=== PATIENT | female | born 1965 | race African-American/Black ===

== ENCOUNTER → 2017-04-19 | Outpatient (CLI) | payer OTHER ==
--- NOTE | 2017-04-19 10:48 | KCIC ---
Examination: Ultrasound abdomen complete HISTORY: History of elevated liver function tests COMPARISON: None available FINDINGS: The visualized pancreas grossly appears unremarkable. The visualized aorta, IVC appear patent. There is increased echogenicity echogenicity identified in the liver likely hepatic steatosis. The liver measures 16.2 cm No evidence of gallstones identified. The gallbladder wall thickness measures 1.3 mm Right kidney measures 10.6x 4.1 x 5.6 cm Left kidney measures 11.2 x 4.0 x 5.4 cm The spleen measures 9.4 cm in length. IMPRESSION: 1. Increased echogenicity noted throughout the liver likely hepatic steatosis. Electronically signed by: Julio Moore MD (04/19/2017 10:44 AM)
== END | disposition home or self-care (01) ==
LOC: KCIC US 08:52
PROVIDERS: ATTEND Internal Medicine Gastroenterology
DX: R79.89 Other specified abnormal findings of blood chemistry (principal)
CPT/HCPCS: 76700

== ENCOUNTER 2019-03-23 17:53 | Inpatient (IN) | payer OTHER ==
[~2019-03-23] VITALS: Ht 142.2 cm; Wt 77.2 kg
[2019-03-23] MEDS ORDERED: POTA10TA12 PO (18:11)
[2019-03-23] MEDS ORDERED: LIRA0.6P2 SQ (18:11)
[2019-03-23] MEDS ORDERED: AMLO5TAB10 PO (18:11)
[2019-03-23] MEDS ORDERED: METF10007 PO (18:11)
[2019-03-23] MEDS ORDERED: IBUPROFEN 200 MG TABLET. PO ONE (18:30)
[2019-03-23] MEDS ORDERED: IV NORMAL SALINE 1000ML BAG 1,000 ML IV ONE ×2 (18:30→19:15)
[2019-03-23] MEDS ORDERED: IPRATRPIUM/ALBUTEROL 0.5/2.5MG 3 ML NEBU. NEB ONE (18:30)
[2019-03-23] MEDS ORDERED: DEXAMETHASONE SOD PHOS 4 MG/ML VIAL IV ONE (18:30)
[2019-03-23 18:34] LABS: BASO # 0.1 x10^3/uL (0.0-0.2); BASO % 1 % (0-3); EOS % 0 % (0-3); HEMATOCRIT 38.7 % (36.0-47.0); HEMOGLOBIN 12.9 g/dL (12.0-15.5); LYMPH # 2.5 x10^3/uL (1.0-4.8); LYMPH % 16 % (24-48); MEAN CORPUSCULAR HEMOGLOBIN 28 pg (25-35); MEAN CORPUSCULAR HGB CONC 33 g/dL (31-37); MEAN CORPUSCULAR VOLUME 84 fL (79-100); MONO # 1.5 x10^3/uL (0.0-1.1); MONO % 9 % (0-9); NEUT # 12.1 x10^3uL (1.8-7.7); NEUT % 75 % (31-73); PLATELET COUNT 325 x10^3/uL (140-400); RED CELL DISTRIBUTION WIDTH 14.3 % (11.5-14.5); WHITE BLOOD COUNT 16.2 x10^3/uL (4.0-11.0)
--- NOTE | 2019-03-23 18:36 | PHYS DOC ---
Past Medical History Past Medical History: Diabetes-Type II, Hypertension Past Surgical History: Other Additional Past Surgical Histo: BLE fracture repair Additional Information: Nonsmoker Alcohol Use: None Drug Use: None Adult General Chief Complaint Chief Complaint: SHORTNESS OF BREATH HPI HPI Patient is a 53 year old female who presents with 4 days of progressive shortn ess of breath and productive cough. 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 Within the past couple of days, she has began having a sever frontoparietal headache that is worsened by coughing. She has felt feverish with chills at night however the highest her temperature has been at home was 98.8 with an oral thermometer. She has aches in her upper extremities and posterior neck b/l. Lately she has also felt more dehydrated and experiences dizziness upon standing. Patient denies focal weakness, paresthesias, chest pain or palpitations at this time. Review of Systems Review of Systems Constitutional: Reports fever or chills [] Eyes: Denies change in visual acuity, redness, or eye pain [] HENT: Denies nasal congestion or sore throat [] Respiratory: Reports cough, dyspnea and shortness of breath. Denies hemoptysis [] Cardiovascular: Denies chest pain or palpitations [] GI: Denies abdominal pain, nausea, vomiting, or diarrhea [] : Denies dysuria or hematuria [] Musculoskeletal: Reports muscles aches in UE b/l and posterior neck [] Integument: Denies rash or skin lesions [] Neurologic: Reports headache. Denies focal weakness or sensory changes [] Complete review of systems found to be within normal limits, except as documented in this note. Current Medications Current Medications Current Medications Medications (Trade) Dose Ordered Sig/Kayleigh Start Time Stop Time Status Last Admin Dose Admin Acetaminophen (Tylenol) 650 mg PRN Q4HRS PRN 03/23/19 19:30 03/24/19 19:29 DC Albuterol Sulfate (Ventolin Neb Soln) 2.5 mg PRN Q4HRS PRN 03/23/19 19:30 Albuterol/ Ipratropium (Duoneb) 3 ml 1X ONCE 03/23/19 18:30 03/23/19 18:31 DC 03/23/19 19:22 3 ML Dexamethasone Sodium Phosphate (Decadron) 10 mg 1X ONCE 03/23/19 18:30 03/23/19 18:31 DC 03/23/19 18:51 10 MG Ibuprofen (Motrin) 600 mg 1X ONCE 03/23/19 18:30 03/23/19 18:31 DC 03/23/19 18:50 600 MG Insulin Human Regular (HumuLIN R VIAL) 12 unit 1X ONCE 03/23/19 19:00 03/23/19 19:01 DC 03/23/19 19:57 12 UNIT Levofloxacin/ Dextrose 150 ml @ 100 mls/hr 1X ONCE 03/23/19 19:15 03/23/19 20:44 DC 03/23/19 20:02 100 MLS/HR Ondansetron HCl (Zofran) 4 mg PRN Q8HRS PRN 03/23/19 19:30 03/24/19 19:29 DC Piperacillin Sod/ Tazobactam Sod 4.5 gm/Sodium Chloride 100 ml @ 200 mls/hr 1X ONCE 03/23/19 18:45 03/23/19 19:14 DC 03/23/19 18:50 200 MLS/HR Sodium Chloride 500 ml @ 500 mls/hr 1X ONCE 03/23/19 19:15 03/23/19 20:14 DC 03/23/19 21:01 500 MLS/HR Allergies Allergies Allergies Coded Allergies Type Severity Reaction Last Updated Verified lisinopril Allergy Severe angioedema 03/23/19 Yes oxycodone Allergy Intermediate itching 03/23/19 Yes Physical Exam Physical Exam Constitutional: Ill appearing female wrapped in multiple blankets but in no acute distress [] HENT: Normocephalic, atraumatic, oropharynx dry with tongue fissures. [] Eyes: EOMI, conjunctiva normal, no discharge. [] Neck: Normal range of motion, no tenderness, supple, no stridor. [] Cardiovascular:Heart rate regular rhythm, no murmur [] Lungs & Thorax: Focal left lower lobe crackles. Good air movement elsewhere. [] Abdomen: Soft and nontender[] Skin: Warm, dry, no erythema, no rash. [] Extremities: Radial pulses +1 b/l, no cyanosis or mottling.. [] Neurologic: Alert and oriented, normal motor function, normal sensory function, no focal deficits noted. [] Psychologic: Affect normal, judgement normal, mood normal. [] Current Patient Data Vital Signs Vital Signs Date Time Temp Pulse Resp B/P (MAP) Pulse Ox O2 Delivery O2 Flow Rate FiO2 03/23/19 19:49 110 124/73 (90) 95 Nasal Cannula 2.0 03/23/19 18:00 100.1 20 100.1 Lab Values Laboratory Tests Test 03/23/19 18:10 03/23/19 19:10 03/23/19 19:20 White Blood Count 16.2 x10^3/uL (4.0-11.0) H Red Blood Count 4.60 x10^6/uL (3.50-5.40) Hemoglobin 12.9 g/dL (12.0-15.5) Hematocrit 38.7 % (36.0-47.0) Mean Corpuscular Volume 84 fL (79-100) Mean Corpuscular Hemoglobin 28 pg (25-35) Mean Corpuscular Hemoglobin Concent 33 g/dL (31-37) Red Cell Distribution Width 14.3 % (11.5-14.5) Platelet Count 325 x10^3/uL (140-400) Neutrophils (%) (Auto) 75 % (31-73) H Lymphocytes (%) (Auto) 16 % (24-48) L Monocytes (%) (Auto) 9 % (0-9) Eosinophils (%) (Auto) 0 % (0-3) Basophils (%) (Auto) 1 % (0-3) Neutrophils # (Auto) 12.1 x10^3uL (1.8-7.7) H Lymphocytes # (Auto) 2.5 x10^3/uL (1.0-4.8) Monocytes # (Auto) 1.5 x10^3/uL (0.0-1.1) H Eosinophils # (Auto) 0.0 x10^3/uL (0.0-0.7) Basophils # (Auto) 0.1 x10^3/uL (0.0-0.2) Sodium Level 129 mmol/L (136-145) L Potassium Level 4.1 mmol/L (3.5-5.1) Chloride Level 87 mmol/L (98-107) L Carbon Dioxide Level 29 mmol/L (21-32) Anion Gap 13 (6-14) Blood Urea Nitrogen 13 mg/dL (7-20) Creatinine 1.1 mg/dL (0.6-1.0) H Estimated GFR (Cockcroft-Gault) 62.4 BUN/Creatinine Ratio 12 (6-20) Glucose Level 398 mg/dL (70-99) H Lactic Acid Level 2.1 mmol/L (0.4-2.0) H Calcium Level 9.1 mg/dL (8.5-10.1) Magnesium Level 2.3 mg/dL (1.8-2.4) Total Bilirubin 0.6 mg/dL (0.2-1.0) Aspartate Amino Transferase (AST) 28 U/L (15-37) Alanine Aminotransferase (ALT) 28 U/L (14-59) Alkaline Phosphatase 126 U/L (46-116) H Creatine Kinase 82 U/L (26-192) Creatine Kinase MB (Mass) < 0.5 ng/mL (0.0-3.6) Creatine Kinase MB Relative Index % (0-4) Troponin I Quantitative < 0.017 ng/mL (0.000-0.055) FK-Wcg-D-Type Natriuretic Peptide 14 pg/mL (0-124) Total Protein 8.6 g/dL (6.4-8.2) H Albumin 3.1 g/dL (3.4-5.0) L Albumin/Globulin Ratio 0.6 (1.0-1.7) L Urine Collection Type Unknown Urine Color Yellow Urine Clarity Cloudy Urine pH 6.0 Urine Specific [place] >=1.030 Urine Protein 100 mg/dL (NEG-TRACE) Urine Glucose (UA) >=1000 mg/dL (NEG) Urine Ketones (Stick) 15 mg/dL (NEG) Urine Blood Trace (NEG) Urine Nitrite Negative (NEG) Urine Bilirubin Small (NEG) Urine Urobilinogen Dipstick 1.0 mg/dL (0.2 mg/dL) Urine Leukocyte Esterase Negative (NEG) Urine RBC 1-2 /HPF (0-2) Urine WBC 20-40 /HPF (0-4) Urine Squamous Epithelial Cells Few /LPF Urine Bacteria 0 /HPF (0-FEW) Urine Yeast Present /HPF Influenza Type A Antigen Negative (NEGATIVE) Influenza Type B Antigen Negative (NEGATIVE) Laboratory Tests 03/23/19 18:10 Laboratory Tests 03/23/19 18:10 Microbiology 03/23/19 Blood Culture - Preliminary, Resulted NO GROWTH AFTER 1 DAY Microbiology 03/23/19 Blood Culture - Preliminary, Resulted NO GROWTH AFTER 1 DAY EKG EKG [] Radiology/Procedures Radiology/Procedures @1808: Sinus tachycardia with rate of 123. Normal axis. Non pathologic Q waves in II, III, and aVF. No ST segment elevation or depression.[] Course & Med Decision Making Course & Med Decision Making Pertinent Labs and Imaging studies reviewed. (See chart for details) Patient is a 53 year old female who presents with 4 days of progressive shortness of breath and productive cough. Patient qualifies for severe sepsis based on pulse 123, WBC 16.2, lactate of 2.1 and chest x-ray findings suggesting of lobar pneumonia. She was given 2.5 L fluid bolus and initiated on empiric antibiotic therapy with Zosyn, Levaquin, and vancomycin. Patient has remained no rmotensive during her time in the ED. Breathing treatment and analgesics were administered with interval improvement of respiratory effort and headache. Blood sugar on CMP was 398 thus patient was given 12 units regular insulin SQ. CK-MB, troponin and pro-BNP negative. Patient requiring admission for further evaluation and treatment. Discussed with Dr. García (hospitalist) who is in agreement with admission. Discussed findings and plan with patient and family, who acknowledge understanding and agreement. Dragon Disclaimer Dragon Disclaimer This electronic medical record was generated, in whole or in part, using a voice recognition dictation system. Departure Departure Impression: Primary Impression: Severe sepsis Additional Impressions: Lobar pneumonia Hyperglycemia Urinary tract infection Disposition: ADMITTED INPATIENT Admitting Physician: Jose Guadalupe García Condition: GUARDED Referrals: JUSTO RASMUSSEN APRN (PCP) Date and Time of Reassessment Date: March 23, 2019 Time: 19:20 Fluid Challenge Is the fluid challenge complet: No Blood Culture TIme: 18:16 Time Antibiotics Given: 18:45 Vital Signs Vital Signs: Vital Signs Date Time Temp Pulse Resp B/P (MAP) Pulse Ox O2 Delivery O2 Flow Rate FiO2 03/23/19 19:49 110 124/73 (90) 95 Nasal Cannula 2.0 03/23/19 18:00 100.1 20 100.1 Temperature Source: Oral Respirations Respiratory Effort: Shortness of breath Cardiovascular Pulse Rhythm: Regular Heart: Nml rate, reg. rhythm Lung Sounds Breath Sounds: Coarse, Crackles (LLL) Capillary Refil Capillary Refill: Rt Hand < 3 seconds Peripheral Pulse Pulse Location: Radial Pulse Strength: Normal (2+) Pulse Assessment Method: NIBP Integumentary Skin: Warm, Dry Skin Moisture: Dry Skin Turgor: Normal Skin Color: warm, dry Fingernail Color: WNL Critical Care Time Critical care time was 30 minutes which includes time at bedside, spent in di scussion of patient's care with specialists and/or family members, with interpretation of laboratory and/or radiological studies and is exclusive of procedures. Problem Qualifiers Additional Impressions: Urinary tract infection Urinary tract infection type: acute cystitis Hematuria presence: without hematuria Qualified Codes: N30.00 - Acute cystitis without hematuria DOUGLAS MATHIAS DO March 23, 2019 18:36
[2019-03-23] MEDS ORDERED: ACETAMINOPHEN 500 MG TABLET PO ONE (18:45)
[2019-03-23] MEDS ORDERED: PIPERACILLIN/TAZOBACTAM 4.5 GM in IV NORMAL SALINE 100ML 100 ML IV ONE (18:45)
[2019-03-23 18:48] LABS: CALCIUM 9.1 mg/dL (8.5-10.1); CREATININE 1.1 mg/dL (0.6-1.0); GFR 62.4; POTASSIUM 4.1 mmol/L (3.5-5.1)
[2019-03-23 18:52] LABS: ALBUMIN 3.1 g/dL (3.4-5.0); ALBUMIN/GLOBULIN RATIO 0.6 (1.0-1.7); MAGNESIUM 2.3 mg/dL (1.8-2.4); TOTAL BILIRUBIN 0.6 mg/dL (0.2-1.0); TOTAL PROTEIN 8.6 g/dL (6.4-8.2)
[2019-03-23 18:56] LABS: CREATINE KINASE 82 U/L (26-192)
[2019-03-23] MEDS ORDERED: INSULIN REGULAR 100 UNIT/ML 3ML VIAL. SQ ONE (19:00)
[2019-03-23] MEDS ORDERED: IV NORMAL SALINE 500ML BAG 500 ML IV ONE (19:15)
[2019-03-23] MEDS ORDERED: ONDANSETRON PF 4 MG/2 ML VIAL. IV PRN (19:30)
[2019-03-23] MEDS ORDERED: ALBUTEROL SULFATE 2.5 MG/3 ML NEBU. NEB PRN (19:30)
[2019-03-23] MEDS ORDERED: ACETAMINOPHEN 325 MG TABLET. PO PRN (19:30)
[2019-03-23 19:31] LABS: BILIRUBIN,URINE SMALL (NEG); CLARITY,URINE CLOUDY; COLOR,URINE YELLOW; NITRITE,URINE NEGATIVE (NEG); PROTEIN,URINE 100 mg/dL (NEG-TRACE)
[2019-03-23 19:45] LABS: BACTERIA,URINE 0 /HPF (0-FEW); SQUAMOUS EPITHELIAL CELL,UR FEW /LPF; WBC,URINE 20-40 /HPF (0-4); YEAST,URINE PRESENT /HPF
[2019-03-23 19:46] LABS: INFLUENZA A PATIENT NEGATIVE (NEGATIVE); INFLUENZA B PATIENT NEGATIVE (NEGATIVE)
--- NOTE | 2019-03-23 19:55 | HP ---
ADMIT DATE: 03/23/2019 CHIEF COMPLAINT: Shortness of breath, weakness and hyperglycemia. HISTORY OF PRESENT ILLNESS: The patient is a pleasant 53-year-old female who does have diabetes. She has had 4 days of progressive shortness of breath, feels like she is extremely weak. She has continuous shortness of breath and cough. She tried taking some [id number] meds but that did not seem to work. Describes her symptoms as agonizing, rated at 10/10. Imaging studies showing a left lower lobe pneumonia. I discussed the case with the ER physician. We are going to admit the patient and consult Pulmonary. She will be given IV antibiotics, breathing treatments and oxygen. PAST MEDICAL HISTORY: Diabetes, hypertension, bilateral lower extremity fractures. ALLERGIES: LISINOPRIL AND OXYCODONE. FAMILY HISTORY: Diabetes. SOCIAL HISTORY: She does not drink, smoke or take drugs. 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 MEDICATIONS: Reviewed, please refer to the MRAD. REVIEW OF SYSTEMS: GENERAL: No history of weight change, weakness or fevers. SKIN: No bruising, hair changes or rashes. EYES: No blurred, double or loss of vision. NOSE AND THROAT: No history of nosebleeds, hoarseness or sore throat. HEART: No history of palpitations, chest pain or shortness of breath on exertion. LUNGS: She complains of shortness of breath. GASTROINTESTINAL: Denies changes in appetite, nausea, vomiting, diarrhea or constipation. GENITOURINARY: No history of frequency, urgency, hesitancy or nocturia. NEUROLOGIC: Denies history of numbness, tingling, tremor or weakness. PSYCHIATRIC: No history of panic, anxiety or depression. ENDOCRINE: No history of heat or cold intolerance, polyuria or polydipsia. EXTREMITIES: Denies muscle weakness, joint pain, pain on walking or stiffness. PHYSICAL EXAMINATION: VITAL SIGNS: Temperature 100.1, pulse 123, respirations 18, blood pressure 142/90. GENERAL: She is alert, cooperative. Her daughter is present and seems to be a good support for her. HEART: Tachy, S1, S2. LUNGS: Coarse ABDOMEN: Soft. EXTREMITIES: Trace edema. SKIN: No rash. ENDOCRINE: No thyromegaly. LYMPHATICS: No cervical nodes. HEMATOPOIETIC: No bruises. PSYCHIATRIC: She is depressed. LABORATORY DATA: White count 16. Sodium is 129, glucose 398, alkaline phosphatase 126. Troponin is 0. Chest x-ray shows pneumonia. ASSESSMENT AND PLAN: Pneumonia, hyponatremia, hyperglycemia, lactic acidosis at 2.1 and leukocytosis. The patient has been admitted. We will start IV antibiotics, breathing treatments, oxygen. Consult Pulmonary. Consult Infectious Disease. Sliding scale insulin. Frequent labs. DVT prophylaxis. Full code. MIGDALIA NAVAS DO DR: JOSEPH/benson JOB#: [id number] / [id number]
--- NOTE | 2019-03-23 19:57 | RAD ---
CHEST PA LATERAL History: Cough and shortness of breath.. The heart size is not significantly enlarged. No evidence of pneumothorax. There is airspace infiltrate in the left lung base. There is milder opacity right lung base. Small right and possible left pleural effusion. Bones appear grossly intact. IMPRESSION: Lung base infiltrates, much greater on the left, suspect pneumonia. Probable small effusions. Electronically signed by: John Severino MD (03/23/2019 7:54 PM) [id number]
[2019-03-23] MEDS ORDERED: VANCOMYCIN 1.75 GM in IV NORMAL SALINE 500ML BAG 500 ML IV ONE (20:00)
[2019-03-23 22:13] VITALS: BP 115/82
[2019-03-23] MEDS ORDERED: DEXTROSE 50% 25 GM / 50ML DISP.SYRIN. IV PRN (23:00)
[2019-03-23] MEDS ORDERED: INSULIN LISPRO 300 UNITS/3 ML INSULN.PEN. SQ ONE (23:30)
[2019-03-24] MEDS ORDERED: INSULIN LISPRO 300 UNITS/3 ML INSULN.PEN. SQ ONE (02:00)
[2019-03-24 03:45] VITALS: BP 110/72
--- NOTE | 2019-03-24 06:26 | EKG ---
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
[2019-03-24 07:00] VITALS: BP 108/74
--- NOTE | 2019-03-24 07:11 | NUR ---
Spoke to pt's sister Susan last night, she reported concern regarding pt's being sleepy lately all the time for like 2-3 weeks prior to this admission.
--- NOTE | 2019-03-24 08:03 | NUR ---
unable to reviewed home meds, pt is frequently falling asleep during admission assesment.
[2019-03-24] MEDS: INSULIN LISPRO 300 UNITS/3 ML INSULN.PEN. SQ SCH ×3 (08:26→17:13)
[2019-03-24] MEDS ORDERED: PIP/TAZO PER PHARMACY MC PRN (09:15)
[2019-03-24] MEDS ORDERED: GLIM2TAB2 PO (10:55)
[2019-03-24] MEDS ORDERED: LOSA1TAB19 PO (10:55)
[2019-03-24] MEDS ORDERED: METF500T9 PO (10:55)
[2019-03-24 11:00] VITALS: BP 112/70
[2019-03-24] MEDS: PIPERACILLIN/TAZOBACTAM 3.375 GM in IV NORMAL SALINE 50ML 50 ML IV SCH ×2 (12:02→17:06)
--- NOTE | 2019-03-24 12:13 | PDOC ---
Infectious Disease Note Vital Sign Vital Signs Vital Signs Date Time Temp Pulse Resp B/P (MAP) Pulse Ox O2 Delivery O2 Flow Rate FiO2 03/24/19 11:00 98.0 75 18 112/70 (84) 98 Nasal Cannula 2.0 98.0 Labs Lab Laboratory Tests Test 03/23/19 18:10 03/23/19 19:10 03/23/19 19:20 03/23/19 21:11 White Blood Count 16.2 x10^3/uL (4.0-11.0) Red Blood Count 4.60 x10^6/uL (3.50-5.40) Hemoglobin 12.9 g/dL (12.0-15.5) Hematocrit 38.7 % (36.0-47.0) Mean Corpuscular Volume 84 fL (79-100) Mean Corpuscular Hemoglobin 28 pg (25-35) Mean Corpuscular Hemoglobin Concent 33 g/dL (31-37) Red Cell Distribution Width 14.3 % (11.5-14.5) Platelet Count 325 x10^3/uL (140-400) Neutrophils (%) (Auto) 75 % (31-73) Lymphocytes (%) (Auto) 16 % (24-48) Monocytes (%) (Auto) 9 % (0-9) Eosinophils (%) (Auto) 0 % (0-3) Basophils (%) (Auto) 1 % (0-3) Neutrophils # (Auto) 12.1 x10^3uL (1.8-7.7) Lymphocytes # (Auto) 2.5 x10^3/uL (1.0-4.8) Monocytes # (Auto) 1.5 x10^3/uL (0.0-1.1) Eosinophils # (Auto) 0.0 x10^3/uL (0.0-0.7) Basophils # (Auto) 0.1 x10^3/uL (0.0-0.2) Sodium Level 129 mmol/L (136-145) Potassium Level 4.1 mmol/L (3.5-5.1) Chloride Level 87 mmol/L (98-107) Carbon Dioxide Level 29 mmol/L (21-32) Anion Gap 13 (6-14) Blood Urea Nitrogen 13 mg/dL (7-20) Creatinine 1.1 mg/dL (0.6-1.0) Estimated GFR (Cockcroft-Gault) 62.4 BUN/Creatinine Ratio 12 (6-20) Glucose Level 398 mg/dL (70-99) Lactic Acid Level 2.1 mmol/L (0.4-2.0) Calcium Level 9.1 mg/dL (8.5-10.1) Magnesium Level 2.3 mg/dL (1.8-2.4) Total Bilirubin 0.6 mg/dL (0.2-1.0) Aspartate Amino Transf (AST/SGOT) 28 U/L (15-37) Alanine Aminotransferase (ALT/SGPT) 28 U/L (14-59) Alkaline Phosphatase 126 U/L (46-116) Creatine Kinase 82 U/L (26-192) Creatine Kinase MB (Mass) < 0.5 ng/mL (0.0-3.6) Creatine Kinase MB Relative Index % (0-4) Troponin I Quantitative < 0.017 ng/mL (0.000-0.055) MM-[id number]-[id number]-Type Natriuretic Peptide 14 pg/mL (0-124) Total Protein 8.6 g/dL (6.4-8.2) Albumin 3.1 g/dL (3.4-5.0) Albumin/Globulin Ratio 0.6 (1.0-1.7) Urine Collection Type Unknown Urine Color Yellow Urine Clarity Cloudy Urine pH 6.0 Urine Specific [place] >=1.030 Urine Protein 100 mg/dL (NEG-TRACE) Urine Glucose (UA) >=1000 mg/dL (NEG) Urine Ketones (Stick) 15 mg/dL (NEG) Urine Blood Trace (NEG) Urine Nitrite Negative (NEG) Urine Bilirubin Small (NEG) Urine Urobilinogen Dipstick 1.0 mg/dL (0.2 mg/dL) Urine Leukocyte Esterase Negative (NEG) Urine RBC 1-2 /HPF (0-2) Urine WBC 20-40 /HPF (0-4) Urine Squamous Epithelial Cells Few /LPF Urine Bacteria 0 /HPF (0-FEW) Urine Yeast Present /HPF Influenza Type A Antigen Negative (NEGATIVE) Influenza Type B Antigen Negative (NEGATIVE) Glucose (Fingerstick) 338 mg/dL (70-99) Test 03/23/19 22:10 03/23/19 22:20 5/12/19 23:51 03/23/19 23:52 Lactic Acid Level 1.0 mmol/L (0.4-2.0) Troponin I Quantitative < 0.017 ng/mL (0.000-0.055) Glucose (Fingerstick) 389 mg/dL (70-99) 496 mg/dL (70-99) 453 mg/dL (70-99) Test 03/24/19 01:09 03/24/19 02:15 03/24/19 03:20 03/24/19 07:07 Troponin I Quantitative < 0.017 ng/mL (0.000-0.055) Glucose (Fingerstick) 416 mg/dL (70-99) 401 mg/dL (70-99) 315 mg/dL (70-99) Test 03/24/19 11:59 Glucose (Fingerstick) 435 mg/dL (70-99) CXR Lung base infiltrates, much greater on the left, suspect pneumonia. Probable small effusions. 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 The chart was reviewed. The case was discussed. Agree with the plan of care. MARGI SHERMAN APRN March 24, 2019 12:13 HAFSA PAREKH MD March 24, 2019 15:14
[2019-03-24] MEDS ORDERED: INSULIN GLARGINE 300 UNITS/3 ML INSULN.PEN. SQ SCH (12:30)
[2019-03-24] MEDS ORDERED: DEXTROSE 50% 25 GM / 50ML DISP.SYRIN. IV PRN (12:30)
--- NOTE | 2019-03-24 12:33 | PDOC ---
PROGRESS NOTES Chief Complaint Chief Complaint sepsis Pneumonia, hyponatremia, hyperglycemia, DM2 very poor control acute hypoxia, History of Present Illness History of Present Illness wean 02 as able vitals bettter very broad abx stared, may be able to taper, PULM to follow add a load of insulin, blood sugars very high Vitals Vitals Vital Signs Date Time Temp Pulse Resp B/P (MAP) Pulse Ox O2 Delivery O2 Flow Rate FiO2 03/24/19 11:00 98.0 75 18 112/70 (84) 98 Nasal Cannula 2.0 98.0 Physical Exam General: Alert, Oriented X3, Cooperative, mild distress Heart: Regular rate, Normal S2 Lungs: Wheezing, Other (good effort, then spastic coughing and dyspnea) Abdomen: Normal bowel sounds, No tenderness Extremities: No clubbing, No cyanosis, No edema, Normal pulses Skin: No rashes, No breakdown Labs LABS Laboratory Tests Test 03/23/19 18:10 03/23/19 19:10 03/23/19 19:20 03/23/19 21:11 White Blood Count 16.2 x10^3/uL (4.0-11.0) Red Blood Count 4.60 x10^6/uL (3.50-5.40) Hemoglobin 12.9 g/dL (12.0-15.5) Hematocrit 38.7 % (36.0-47.0) Mean Corpuscular Volume 84 fL (79-100) Mean Corpuscular Hemoglobin 28 pg (25-35) Mean Corpuscular Hemoglobin Concent 33 g/dL (31-37) Red Cell Distribution Width 14.3 % (11.5-14.5) Platelet Count 325 x10^3/uL (140-400) Neutrophils (%) (Auto) 75 % (31-73) Lymphocytes (%) (Auto) 16 % (24-48) Monocytes (%) (Auto) 9 % (0-9) Eosinophils (%) (Auto) 0 % (0-3) Basophils (%) (Auto) 1 % (0-3) Neutrophils # (Auto) 12.1 x10^3uL (1.8-7.7) Lymphocytes # (Auto) 2.5 x10^3/uL (1.0-4.8) Monocytes # (Auto) 1.5 x10^3/uL (0.0-1.1) Eosinophils # (Auto) 0.0 x10^3/uL (0.0-0.7) Basophils # (Auto) 0.1 x10^3/uL (0.0-0.2) Sodium Level 129 mmol/L (136-145) Potassium Level 4.1 mmol/L (3.5-5.1) Chloride Level 87 mmol/L (98-107) Carbon Dioxide Level 29 mmol/L (21-32) Anion Gap 13 (6-14) Blood Urea Nitrogen 13 mg/dL (7-20) Creatinine 1.1 mg/dL (0.6-1.0) Estimated GFR (Cockcroft-Gault) 62.4 BUN/Creatinine Ratio 12 (6-20) Glucose Level 398 mg/dL (70-99) Lactic Acid Level 2.1 mmol/L (0.4-2.0) Calcium Level 9.1 mg/dL (8.5-10.1) Magnesium Level 2.3 mg/dL (1.8-2.4) Total Bilirubin 0.6 mg/dL (0.2-1.0) Aspartate Amino Transf (AST/SGOT) 28 U/L (15-37) Alanine Aminotransferase (ALT/SGPT) 28 U/L (14-59) Alkaline Phosphatase 126 U/L (46-116) Creatine Kinase 82 U/L (26-192) Creatine Kinase MB (Mass) < 0.5 ng/mL (0.0-3.6) Creatine Kinase MB Relative Index % (0-4) Troponin I Quantitative < 0.017 ng/mL (0.000-0.055) DX-Jcn-B-Type Natriuretic Peptide 14 pg/mL (0-124) Total Protein 8.6 g/dL (6.4-8.2) Albumin 3.1 g/dL (3.4-5.0) Albumin/Globulin Ratio 0.6 (1.0-1.7) Urine Collection Type Unknown Urine Color Yellow Urine Clarity Cloudy Urine pH 6.0 Urine Specific [place] >=1.030 Urine Protein 100 mg/dL (NEG-TRACE) Urine Glucose (UA) >=1000 mg/dL (NEG) Urine Ketones (Stick) 15 mg/dL (NEG) Urine Blood Trace (NEG) Urine Nitrite Negative (NEG) Urine Bilirubin Small (NEG) Urine Urobilinogen Dipstick 1.0 mg/dL (0.2 mg/dL) Urine Leukocyte Esterase Negative (NEG) Urine RBC 1-2 /HPF (0-2) Urine WBC 20-40 /HPF (0-4) Urine Squamous Epithelial Cells Few /LPF Urine Bacteria 0 /HPF (0-FEW) Urine Yeast Present /HPF Influenza Type A Antigen Negative (NEGATIVE) Influenza Type B Antigen Negative (NEGATIVE) Glucose (Fingerstick) 338 mg/dL (70-99) Test 03/23/19 22:10 03/23/19 22:20 03/23/19 23:51 03/23/19 23:52 Lactic Acid Level 1.0 mmol/L (0.4-2.0) Troponin I Quantitative < 0.017 ng/mL (0.000-0.055) Glucose (Fingerstick) 389 mg/dL (70-99) 496 mg/dL (70-99) 453 mg/dL (70-99) Test 03/24/19 01:09 03/24/19 02:15 03/24/19 03:20 03/24/19 07:07 Troponin I Quantitative < 0.017 ng/mL (0.000-0.055) Glucose (Fingerstick) 416 mg/dL (70-99) 401 mg/dL (70-99) 315 mg/dL (70-99) Test 03/24/19 11:59 Glucose (Fingerstick) 435 mg/dL (70-99) Review of Systems Review of Systems weakness ,myalgia, cough, dyspnea Assessment and Plan Assessmemt and Plan Problems Medical Problems: (1) Cough Status: Acute (2) Hyperglycemia Status: Acute (3) Lobar pneumonia Status: Acute (4) Severe sepsis Status: Acute (5) Shortness of breath Status: Acute Comment Review of Relevant I have reviewed the following items tete (where applicable) has been applied. Labs Laboratory Tests Test 03/23/19 18:10 03/23/19 19:10 03/23/19 19:20 03/23/19 21:11 White Blood Count 16.2 x10^3/uL (4.0-11.0) Red Blood Count 4.60 x10^6/uL (3.50-5.40) Hemoglobin 12.9 g/dL (12.0-15.5) Hematocrit 38.7 % (36.0-47.0) Mean Corpuscular Volume 84 fL (79-100) Mean Corpuscular Hemoglobin 28 pg (25-35) Mean Corpuscular Hemoglobin Concent 33 g/dL (31-37) Red Cell Distribution Width 14.3 % (11.5-14.5) Platelet Count 325 x10^3/uL (140-400) Neutrophils (%) (Auto) 75 % (31-73) Lymphocytes (%) (Auto) 16 % (24-48) Monocytes (%) (Auto) 9 % (0-9) Eosinophils (%) (Auto) 0 % (0-3) Basophils (%) (Auto) 1 % (0-3) Neutrophils # (Auto) 12.1 x10^3uL (1.8-7.7) Lymphocytes # (Auto) 2.5 x10^3/uL (1.0-4.8) Monocytes # (Auto) 1.5 x10^3/uL (0.0-1.1) Eosinophils # (Auto) 0.0 x10^3/uL (0.0-0.7) Basophils # (Auto) 0.1 x10^3/uL (0.0-0.2) Sodium Level 129 mmol/L (136-145) Potassium Level 4.1 mmol/L (3.5-5.1) Chloride Level 87 mmol/L (98-107) Carbon Dioxide Level 29 mmol/L (21-32) Anion Gap 13 (6-14) Blood Urea Nitrogen 13 mg/dL (7-20) Creatinine 1.1 mg/dL (0.6-1.0) Estimated GFR (Cockcroft-Gault) 62.4 BUN/Creatinine Ratio 12 (6-20) Glucose Level 398 mg/dL (70-99) Lactic Acid Level 2.1 mmol/L (0.4-2.0) Calcium Level 9.1 mg/dL (8.5-10.1) Magnesium Level 2.3 mg/dL (1.8-2.4) Total Bilirubin 0.6 mg/dL (0.2-1.0) Aspartate Amino Transf (AST/SGOT) 28 U/L (15-37) Alanine Aminotransferase (ALT/SGPT) 28 U/L (14-59) Alkaline Phosphatase 126 U/L (46-116) Creatine Kinase 82 U/L (26-192) Creatine Kinase MB (Mass) < 0.5 ng/mL (0.0-3.6) Creatine Kinase MB Relative Index % (0-4) Troponin I Quantitative < 0.017 ng/mL (0.000-0.055) KB-Hpu-Q-Type Natriuretic Peptide 14 pg/mL (0-124) Total Protein 8.6 g/dL (6.4-8.2) Albumin 3.1 g/dL (3.4-5.0) Albumin/Globulin Ratio 0.6 (1.0-1.7) Urine Collection Type Unknown Urine Color Yellow Urine Clarity Cloudy Urine pH 6.0 Urine Specific [place] >=1.030 Urine Protein 100 mg/dL (NEG-TRACE) Urine Glucose (UA) >=1000 mg/dL (NEG) Urine Ketones (Stick) 15 mg/dL (NEG) Urine Blood Trace (NEG) Urine Nitrite Negative (NEG) Urine Bilirubin Small (NEG) Urine Urobilinogen Dipstick 1.0 mg/dL (0.2 mg/dL) Urine Leukocyte Esterase Negative (NEG) Urine RBC 1-2 /HPF (0-2) Urine WBC 20-40 /HPF (0-4) Urine Squamous Epithelial Cells Few /LPF Urine Bacteria 0 /HPF (0-FEW) Urine Yeast Present /HPF Influenza Type A Antigen Negative (NEGATIVE) Influenza Type B Antigen Negative (NEGATIVE) Glucose (Fingerstick) 338 mg/dL (70-99) Test 03/23/19 22:10 03/23/19 22:20 03/23/19 23:51 03/23/19 23:52 Lactic Acid Level 1.0 mmol/L (0.4-2.0) Troponin I Quantitative < 0.017 ng/mL (0.000-0.055) Glucose (Fingerstick) 389 mg/dL (70-99) 496 mg/dL (70-99) 453 mg/dL (70-99) Test 03/24/19 01:09 03/24/19 02:15 03/24/19 03:20 03/24/19 07:07 Troponin I Quantitative < 0.017 ng/mL (0.000-0.055) Glucose (Fingerstick) 416 mg/dL (70-99) 401 mg/dL (70-99) 315 mg/dL (70-99) Test 03/24/19 11:59 Glucose (Fingerstick) 435 mg/dL (70-99) Laboratory Tests Test 03/23/19 18:10 03/23/19 19:10 03/23/19 19:20 03/23/19 21:11 White Blood Count 16.2 x10^3/uL (4.0-11.0) Red Blood Count 4.60 x10^6/uL (3.50-5.40) Hemoglobin 12.9 g/dL (12.0-15.5) Hematocrit 38.7 % (36.0-47.0) Mean Corpuscular Volume 84 fL (79-100) Mean Corpuscular Hemoglobin 28 pg (25-35) Mean Corpuscular Hemoglobin Concent 33 g/dL (31-37) Red Cell Distribution Width 14.3 % (11.5-14.5) Platelet Count 325 x10^3/uL (140-400) Neutrophils (%) (Auto) 75 % (31-73) Lymphocytes (%) (Auto) 16 % (24-48) Monocytes (%) (Auto) 9 % (0-9) Eosinophils (%) (Auto) 0 % (0-3) Basophils (%) (Auto) 1 % (0-3) Neutrophils # (Auto) 12.1 x10^3uL (1.8-7.7) Lymphocytes # (Auto) 2.5 x10^3/uL (1.0-4.8) Monocytes # (Auto) 1.5 x10^3/uL (0.0-1.1) Eosinophils # (Auto) 0.0 x10^3/uL (0.0-0.7) Basophils # (Auto) 0.1 x10^3/uL (0.0-0.2) Sodium Level 129 mmol/L (136-145) Potassium Level 4.1 mmol/L (3.5-5.1) Chloride Level 87 mmol/L (98-107) Carbon Dioxide Level 29 mmol/L (21-32) Anion Gap 13 (6-14) Blood Urea Nitrogen 13 mg/dL (7-20) Creatinine 1.1 mg/dL (0.6-1.0) Estimated GFR (Cockcroft-Gault) 62.4 BUN/Creatinine Ratio 12 (6-20) Glucose Level 398 mg/dL (70-99) Lactic Acid Level 2.1 mmol/L (0.4-2.0) Calcium Level 9.1 mg/dL (8.5-10.1) Magnesium Level 2.3 mg/dL (1.8-2.4) Total Bilirubin 0.6 mg/dL (0.2-1.0) Aspartate Amino Transf (AST/SGOT) 28 U/L (15-37) Alanine Aminotransferase (ALT/SGPT) 28 U/L (14-59) Alkaline Phosphatase 126 U/L (46-116) Creatine Kinase 82 U/L (26-192) Creatine Kinase MB (Mass) < 0.5 ng/mL (0.0-3.6) Creatine Kinase MB Relative Index % (0-4) Troponin I Quantitative < 0.017 ng/mL (0.000-0.055) VT-Bro-C-Type Natriuretic Peptide 14 pg/mL (0-124) Total Protein 8.6 g/dL (6.4-8.2) Albumin 3.1 g/dL (3.4-5.0) Albumin/Globulin Ratio 0.6 (1.0-1.7) Urine Collection Type Unknown Urine Color Yellow Urine Clarity Cloudy Urine pH 6.0 Urine Specific [place] >=1.030 Urine Protein 100 mg/dL (NEG-TRACE) Urine Glucose (UA) >=1000 mg/dL (NEG) Urine Ketones (Stick) 15 mg/dL (NEG) Urine Blood Trace (NEG) Urine Nitrite Negative (NEG) Urine Bilirubin Small (NEG) Urine Urobilinogen Dipstick 1.0 mg/dL (0.2 mg/dL) Urine Leukocyte Esterase Negative (NEG) Urine RBC 1-2 /HPF (0-2) Urine WBC 20-40 /HPF (0-4) Urine Squamous Epithelial Cells Few /LPF Urine Bacteria 0 /HPF (0-FEW) Urine Yeast Present /HPF Influenza Type A Antigen Negative (NEGATIVE) Influenza Type B Antigen Negative (NEGATIVE) Glucose (Fingerstick) 338 mg/dL (70-99) Test 03/23/19 22:10 03/23/19 22:20 03/23/19 23:51 03/23/19 23:52 Lactic Acid Level 1.0 mmol/L (0.4-2.0) Troponin I Quantitative < 0.017 ng/mL (0.000-0.055) Glucose (Fingerstick) 389 mg/dL (70-99) 496 mg/dL (70-99) 453 mg/dL (70-99) Test 03/24/19 01:09 03/24/19 02:15 03/24/19 03:20 03/24/19 07:07 Troponin I Quantitative < 0.017 ng/mL (0.000-0.055) Glucose (Fingerstick) 416 mg/dL (70-99) 401 mg/dL (70-99) 315 mg/dL (70-99) Test 03/24/19 11:59 Glucose (Fingerstick) 435 mg/dL (70-99) Medications Current Medications Albuterol/ Ipratropium (Duoneb) 3 ml 1X ONCE NEB Last administered on 03/23/19 19:22; Start 03/23/19 at 18:30; Stop 03/23/19 at 18:31; Status DC Sodium Chloride 1,000 ml @ 1,000 mls/hr 1X ONCE IV Last administered on 03/23/19 18:51; Start 03/23/19 at 18:30; Stop 03/23/19 at 19:29; Status DC Dexamethasone Sodium Phosphate (Decadron) 10 mg 1X ONCE IV Last administered on 03/23/19 18:51; Start 03/23/19 at 18:30; Stop 03/23/19 at 18:31; Status DC Ibuprofen (Motrin) 600 mg 1X ONCE PO Last administered on 03/23/19 18:50; Start 03/23/19 at 18:30; Stop 03/23/19 at 18:31; Status DC Piperacillin Sod/ Tazobactam Sod 4.5 gm/Sodium Chloride 100 ml @ 200 mls/hr 1X ONCE IV Last administered on 03/23/19 18:50; Start 03/23/19 at 18:45; Stop 03/23/19 at 19:14; Status DC Acetaminophen (Tylenol) 500 mg 1X ONCE PO Last administered on 03/23/19at 18:51; Start 03/23/19 at 18:45; Stop 03/23/19 at 18:46; Status DC Insulin Human Regular (HumuLIN R VIAL) 12 unit 1X ONCE SQ Last administered on 03/23/19at 19:57; Start 03/23/19 at 19:00; Stop 03/23/19 at 19:01; Status DC Levofloxacin/ Dextrose 150 ml @ 100 mls/hr 1X ONCE IV Last administered on 03/23/19at 20:02; Start 03/23/19 at 19:15; Stop 03/23/19 at 20:44; Status DC Vancomycin HCl 1.75 gm/Sodium Chloride 500 ml @ 250 mls/hr 1X ONCE IV Last administered on 03/23/19at 19:59; Start 03/23/19 at 20:00; Stop 03/23/19 at 21:59; Status DC Sodium Chloride 1,000 ml @ 1,000 mls/hr 1X ONCE IV Last administered on 03/23/19at 19:56; Start 03/23/19 at 19:15; Stop 03/23/19 at 20:14; Status DC Sodium Chloride 500 ml @ 500 mls/hr 1X ONCE IV Last administered on 03/23/19at 21:01; Start 03/23/19 at 19:15; Stop 03/23/19 at 20:14; Status DC Ondansetron HCl (Zofran) 4 mg PRN Q8HRS PRN IV NAUSEA/VOMITING; Start 03/23/19 at 19:30; Stop 03/24/19 at 19:29 Acetaminophen (Tylenol) 650 mg PRN Q4HRS PRN PO FEVER; Start 03/23/19 at 19:30; Stop 03/24/19 at 19:29 Albuterol Sulfate (Ventolin Neb Soln) 2.5 mg PRN Q4HRS PRN NEB SHORTNESS OF BREATH; Start 03/23/19 at 19:30 Insulin Human Lispro (HumaLOG) 15 units 1X ONCE SQ Last administered on 03/23/19at 23:05; Start 03/23/19 at 23:30; Stop 03/23/19 at 23:31; Status DC Insulin Human Lispro (HumaLOG) 0-7 UNITS TIDWMEALS SQ Last administered on 03/24/19at 12:11; Start 03/24/19 at 08:00 Dextrose (Dextrose 50%-Water Syringe) 12.5 gm PRN Q15MIN PRN IV SEE COMMENTS; Start 03/23/19 at 23:00 Insulin Human Lispro (HumaLOG) 25 units 1X ONCE SQ Last administered on 03/24/19at 01:50; Start 03/24/19 at 02:00; Stop 03/24/19 at 02:01; Status DC Piperacillin Sod/ Tazobactam Sod (Zosyn Per Pharmacy) 1 each PRN DAILY PRN MC SEE COMMENTS; Start 03/24/19 at 09:15 Albuterol/ Ipratropium (Duoneb) 3 ml RTQID NEB ; Start 03/24/19 at 12:00 Piperacillin Sod/ Tazobactam Sod 3.375 gm/Sodium Chloride 50 ml @ 100 mls/hr Q6HRS IV Last administered on 03/24/19at 12:02; Start 03/24/19 at 10:00 Amlodipine Besylate (Norvasc) 5 mg DAILY PO ; Start 03/25/19 at 09:00; Status UNV Glimepiride (Amaryl) 2 mg DAILY PO ; Start 03/25/19 at 09:00; Status UNV Non-Formulary Medication (Liraglutide (Victoza 3-Talat)) 1.2 mg DAILY SQ ; Start 03/25/19 at 09:00; Status UNV Non-Formulary Medication (Losartan/ Hydrochlorothiazide (Losartan-Hctz 50-12.5 Mg Tab)) 1 tab DAILY PO ; Start 03/25/19 at 09:00; Status UNV Non-Formulary Medication (Metformin Hcl (Metformin Hcl Er)) 500 mg BIDWMEALS PO ; Start 03/24/19 at 17:00; Status UNV Insulin Glargine (Lantus) 25 units DAILY SQ ; Start 03/24/19 at 12:30; Status UNV Active Scripts Active Reported Losartan-Hctz 50-12.5 Mg Tab (Losartan/Hydrochlorothiazide) 1 Each Tablet 1 Tab PO DAILY Glimepiride 2 Mg Tablet 1 Tab PO DAILY Metformin Hcl Er (Metformin Hcl) 500 Mg Tab.er.24h 500 Mg PO BIDWMEALS Amlodipine Besylate 5 Mg Tablet 10 PO DAILY Victoza 3-Talat (Liraglutide) 0.6 Mg/0.1 Ml Pen.injctr 1.2 Mg SQ DAILY Vitals/I & O Vital Sign - Last 24 Hours 03/23/19 03/23/19 03/23/19 03/23/19 18:00 19:24 19:49 20:16 Temp 100.1 100.1 Pulse 123 110 100 Resp 20 25 B/P (MAP) 131/72 (91) 124/73 (90) 98/55 (69) Pulse Ox 93 88 95 96 O2 Delivery Room Air Room Air Nasal Cannula Nasal Cannula O2 Flow Rate 2.0 2.0 03/23/19 03/23/19 03/23/19 03/23/19 20:46 21:16 22:00 22:13 Temp 98.2 98.2 Pulse 96 92 89 Resp 26 25 20 B/P (MAP) 103/62 (76) 110/67 (81) 115/82 (93) Pulse Ox 95 97 91 O2 Delivery Nasal Cannula Nasal Cannula Nasal Cannula Nasal Cannula O2 Flow Rate 2.0 2.0 2.0 2.0 03/24/19 03/24/19 03/24/19 03/24/19 03:45 07:00 08:00 11:00 Temp 98.0 98.2 98.0 98.0 98.2 98.0 Pulse 76 73 75 Resp 18 18 18 B/P (MAP) 110/72 (85) 108/74 (85) 112/70 (84) Pulse Ox 90 97 98 O2 Delivery Nasal Cannula Nasal Cannula Nasal Cannula Nasal Cannula O2 Flow Rate 2.0 2.0 2.0 2.0 Intake and Output 03/23/19 03/23/19 03/24/19 14:59 22:59 06:59 Intake Total 2100 ml 250 ml Balance 2100 ml 250 ml FREDY DAVID MD March 24, 2019 12:33
[2019-03-24] MEDS: IPRATRPIUM/ALBUTEROL 0.5/2.5MG 3 ML NEBU. NEB SCH ×3 (12:46→19:26)
[2019-03-24] MEDS ORDERED: guaiFENesin/CODEINE 100mg/10mg 5 ML LIQUID PO PRN (13:00)
[2019-03-24 13:06] LABS: MYCOPLASMA PATIENT NEGATIVE (NEGATIVE)
[2019-03-24] MEDS: metFORMIN XR 500 MG TAB.ER.24H PO SCH ×2 (13:06→17:05)
[2019-03-24] MEDS: amLODIPine BESYLATE 5 MG TABLET PO SCH (13:07)
[2019-03-24] MEDS: LOSARTAN POTASSIUM 50 MG TABLET. PO SCH (13:07)
[2019-03-24] MEDS: hydroCHLOROthiazide 12.5 MG CAPSULE PO SCH (13:09)
[2019-03-24 14:43] VITALS: BP 124/79
--- NOTE | 2019-03-24 15:22 | NUR ---
SW following pt for anticipated dc needs. Chart reviewed. Pt lives at home with family. ID following Pt and No dc recommendation/SW needs noted at this time. Will continue to evaluate needs.
[2019-03-24] MEDS ORDERED: INSULIN LISPRO 300 UNITS/3 ML INSULN.PEN. SQ SCH (17:00)
[2019-03-24] MEDS ORDERED: SERT100T PO (17:16)
[2019-03-24] MEDS ORDERED: POTA10TA12 PO (17:16)
--- NOTE | 2019-03-24 17:24 | PDOC ---
PULMONARY PROGRESS NOTES Vitals Vital Signs Date Time Temp Pulse Resp B/P (MAP) Pulse Ox O2 Delivery O2 Flow Rate FiO2 03/24/19 15:56 98 Room Air 03/24/19 14:43 98.0 75 18 124/79 (94) 2.0 98.0 Lungs: Wheezing, Other (good effort, then spastic coughing and dyspnea) Labs Laboratory Tests Test 03/23/19 18:10 03/23/19 19:10 03/23/19 19:20 03/23/19 21:11 White Blood Count 16.2 x10^3/uL (4.0-11.0) Red Blood Count 4.60 x10^6/uL (3.50-5.40) Hemoglobin 12.9 g/dL (12.0-15.5) Hematocrit 38.7 % (36.0-47.0) Mean Corpuscular Volume 84 fL (79-100) Mean Corpuscular Hemoglobin 28 pg (25-35) Mean Corpuscular Hemoglobin Concent 33 g/dL (31-37) Red Cell Distribution Width 14.3 % (11.5-14.5) Platelet Count 325 x10^3/uL (140-400) Neutrophils (%) (Auto) 75 % (31-73) Lymphocytes (%) (Auto) 16 % (24-48) Monocytes (%) (Auto) 9 % (0-9) Eosinophils (%) (Auto) 0 % (0-3) Basophils (%) (Auto) 1 % (0-3) Neutrophils # (Auto) 12.1 x10^3uL (1.8-7.7) Lymphocytes # (Auto) 2.5 x10^3/uL (1.0-4.8) Monocytes # (Auto) 1.5 x10^3/uL (0.0-1.1) Eosinophils # (Auto) 0.0 x10^3/uL (0.0-0.7) Basophils # (Auto) 0.1 x10^3/uL (0.0-0.2) Sodium Level 129 mmol/L (136-145) Potassium Level 4.1 mmol/L (3.5-5.1) Chloride Level 87 mmol/L (98-107) Carbon Dioxide Level 29 mmol/L (21-32) Anion Gap 13 (6-14) Blood Urea Nitrogen 13 mg/dL (7-20) Creatinine 1.1 mg/dL (0.6-1.0) Estimated GFR (Cockcroft-Gault) 62.4 BUN/Creatinine Ratio 12 (6-20) Glucose Level 398 mg/dL (70-99) Lactic Acid Level 2.1 mmol/L (0.4-2.0) Calcium Level 9.1 mg/dL (8.5-10.1) Magnesium Level 2.3 mg/dL (1.8-2.4) Total Bilirubin 0.6 mg/dL (0.2-1.0) Aspartate Amino Transf (AST/SGOT) 28 U/L (15-37) Alanine Aminotransferase (ALT/SGPT) 28 U/L (14-59) Alkaline Phosphatase 126 U/L (46-116) Creatine Kinase 82 U/L (26-192) Creatine Kinase MB (Mass) < 0.5 ng/mL (0.0-3.6) Creatine Kinase MB Relative Index % (0-4) Troponin I Quantitative < 0.017 ng/mL (0.000-0.055) DK-Ypo-H-Type Natriuretic Peptide 14 pg/mL (0-124) Total Protein 8.6 g/dL (6.4-8.2) Albumin 3.1 g/dL (3.4-5.0) Albumin/Globulin Ratio 0.6 (1.0-1.7) Urine Collection Type Unknown Urine Color Yellow Urine Clarity Cloudy Urine pH 6.0 Urine Specific [place] >=1.030 Urine Protein 100 mg/dL (NEG-TRACE) Urine Glucose (UA) >=1000 mg/dL (NEG) Urine Ketones (Stick) 15 mg/dL (NEG) Urine Blood Trace (NEG) Urine Nitrite Negative (NEG) Urine Bilirubin Small (NEG) Urine Urobilinogen Dipstick 1.0 mg/dL (0.2 mg/dL) Urine Leukocyte Esterase Negative (NEG) Urine RBC 1-2 /HPF (0-2) Urine WBC 20-40 /HPF (0-4) Urine Squamous Epithelial Cells Few /LPF Urine Bacteria 0 /HPF (0-FEW) Urine Yeast Present /HPF Influenza Type A Antigen Negative (NEGATIVE) Influenza Type B Antigen Negative (NEGATIVE) Glucose (Fingerstick) 338 mg/dL (70-99) Test 03/23/19 22:10 5/12/19 22:20 03/23/19 23:51 03/23/19 23:52 Lactic Acid Level 1.0 mmol/L (0.4-2.0) Troponin I Quantitative < 0.017 ng/mL (0.000-0.055) Glucose (Fingerstick) 389 mg/dL (70-99) 496 mg/dL (70-99) 453 mg/dL (70-99) Test 03/24/19 01:09 03/24/19 02:15 03/24/19 03:20 03/24/19 07:07 Troponin I Quantitative < 0.017 ng/mL (0.000-0.055) Mycoplasma Serology (LAB) Negative (NEGATIVE) Glucose (Fingerstick) 416 mg/dL (70-99) 401 mg/dL (70-99) 315 mg/dL (70-99) Test 03/24/19 11:59 03/24/19 16:28 Glucose (Fingerstick) 435 mg/dL (70-99) 448 mg/dL (70-99) Laboratory Tests Test 03/23/19 18:10 03/23/19 19:10 03/23/19 19:20 03/23/19 21:11 White Blood Count 16.2 x10^3/uL (4.0-11.0) Red Blood Count 4.60 x10^6/uL (3.50-5.40) Hemoglobin 12.9 g/dL (12.0-15.5) Hematocrit 38.7 % (36.0-47.0) Mean Corpuscular Volume 84 fL (79-100) Mean Corpuscular Hemoglobin 28 pg (25-35) Mean Corpuscular Hemoglobin Concent 33 g/dL (31-37) Red Cell Distribution Width 14.3 % (11.5-14.5) Platelet Count 325 x10^3/uL (140-400) Neutrophils (%) (Auto) 75 % (31-73) Lymphocytes (%) (Auto) 16 % (24-48) Monocytes (%) (Auto) 9 % (0-9) Eosinophils (%) (Auto) 0 % (0-3) Basophils (%) (Auto) 1 % (0-3) Neutrophils # (Auto) 12.1 x10^3uL (1.8-7.7) Lymphocytes # (Auto) 2.5 x10^3/uL (1.0-4.8) Monocytes # (Auto) 1.5 x10^3/uL (0.0-1.1) Eosinophils # (Auto) 0.0 x10^3/uL (0.0-0.7) Basophils # (Auto) 0.1 x10^3/uL (0.0-0.2) Sodium Level 129 mmol/L (136-145) Potassium Level 4.1 mmol/L (3.5-5.1) Chloride Level 87 mmol/L (98-107) Carbon Dioxide Level 29 mmol/L (21-32) Anion Gap 13 (6-14) Blood Urea Nitrogen 13 mg/dL (7-20) Creatinine 1.1 mg/dL (0.6-1.0) Estimated GFR (Cockcroft-Gault) 62.4 BUN/Creatinine Ratio 12 (6-20) Glucose Level 398 mg/dL (70-99) Lactic Acid Level 2.1 mmol/L (0.4-2.0) Calcium Level 9.1 mg/dL (8.5-10.1) Magnesium Level 2.3 mg/dL (1.8-2.4) Total Bilirubin 0.6 mg/dL (0.2-1.0) Aspartate Amino Transf (AST/SGOT) 28 U/L (15-37) Alanine Aminotransferase (ALT/SGPT) 28 U/L (14-59) Alkaline Phosphatase 126 U/L (46-116) Creatine Kinase 82 U/L (26-192) Creatine Kinase MB (Mass) < 0.5 ng/mL (0.0-3.6) Creatine Kinase MB Relative Index % (0-4) Troponin I Quantitative < 0.017 ng/mL (0.000-0.055) RS-[id number]-A-Type Natriuretic Peptide 14 pg/mL (0-124) Total Protein 8.6 g/dL (6.4-8.2) Albumin 3.1 g/dL (3.4-5.0) Albumin/Globulin Ratio 0.6 (1.0-1.7) Urine Collection Type Unknown Urine Color Yellow Urine Clarity Cloudy Urine pH 6.0 Urine Specific Register >=1.030 Urine Protein 100 mg/dL (NEG-TRACE) Urine Glucose (UA) >=1000 mg/dL (NEG) Urine Ketones (Stick) 15 mg/dL (NEG) Urine Blood Trace (NEG) Urine Nitrite Negative (NEG) Urine Bilirubin Small (NEG) Urine Urobilinogen Dipstick 1.0 mg/dL (0.2 mg/dL) Urine Leukocyte Esterase Negative (NEG) Urine RBC 1-2 /HPF (0-2) Urine WBC 20-40 /HPF (0-4) Urine Squamous Epithelial Cells Few /LPF Urine Bacteria 0 /HPF (0-FEW) Urine Yeast Present /HPF Influenza Type A Antigen Negative (NEGATIVE) Influenza Type B Antigen Negative (NEGATIVE) Glucose (Fingerstick) 338 mg/dL (70-99) Test 03/23/19 22:10 03/23/19 22:20 03/23/19 23:51 03/23/19 23:52 Lactic Acid Level 1.0 mmol/L (0.4-2.0) Troponin I Quantitative < 0.017 ng/mL (0.000-0.055) Glucose (Fingerstick) 389 mg/dL (70-99) 496 mg/dL (70-99) 453 mg/dL (70-99) Test 03/24/19 01:09 03/24/19 02:15 03/24/19 03:20 03/24/19 07:07 Troponin I Quantitative < 0.017 ng/mL (0.000-0.055) Mycoplasma Serology (LAB) Negative (NEGATIVE) Glucose (Fingerstick) 416 mg/dL (70-99) 401 mg/dL (70-99) 315 mg/dL (70-99) Test 03/24/19 11:59 03/24/19 16:28 Glucose (Fingerstick) 435 mg/dL (70-99) 448 mg/dL (70-99) Medications Active Scripts Medications Dose Route/Sig Max Daily Dose Days Date Category Potassium Chloride 10 Meq Tab.sr.24h 10 Meq PO BID 03/24/19 Reported Zoloft (Sertraline Hcl) 100 Mg Tablet 1 Tab PO BID 03/24/19 Reported Losartan-Hctz 50-12.5 Mg Tab (Losartan/Hydrochlorothiazide) 1 Each Tablet 1 Tab PO DAILY 03/24/19 Reported Glimepiride 2 Mg Tablet 1 Tab PO DAILY 03/24/19 Reported Metformin Hcl Er (Metformin Hcl) 500 Mg Tab.er.24h 500 Mg PO BIDWMEALS 03/24/19 Reported Amlodipine Besylate 5 Mg Tablet 10 PO DAILY 03/23/19 Reported Victoza 3-Talat (Liraglutide) 0.6 Mg/0.1 Ml Pen.injctr 1.2 Mg SQ DAILY 03/23/19 Reported Impression . FULL CONSULT DICTATED PNEUMONIA AGREE WITH RX WILMA HEARN MD March 24, 2019 17:24
[2019-03-24] MEDS: POTASSIUM CHLORIDE 10 MEQ TABLET.ER. PO SCH (18:11)
--- NOTE | 2019-03-24 18:40 | NUR ---
Patient transferred to room 534. Report given to Ladonna RUCKER. Answered all questions from patient and family regarding transfer. Patient transferred via wheelchair, made comfortable in room.
[2019-03-24 19:00] VITALS: BP 103/63
[2019-03-24] MEDS: BUDESONIDE 0.5 MG/2 ML NEBU. NEB SCH (19:26)
[2019-03-24] MEDS: SERTRALINE 50 MG TABLET. PO SCH (21:20)
[2019-03-24] MEDS: DOXYCYCLINE HYCLATE 100 MG TABLET PO SCH (21:20)
[2019-03-24] MEDS: IBUPROFEN 200 MG TABLET. PO PRN (21:22)
[2019-03-24 23:00] VITALS: BP 99/68
[2019-03-25] MEDS: PIPERACILLIN/TAZOBACTAM 3.375 GM in IV NORMAL SALINE 50ML 50 ML IV SCH ×5 (00:16→23:37)
--- NOTE | 2019-03-25 02:31 | CONS ---
DATE OF CONSULTATION: 03/24/2019 REFERRING PHYSICIAN: Dr. García. REASON FOR CONSULTATION: Sepsis. HISTORY OF PRESENT ILLNESS: The patient is a 53-year-old -[place] female who has not been feeling very well for the past 5-6 months or so. She has had a cough on and off, tired more than usual and has been having some joint pains. Over the last week, her symptoms have worsened. She complained of some sinus pressure with headache with cough, subjective fevers and chills, confusion and fatigue. On arrival to the ER, she had elevated white blood cell count of 16,200 with a lactic acid of 2.1. Chest x-ray showed a lung base infiltrates greater on the left and probable small effusions. She was given a dose of vancomycin and levofloxacin in the ER and is currently on Zosyn. 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 She is constantly exposed to sick children. Denies recent traveling or pets. She is a nonsmoker. She was seen in the urgent care center 4-5 days ago for left hip pain for which she had a steroid injection with minimal relief. She denies antibiotic use in the last several weeks. She developed a rash that since resolved. She also complains of some hemorrhoids. She was seen by biology adjunct instructor not too long ago and was prescribed some prednisolone drops. She has noticed increased urination. Denies dysuria. Denies nausea, vomiting or diarrhea. PAST MEDICAL HISTORY: Hypertension, sleep apnea, diabetes. PAST SURGICAL HISTORY: No significant past surgical history. FAMILY HISTORY: Positive for type 1 diabetes, pancreatic cancer, cardiovascular disease, hypertension, sarcoidosis. SOCIAL HISTORY: The patient is single with 2 children. 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 Nonsmoker. ALLERGIES: LISINOPRIL, OXYCODONE. MEDICATIONS: Zosyn. One-time dose of vancomycin, 03/23/2019. One-time dose of Levaquin 03/23/2019. Other medications are available and have been reviewed on the [facility]. REVIEW OF SYSTEMS: Per HPI, otherwise all other review of systems are negative. PHYSICAL EXAMINATION: VITAL SIGNS: Temperature 98.0, T-max 100.1, blood pressure 112/70, heart rate 75, respiratory rate 18, pulse oximetry is 98% on 2 liters oxygen. BMI 38. GENERAL: The patient is propped up in bed, alert, on her laptop. HEENT: Pupils equally round, normal conjunctivae. Oral cavity, pharynx pink and moist. NECK: Supple. LUNGS: Diminished aeration in the bases. HEART: S1, S2. ABDOMEN: Obese, soft, nontender with bowel sounds present. EXTREMITIES: No gross edema or cyanosis. Left hip is without redness or induration and has good range of motion. SKIN: Warm without generalized rash. NEUROLOGIC: Alert and oriented x 3. LABORATORY DATA: From 03/23/2019, WBC 16.2, hemoglobin 12.9, platelets 325,000. Sodium 129, potassium 4.1, creatinine 1.1, BUN 13, glucose 398. Lactic acid 1.0 from 2.1, total bilirubin 0.6, AST 28, ALT 28. Creatinine kinase 82. Troponin less than 0.017, albumin 3.1. Urinalysis showed wbc's 20-40, few squamous epithelial cells and yeast present. Influenza screen negative. Chest x-ray per HPI. Urine and blood cultures pending. IMPRESSION: 1. Pneumonia. 2. Fever. 3. Leukocytosis. 4. Joint pains. 5. Yeast in urine. 6. Hyponatremia. 7. Diabetes. 8. Hypertension. 9. Sleep apnea. PLAN: Continue the Zosyn and add doxycycline for atypical coverage. We will follow up on culture results. Add streptococcus pneumoniae and mycoplasma serologies. Repeat labs in the morning. We will continue to follow along. Discussed with family. Thank you, Dr. García for asking me to participate in this patient's care. Should you have further questions or concerns, please call. The patient seen and examined and plan of care implemented by Dr. Devonte Parekh. DEVONTE PAREKH MD DR: MINDY/benson JOB#: [id number] / [id number]
[2019-03-25 02:54] VITALS: BP 103/70
[2019-03-25 04:41] LABS: BASO % 0 % (0-3); EOS % 0 % (0-3); HEMATOCRIT 34.2 % (36.0-47.0); LYMPH # 1.7 x10^3/uL (1.0-4.8); LYMPH % 12 % (24-48); MEAN CORPUSCULAR HEMOGLOBIN 28 pg (25-35); MEAN CORPUSCULAR HGB CONC 32 g/dL (31-37); MEAN CORPUSCULAR VOLUME 86 fL (79-100); MONO % 7 % (0-9); NEUT # 10.9 x10^3uL (1.8-7.7); NEUT % 80 % (31-73); PLATELET COUNT 304 x10^3/uL (140-400); RED BLOOD COUNT 3.99 x10^6/uL (3.50-5.40); RED CELL DISTRIBUTION WIDTH 14.4 % (11.5-14.5); WHITE BLOOD COUNT 13.6 x10^3/uL (4.0-11.0)
[2019-03-25] MEDS: IBUPROFEN 200 MG TABLET. PO PRN ×3 (04:50→20:43)
--- NOTE | 2019-03-25 04:53 | CONS ---
DATE OF CONSULTATION: REQUESTING PHYSICIAN: Dr. Felipe for rehab evaluation about her left hip area pain. 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 The patient with known diabetes mellitus. She admits pain in her left hip area going on for about 3-4 weeks without any specific injury. She apparently had some problem since the fall in 2013. The patient was admitted through the Emergency Room on 03/23/2019 with shortness of breath, weakness and hyperglycemia. The patient was noted with white cell count of 16.2, blood sugar of 416. PHYSICAL EXAMINATION: GENERAL: Today, revealed a middle-aged female. NEUROLOGIC: She is alert, oriented to time, place, person and circumstance and follows commands appropriately, moves all 4 extremities voluntarily where she had 4+/5 grade muscle strength and deep tendon reflexes are 1 to 2+ and symmetrical and she had equal perception of touch and pinprick sensation bilaterally. She had painful range of motion on both hip joints. She had tenderness to palpation over sacroiliac joint area bilaterally and also over left hip adductor tendon attachment to pubic tubercle area. The patient is independent with bed mobility and I have not tested her transfers or ambulation skills at this time. ASSESSMENT: A middle-aged female with chronic lower back pain, most probably from degenerative disk disease of lumbar vertebrae with tendinitis left hip. No clinical evidence of ongoing lumbar radiculopathy. The patient with known diabetes mellitus, not under good control. She is also known ALLERGIC to LISINOPRIL and OXYCODONE. RECOMMENDATIONS: To consider injecting painful left sacroiliac joint area. If the pain persists to consider MRI scan on outpatient basis to confirm her degenerative disk disease. Dr. Felipe, I appreciate asking me to participate in the care of this interesting patient. I will be glad to follow her with you as needed for her rehabilitation. FAIZA LUCERO MD DR: KAYLEN/benson JOB#: [id number] / [id number]
--- NOTE | 2019-03-25 05:03 | CONS ---
DATE OF CONSULTATION: 03/24/2019 ATTENDING PHYSICIAN: Dr. Jose Guadalupe García. REASON FOR CONSULTATION: The patient seen in pulmonary consultation at the request of Dr. García for abnormal x-ray. HISTORY OF PRESENT ILLNESS: The patient is a 53-year-old that has not been feeling well for several days. She actually went to an urgent care center, was complaining mainly of left hip pain. She had a steroid injection. She came in because she is to continue not to feel well, specifically left hip. She was slightly more short of breath. She was having some frontal headaches. Temperature at home was 98.8. She was also having pain all over. She was admitted. Part of her workup included chest x-ray. The x-ray revealed left lower lobe infiltrate. I was asked to see her in consultation. The patient has been seen by the Infectious Disease service. She is currently on Zosyn and Levaquin. She denies smoking, has never had pneumonia. PAST MEDICAL HISTORY: Type 2 diabetes, hypertension. PAST SURGICAL HISTORY: No recent surgeries. REVIEW OF SYSTEMS: CONSTITUTIONAL: Subjective fever. EYES: No change in visual acuity. HEENT: No nasal congestion or sore throat. RESPIRATORY: As indicated above. CARDIOVASCULAR: No chest pain. No pressure. GASTROINTESTINAL: No nausea, vomiting, diarrhea. GENITOURINARY: No dysuria or frequency. MUSCULOSKELETAL: As indicated above. SKIN: No new skin rashes. NEUROLOGIC: No headaches, diplopia or blurred vision. FAMILY HISTORY: Remarkable for sarcoid. ALLERGIES: LISINOPRIL AND OXYCODONE. SOCIAL HISTORY: She has never smoked. No excessive alcohol intake. PHYSICAL EXAMINATION: VITAL SIGNS: Stable. O2 saturation currently on 2 liters was greater than 92%. HEENT: Eyes, the sclerae were nonicteric. NECK: Jugular venous distention was not elevated. No lymphadenopathy. CHEST: Full expansion. LUNGS: Rales in the left base, otherwise no wheezes. CARDIOVASCULAR: Regular rate and rhythm with S1, S2, no S3. ABDOMEN: Soft, nontender, nondistended. EXTREMITIES: No clubbing, cyanosis or edema. NEUROLOGIC: The patient was awake, alert, following commands. A detailed neuro exam was not performed. LABORATORY DATA: Reviewed. Influenza screen was negative. Mycoplasma screen was negative. White count was 16,000. Electrolytes were noted. BUN and creatinine were noted. Blood sugar is elevated. Sodium was low. Albumin was slightly low. Chest x-ray as indicated above. IMPRESSION: 1. Abnormal x-ray compatible with pneumonia. Suspect gram-negative, possibly gram-positive. 2. Hypoxemia. 3. Leukocytosis. 4. Hyponatremia. 5. Mild protein malnutrition, present upon admission. PLAN: 1. We will continue current antibiotics. 2. Repeat chest x-ray in 8 weeks. 3. Follow up input from Infectious Disease service. I do appreciate the privilege in sharing in patient care. WILMA HEARN MD DR: JOCELYNN/benson JOB#: [id number] / [id number]
[2019-03-25 05:06] LABS: ALBUMIN 2.3 g/dL (3.4-5.0); ALBUMIN/GLOBULIN RATIO 0.4 (1.0-1.7); CREATININE 1.2 mg/dL (0.6-1.0); GFR 56.4; POTASSIUM 4.1 mmol/L (3.5-5.1); TOTAL BILIRUBIN 0.4 mg/dL (0.2-1.0); TOTAL PROTEIN 7.5 g/dL (6.4-8.2)
[2019-03-25] MEDS ORDERED: INSULIN LISPRO 300 UNITS/3 ML INSULN.PEN. SQ ONE (05:30)
[2019-03-25 07:00] VITALS: BP 99/68
[2019-03-25] MEDS: IPRATRPIUM/ALBUTEROL 0.5/2.5MG 3 ML NEBU. NEB SCH ×5 (08:00→20:50)
[2019-03-25] MEDS: INSULIN LISPRO 300 UNITS/3 ML INSULN.PEN. SQ SCH ×5 (08:00→17:35)
[2019-03-25] MEDS: BUDESONIDE 0.5 MG/2 ML NEBU. NEB SCH ×2 (08:00→20:50)
--- NOTE | 2019-03-25 08:08 | RAD ---
HIP LEFT 2 VIEW History: Hip pain Comparison: None. Findings: 3 views of the left hip are submitted. No acute fracture or dislocation is identified. There is moderate osteoarthritic change of the left hip. Left femoral head morphology is preserved. There are some calcific opacities of the visualized left pelvis otherwise difficult to characterize. Impression: 1. There is moderate osteoarthritic change of the left hip. Electronically signed by: Cliff Erazo MD (03/25/2019 8:05 AM) [id number]
--- NOTE | 2019-03-25 08:22 | PDOC ---
Infectious Disease Note Subjective Subjective C/o HONEYCUTT that started yesterday evening. Also light bothers her eyes. HONEYCUTT at top but also around her head H/o dental infections in December - no dental pain now but has some congestion Cough is better. F/c/s better + BM. No rash/dysuria Hip is some better ROS ROS o/w neg Vital Sign Vital Signs Vital Signs Date Time Temp Pulse Resp B/P (MAP) Pulse Ox O2 Delivery O2 Flow Rate FiO2 03/25/19 07:00 97.5 90 18 99/68 (78) 92 Room Air 97.5 03/25/19 02:54 2.0 Physical Exam PHYSICAL EXAM GENERAL: The patient is sitting on side of bed, alert, eating HEENT: Has some discomfort opening her eyes. Oral cavity, pharynx pink no thrush or swellings and moist. NECK: Supple with appropriate extension LUNGS: CTA HEART: S1, S2. ABDOMEN: Obese, soft, nontender with bowel sounds present. EXTREMITIES: No gross edema or cyanosis.. SKIN: Warm without generalized rash. NEUROLOGIC: Alert and oriented x 3. Answers questions appropriately Labs Lab Laboratory Tests Test 03/24/19 11:59 03/24/19 16:28 03/24/19 20:26 03/25/19 04:30 Glucose (Fingerstick) 435 mg/dL (70-99) 448 mg/dL (70-99) 396 mg/dL (70-99) White Blood Count 13.6 x10^3/uL (4.0-11.0) Red Blood Count 3.99 x10^6/uL (3.50-5.40) Hemoglobin 11.0 g/dL (12.0-15.5) Hematocrit 34.2 % (36.0-47.0) Mean Corpuscular Volume 86 fL (79-100) Mean Corpuscular Hemoglobin 28 pg (25-35) Mean Corpuscular Hemoglobin Concent 32 g/dL (31-37) Red Cell Distribution Width 14.4 % (11.5-14.5) Platelet Count 304 x10^3/uL (140-400) Neutrophils (%) (Auto) 80 % (31-73) Lymphocytes (%) (Auto) 12 % (24-48) Monocytes (%) (Auto) 7 % (0-9) Eosinophils (%) (Auto) 0 % (0-3) Basophils (%) (Auto) 0 % (0-3) Neutrophils # (Auto) 10.9 x10^3uL (1.8-7.7) Lymphocytes # (Auto) 1.7 x10^3/uL (1.0-4.8) Monocytes # (Auto) 1.0 x10^3/uL (0.0-1.1) Eosinophils # (Auto) 0.0 x10^3/uL (0.0-0.7) Basophils # (Auto) 0.0 x10^3/uL (0.0-0.2) Sodium Level 133 mmol/L (136-145) Potassium Level 4.1 mmol/L (3.5-5.1) Chloride Level 96 mmol/L (98-107) Carbon Dioxide Level 27 mmol/L (21-32) Anion Gap 10 (6-14) Blood Urea Nitrogen 22 mg/dL (7-20) Creatinine 1.2 mg/dL (0.6-1.0) Estimated GFR (Cockcroft-Gault) 56.4 BUN/Creatinine Ratio 18 (6-20) Glucose Level 501 mg/dL (70-99) Calcium Level 9.0 mg/dL (8.5-10.1) Total Bilirubin 0.4 mg/dL (0.2-1.0) Aspartate Amino Transf (AST/SGOT) 156 U/L (15-37) Alanine Aminotransferase (ALT/SGPT) 79 U/L (14-59) Alkaline Phosphatase 140 U/L (46-116) Total Protein 7.5 g/dL (6.4-8.2) Albumin 2.3 g/dL (3.4-5.0) Albumin/Globulin Ratio 0.4 (1.0-1.7) Test 03/25/19 07:55 Glucose (Fingerstick) 304 mg/dL (70-99) Micro Microbiology 03/23/19 Blood Culture - Preliminary, Resulted NO GROWTH AFTER 1 DAY Objective Assessment Pneumonia - better Fever - better HONEYCUTT - ? migraine/sinus Leukocytosis - better- Dexamethasone times one at admit - evening 5 Joint pains -s/p steroid injection, left hip urgent care center about 5 days ago - benign exam on PROM and palpation. XRAY - arthritis Yeast in urine, UC pending Hyponatremia Diabetes elevated FSBS - steroid - not controlled Hypertension Sleep apnea, CPAP Plan Plan of Care Sed rate this am CT head and maxillofacial Cont Zosyn/doxy Repeat labs in am F/u Strep pneumo and mycoplasma serologies/cults May need Neurology consult D/w nursing HAFSA PAREKH MD March 25, 2019 08:22
--- NOTE | 2019-03-25 08:48 | PDOC ---
PROGRESS NOTES Subjective Subjective She c/o headache. Objective Objective Vital Signs Date Time Temp Pulse Resp B/P (MAP) Pulse Ox O2 Delivery O2 Flow Rate FiO2 03/25/19 07:00 97.5 90 18 99/68 (78) 92 Room Air 97.5 03/25/19 02:54 2.0 Intake and Output 03/25/19 06:59 Intake Total 1900 ml Balance 1900 ml Intake Oral 1900 ml # Voids 6 # Bowel Movements 2 Physical Exam Physical Exam She is sitting at edge of bed and no change noted with her neurological examination. X-ray left hip showed some degeneration of hip joint but she had pain free ROM of her hip joints on examination. Diabetes is not under control. Assessment Assessment Problems Medical Problems: (1) Cough Status: Acute (2) Hyperglycemia Status: Acute (3) Lobar pneumonia Status: Acute (4) Severe sepsis Status: Acute (5) Shortness of breath Status: Acute (6) Urinary tract infection Status: Acute Plan Plan of Care To consider injecting her left sacroiliac joint and left hip joint under flouroscopy if her left hip pain persists,when her medical condition is stable. Comment Review of Relevant I have reviewed the following items tete (where applicable) has been applied. Labs Laboratory Tests Test 03/23/19 18:10 03/23/19 19:10 03/23/19 19:20 03/23/19 21:11 White Blood Count 16.2 x10^3/uL (4.0-11.0) Red Blood Count 4.60 x10^6/uL (3.50-5.40) Hemoglobin 12.9 g/dL (12.0-15.5) Hematocrit 38.7 % (36.0-47.0) Mean Corpuscular Volume 84 fL (79-100) Mean Corpuscular Hemoglobin 28 pg (25-35) Mean Corpuscular Hemoglobin Concent 33 g/dL (31-37) Red Cell Distribution Width 14.3 % (11.5-14.5) Platelet Count 325 x10^3/uL (140-400) Neutrophils (%) (Auto) 75 % (31-73) Lymphocytes (%) (Auto) 16 % (24-48) Monocytes (%) (Auto) 9 % (0-9) Eosinophils (%) (Auto) 0 % (0-3) Basophils (%) (Auto) 1 % (0-3) Neutrophils # (Auto) 12.1 x10^3uL (1.8-7.7) Lymphocytes # (Auto) 2.5 x10^3/uL (1.0-4.8) Monocytes # (Auto) 1.5 x10^3/uL (0.0-1.1) Eosinophils # (Auto) 0.0 x10^3/uL (0.0-0.7) Basophils # (Auto) 0.1 x10^3/uL (0.0-0.2) Sodium Level 129 mmol/L (136-145) Potassium Level 4.1 mmol/L (3.5-5.1) Chloride Level 87 mmol/L (98-107) Carbon Dioxide Level 29 mmol/L (21-32) Anion Gap 13 (6-14) Blood Urea Nitrogen 13 mg/dL (7-20) Creatinine 1.1 mg/dL (0.6-1.0) Estimated GFR (Cockcroft-Gault) 62.4 BUN/Creatinine Ratio 12 (6-20) Glucose Level 398 mg/dL (70-99) Lactic Acid Level 2.1 mmol/L (0.4-2.0) Calcium Level 9.1 mg/dL (8.5-10.1) Magnesium Level 2.3 mg/dL (1.8-2.4) Total Bilirubin 0.6 mg/dL (0.2-1.0) Aspartate Amino Transf (AST/SGOT) 28 U/L (15-37) Alanine Aminotransferase (ALT/SGPT) 28 U/L (14-59) Alkaline Phosphatase 126 U/L (46-116) Creatine Kinase 82 U/L (26-192) Creatine Kinase MB (Mass) < 0.5 ng/mL (0.0-3.6) Creatine Kinase MB Relative Index % (0-4) Troponin I Quantitative < 0.017 ng/mL (0.000-0.055) OX-Eqp-N-Type Natriuretic Peptide 14 pg/mL (0-124) Total Protein 8.6 g/dL (6.4-8.2) Albumin 3.1 g/dL (3.4-5.0) Albumin/Globulin Ratio 0.6 (1.0-1.7) Urine Collection Type Unknown Urine Color Yellow Urine Clarity Cloudy Urine pH 6.0 Urine Specific [place] >=1.030 Urine Protein 100 mg/dL (NEG-TRACE) Urine Glucose (UA) >=1000 mg/dL (NEG) Urine Ketones (Stick) 15 mg/dL (NEG) Urine Blood Trace (NEG) Urine Nitrite Negative (NEG) Urine Bilirubin Small (NEG) Urine Urobilinogen Dipstick 1.0 mg/dL (0.2 mg/dL) Urine Leukocyte Esterase Negative (NEG) Urine RBC 1-2 /HPF (0-2) Urine WBC 20-40 /HPF (0-4) Urine Squamous Epithelial Cells Few /LPF Urine Bacteria 0 /HPF (0-FEW) Urine Yeast Present /HPF Influenza Type A Antigen Negative (NEGATIVE) Influenza Type B Antigen Negative (NEGATIVE) Glucose (Fingerstick) 338 mg/dL (70-99) Test 03/23/19 22:10 03/23/19 22:20 03/23/19 23:51 03/23/19 23:52 Lactic Acid Level 1.0 mmol/L (0.4-2.0) Troponin I Quantitative < 0.017 ng/mL (0.000-0.055) Glucose (Fingerstick) 389 mg/dL (70-99) 496 mg/dL (70-99) 453 mg/dL (70-99) Test 03/24/19 01:09 03/24/19 02:15 03/24/19 03:20 03/24/19 07:07 Troponin I Quantitative < 0.017 ng/mL (0.000-0.055) Mycoplasma Serology (LAB) Negative (NEGATIVE) Glucose (Fingerstick) 416 mg/dL (70-99) 401 mg/dL (70-99) 315 mg/dL (70-99) Test 03/24/19 11:59 03/24/19 16:28 03/24/19 20:26 03/25/19 04:30 Glucose (Fingerstick) 435 mg/dL (70-99) 448 mg/dL (70-99) 396 mg/dL (70-99) White Blood Count 13.6 x10^3/uL (4.0-11.0) Red Blood Count 3.99 x10^6/uL (3.50-5.40) Hemoglobin 11.0 g/dL (12.0-15.5) Hematocrit 34.2 % (36.0-47.0) Mean Corpuscular Volume 86 fL (79-100) Mean Corpuscular Hemoglobin 28 pg (25-35) Mean Corpuscular Hemoglobin Concent 32 g/dL (31-37) Red Cell Distribution Width 14.4 % (11.5-14.5) Platelet Count 304 x10^3/uL (140-400) Neutrophils (%) (Auto) 80 % (31-73) Lymphocytes (%) (Auto) 12 % (24-48) Monocytes (%) (Auto) 7 % (0-9) Eosinophils (%) (Auto) 0 % (0-3) Basophils (%) (Auto) 0 % (0-3) Neutrophils # (Auto) 10.9 x10^3uL (1.8-7.7) Lymphocytes # (Auto) 1.7 x10^3/uL (1.0-4.8) Monocytes # (Auto) 1.0 x10^3/uL (0.0-1.1) Eosinophils # (Auto) 0.0 x10^3/uL (0.0-0.7) Basophils # (Auto) 0.0 x10^3/uL (0.0-0.2) Sodium Level 133 mmol/L (136-145) Potassium Level 4.1 mmol/L (3.5-5.1) Chloride Level 96 mmol/L (98-107) Carbon Dioxide Level 27 mmol/L (21-32) Anion Gap 10 (6-14) Blood Urea Nitrogen 22 mg/dL (7-20) Creatinine 1.2 mg/dL (0.6-1.0) Estimated GFR (Cockcroft-Gault) 56.4 BUN/Creatinine Ratio 18 (6-20) Glucose Level 501 mg/dL (70-99) Calcium Level 9.0 mg/dL (8.5-10.1) Total Bilirubin 0.4 mg/dL (0.2-1.0) Aspartate Amino Transf (AST/SGOT) 156 U/L (15-37) Alanine Aminotransferase (ALT/SGPT) 79 U/L (14-59) Alkaline Phosphatase 140 U/L (46-116) Total Protein 7.5 g/dL (6.4-8.2) Albumin 2.3 g/dL (3.4-5.0) Albumin/Globulin Ratio 0.4 (1.0-1.7) Test 03/25/19 07:55 Glucose (Fingerstick) 304 mg/dL (70-99) Laboratory Tests Test 03/24/19 11:59 03/24/19 16:28 03/24/19 20:26 03/25/19 04:30 Glucose (Fingerstick) 435 mg/dL (70-99) 448 mg/dL (70-99) 396 mg/dL (70-99) White Blood Count 13.6 x10^3/uL (4.0-11.0) Red Blood Count 3.99 x10^6/uL (3.50-5.40) Hemoglobin 11.0 g/dL (12.0-15.5) Hematocrit 34.2 % (36.0-47.0) Mean Corpuscular Volume 86 fL (79-100) Mean Corpuscular Hemoglobin 28 pg (25-35) Mean Corpuscular Hemoglobin Concent 32 g/dL (31-37) Red Cell Distribution Width 14.4 % (11.5-14.5) Platelet Count 304 x10^3/uL (140-400) Neutrophils (%) (Auto) 80 % (31-73) Lymphocytes (%) (Auto) 12 % (24-48) Monocytes (%) (Auto) 7 % (0-9) Eosinophils (%) (Auto) 0 % (0-3) Basophils (%) (Auto) 0 % (0-3) Neutrophils # (Auto) 10.9 x10^3uL (1.8-7.7) Lymphocytes # (Auto) 1.7 x10^3/uL (1.0-4.8) Monocytes # (Auto) 1.0 x10^3/uL (0.0-1.1) Eosinophils # (Auto) 0.0 x10^3/uL (0.0-0.7) Basophils # (Auto) 0.0 x10^3/uL (0.0-0.2) Sodium Level 133 mmol/L (136-145) Potassium Level 4.1 mmol/L (3.5-5.1) Chloride Level 96 mmol/L (98-107) Carbon Dioxide Level 27 mmol/L (21-32) Anion Gap 10 (6-14) Blood Urea Nitrogen 22 mg/dL (7-20) Creatinine 1.2 mg/dL (0.6-1.0) Estimated GFR (Cockcroft-Gault) 56.4 BUN/Creatinine Ratio 18 (6-20) Glucose Level 501 mg/dL (70-99) Calcium Level 9.0 mg/dL (8.5-10.1) Total Bilirubin 0.4 mg/dL (0.2-1.0) Aspartate Amino Transf (AST/SGOT) 156 U/L (15-37) Alanine Aminotransferase (ALT/SGPT) 79 U/L (14-59) Alkaline Phosphatase 140 U/L (46-116) Total Protein 7.5 g/dL (6.4-8.2) Albumin 2.3 g/dL (3.4-5.0) Albumin/Globulin Ratio 0.4 (1.0-1.7) Test 03/25/19 07:55 Glucose (Fingerstick) 304 mg/dL (70-99) Microbiology 03/23/19 Blood Culture - Preliminary, Resulted NO GROWTH AFTER 1 DAY Medications Current Medications Albuterol/ Ipratropium (Duoneb) 3 ml 1X ONCE NEB Last administered on 03/23/19at 19:22; Start 03/23/19 at 18:30; Stop 03/23/19 at 18:31; Status DC Sodium Chloride 1,000 ml @ 1,000 mls/hr 1X ONCE IV Last administered on 03/23/19at 18:51; Start 03/23/19 at 18:30; Stop 03/23/19 at 19:29; Status DC Dexamethasone Sodium Phosphate (Decadron) 10 mg 1X ONCE IV Last administered on 03/23/19at 18:51; Start 03/23/19 at 18:30; Stop 03/23/19 at 18:31; Status DC Ibuprofen (Motrin) 600 mg 1X ONCE PO Last administered on 03/23/19at 18:50; Start 03/23/19 at 18:30; Stop 03/23/19 at 18:31; Status DC Piperacillin Sod/ Tazobactam Sod 4.5 gm/Sodium Chloride 100 ml @ 200 mls/hr 1X ONCE IV Last administered on 03/23/19at 18:50; Start 03/23/19 at 18:45; Stop 03/23/19 at 19:14; Status DC Acetaminophen (Tylenol) 500 mg 1X ONCE PO Last administered on 03/23/19at 18:51; Start 03/23/19 at 18:45; Stop 03/23/19 at 18:46; Status DC Insulin Human Regular (HumuLIN R VIAL) 12 unit 1X ONCE SQ Last administered on 03/23/19at 19:57; Start 03/23/19 at 19:00; Stop 03/23/19 at 19:01; Status DC Levofloxacin/ Dextrose 150 ml @ 100 mls/hr 1X ONCE IV Last administered on 03/23/19at 20:02; Start 03/23/19 at 19:15; Stop 03/23/19 at 20:44; Status DC Vancomycin HCl 1.75 gm/Sodium Chloride 500 ml @ 250 mls/hr 1X ONCE IV Last administered on 03/23/19at 19:59; Start 03/23/19 at 20:00; Stop 03/23/19 at 21:59; Status DC Sodium Chloride 1,000 ml @ 1,000 mls/hr 1X ONCE IV Last administered on 03/23/19at 19:56; Start 03/23/19 at 19:15; Stop 03/23/19 at 20:14; Status DC Sodium Chloride 500 ml @ 500 mls/hr 1X ONCE IV Last administered on 03/23/19at 21:01; Start 03/23/19 at 19:15; Stop 03/23/19 at 20:14; Status DC Ondansetron HCl (Zofran) 4 mg PRN Q8HRS PRN IV NAUSEA/VOMITING; Start 03/23/19 at 19:30; Stop 03/24/19 at 19:29; Status DC Acetaminophen (Tylenol) 650 mg PRN Q4HRS PRN PO FEVER; Start 03/23/19 at 19:30; Stop 03/24/19 at 19:29; Status DC Albuterol Sulfate (Ventolin Neb Soln) 2.5 mg PRN Q4HRS PRN NEB SHORTNESS OF BREATH; Start 03/23/19 at 19:30 Insulin Human Lispro (HumaLOG) 15 units 1X ONCE SQ Last administered on 03/12 12/31at 23:05; Start 03/23/19 at 23:30; Stop 03/23/19 at 23:31; Status DC Insulin Human Lispro (HumaLOG) 0-7 UNITS TIDWMEALS SQ Last administered on 03/24/19at 12:11; Start 03/24/19 at 08:00; Stop 03/24/19 at 12:34; Status DC Dextrose (Dextrose 50%-Water Syringe) 12.5 gm PRN Q15MIN PRN IV SEE COMMENTS; Start 03/23/19 at 23:00; Stop 03/24/19 at 12:34; Status DC Insulin Human Lispro (HumaLOG) 25 units 1X ONCE SQ Last administered on 03/24/19at 01:50; Start 03/24/19 at 02:00; Stop 03/24/19 at 02:01; Status DC Piperacillin Sod/ Tazobactam Sod (Zosyn Per Pharmacy) 1 each PRN DAILY PRN MC SEE COMMENTS; Start 03/24/19 at 09:15 Albuterol/ Ipratropium (Duoneb) 3 ml RTQID NEB Last administered on 03/24/19at 19:26; Start 03/24/19 at 12:00 Piperacillin Sod/ Tazobactam Sod 3.375 gm/Sodium Chloride 50 ml @ 100 mls/hr Q6HRS IV Last administered on 03/25/19at 05:32; Start 03/24/19 at 10:00 Amlodipine Besylate (Norvasc) 5 mg DAILY PO Last administered on 03/24/19at 13:07; Start 03/24/19 at 13:00 Glimepiride (Amaryl) 2 mg DAILY PO ; Start 03/25/19 at 09:00 Non-Formulary Medication (Liraglutide (Victoza 3-Talat)) 1.2 mg DAILY SQ ; Start 03/25/19 at 09:00; Status UNV Losartan Potassium (Cozaar) 50 mg DAILY PO Last administered on 03/24/19at 13:07; Start 03/24/19 at 13:00 Metformin HCl (Glucophage Xr) 500 mg BIDWMEALS PO Last administered on 03/24/19at 17:05; Start 03/24/19 at 12:45 Insulin Glargine (Lantus) 25 units DAILY SQ Last administered on 03/24/19at 13:19; Start 03/24/19 at 12:30 Insulin Human Lispro (HumaLOG) 20 units TIDWMEALS SQ Last administered on 03/24/19 17:15; Start 03/24/19 at 17:00 Insulin Human Lispro (HumaLOG) 0-9 UNITS TIDWMEALS SQ Last administered on 03/24/19at 17:13; Start 03/24/19 at 17:00 Dextrose (Dextrose 50%-Water Syringe) 12.5 gm PRN Q15MIN PRN IV SEE COMMENTS; Start 03/24/19 at 12:30 Hydrochlorothiazide (Microzide) 12.5 mg DAILY PO Last administered on 03/24/19 13:09; Start 03/24/19 at 13:00 Budesonide (Pulmicort) 0.5 mg RTBID NEB Last administered on 03/24/19 19:26; Start 03/24/19 at 20:00 Guaifenesin/ Codeine Phosphate (Robitussin Ac) 15 ml PRN Q6HRS PRN PO COUGH; Start 03/24/19 at 13:00 Doxycycline Hyclate (Vibra-Tab) 100 mg BID PO Last administered on 03/24/19 21:20; Start 03/24/19 at 21:00 Potassium Chloride (Klor-Con) 10 meq BIDWMEALS PO Last administered on 03/24/19 18:11; Start 03/24/19 at 18:00 Sertraline HCl (Zoloft) 100 mg BID PO Last administered on 03/24/19 21:20; Start 03/24/19 at 21:00 Ibuprofen (Motrin) 600 mg PRN Q6HRS PRN PO INFLAMMATION Last administered on 03/25/19at 04:50; Start 03/24/19 at 18:45 Insulin Human Lispro (HumaLOG) 15 units 1X ONCE SQ Last administered on 03/25/19 05:36; Start 03/25/19 at 05:30; Stop 03/25/19 at 05:31; Status DC Active Scripts Active Reported Potassium Chloride 10 Meq Tab.sr.24h 10 Meq PO BID Zoloft (Sertraline Hcl) 100 Mg Tablet 1 Tab PO BID Losartan-Hctz 50-12.5 Mg Tab (Losartan/Hydrochlorothiazide) 1 Each Tablet 1 Tab PO DAILY Glimepiride 2 Mg Tablet 1 Tab PO DAILY Metformin Hcl Er (Metformin Hcl) 500 Mg Tab.er.24h 500 Mg PO BIDWMEALS Amlodipine Besylate 5 Mg Tablet 10 PO DAILY Victoza 3-Talat (Liraglutide) 0.6 Mg/0.1 Ml Pen.injctr 1.2 Mg SQ DAILY Vitals/I & O Vital Sign - Last 24 Hours 03/24/19 03/24/19 03/24/19 03/24/19 11:00 12:38 13:07 13:07 Temp 98.0 98.0 Pulse 75 75 75 Resp 18 B/P (MAP) 112/70 (84) 112/70 112/70 Pulse Ox 98 98 O2 Delivery Nasal Cannula Room Air O2 Flow Rate 2.0 03/24/19 03/24/19 03/24/19 03/24/19 14:43 15:56 19:00 19:27 Temp 98.0 98.1 98.0 98.1 Pulse 75 94 Resp 18 16 B/P (MAP) 124/79 (94) 103/63 (76) Pulse Ox 98 98 93 90 O2 Delivery Nasal Cannula Room Air Nasal Cannula Room Air O2 Flow Rate 2.0 2.0 03/24/19 03/24/19 03/25/19 03/25/19 20:00 23:00 02:54 07:00 Temp 97.5 98.7 97.5 97.5 98.7 97.5 Pulse 90 86 90 Resp 18 16 18 B/P (MAP) 99/68 (78) 103/70 (81) 99/68 (78) Pulse Ox 92 90 92 O2 Delivery Nasal Cannula Nasal Cannula Nasal Cannula Room Air O2 Flow Rate 2.0 2.0 Intake and Output 03/24/19 03/24/19 03/25/19 14:59 22:59 06:59 Intake Total 600 ml 500 ml 800 ml Balance 600 ml 500 ml 800 ml FAIZA LUCERO MD March 25, 2019 08:48
[2019-03-25] MEDS ORDERED: NON FORMULARY ITEM (Liraglutide (Victoza 3-Pak) 1.2 MG) SQ SCH (09:00)
[2019-03-25] MEDS: metFORMIN XR 500 MG TAB.ER.24H PO SCH ×2 (09:46→17:21)
[2019-03-25] MEDS: DOXYCYCLINE HYCLATE 100 MG TABLET PO SCH ×2 (09:46→20:42)
[2019-03-25] MEDS: SERTRALINE 50 MG TABLET. PO SCH ×2 (09:46→20:42)
--- NOTE | 2019-03-25 09:46 | PDOC ---
PROGRESS NOTES Chief Complaint Chief Complaint acute new headache sepsis Pneumonia, hyponatremia, hyperglycemia, DM2 very poor control acute hypoxia, hip pain, OA History of Present Illness History of Present Illness sudden new headache this AM, Dr. Ramirez started w/u, CT head, will consult neuro, may need LP, nausea, new, IV zofran more ill today on broad abx s will increase the insulin doses, , blood sugars very high, very resistant, Vitals Vitals Vital Signs Date Time Temp Pulse Resp B/P (MAP) Pulse Ox O2 Delivery O2 Flow Rate FiO2 03/25/19 07:00 97.5 90 18 99/68 (78) 92 Room Air 97.5 03/25/19 02:54 2.0 Physical Exam Physical Exam GENERAL: The patient is sitting on side of bed, alert, eating HEENT: Has some discomfort opening her eyes. Oral cavity, pharynx pink no thrush or swellings and moist. NECK: Supple with appropriate extension LUNGS: CTA HEART: S1, S2. ABDOMEN: Obese, soft, nontender with bowel sounds present. EXTREMITIES: No gross edema or cyanosis.. SKIN: Warm without generalized rash. NEUROLOGIC: Alert and oriented x 3. Answers questions appropriately General: Alert, Oriented X3, Cooperative, mild distress Heart: Regular rate, Normal S2 Lungs: Wheezing, Other (good effort, then spastic coughing and dyspnea) Abdomen: Normal bowel sounds, No tenderness Extremities: No clubbing, No cyanosis, No edema, Normal pulses Skin: No rashes, No breakdown Labs LABS Laboratory Tests Test 03/24/19 11:59 03/24/19 16:28 03/24/19 20:26 03/25/19 04:30 Glucose (Fingerstick) 435 mg/dL (70-99) 448 mg/dL (70-99) 396 mg/dL (70-99) White Blood Count 13.6 x10^3/uL (4.0-11.0) Red Blood Count 3.99 x10^6/uL (3.50-5.40) Hemoglobin 11.0 g/dL (12.0-15.5) Hematocrit 34.2 % (36.0-47.0) Mean Corpuscular Volume 86 fL (79-100) Mean Corpuscular Hemoglobin 28 pg (25-35) Mean Corpuscular Hemoglobin Concent 32 g/dL (31-37) Red Cell Distribution Width 14.4 % (11.5-14.5) Platelet Count 304 x10^3/uL (140-400) Neutrophils (%) (Auto) 80 % (31-73) Lymphocytes (%) (Auto) 12 % (24-48) Monocytes (%) (Auto) 7 % (0-9) Eosinophils (%) (Auto) 0 % (0-3) Basophils (%) (Auto) 0 % (0-3) Neutrophils # (Auto) 10.9 x10^3uL (1.8-7.7) Lymphocytes # (Auto) 1.7 x10^3/uL (1.0-4.8) Monocytes # (Auto) 1.0 x10^3/uL (0.0-1.1) Eosinophils # (Auto) 0.0 x10^3/uL (0.0-0.7) Basophils # (Auto) 0.0 x10^3/uL (0.0-0.2) Sodium Level 133 mmol/L (136-145) Potassium Level 4.1 mmol/L (3.5-5.1) Chloride Level 96 mmol/L (98-107) Carbon Dioxide Level 27 mmol/L (21-32) Anion Gap 10 (6-14) Blood Urea Nitrogen 22 mg/dL (7-20) Creatinine 1.2 mg/dL (0.6-1.0) Estimated GFR (Cockcroft-Gault) 56.4 BUN/Creatinine Ratio 18 (6-20) Glucose Level 501 mg/dL (70-99) Calcium Level 9.0 mg/dL (8.5-10.1) Total Bilirubin 0.4 mg/dL (0.2-1.0) Aspartate Amino Transf (AST/SGOT) 156 U/L (15-37) Alanine Aminotransferase (ALT/SGPT) 79 U/L (14-59) Alkaline Phosphatase 140 U/L (46-116) Total Protein 7.5 g/dL (6.4-8.2) Albumin 2.3 g/dL (3.4-5.0) Albumin/Globulin Ratio 0.4 (1.0-1.7) Test 03/25/19 07:55 Glucose (Fingerstick) 304 mg/dL (70-99) Assessment and Plan Assessmemt and Plan Problems Medical Problems: (1) Cough Status: Acute (2) Hyperglycemia Status: Acute (3) Lobar pneumonia Status: Acute (4) Severe sepsis Status: Acute (5) Shortness of breath Status: Acute (6) Urinary tract infection Status: Acute Comment Review of Relevant I have reviewed the following items tete (where applicable) has been applied. Labs Laboratory Tests Test 03/23/19 18:10 03/23/19 19:10 03/23/19 19:20 03/23/19 21:11 White Blood Count 16.2 x10^3/uL (4.0-11.0) Red Blood Count 4.60 x10^6/uL (3.50-5.40) Hemoglobin 12.9 g/dL (12.0-15.5) Hematocrit 38.7 % (36.0-47.0) Mean Corpuscular Volume 84 fL (79-100) Mean Corpuscular Hemoglobin 28 pg (25-35) Mean Corpuscular Hemoglobin Concent 33 g/dL (31-37) Red Cell Distribution Width 14.3 % (11.5-14.5) Platelet Count 325 x10^3/uL (140-400) Neutrophils (%) (Auto) 75 % (31-73) Lymphocytes (%) (Auto) 16 % (24-48) Monocytes (%) (Auto) 9 % (0-9) Eosinophils (%) (Auto) 0 % (0-3) Basophils (%) (Auto) 1 % (0-3) Neutrophils # (Auto) 12.1 x10^3uL (1.8-7.7) Lymphocytes # (Auto) 2.5 x10^3/uL (1.0-4.8) Monocytes # (Auto) 1.5 x10^3/uL (0.0-1.1) Eosinophils # (Auto) 0.0 x10^3/uL (0.0-0.7) Basophils # (Auto) 0.1 x10^3/uL (0.0-0.2) Sodium Level 129 mmol/L (136-145) Potassium Level 4.1 mmol/L (3.5-5.1) Chloride Level 87 mmol/L (98-107) Carbon Dioxide Level 29 mmol/L (21-32) Anion Gap 13 (6-14) Blood Urea Nitrogen 13 mg/dL (7-20) Creatinine 1.1 mg/dL (0.6-1.0) Estimated GFR (Cockcroft-Gault) 62.4 BUN/Creatinine Ratio 12 (6-20) Glucose Level 398 mg/dL (70-99) Lactic Acid Level 2.1 mmol/L (0.4-2.0) Calcium Level 9.1 mg/dL (8.5-10.1) Magnesium Level 2.3 mg/dL (1.8-2.4) Total Bilirubin 0.6 mg/dL (0.2-1.0) Aspartate Amino Transf (AST/SGOT) 28 U/L (15-37) Alanine Aminotransferase (ALT/SGPT) 28 U/L (14-59) Alkaline Phosphatase 126 U/L (46-116) Creatine Kinase 82 U/L (26-192) Creatine Kinase MB (Mass) < 0.5 ng/mL (0.0-3.6) Creatine Kinase MB Relative Index % (0-4) Troponin I Quantitative < 0.017 ng/mL (0.000-0.055) NS-Ttw-S-Type Natriuretic Peptide 14 pg/mL (0-124) Total Protein 8.6 g/dL (6.4-8.2) Albumin 3.1 g/dL (3.4-5.0) Albumin/Globulin Ratio 0.6 (1.0-1.7) Urine Collection Type Unknown Urine Color Yellow Urine Clarity Cloudy Urine pH 6.0 Urine Specific [place] >=1.030 Urine Protein 100 mg/dL (NEG-TRACE) Urine Glucose (UA) >=1000 mg/dL (NEG) Urine Ketones (Stick) 15 mg/dL (NEG) Urine Blood Trace (NEG) Urine Nitrite Negative (NEG) Urine Bilirubin Small (NEG) Urine Urobilinogen Dipstick 1.0 mg/dL (0.2 mg/dL) Urine Leukocyte Esterase Negative (NEG) Urine RBC 1-2 /HPF (0-2) Urine WBC 20-40 /HPF (0-4) Urine Squamous Epithelial Cells Few /LPF Urine Bacteria 0 /HPF (0-FEW) Urine Yeast Present /HPF Influenza Type A Antigen Negative (NEGATIVE) Influenza Type B Antigen Negative (NEGATIVE) Glucose (Fingerstick) 338 mg/dL (70-99) Test 03/23/19 22:10 5/12/19 22:20 03/23/19 23:51 03/23/19 23:52 Lactic Acid Level 1.0 mmol/L (0.4-2.0) Troponin I Quantitative < 0.017 ng/mL (0.000-0.055) Glucose (Fingerstick) 389 mg/dL (70-99) 496 mg/dL (70-99) 453 mg/dL (70-99) Test 03/24/19 01:09 03/24/19 02:15 03/24/19 03:20 03/24/19 07:07 Troponin I Quantitative < 0.017 ng/mL (0.000-0.055) Mycoplasma Serology (LAB) Negative (NEGATIVE) Glucose (Fingerstick) 416 mg/dL (70-99) 401 mg/dL (70-99) 315 mg/dL (70-99) Test 03/24/19 11:59 03/24/19 16:28 03/24/19 20:26 03/25/19 04:30 Glucose (Fingerstick) 435 mg/dL (70-99) 448 mg/dL (70-99) 396 mg/dL (70-99) White Blood Count 13.6 x10^3/uL (4.0-11.0) Red Blood Count 3.99 x10^6/uL (3.50-5.40) Hemoglobin 11.0 g/dL (12.0-15.5) Hematocrit 34.2 % (36.0-47.0) Mean Corpuscular Volume 86 fL (79-100) Mean Corpuscular Hemoglobin 28 pg (25-35) Mean Corpuscular Hemoglobin Concent 32 g/dL (31-37) Red Cell Distribution Width 14.4 % (11.5-14.5) Platelet Count 304 x10^3/uL (140-400) Neutrophils (%) (Auto) 80 % (31-73) Lymphocytes (%) (Auto) 12 % (24-48) Monocytes (%) (Auto) 7 % (0-9) Eosinophils (%) (Auto) 0 % (0-3) Basophils (%) (Auto) 0 % (0-3) Neutrophils # (Auto) 10.9 x10^3uL (1.8-7.7) Lymphocytes # (Auto) 1.7 x10^3/uL (1.0-4.8) Monocytes # (Auto) 1.0 x10^3/uL (0.0-1.1) Eosinophils # (Auto) 0.0 x10^3/uL (0.0-0.7) Basophils # (Auto) 0.0 x10^3/uL (0.0-0.2) Sodium Level 133 mmol/L (136-145) Potassium Level 4.1 mmol/L (3.5-5.1) Chloride Level 96 mmol/L (98-107) Carbon Dioxide Level 27 mmol/L (21-32) Anion Gap 10 (6-14) Blood Urea Nitrogen 22 mg/dL (7-20) Creatinine 1.2 mg/dL (0.6-1.0) Estimated GFR (Cockcroft-Gault) 56.4 BUN/Creatinine Ratio 18 (6-20) Glucose Level 501 mg/dL (70-99) Calcium Level 9.0 mg/dL (8.5-10.1) Total Bilirubin 0.4 mg/dL (0.2-1.0) Aspartate Amino Transf (AST/SGOT) 156 U/L (15-37) Alanine Aminotransferase (ALT/SGPT) 79 U/L (14-59) Alkaline Phosphatase 140 U/L (46-116) Total Protein 7.5 g/dL (6.4-8.2) Albumin 2.3 g/dL (3.4-5.0) Albumin/Globulin Ratio 0.4 (1.0-1.7) Test 03/25/19 07:55 Glucose (Fingerstick) 304 mg/dL (70-99) Laboratory Tests Test 03/24/19 11:59 03/24/19 16:28 03/24/19 20:26 03/25/19 04:30 Glucose (Fingerstick) 435 mg/dL (70-99) 448 mg/dL (70-99) 396 mg/dL (70-99) White Blood Count 13.6 x10^3/uL (4.0-11.0) Red Blood Count 3.99 x10^6/uL (3.50-5.40) Hemoglobin 11.0 g/dL (12.0-15.5) Hematocrit 34.2 % (36.0-47.0) Mean Corpuscular Volume 86 fL (79-100) Mean Corpuscular Hemoglobin 28 pg (25-35) Mean Corpuscular Hemoglobin Concent 32 g/dL (31-37) Red Cell Distribution Width 14.4 % (11.5-14.5) Platelet Count 304 x10^3/uL (140-400) Neutrophils (%) (Auto) 80 % (31-73) Lymphocytes (%) (Auto) 12 % (24-48) Monocytes (%) (Auto) 7 % (0-9) Eosinophils (%) (Auto) 0 % (0-3) Basophils (%) (Auto) 0 % (0-3) Neutrophils # (Auto) 10.9 x10^3uL (1.8-7.7) Lymphocytes # (Auto) 1.7 x10^3/uL (1.0-4.8) Monocytes # (Auto) 1.0 x10^3/uL (0.0-1.1) Eosinophils # (Auto) 0.0 x10^3/uL (0.0-0.7) Basophils # (Auto) 0.0 x10^3/uL (0.0-0.2) Sodium Level 133 mmol/L (136-145) Potassium Level 4.1 mmol/L (3.5-5.1) Chloride Level 96 mmol/L (98-107) Carbon Dioxide Level 27 mmol/L (21-32) Anion Gap 10 (6-14) Blood Urea Nitrogen 22 mg/dL (7-20) Creatinine 1.2 mg/dL (0.6-1.0) Estimated GFR (Cockcroft-Gault) 56.4 BUN/Creatinine Ratio 18 (6-20) Glucose Level 501 mg/dL (70-99) Calcium Level 9.0 mg/dL (8.5-10.1) Total Bilirubin 0.4 mg/dL (0.2-1.0) Aspartate Amino Transf (AST/SGOT) 156 U/L (15-37) Alanine Aminotransferase (ALT/SGPT) 79 U/L (14-59) Alkaline Phosphatase 140 U/L (46-116) Total Protein 7.5 g/dL (6.4-8.2) Albumin 2.3 g/dL (3.4-5.0) Albumin/Globulin Ratio 0.4 (1.0-1.7) Test 03/25/19 07:55 Glucose (Fingerstick) 304 mg/dL (70-99) Microbiology 03/23/19 Blood Culture - Preliminary, Resulted NO GROWTH AFTER 1 DAY Medications Current Medications Albuterol/ Ipratropium (Duoneb) 3 ml 1X ONCE NEB Last administered on 03/23/19 19:22; Start 03/23/19 at 18:30; Stop 03/23/19 at 18:31; Status DC Sodium Chloride 1,000 ml @ 1,000 mls/hr 1X ONCE IV Last administered on 03/23/19 18:51; Start 03/23/19 at 18:30; Stop 03/23/19 at 19:29; Status DC Dexamethasone Sodium Phosphate (Decadron) 10 mg 1X ONCE IV Last administered on 03/23/19 18:51; Start 03/23/19 at 18:30; Stop 03/23/19 at 18:31; Status DC Ibuprofen (Motrin) 600 mg 1X ONCE PO Last administered on 03/23/19 18:50; Start 03/23/19 at 18:30; Stop 03/23/19 at 18:31; Status DC Piperacillin Sod/ Tazobactam Sod 4.5 gm/Sodium Chloride 100 ml @ 200 mls/hr 1X ONCE IV Last administered on 03/23/19 18:50; Start 03/23/19 at 18:45; Stop 03/23/19 at 19:14; Status DC Acetaminophen (Tylenol) 500 mg 1X ONCE PO Last administered on 03/23/19 18:51; Start 03/23/19 at 18:45; Stop 03/23/19 at 18:46; Status DC Insulin Human Regular (HumuLIN R VIAL) 12 unit 1X ONCE SQ Last administered on 03/23/19 19:57; Start 03/23/19 at 19:00; Stop 03/23/19 at 19:01; Status DC Levofloxacin/ Dextrose 150 ml @ 100 mls/hr 1X ONCE IV Last administered on 03/23/19 20:02; Start 03/23/19 at 19:15; Stop 03/23/19 at 20:44; Status DC Vancomycin HCl 1.75 gm/Sodium Chloride 500 ml @ 250 mls/hr 1X ONCE IV Last administered on 03/23/19at 19:59; Start 03/23/19 at 20:00; Stop 03/23/19 at 21:59; Status DC Sodium Chloride 1,000 ml @ 1,000 mls/hr 1X ONCE IV Last administered on 03/12 12/31at 19:56; Start 03/23/19 at 19:15; Stop 03/23/19 at 20:14; Status DC Sodium Chloride 500 ml @ 500 mls/hr 1X ONCE IV Last administered on 03/23/19at 21:01; Start 03/23/19 at 19:15; Stop 03/23/19 at 20:14; Status DC Ondansetron HCl (Zofran) 4 mg PRN Q8HRS PRN IV NAUSEA/VOMITING; Start 03/23/19 at 19:30; Stop 03/24/19 at 19:29; Status DC Acetaminophen (Tylenol) 650 mg PRN Q4HRS PRN PO FEVER; Start 03/23/19 at 19:30; Stop 03/24/19 at 19:29; Status DC Albuterol Sulfate (Ventolin Neb Soln) 2.5 mg PRN Q4HRS PRN NEB SHORTNESS OF BREATH; Start 03/23/19 at 19:30 Insulin Human Lispro (HumaLOG) 15 units 1X ONCE SQ Last administered on 03/23/19at 23:05; Start 03/23/19 at 23:30; Stop 03/23/19 at 23:31; Status DC Insulin Human Lispro (HumaLOG) 0-7 UNITS TIDWMEALS SQ Last administered on 03/24/19at 12:11; Start 03/24/19 at 08:00; Stop 03/24/19 at 12:34; Status DC Dextrose (Dextrose 50%-Water Syringe) 12.5 gm PRN Q15MIN PRN IV SEE COMMENTS; Start 03/23/19 at 23:00; Stop 03/24/19 at 12:34; Status DC Insulin Human Lispro (HumaLOG) 25 units 1X ONCE SQ Last administered on 03/24/19at 01:50; Start 03/24/19 at 02:00; Stop 03/24/19 at 02:01; Status DC Piperacillin Sod/ Tazobactam Sod (Zosyn Per Pharmacy) 1 each PRN DAILY PRN MC SEE COMMENTS; Start 03/24/19 at 09:15 Albuterol/ Ipratropium (Duoneb) 3 ml RTQID NEB Last administered on 03/24/19at 19:26; Start 03/24/19 at 12:00 Piperacillin Sod/ Tazobactam Sod 3.375 gm/Sodium Chloride 50 ml @ 100 mls/hr Q6HRS IV Last administered on 03/25/19at 05:32; Start 03/24/19 at 10:00 Amlodipine Besylate (Norvasc) 5 mg DAILY PO Last administered on 03/24/19at 13:07; Start 03/24/19 at 13:00 Glimepiride (Amaryl) 2 mg DAILY PO ; Start 03/25/19 at 09:00 Non-Formulary Medication (Liraglutide (Victoza 3-Talat)) 1.2 mg DAILY SQ ; Start 03/25/19 at 09:00; Status UNV Losartan Potassium (Cozaar) 50 mg DAILY PO Last administered on 03/24/19at 13:07; Start 03/24/19 at 13:00 Metformin HCl (Glucophage Xr) 500 mg BIDWMEALS PO Last administered on 03/24/19at 17:05; Start 03/24/19 at 12:45 Insulin Glargine (Lantus) 25 units DAILY SQ Last administered on 03/24/19 13:19; Start 03/24/19 at 12:30 Insulin Human Lispro (HumaLOG) 20 units TIDWMEALS SQ Last administered on 03/24/19at 17:15; Start 03/24/19 at 17:00 Insulin Human Lispro (HumaLOG) 0-9 UNITS TIDWMEALS SQ Last administered on 03/24/19at 17:13; Start 03/24/19 at 17:00 Dextrose (Dextrose 50%-Water Syringe) 12.5 gm PRN Q15MIN PRN IV SEE COMMENTS; Start 03/24/19 at 12:30 Hydrochlorothiazide (Microzide) 12.5 mg DAILY PO Last administered on 03/24/19at 13:09; Start 03/24/19 at 13:00 Budesonide (Pulmicort) 0.5 mg RTBID NEB Last administered on 03/24/19at 19:26; Start 03/24/19 at 20:00 Guaifenesin/ Codeine Phosphate (Robitussin Ac) 15 ml PRN Q6HRS PRN PO COUGH; Start 03/24/19 at 13:00 Doxycycline Hyclate (Vibra-Tab) 100 mg BID PO Last administered on 03/24/19at 21:20; Start 03/24/19 at 21:00 Potassium Chloride (Klor-Con) 10 meq BIDWMEALS PO Last administered on 03/24/19at 18:11; Start 03/24/19 at 18:00 Sertraline HCl (Zoloft) 100 mg BID PO Last administered on 03/24/19at 21:20; Start 03/24/19 at 21:00 Ibuprofen (Motrin) 600 mg PRN Q6HRS PRN PO INFLAMMATION Last administered on 03/25/19at 04:50; Start 03/24/19 at 18:45 Insulin Human Lispro (HumaLOG) 15 units 1X ONCE SQ Last administered on 03/25/19at 05:36; Start 03/25/19 at 05:30; Stop 03/25/19 at 05:31; Status DC Ondansetron HCl (Zofran) 4 mg PRN Q6HRS PRN IV NAUSEA/VOMITING; Start 03/25/19 at 09:30 Active Scripts Active Reported Potassium Chloride 10 Meq Tab.sr.24h 10 Meq PO BID Zoloft (Sertraline Hcl) 100 Mg Tablet 1 Tab PO BID Losartan-Hctz 50-12.5 Mg Tab (Losartan/Hydrochlorothiazide) 1 Each Tablet 1 Tab PO DAILY Glimepiride 2 Mg Tablet 1 Tab PO DAILY Metformin Hcl Er (Metformin Hcl) 500 Mg Tab.er.24h 500 Mg PO BIDWMEALS Amlodipine Besylate 5 Mg Tablet 10 PO DAILY Victoza 3-Talat (Liraglutide) 0.6 Mg/0.1 Ml Pen.injctr 1.2 Mg SQ DAILY Vitals/I & O Vital Sign - Last 24 Hours 03/24/19 03/24/19 03/24/19 03/24/19 11:00 12:38 13:07 13:07 Temp 98.0 98.0 Pulse 75 75 75 Resp 18 B/P (MAP) 112/70 (84) 112/70 112/70 Pulse Ox 98 98 O2 Delivery Nasal Cannula Room Air O2 Flow Rate 2.0 03/24/19 03/24/19 03/24/19 03/24/19 14:43 15:56 19:00 19:27 Temp 98.0 98.1 98.0 98.1 Pulse 75 94 Resp 18 16 B/P (MAP) 124/79 (94) 103/63 (76) Pulse Ox 98 98 93 90 O2 Delivery Nasal Cannula Room Air Nasal Cannula Room Air O2 Flow Rate 2.0 2.0 03/24/19 03/24/19 03/25/19 03/25/19 20:00 23:00 02:54 07:00 Temp 97.5 98.7 97.5 97.5 98.7 97.5 Pulse 90 86 90 Resp 18 16 18 B/P (MAP) 99/68 (78) 103/70 (81) 99/68 (78) Pulse Ox 92 90 92 O2 Delivery Nasal Cannula Nasal Cannula Nasal Cannula Room Air O2 Flow Rate 2.0 2.0 Intake and Output 03/24/19 03/24/19 03/25/19 15:00 23:00 07:00 Intake Total 600 ml 500 ml 800 ml Balance 600 ml 500 ml 800 ml FREDY DAVID MD March 25, 2019 09:46
[2019-03-25] MEDS: amLODIPine BESYLATE 5 MG TABLET PO SCH (09:47)
[2019-03-25] MEDS: hydroCHLOROthiazide 12.5 MG CAPSULE PO SCH (09:47)
[2019-03-25] MEDS: POTASSIUM CHLORIDE 10 MEQ TABLET.ER. PO SCH ×2 (09:47→17:35)
[2019-03-25] MEDS: GLIMEPIRIDE 2 MG TABLET. PO SCH (09:48)
[2019-03-25] MEDS: LOSARTAN POTASSIUM 50 MG TABLET. PO SCH (09:48)
[2019-03-25] MEDS: ONDANSETRON PF 4 MG/2 ML VIAL. IV PRN (09:52)
[2019-03-25] MEDS ORDERED: SUMAtriptan SUCC 6 MG/0.5 ML VIAL. SQ ONE (10:00)
[2019-03-25 10:48] VITALS: BP 115/75
[2019-03-25] MEDS: INSULIN GLARGINE 300 UNITS/3 ML INSULN.PEN. SQ SCH (12:11)
--- NOTE | 2019-03-25 12:49 | RAD ---
CT HEAD AND MAXILLOFACIAL WO Indication: Headache, sinus pressure Technique: Noncontrast CT imaging was performed of the head and maxillofacial region, multiplanar reconstruction images submitted. One or more of the following individualized dose reduction techniques were utilized for this examination: 1. Automated exposure control 2. Adjustment of the mA and/or kV according to patient size 3. Use of iterative reconstruction technique. Comparison: None Head: Findings: There is no intra-axial mass effect, midline shift, extra-axial fluid collection. Ventricles, sulci, cisterns are within normal limits in size and configuration. Mastoid air cells are aerated. No acute calvarial abnormality is identified. IMPRESSION: 1. No acute intracranial abnormality is identified. Maxillofacial CT: FINDINGS: There are no air-fluid levels of the paranasal sinuses. Paranasal sinuses are overall aerated other than mild left sphenoid sinus mucosal thickening greatest dimension anteriorly about 0.4 cm. Ostiomeatal units are patent bilaterally. IMPRESSION: 1. There is mild left sphenoid sinus mucosal thickening. Electronically signed by: Cliff Erazo MD (03/25/2019 12:47 PM) [id number]
[2019-03-25] MEDS ORDERED: ACETAMINOPHEN 325 MG TABLET. PO PRN (13:00)
--- NOTE | 2019-03-25 14:03 | PDOC ---
PULMONARY PROGRESS NOTES Subjective NO SOA C/O [place] Vitals Vital Signs Date Time Temp Pulse Resp B/P (MAP) Pulse Ox O2 Delivery O2 Flow Rate FiO2 03/25/19 10:48 98.0 74 20 115/75 (88) 92 Room Air 98.0 03/25/19 02:54 2.0 General: Alert, No acute distress Lungs: Clear Cardiovascular: S1 Abdomen: Soft Neuro Exam: Alert Extremities: No Edema Skin: Warm, Dry Labs Laboratory Tests Test 03/23/19 18:10 03/23/19 19:10 03/23/19 19:20 03/23/19 21:11 White Blood Count 16.2 x10^3/uL (4.0-11.0) Red Blood Count 4.60 x10^6/uL (3.50-5.40) Hemoglobin 12.9 g/dL (12.0-15.5) Hematocrit 38.7 % (36.0-47.0) Mean Corpuscular Volume 84 fL (79-100) Mean Corpuscular Hemoglobin 28 pg (25-35) Mean Corpuscular Hemoglobin Concent 33 g/dL (31-37) Red Cell Distribution Width 14.3 % (11.5-14.5) Platelet Count 325 x10^3/uL (140-400) Neutrophils (%) (Auto) 75 % (31-73) Lymphocytes (%) (Auto) 16 % (24-48) Monocytes (%) (Auto) 9 % (0-9) Eosinophils (%) (Auto) 0 % (0-3) Basophils (%) (Auto) 1 % (0-3) Neutrophils # (Auto) 12.1 x10^3uL (1.8-7.7) Lymphocytes # (Auto) 2.5 x10^3/uL (1.0-4.8) Monocytes # (Auto) 1.5 x10^3/uL (0.0-1.1) Eosinophils # (Auto) 0.0 x10^3/uL (0.0-0.7) Basophils # (Auto) 0.1 x10^3/uL (0.0-0.2) Sodium Level 129 mmol/L (136-145) Potassium Level 4.1 mmol/L (3.5-5.1) Chloride Level 87 mmol/L (98-107) Carbon Dioxide Level 29 mmol/L (21-32) Anion Gap 13 (6-14) Blood Urea Nitrogen 13 mg/dL (7-20) Creatinine 1.1 mg/dL (0.6-1.0) Estimated GFR (Cockcroft-Gault) 62.4 BUN/Creatinine Ratio 12 (6-20) Glucose Level 398 mg/dL (70-99) Lactic Acid Level 2.1 mmol/L (0.4-2.0) Calcium Level 9.1 mg/dL (8.5-10.1) Magnesium Level 2.3 mg/dL (1.8-2.4) Total Bilirubin 0.6 mg/dL (0.2-1.0) Aspartate Amino Transf (AST/SGOT) 28 U/L (15-37) Alanine Aminotransferase (ALT/SGPT) 28 U/L (14-59) Alkaline Phosphatase 126 U/L (46-116) Creatine Kinase 82 U/L (26-192) Creatine Kinase MB (Mass) < 0.5 ng/mL (0.0-3.6) Creatine Kinase MB Relative Index % (0-4) Troponin I Quantitative < 0.017 ng/mL (0.000-0.055) QZ-Hiw-N-Type Natriuretic Peptide 14 pg/mL (0-124) Total Protein 8.6 g/dL (6.4-8.2) Albumin 3.1 g/dL (3.4-5.0) Albumin/Globulin Ratio 0.6 (1.0-1.7) Urine Collection Type Unknown Urine Color Yellow Urine Clarity Cloudy Urine pH 6.0 Urine Specific [place] >=1.030 Urine Protein 100 mg/dL (NEG-TRACE) Urine Glucose (UA) >=1000 mg/dL (NEG) Urine Ketones (Stick) 15 mg/dL (NEG) Urine Blood Trace (NEG) Urine Nitrite Negative (NEG) Urine Bilirubin Small (NEG) Urine Urobilinogen Dipstick 1.0 mg/dL (0.2 mg/dL) Urine Leukocyte Esterase Negative (NEG) Urine RBC 1-2 /HPF (0-2) Urine WBC 20-40 /HPF (0-4) Urine Squamous Epithelial Cells Few /LPF Urine Bacteria 0 /HPF (0-FEW) Urine Yeast Present /HPF Influenza Type A Antigen Negative (NEGATIVE) Influenza Type B Antigen Negative (NEGATIVE) Glucose (Fingerstick) 338 mg/dL (70-99) Test 03/23/19 22:10 03/23/19 22:20 03/23/19 23:51 03/23/19 23:52 Lactic Acid Level 1.0 mmol/L (0.4-2.0) Troponin I Quantitative < 0.017 ng/mL (0.000-0.055) Glucose (Fingerstick) 389 mg/dL (70-99) 496 mg/dL (70-99) 453 mg/dL (70-99) Test 03/24/19 01:09 03/24/19 02:15 03/24/19 03:20 03/24/19 07:07 Troponin I Quantitative < 0.017 ng/mL (0.000-0.055) Mycoplasma Serology (LAB) Negative (NEGATIVE) Glucose (Fingerstick) 416 mg/dL (70-99) 401 mg/dL (70-99) 315 mg/dL (70-99) Test 03/24/19 11:59 03/24/19 16:28 03/24/19 20:26 03/25/19 04:30 Glucose (Fingerstick) 435 mg/dL (70-99) 448 mg/dL (70-99) 396 mg/dL (70-99) White Blood Count 13.6 x10^3/uL (4.0-11.0) Red Blood Count 3.99 x10^6/uL (3.50-5.40) Hemoglobin 11.0 g/dL (12.0-15.5) Hematocrit 34.2 % (36.0-47.0) Mean Corpuscular Volume 86 fL (79-100) Mean Corpuscular Hemoglobin 28 pg (25-35) Mean Corpuscular Hemoglobin Concent 32 g/dL (31-37) Red Cell Distribution Width 14.4 % (11.5-14.5) Platelet Count 304 x10^3/uL (140-400) Neutrophils (%) (Auto) 80 % (31-73) Lymphocytes (%) (Auto) 12 % (24-48) Monocytes (%) (Auto) 7 % (0-9) Eosinophils (%) (Auto) 0 % (0-3) Basophils (%) (Auto) 0 % (0-3) Neutrophils # (Auto) 10.9 x10^3uL (1.8-7.7) Lymphocytes # (Auto) 1.7 x10^3/uL (1.0-4.8) Monocytes # (Auto) 1.0 x10^3/uL (0.0-1.1) Eosinophils # (Auto) 0.0 x10^3/uL (0.0-0.7) Basophils # (Auto) 0.0 x10^3/uL (0.0-0.2) Sodium Level 133 mmol/L (136-145) Potassium Level 4.1 mmol/L (3.5-5.1) Chloride Level 96 mmol/L (98-107) Carbon Dioxide Level 27 mmol/L (21-32) Anion Gap 10 (6-14) Blood Urea Nitrogen 22 mg/dL (7-20) Creatinine 1.2 mg/dL (0.6-1.0) Estimated GFR (Cockcroft-Gault) 56.4 BUN/Creatinine Ratio 18 (6-20) Glucose Level 501 mg/dL (70-99) Calcium Level 9.0 mg/dL (8.5-10.1) Total Bilirubin 0.4 mg/dL (0.2-1.0) Aspartate Amino Transf (AST/SGOT) 156 U/L (15-37) Alanine Aminotransferase (ALT/SGPT) 79 U/L (14-59) Alkaline Phosphatase 140 U/L (46-116) Total Protein 7.5 g/dL (6.4-8.2) Albumin 2.3 g/dL (3.4-5.0) Albumin/Globulin Ratio 0.4 (1.0-1.7) Test 03/25/19 07:55 03/25/19 09:40 03/25/19 10:54 Glucose (Fingerstick) 304 mg/dL (70-99) 291 mg/dL (70-99) Erythrocyte Sedimentation Rate 121 (0-25) Laboratory Tests Test 03/24/19 16:28 03/24/19 20:26 03/25/19 04:30 03/25/19 07:55 Glucose (Fingerstick) 448 mg/dL (70-99) 396 mg/dL (70-99) 304 mg/dL (70-99) White Blood Count 13.6 x10^3/uL (4.0-11.0) Red Blood Count 3.99 x10^6/uL (3.50-5.40) Hemoglobin 11.0 g/dL (12.0-15.5) Hematocrit 34.2 % (36.0-47.0) Mean Corpuscular Volume 86 fL (79-100) Mean Corpuscular Hemoglobin 28 pg (25-35) Mean Corpuscular Hemoglobin Concent 32 g/dL (31-37) Red Cell Distribution Width 14.4 % (11.5-14.5) Platelet Count 304 x10^3/uL (140-400) Neutrophils (%) (Auto) 80 % (31-73) Lymphocytes (%) (Auto) 12 % (24-48) Monocytes (%) (Auto) 7 % (0-9) Eosinophils (%) (Auto) 0 % (0-3) Basophils (%) (Auto) 0 % (0-3) Neutrophils # (Auto) 10.9 x10^3uL (1.8-7.7) Lymphocytes # (Auto) 1.7 x10^3/uL (1.0-4.8) Monocytes # (Auto) 1.0 x10^3/uL (0.0-1.1) Eosinophils # (Auto) 0.0 x10^3/uL (0.0-0.7) Basophils # (Auto) 0.0 x10^3/uL (0.0-0.2) Sodium Level 133 mmol/L (136-145) Potassium Level 4.1 mmol/L (3.5-5.1) Chloride Level 96 mmol/L (98-107) Carbon Dioxide Level 27 mmol/L (21-32) Anion Gap 10 (6-14) Blood Urea Nitrogen 22 mg/dL (7-20) Creatinine 1.2 mg/dL (0.6-1.0) Estimated GFR (Cockcroft-Gault) 56.4 BUN/Creatinine Ratio 18 (6-20) Glucose Level 501 mg/dL (70-99) Calcium Level 9.0 mg/dL (8.5-10.1) Total Bilirubin 0.4 mg/dL (0.2-1.0) Aspartate Amino Transf (AST/SGOT) 156 U/L (15-37) Alanine Aminotransferase (ALT/SGPT) 79 U/L (14-59) Alkaline Phosphatase 140 U/L (46-116) Total Protein 7.5 g/dL (6.4-8.2) Albumin 2.3 g/dL (3.4-5.0) Albumin/Globulin Ratio 0.4 (1.0-1.7) Test 03/25/19 09:40 03/25/19 10:54 Erythrocyte Sedimentation Rate 121 (0-25) Glucose (Fingerstick) 291 mg/dL (70-99) Medications Active Scripts Medications Dose Route/Sig Max Daily Dose Days Date Category Potassium Chloride 10 Meq Tab.sr.24h 10 Meq PO BID 03/24/19 Reported Zoloft (Sertraline Hcl) 100 Mg Tablet 1 Tab PO BID 03/24/19 Reported Losartan-Hctz 50-12.5 Mg Tab (Losartan/Hydrochlorothiazide) 1 Each Tablet 1 Tab PO DAILY 03/24/19 Reported Glimepiride 2 Mg Tablet 1 Tab PO DAILY 03/24/19 Reported Metformin Hcl Er (Metformin Hcl) 500 Mg Tab.er.24h 500 Mg PO BIDWMEALS 03/24/19 Reported Amlodipine Besylate 5 Mg Tablet 10 PO DAILY 03/23/19 Reported Victoza 3-Talat (Liraglutide) 0.6 Mg/0.1 Ml Pen.injctr 1.2 Mg SQ DAILY 03/23/19 Reported Impression . 1. Abnormal x-ray compatible with pneumonia. Suspect gram-negative, possibly gram-positive. 2. Hypoxemia. 3. Leukocytosis. 4. Hyponatremia. 5. Mild protein malnutrition, present upon admission. Plan . 1. We will continue current antibiotics. 2. Repeat chest x-ray in AM 3. Follow up input from Infectious Disease service. I do appreciate the privilege in sharing in patient LEOBARDO HILL MD March 25, 2019 14:03
[2019-03-25 14:49] VITALS: BP 146/84
--- NOTE | 2019-03-25 16:52 | PDOC2 ---
NEUROLOGY CONSULT Date of Admission Date of Admission DATE: 03/25/19 TIME: 16:41 Reason for Consult Reason for Consult: IMPRESSION: Headache. Fever. Neck pain. Leukocytosis. Pneumonia. UTI. Hyperglycemia, glucose 501. DM. HTN. Obesity. Hx of migraine headache. RECOMMENDATIONS/PLAN: HCT performed and no evidence of SAH. Symptomatic treatment. Control hyperglycemia. Lab: see orders. Consulted ID. HISTORY OF THE PRESENT ILLNESS: This is a 53-year-old AA female with history of diabetes. She has had 4 days of progressive shortness of breath feeling extremely weak. She has continuous shortness of breath and cough. She tried some [id number] meds but that did not seem to work. Describes her symptoms as agonizing, rated at 10/10. Imaging studies showing a left lower lobe pneumonia. She complained headaches on 03/25/19 stating she had headaches in the past several times a month but not as severe as this time. No symptoms of projectile vomiting, diplopia, ataxia, focalized numbness or weakness. PAST MEDICAL HISTORY: Diabetes, hypertension, bilateral lower extremity fractures. PAST SURGERY HISTORY: No major surgery recently. ALLERGIES: LISINOPRIL AND OXYCODONE. FAMILY HISTORY: Diabetes. SOCIAL HISTORY: She does not drink, smoke or take drugs. 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 MEDICATIONS: Refer to [facility] REVIEW OF SYSTEMS: Constitutional: Obese. Head: No traumatic brain or head injury. Skin: No edema, or rash. Ear: No infection. Eyes: No vision loss or color blindness. Nose: No bleeding or purulent discharges. Hearing: No hearing decrease. Neck: No injury. Breast: No history of cancer, masses,or discharges. Cardiac: HTN. Pulmonary: No COPD. GI: No GI ulcer, GI bleeding. Urinary/genital: UTI. Endocrinologic: Diabetes Mellitus, obesity. Skeletomuscular: No muscular atrophy. Neurological: see HP. Psychiatric: Denies drug use/abuse. Otherwise, not -kuwui review of systems. PHYSICAL EXAMINATION: General appearance is in subacute distress. HEENT: Normocephalic and nontraumatic. Eyes, nose, ears, and throat are unremarkable. Neck is supple. No lymphadenopathy. No bruits are heard over the carotid artery. No crepitus. Cardiovascular: S1, S2, regular rate and rhythm. Pulmonary: decreased to auscultation bilaterally. Abdomen: Bowel sounds are positive. Abdomen is soft, nontender, and nondistended. Extremities: No rash, lesions, or edema. No restriction of range of motion NEUROLOGICAL EXAMINATION: Alert Oriented to time, place and person. PERRL. EOMI. CN: no focal findings. Muscle tone: within normal. Muscle strength: 5 DTR: 2 Plantar reflex: Flexor response bilaterally Gait: not examined in bed. Sensory exam: no abnormal findings. No cerebellar signs elicited. F-T-N test accurate. Current Medications Current Medications Current Medications Albuterol/ Ipratropium (Duoneb) 3 ml 1X ONCE NEB Last administered on 03/23/19 19:22; Start 03/23/19 at 18:30; Stop 03/23/19 at 18:31; Status DC Sodium Chloride 1,000 ml @ 1,000 mls/hr 1X ONCE IV Last administered on 03/23/19 18:51; Start 03/23/19 at 18:30; Stop 03/23/19 at 19:29; Status DC Dexamethasone Sodium Phosphate (Decadron) 10 mg 1X ONCE IV Last administered on 03/23/19 18:51; Start 03/23/19 at 18:30; Stop 03/23/19 at 18:31; Status DC Ibuprofen (Motrin) 600 mg 1X ONCE PO Last administered on 03/23/19 18:50; Start 03/23/19 at 18:30; Stop 03/23/19 at 18:31; Status DC Piperacillin Sod/ Tazobactam Sod 4.5 gm/Sodium Chloride 100 ml @ 200 mls/hr 1X ONCE IV Last administered on 03/23/19 18:50; Start 03/23/19 at 18:45; Stop 03/23/19 at 19:14; Status DC Acetaminophen (Tylenol) 500 mg 1X ONCE PO Last administered on 03/23/19 18:51; Start 03/23/19 at 18:45; Stop 03/23/19 at 18:46; Status DC Insulin Human Regular (HumuLIN R VIAL) 12 unit 1X ONCE SQ Last administered on 03/23/19 19:57; Start 03/23/19 at 19:00; Stop 03/23/19 at 19:01; Status DC Levofloxacin/ Dextrose 150 ml @ 100 mls/hr 1X ONCE IV Last administered on 5/12/19at 20:02; Start 03/23/19 at 19:15; Stop 03/23/19 at 20:44; Status DC Vancomycin HCl 1.75 gm/Sodium Chloride 500 ml @ 250 mls/hr 1X ONCE IV Last administered on 03/23/19at 19:59; Start 03/23/19 at 20:00; Stop 03/23/19 at 21:59; Status DC Sodium Chloride 1,000 ml @ 1,000 mls/hr 1X ONCE IV Last administered on 03/23/19at 19:56; Start 03/23/19 at 19:15; Stop 03/23/19 at 20:14; Status DC Sodium Chloride 500 ml @ 500 mls/hr 1X ONCE IV Last administered on 03/23/19at 21:01; Start 03/23/19 at 19:15; Stop 03/23/19 at 20:14; Status DC Ondansetron HCl (Zofran) 4 mg PRN Q8HRS PRN IV NAUSEA/VOMITING; Start 03/23/19 at 19:30; Stop 03/24/19 at 19:29; Status DC Acetaminophen (Tylenol) 650 mg PRN Q4HRS PRN PO FEVER; Start 03/23/19 at 19:30; Stop 03/24/19 at 19:29; Status DC Albuterol Sulfate (Ventolin Neb Soln) 2.5 mg PRN Q4HRS PRN NEB SHORTNESS OF BREATH Last administered on 03/25/19at 13:13; Start 03/23/19 at 19:30 Insulin Human Lispro (HumaLOG) 15 units 1X ONCE SQ Last administered on 9at 23:05; Start 03/23/19 at 23:30; Stop 03/23/19 at 23:31; Status DC Insulin Human Lispro (HumaLOG) 0-7 UNITS TIDWMEALS SQ Last administered on 03/24/19at 12:11; Start 03/24/19 at 08:00; Stop 03/24/19 at 12:34; Status DC Dextrose (Dextrose 50%-Water Syringe) 12.5 gm PRN Q15MIN PRN IV SEE COMMENTS; Start 03/23/19 at 23:00; Stop 03/24/19 at 12:34; Status DC Insulin Human Lispro (HumaLOG) 25 units 1X ONCE SQ Last administered on 03/24/19 01:50; Start 03/24/19 at 02:00; Stop 03/24/19 at 02:01; Status DC Piperacillin Sod/ Tazobactam Sod (Zosyn Per Pharmacy) 1 each PRN DAILY PRN MC SEE COMMENTS; Start 03/24/19 at 09:15 Albuterol/ Ipratropium (Duoneb) 3 ml RTQID NEB Last administered on 03/24/19at 19:26; Start 03/24/19 at 12:00 Piperacillin Sod/ Tazobactam Sod 3.375 gm/Sodium Chloride 50 ml @ 100 mls/hr Q6HRS IV Last administered on 03/25/19 05:32; Start 03/24/19 at 10:00 Amlodipine Besylate (Norvasc) 5 mg DAILY PO Last administered on 03/25/19 09:47; Start 03/24/19 at 13:00 Glimepiride (Amaryl) 2 mg DAILY PO Last administered on 03/25/19 09:48; Start 03/25/19 at 09:00 Non-Formulary Medication (Liraglutide (Victoza 3-Talat)) 1.2 mg DAILY SQ ; Start 03/25/19 at 09:00; Status UNV Losartan Potassium (Cozaar) 50 mg DAILY PO Last administered on 03/25/19 09:48; Start 03/24/19 at 13:00 Metformin HCl (Glucophage Xr) 500 mg BIDWMEALS PO Last administered on 03/25/19 09:46; Start 03/24/19 at 12:45 Insulin Glargine (Lantus) 25 units DAILY SQ Last administered on 03/24/19 13:19; Start 03/24/19 at 12:30; Stop 03/25/19 at 09:40; Status DC Insulin Human Lispro (HumaLOG) 20 units TIDWMEALS SQ Last administered on 03/24/19 17:15; Start 03/24/19 at 17:00; Stop 03/25/19 at 09:40; Status DC Insulin Human Lispro (HumaLOG) 0-9 UNITS TIDWMEALS SQ Last administered on 03/24/19 17:13; Start 03/24/19 at 17:00 Dextrose (Dextrose 50%-Water Syringe) 12.5 gm PRN Q15MIN PRN IV SEE COMMENTS; Start 03/24/19 at 12:30 Hydrochlorothiazide (Microzide) 12.5 mg DAILY PO Last administered on 03/25/19 09:47; Start 03/24/19 at 13:00 Budesonide (Pulmicort) 0.5 mg RTBID NEB Last administered on 03/24/19 19:26; Start 03/24/19 at 20:00 Guaifenesin/ Codeine Phosphate (Robitussin Ac) 15 ml PRN Q6HRS PRN PO COUGH; Start 03/24/19 at 13:00 Doxycycline Hyclate (Vibra-Tab) 100 mg BID PO Last administered on 03/25/19 09:46; Start 03/24/19 at 21:00 Potassium Chloride (Klor-Con) 10 meq BIDWMEALS PO Last administered on 03/25/19 09:47; Start 03/24/19 at 18:00 Sertraline HCl (Zoloft) 100 mg BID PO Last administered on 03/25/19 09:46; Start 03/24/19 at 21:00 Ibuprofen (Motrin) 600 mg PRN Q6HRS PRN PO INFLAMMATION Last administered on 03/25/19 12:50; Start 03/24/19 at 18:45 Insulin Human Lispro (HumaLOG) 15 units 1X ONCE SQ Last administered on 03/25/19 05:36; Start 03/25/19 at 05:30; Stop 03/25/19 at 05:31; Status DC Ondansetron HCl (Zofran) 4 mg PRN Q6HRS PRN IV NAUSEA/VOMITING Last administered on 03/25/19 09:52; Start 03/25/19 at 09:30 Insulin Glargine (Lantus) 50 units DAILY SQ Last administered on 03/25/19 12:11; Start 03/25/19 at 10:00 Insulin Human Lispro (HumaLOG) 30 units TIDWMEALS SQ ; Start 03/25/19 at 12:00 Sumatriptan Succinate (Imitrex) 6 mg 1X ONCE SQ Last administered on 03/25/19 11:42; Start 03/25/19 at 10:00; Stop 03/25/19 at 10:01; Status DC Acetaminophen (Tylenol) 650 mg PRN Q4HRS PRN PO Headache Last administered on 03/25/19at 15:01; Start 03/25/19 at 13:00 Lactobacillus Rhamnosus (Culturelle) 1 cap BID PO ; Start 03/25/19 at 21:00 Non-Formulary Medication (Liraglutide (Victoza 3-Talat)) 1.2 mg DAILY SQ ; Start 03/25/19 at 16:30 Sumatriptan Succinate (Imitrex) 6 mg PRN DAILY PRN SQ headache; Start 03/25/19 at 16:15 Active Scripts Active Reported Potassium Chloride 10 Meq Tab.sr.24h 10 Meq PO BID Zoloft (Sertraline Hcl) 100 Mg Tablet 1 Tab PO BID Losartan-Hctz 50-12.5 Mg Tab (Losartan/Hydrochlorothiazide) 1 Each Tablet 1 Tab PO DAILY Glimepiride 2 Mg Tablet 1 Tab PO DAILY Metformin Hcl Er (Metformin Hcl) 500 Mg Tab.er.24h 500 Mg PO BIDWMEALS Amlodipine Besylate 5 Mg Tablet 10 PO DAILY Victoza 3-Talat (Liraglutide) 0.6 Mg/0.1 Ml Pen.injctr 1.2 Mg SQ DAILY Allergies Allergies: Allergies Coded Allergies Type Severity Reaction Last Updated Verified lisinopril Allergy Severe angioedema 03/23/19 Yes oxycodone Allergy Intermediate itching 03/23/19 Yes ROS Review of System The patient denies any associated fevers, chills, headache, ear pain, rhinorrhea, sore throat, stiff neck, productive cough, chest pain, shortness of breath, back or flank pain, abdominal pain, nausea, vomiting, diarrhea, constipation, dysuria, rash, numbness, weakness, tingling, incontinence, difficulty ambulating, or diaphoresis. Physical Exam Physical Exam General: Well developed, well nourished, no acute distress, well appearing HEENT: Pupils equally round and reactive to light, EOMI, no discharge, normal conjunctiva Neck: Supple, no nuchal rigidity, no JVD, trachea midline, no tenderness Cardiac: RRR, no murmurs, no gallops, no rubs Chest/Lungs: CTAB, no wheeze, no rhonchi, no crackles Abdomen: soft, non-distended, no guarding, no peritoneal signs, non-tender Back: No tenderness Extremities: no edema, pulses intact, non-tender,capillary refill <3 sec bilateral upper and lower extremities, Neuro: Alert and oriented x 4, no focal deficits, normal speech Vitals Vitals: Vital Signs Date Time Temp Pulse Resp B/P (MAP) Pulse Ox O2 Delivery O2 Flow Rate FiO2 03/25/19 14:49 98.1 76 18 146/84 (104) 95 Room Air 98.1 03/25/19 02:54 2.0 Labs Labs Laboratory Tests Test 03/23/19 18:10 03/23/19 19:10 03/23/19 19:20 03/23/19 21:11 White Blood Count 16.2 x10^3/uL (4.0-11.0) Red Blood Count 4.60 x10^6/uL (3.50-5.40) Hemoglobin 12.9 g/dL (12.0-15.5) Hematocrit 38.7 % (36.0-47.0) Mean Corpuscular Volume 84 fL (79-100) Mean Corpuscular Hemoglobin 28 pg (25-35) Mean Corpuscular Hemoglobin Concent 33 g/dL (31-37) Red Cell Distribution Width 14.3 % (11.5-14.5) Platelet Count 325 x10^3/uL (140-400) Neutrophils (%) (Auto) 75 % (31-73) Lymphocytes (%) (Auto) 16 % (24-48) Monocytes (%) (Auto) 9 % (0-9) Eosinophils (%) (Auto) 0 % (0-3) Basophils (%) (Auto) 1 % (0-3) Neutrophils # (Auto) 12.1 x10^3uL (1.8-7.7) Lymphocytes # (Auto) 2.5 x10^3/uL (1.0-4.8) Monocytes # (Auto) 1.5 x10^3/uL (0.0-1.1) Eosinophils # (Auto) 0.0 x10^3/uL (0.0-0.7) Basophils # (Auto) 0.1 x10^3/uL (0.0-0.2) Sodium Level 129 mmol/L (136-145) Potassium Level 4.1 mmol/L (3.5-5.1) Chloride Level 87 mmol/L (98-107) Carbon Dioxide Level 29 mmol/L (21-32) Anion Gap 13 (6-14) Blood Urea Nitrogen 13 mg/dL (7-20) Creatinine 1.1 mg/dL (0.6-1.0) Estimated GFR (Cockcroft-Gault) 62.4 BUN/Creatinine Ratio 12 (6-20) Glucose Level 398 mg/dL (70-99) Lactic Acid Level 2.1 mmol/L (0.4-2.0) Calcium Level 9.1 mg/dL (8.5-10.1) Magnesium Level 2.3 mg/dL (1.8-2.4) Total Bilirubin 0.6 mg/dL (0.2-1.0) Aspartate Amino Transf (AST/SGOT) 28 U/L (15-37) Alanine Aminotransferase (ALT/SGPT) 28 U/L (14-59) Alkaline Phosphatase 126 U/L (46-116) Creatine Kinase 82 U/L (26-192) Creatine Kinase MB (Mass) < 0.5 ng/mL (0.0-3.6) Creatine Kinase MB Relative Index % (0-4) Troponin I Quantitative < 0.017 ng/mL (0.000-0.055) [id number]-[id number]-Type Natriuretic Peptide 14 pg/mL (0-124) Total Protein 8.6 g/dL (6.4-8.2) Albumin 3.1 g/dL (3.4-5.0) Albumin/Globulin Ratio 0.6 (1.0-1.7) Urine Collection Type Unknown Urine Color Yellow Urine Clarity Cloudy Urine pH 6.0 Urine Specific [place] >=1.030 Urine Protein 100 mg/dL (NEG-TRACE) Urine Glucose (UA) >=1000 mg/dL (NEG) Urine Ketones (Stick) 15 mg/dL (NEG) Urine Blood Trace (NEG) Urine Nitrite Negative (NEG) Urine Bilirubin Small (NEG) Urine Urobilinogen Dipstick 1.0 mg/dL (0.2 mg/dL) Urine Leukocyte Esterase Negative (NEG) Urine RBC 1-2 /HPF (0-2) Urine WBC 20-40 /HPF (0-4) Urine Squamous Epithelial Cells Few /LPF Urine Bacteria 0 /HPF (0-FEW) Urine Yeast Present /HPF Influenza Type A Antigen Negative (NEGATIVE) Influenza Type B Antigen Negative (NEGATIVE) Glucose (Fingerstick) 338 mg/dL (70-99) Test 03/23/19 22:10 03/23/19 22:20 03/23/19 23:51 03/23/19 23:52 Lactic Acid Level 1.0 mmol/L (0.4-2.0) Troponin I Quantitative < 0.017 ng/mL (0.000-0.055) Glucose (Fingerstick) 389 mg/dL (70-99) 496 mg/dL (70-99) 453 mg/dL (70-99) Test 03/24/19 01:09 03/24/19 02:15 03/24/19 03:20 03/24/19 07:07 Troponin I Quantitative < 0.017 ng/mL (0.000-0.055) Mycoplasma Serology (LAB) Negative (NEGATIVE) Glucose (Fingerstick) 416 mg/dL (70-99) 401 mg/dL (70-99) 315 mg/dL (70-99) Test 03/24/19 11:59 03/24/19 16:28 03/24/19 20:26 03/25/19 04:30 Glucose (Fingerstick) 435 mg/dL (70-99) 448 mg/dL (70-99) 396 mg/dL (70-99) White Blood Count 13.6 x10^3/uL (4.0-11.0) Red Blood Count 3.99 x10^6/uL (3.50-5.40) Hemoglobin 11.0 g/dL (12.0-15.5) Hematocrit 34.2 % (36.0-47.0) Mean Corpuscular Volume 86 fL (79-100) Mean Corpuscular Hemoglobin 28 pg (25-35) Mean Corpuscular Hemoglobin Concent 32 g/dL (31-37) Red Cell Distribution Width 14.4 % (11.5-14.5) Platelet Count 304 x10^3/uL (140-400) Neutrophils (%) (Auto) 80 % (31-73) Lymphocytes (%) (Auto) 12 % (24-48) Monocytes (%) (Auto) 7 % (0-9) Eosinophils (%) (Auto) 0 % (0-3) Basophils (%) (Auto) 0 % (0-3) Neutrophils # (Auto) 10.9 x10^3uL (1.8-7.7) Lymphocytes # (Auto) 1.7 x10^3/uL (1.0-4.8) Monocytes # (Auto) 1.0 x10^3/uL (0.0-1.1) Eosinophils # (Auto) 0.0 x10^3/uL (0.0-0.7) Basophils # (Auto) 0.0 x10^3/uL (0.0-0.2) Sodium Level 133 mmol/L (136-145) Potassium Level 4.1 mmol/L (3.5-5.1) Chloride Level 96 mmol/L (98-107) Carbon Dioxide Level 27 mmol/L (21-32) Anion Gap 10 (6-14) Blood Urea Nitrogen 22 mg/dL (7-20) Creatinine 1.2 mg/dL (0.6-1.0) Estimated GFR (Cockcroft-Gault) 56.4 BUN/Creatinine Ratio 18 (6-20) Glucose Level 501 mg/dL (70-99) Calcium Level 9.0 mg/dL (8.5-10.1) Total Bilirubin 0.4 mg/dL (0.2-1.0) Aspartate Amino Transf (AST/SGOT) 156 U/L (15-37) Alanine Aminotransferase (ALT/SGPT) 79 U/L (14-59) Alkaline Phosphatase 140 U/L (46-116) Total Protein 7.5 g/dL (6.4-8.2) Albumin 2.3 g/dL (3.4-5.0) Albumin/Globulin Ratio 0.4 (1.0-1.7) Test 03/25/19 07:55 03/25/19 09:40 03/25/19 10:54 Glucose (Fingerstick) 304 mg/dL (70-99) 291 mg/dL (70-99) Erythrocyte Sedimentation Rate 121 (0-25) Laboratory Tests Test 03/24/19 20:26 03/25/19 04:30 03/25/19 07:55 03/25/19 09:40 Glucose (Fingerstick) 396 mg/dL (70-99) 304 mg/dL (70-99) White Blood Count 13.6 x10^3/uL (4.0-11.0) Red Blood Count 3.99 x10^6/uL (3.50-5.40) Hemoglobin 11.0 g/dL (12.0-15.5) Hematocrit 34.2 % (36.0-47.0) Mean Corpuscular Volume 86 fL (79-100) Mean Corpuscular Hemoglobin 28 pg (25-35) Mean Corpuscular Hemoglobin Concent 32 g/dL (31-37) Red Cell Distribution Width 14.4 % (11.5-14.5) Platelet Count 304 x10^3/uL (140-400) Neutrophils (%) (Auto) 80 % (31-73) Lymphocytes (%) (Auto) 12 % (24-48) Monocytes (%) (Auto) 7 % (0-9) Eosinophils (%) (Auto) 0 % (0-3) Basophils (%) (Auto) 0 % (0-3) Neutrophils # (Auto) 10.9 x10^3uL (1.8-7.7) Lymphocytes # (Auto) 1.7 x10^3/uL (1.0-4.8) Monocytes # (Auto) 1.0 x10^3/uL (0.0-1.1) Eosinophils # (Auto) 0.0 x10^3/uL (0.0-0.7) Basophils # (Auto) 0.0 x10^3/uL (0.0-0.2) Sodium Level 133 mmol/L (136-145) Potassium Level 4.1 mmol/L (3.5-5.1) Chloride Level 96 mmol/L (98-107) Carbon Dioxide Level 27 mmol/L (21-32) Anion Gap 10 (6-14) Blood Urea Nitrogen 22 mg/dL (7-20) Creatinine 1.2 mg/dL (0.6-1.0) Estimated GFR (Cockcroft-Gault) 56.4 BUN/Creatinine Ratio 18 (6-20) Glucose Level 501 mg/dL (70-99) Calcium Level 9.0 mg/dL (8.5-10.1) Total Bilirubin 0.4 mg/dL (0.2-1.0) Aspartate Amino Transf (AST/SGOT) 156 U/L (15-37) Alanine Aminotransferase (ALT/SGPT) 79 U/L (14-59) Alkaline Phosphatase 140 U/L (46-116) Total Protein 7.5 g/dL (6.4-8.2) Albumin 2.3 g/dL (3.4-5.0) Albumin/Globulin Ratio 0.4 (1.0-1.7) Erythrocyte Sedimentation Rate 121 (0-25) Test 03/25/19 10:54 Glucose (Fingerstick) 291 mg/dL (70-99) HARMAN CONNER MD March 25, 2019 16:52
[2019-03-25] MEDS: Liraglutide (Victoza 3-Pak) 1.2 MG SQ SCH (17:22)
[2019-03-25 19:00] VITALS: BP 144/88
[2019-03-25] MEDS: LACTOBACILLUS RHAMNOSUS GG 1 CAPSULE. PO SCH (20:42)
[2019-03-25] MEDS: SUMAtriptan SUCC 6 MG/0.5 ML VIAL. SQ PRN (20:42)
[2019-03-25 23:00] VITALS: BP 113/74
[2019-03-26 02:46] VITALS: BP 120/82
[2019-03-26 04:23] LABS: BASO # 0.1 x10^3/uL (0.0-0.2); BASO % 1 % (0-3); EOS % 0 % (0-3); HEMATOCRIT 35.8 % (36.0-47.0); HEMOGLOBIN 11.4 g/dL (12.0-15.5); LYMPH % 22 % (24-48); MEAN CORPUSCULAR HEMOGLOBIN 27 pg (25-35); MEAN CORPUSCULAR HGB CONC 32 g/dL (31-37); MEAN CORPUSCULAR VOLUME 85 fL (79-100); MONO # 1.2 x10^3/uL (0.0-1.1); MONO % 9 % (0-9); NEUT # 9.6 x10^3uL (1.8-7.7); NEUT % 69 % (31-73); PLATELET COUNT 377 x10^3/uL (140-400); RED BLOOD COUNT 4.19 x10^6/uL (3.50-5.40); RED CELL DISTRIBUTION WIDTH 14.4 % (11.5-14.5)
[2019-03-26 04:35] LABS: CALCIUM 9.2 mg/dL (8.5-10.1); CREATININE 1.1 mg/dL (0.6-1.0); GFR 62.4; POTASSIUM 3.8 mmol/L (3.5-5.1)
[2019-03-26] MEDS: PIPERACILLIN/TAZOBACTAM 3.375 GM in IV NORMAL SALINE 50ML 50 ML IV SCH (05:39)
[2019-03-26 05:52] LABS: % BANDS 7 % (0-9); % LYMPHS 25 % (24-48); % MONOS 5 % (0-10); % SEGS 63 % (35-66)
[2019-03-26 05:53] LABS: PLT ESTIMATE ADEQUATE (ADEQUATE)
[2019-03-26 07:00] VITALS: BP 133/72
[2019-03-26] MEDS: BUDESONIDE 0.5 MG/2 ML NEBU. NEB SCH ×2 (07:18→20:05)
[2019-03-26] MEDS: IPRATRPIUM/ALBUTEROL 0.5/2.5MG 3 ML NEBU. NEB SCH ×4 (07:18→20:05)
[2019-03-26] MEDS: metFORMIN XR 500 MG TAB.ER.24H PO SCH ×2 (08:00→17:00)
[2019-03-26] MEDS: INSULIN LISPRO 300 UNITS/3 ML INSULN.PEN. SQ SCH ×6 (08:00→17:00)
[2019-03-26] MEDS: LACTOBACILLUS RHAMNOSUS GG 1 CAPSULE. PO SCH ×2 (08:19→20:50)
--- NOTE | 2019-03-26 08:19 | RAD ---
Portable chest, 03/26/2019: HISTORY: Pneumonia Comparison is made to a study from 03/23/2019. The heart size and pulmonary vascularity are within normal limits. Left basilar infiltrate has partially cleared. Right basilar discoid atelectasis has resolved. No new pulmonary abnormality is seen. There is no evidence of pleural fluid. IMPRESSION: Partial interval clearing of the left basilar infiltrate compatible with resolving pneumonia. Electronically signed by: Mehul Kennedy MD (03/26/2019 8:17 AM) [facility]
[2019-03-26] MEDS: SERTRALINE 50 MG TABLET. PO SCH ×2 (08:20→20:51)
[2019-03-26] MEDS: POTASSIUM CHLORIDE 10 MEQ TABLET.ER. PO SCH ×2 (08:20→17:00)
[2019-03-26] MEDS: amLODIPine BESYLATE 5 MG TABLET PO SCH (08:20)
[2019-03-26] MEDS: LOSARTAN POTASSIUM 50 MG TABLET. PO SCH (08:21)
[2019-03-26] MEDS: hydroCHLOROthiazide 12.5 MG CAPSULE PO SCH (08:21)
[2019-03-26] MEDS: DOXYCYCLINE HYCLATE 100 MG TABLET PO SCH (08:21)
[2019-03-26] MEDS: Liraglutide (Victoza 3-Pak) 1.2 MG SQ SCH (08:24)
[2019-03-26] MEDS: GLIMEPIRIDE 2 MG TABLET. PO SCH (08:33)
[2019-03-26] MEDS: INSULIN GLARGINE 300 UNITS/3 ML INSULN.PEN. SQ SCH (09:00)
--- NOTE | 2019-03-26 10:19 | PDOC ---
PULMONARY PROGRESS NOTES Subjective NO SOA Vitals Vital Signs Date Time Temp Pulse Resp B/P (MAP) Pulse Ox O2 Delivery O2 Flow Rate FiO2 03/26/19 08:21 60 133/72 03/26/19 08:00 Room Air 03/26/19 07:19 92 03/26/19 07:00 98.2 16 98.2 General: Alert, No acute distress Lungs: Clear Cardiovascular: S1 Abdomen: Soft Neuro Exam: Alert Extremities: No Edema Skin: Warm, Dry Labs Laboratory Tests Test 03/24/19 11:59 03/24/19 16:28 03/24/19 20:26 03/25/19 04:30 Glucose (Fingerstick) 435 mg/dL (70-99) 448 mg/dL (70-99) 396 mg/dL (70-99) White Blood Count 13.6 x10^3/uL (4.0-11.0) Red Blood Count 3.99 x10^6/uL (3.50-5.40) Hemoglobin 11.0 g/dL (12.0-15.5) Hematocrit 34.2 % (36.0-47.0) Mean Corpuscular Volume 86 fL (79-100) Mean Corpuscular Hemoglobin 28 pg (25-35) Mean Corpuscular Hemoglobin Concent 32 g/dL (31-37) Red Cell Distribution Width 14.4 % (11.5-14.5) Platelet Count 304 x10^3/uL (140-400) Neutrophils (%) (Auto) 80 % (31-73) Lymphocytes (%) (Auto) 12 % (24-48) Monocytes (%) (Auto) 7 % (0-9) Eosinophils (%) (Auto) 0 % (0-3) Basophils (%) (Auto) 0 % (0-3) Neutrophils # (Auto) 10.9 x10^3uL (1.8-7.7) Lymphocytes # (Auto) 1.7 x10^3/uL (1.0-4.8) Monocytes # (Auto) 1.0 x10^3/uL (0.0-1.1) Eosinophils # (Auto) 0.0 x10^3/uL (0.0-0.7) Basophils # (Auto) 0.0 x10^3/uL (0.0-0.2) Sodium Level 133 mmol/L (136-145) Potassium Level 4.1 mmol/L (3.5-5.1) Chloride Level 96 mmol/L (98-107) Carbon Dioxide Level 27 mmol/L (21-32) Anion Gap 10 (6-14) Blood Urea Nitrogen 22 mg/dL (7-20) Creatinine 1.2 mg/dL (0.6-1.0) Estimated GFR (Cockcroft-Gault) 56.4 BUN/Creatinine Ratio 18 (6-20) Glucose Level 501 mg/dL (70-99) Calcium Level 9.0 mg/dL (8.5-10.1) Total Bilirubin 0.4 mg/dL (0.2-1.0) Aspartate Amino Transf (AST/SGOT) 156 U/L (15-37) Alanine Aminotransferase (ALT/SGPT) 79 U/L (14-59) Alkaline Phosphatase 140 U/L (46-116) Total Protein 7.5 g/dL (6.4-8.2) Albumin 2.3 g/dL (3.4-5.0) Albumin/Globulin Ratio 0.4 (1.0-1.7) Test 03/25/19 07:55 03/25/19 09:40 03/25/19 10:54 03/25/19 17:18 Glucose (Fingerstick) 304 mg/dL (70-99) 291 mg/dL (70-99) 304 mg/dL (70-99) Erythrocyte Sedimentation Rate 121 (0-25) Test 03/25/19 20:36 03/26/19 03:50 03/26/19 07:43 Glucose (Fingerstick) 287 mg/dL (70-99) 264 mg/dL (70-99) White Blood Count 14.0 x10^3/uL (4.0-11.0) Red Blood Count 4.19 x10^6/uL (3.50-5.40) Hemoglobin 11.4 g/dL (12.0-15.5) Hematocrit 35.8 % (36.0-47.0) Mean Corpuscular Volume 85 fL (79-100) Mean Corpuscular Hemoglobin 27 pg (25-35) Mean Corpuscular Hemoglobin Concent 32 g/dL (31-37) Red Cell Distribution Width 14.4 % (11.5-14.5) Platelet Count 377 x10^3/uL (140-400) Neutrophils (%) (Auto) 69 % (31-73) Lymphocytes (%) (Auto) 22 % (24-48) Monocytes (%) (Auto) 9 % (0-9) Eosinophils (%) (Auto) 0 % (0-3) Basophils (%) (Auto) 1 % (0-3) Neutrophils # (Auto) 9.6 x10^3uL (1.8-7.7) Lymphocytes # (Auto) 3.0 x10^3/uL (1.0-4.8) Monocytes # (Auto) 1.2 x10^3/uL (0.0-1.1) Eosinophils # (Auto) 0.0 x10^3/uL (0.0-0.7) Basophils # (Auto) 0.1 x10^3/uL (0.0-0.2) Segmented Neutrophils % 63 % (35-66) Band Neutrophils % 7 % (0-9) Lymphocytes % 25 % (24-48) Monocytes % 5 % (0-10) Platelet Estimate Adequate (ADEQUATE) Sodium Level 138 mmol/L (136-145) Potassium Level 3.8 mmol/L (3.5-5.1) Chloride Level 99 mmol/L (98-107) Carbon Dioxide Level 29 mmol/L (21-32) Anion Gap 10 (6-14) Blood Urea Nitrogen 21 mg/dL (7-20) Creatinine 1.1 mg/dL (0.6-1.0) Estimated GFR (Cockcroft-Gault) 62.4 Glucose Level 267 mg/dL (70-99) Calcium Level 9.2 mg/dL (8.5-10.1) Laboratory Tests Test 03/25/19 10:54 03/25/19 17:18 03/25/19 20:36 03/26/19 03:50 Glucose (Fingerstick) 291 mg/dL (70-99) 304 mg/dL (70-99) 287 mg/dL (70-99) White Blood Count 14.0 x10^3/uL (4.0-11.0) Red Blood Count 4.19 x10^6/uL (3.50-5.40) Hemoglobin 11.4 g/dL (12.0-15.5) Hematocrit 35.8 % (36.0-47.0) Mean Corpuscular Volume 85 fL (79-100) Mean Corpuscular Hemoglobin 27 pg (25-35) Mean Corpuscular Hemoglobin Concent 32 g/dL (31-37) Red Cell Distribution Width 14.4 % (11.5-14.5) Platelet Count 377 x10^3/uL (140-400) Neutrophils (%) (Auto) 69 % (31-73) Lymphocytes (%) (Auto) 22 % (24-48) Monocytes (%) (Auto) 9 % (0-9) Eosinophils (%) (Auto) 0 % (0-3) Basophils (%) (Auto) 1 % (0-3) Neutrophils # (Auto) 9.6 x10^3uL (1.8-7.7) Lymphocytes # (Auto) 3.0 x10^3/uL (1.0-4.8) Monocytes # (Auto) 1.2 x10^3/uL (0.0-1.1) Eosinophils # (Auto) 0.0 x10^3/uL (0.0-0.7) Basophils # (Auto) 0.1 x10^3/uL (0.0-0.2) Segmented Neutrophils % 63 % (35-66) Band Neutrophils % 7 % (0-9) Lymphocytes % 25 % (24-48) Monocytes % 5 % (0-10) Platelet Estimate Adequate (ADEQUATE) Sodium Level 138 mmol/L (136-145) Potassium Level 3.8 mmol/L (3.5-5.1) Chloride Level 99 mmol/L (98-107) Carbon Dioxide Level 29 mmol/L (21-32) Anion Gap 10 (6-14) Blood Urea Nitrogen 21 mg/dL (7-20) Creatinine 1.1 mg/dL (0.6-1.0) Estimated GFR (Cockcroft-Gault) 62.4 Glucose Level 267 mg/dL (70-99) Calcium Level 9.2 mg/dL (8.5-10.1) Test 03/26/19 07:43 Glucose (Fingerstick) 264 mg/dL (70-99) Medications Active Scripts Medications Dose Route/Sig Max Daily Dose Days Date Category Potassium Chloride 10 Meq Tab.sr.24h 10 Meq PO BID 03/24/19 Reported Zoloft (Sertraline Hcl) 100 Mg Tablet 1 Tab PO BID 03/24/19 Reported Losartan-Hctz 50-12.5 Mg Tab (Losartan/Hydrochlorothiazide) 1 Each Tablet 1 Tab PO DAILY 03/24/19 Reported Glimepiride 2 Mg Tablet 1 Tab PO DAILY 03/24/19 Reported Metformin Hcl Er (Metformin Hcl) 500 Mg Tab.er.24h 500 Mg PO BIDWMEALS 03/24/19 Reported Amlodipine Besylate 5 Mg Tablet 10 PO DAILY 03/23/19 Reported Victoza 3-Talat (Liraglutide) 0.6 Mg/0.1 Ml Pen.injctr 1.2 Mg SQ DAILY 03/23/19 Reported Impression . 1. Abnormal x-ray compatible with LLL pneumonia. Suspect gram-negative, possibly gram-positive. 2. Hypoxemia. 3. Leukocytosis. 4. Hyponatremia. 5. Mild protein malnutrition, present upon admission. Plan . 1. CAN DC ZOSYN AND CHANGE TO PO AUGMENTIN / On PO doxy 2. Repeat chest x-ray today with resolving LLL pneumonia 3. possible dc in 24 hrs I do appreciate the privilege in sharing in patient LEOBARDO HILL MD March 26, 2019 10:19
[2019-03-26 11:00] VITALS: BP 127/72
--- NOTE | 2019-03-26 12:06 | PDOC ---
Infectious Disease Note Subjective Subjective [place] still but some better Eating ok H/o dental infections in December - no dental pain now but has some congestion Cough is better. F/c/s better + BM. No rash/dysuria Hip is some better ROS ROS o/w neg Vital Sign Vital Signs Vital Signs Date Time Temp Pulse Resp B/P (MAP) Pulse Ox O2 Delivery O2 Flow Rate FiO2 03/26/19 11:24 Room Air 03/26/19 11:00 98.2 67 16 127/72 (90) 98 98.2 Physical Exam PHYSICAL EXAM GENERAL: The patient is sitting in bed, alert. Looks better HEENT: PERRL, EOMI but some discomfort Oral cavity, pharynx pink no thrush or swellings and moist. NECK: Supple with FROM LUNGS: CTA HEART: S1, S2. ABDOMEN: Obese, soft, nontender with bowel sounds present. EXTREMITIES: No gross edema or cyanosis.. SKIN: Warm without generalized rash. NEUROLOGIC: Alert and oriented x 3. Answers questions appropriately Labs Lab Laboratory Tests Test 03/25/19 17:18 03/25/19 20:36 03/26/19 03:50 03/26/19 07:43 Glucose (Fingerstick) 304 mg/dL (70-99) 287 mg/dL (70-99) 264 mg/dL (70-99) White Blood Count 14.0 x10^3/uL (4.0-11.0) Red Blood Count 4.19 x10^6/uL (3.50-5.40) Hemoglobin 11.4 g/dL (12.0-15.5) Hematocrit 35.8 % (36.0-47.0) Mean Corpuscular Volume 85 fL (79-100) Mean Corpuscular Hemoglobin 27 pg (25-35) Mean Corpuscular Hemoglobin Concent 32 g/dL (31-37) Red Cell Distribution Width 14.4 % (11.5-14.5) Platelet Count 377 x10^3/uL (140-400) Neutrophils (%) (Auto) 69 % (31-73) Lymphocytes (%) (Auto) 22 % (24-48) Monocytes (%) (Auto) 9 % (0-9) Eosinophils (%) (Auto) 0 % (0-3) Basophils (%) (Auto) 1 % (0-3) Neutrophils # (Auto) 9.6 x10^3uL (1.8-7.7) Lymphocytes # (Auto) 3.0 x10^3/uL (1.0-4.8) Monocytes # (Auto) 1.2 x10^3/uL (0.0-1.1) Eosinophils # (Auto) 0.0 x10^3/uL (0.0-0.7) Basophils # (Auto) 0.1 x10^3/uL (0.0-0.2) Segmented Neutrophils % 63 % (35-66) Band Neutrophils % 7 % (0-9) Lymphocytes % 25 % (24-48) Monocytes % 5 % (0-10) Platelet Estimate Adequate (ADEQUATE) Sodium Level 138 mmol/L (136-145) Potassium Level 3.8 mmol/L (3.5-5.1) Chloride Level 99 mmol/L (98-107) Carbon Dioxide Level 29 mmol/L (21-32) Anion Gap 10 (6-14) Blood Urea Nitrogen 21 mg/dL (7-20) Creatinine 1.1 mg/dL (0.6-1.0) Estimated GFR (Cockcroft-Gault) 62.4 Glucose Level 267 mg/dL (70-99) Calcium Level 9.2 mg/dL (8.5-10.1) Micro CXR IMPRESSION: Partial interval clearing of the left basilar infiltrate compatible with resolving pneumonia. CT Head: Findings: There is no intra-axial mass effect, midline shift, extra-axial fluid collection. Ventricles, sulci, cisterns are within normal limits in size and configuration. Mastoid air cells are aerated. No acute calvarial abnormality is identified. IMPRESSION: 1. No acute intracranial abnormality is identified. Maxillofacial CT: FINDINGS: There are no air-fluid levels of the paranasal sinuses. Paranasal sinuses are overall aerated other than mild left sphenoid sinus mucosal thickening greatest dimension anteriorly about 0.4 cm. Ostiomeatal units are patent bilaterally. IMPRESSION: 1. There is mild left sphenoid sinus mucosal thickening. Microbiology 03/23/19 Blood Culture - Preliminary, Resulted NO GROWTH AFTER 1 DAY Objective Assessment Pneumonia - better Fever - better [place] - ? 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 Doxy possible viral Joint pains -s/p steroid injection, left hip urgent care center about 5 days ago - benign exam on PROM and palpation. XRAY - arthritis Yeast in urine, UC pending Hyponatremia Diabetes elevated FSBS - steroid - not controlled Hypertension Sleep apnea, CPAP Plan Plan of Care Discont Zosyn/doxy Augmentin/Azitho times one Repeat labs in am F/u Strep pneumo and mycoplasma serologies/cults D/w Dr. Sherwood D/w nursing AHFSA PAREKH MD March 26, 2019 12:06
[2019-03-26] MEDS ORDERED: AZITHROMYCIN 250 MG TABLET. PO ONE (12:15)
[2019-03-26 13:14] LABS: HEMOGLOBIN A1C 15.1 % (4.8-5.6)
[2019-03-26] MEDS ORDERED: GADOTERATE 7.5 MMOL/15ML VIAL. IVP ONE (14:30)
--- NOTE | 2019-03-26 14:30 | PDOC ---
PROGRESS NOTES Chief Complaint Chief Complaint acute new headache Elevated ESR concerns for temporal arteritis, discussed with neurology executive talent acquisition consultant, patient has not consented to surgical consult for possible biopsy. Will follow with patient if by tomorros she has not made a decision she may need to be started empirically on steroids. Holding off at the time in order to minimize the risk for false negative results from biopsy Pneumonia, hyponatremia, hyperglycemia, DM2 very poor control acute hypoxia resolved hip pain, OA History of Present Illness History of Present Illness still having headche but seems to be more controlled today. no new symptoms reported. Vitals Vitals Vital Signs Date Time Temp Pulse Resp B/P (MAP) Pulse Ox O2 Delivery O2 Flow Rate FiO2 03/26/19 11:24 Room Air 03/26/19 11:00 98.2 67 16 127/72 (90) 98 98.2 Physical Exam Physical Exam GENERAL: The patient is sitting in bed, alert. Looks better HEENT: PERRL, EOMI but some discomfort Oral cavity, pharynx pink no thrush or swellings and moist. NECK: Supple with FROM LUNGS: CTA HEART: S1, S2. ABDOMEN: Obese, soft, nontender with bowel sounds present. EXTREMITIES: No gross edema or cyanosis.. SKIN: Warm without generalized rash. NEUROLOGIC: Alert and oriented x 3. Answers questions appropriately General: Alert, Oriented X3, Cooperative, mild distress Heart: Regular rate, Normal S2 Lungs: Clear Abdomen: Normal bowel sounds, No tenderness Extremities: No clubbing, No cyanosis, No edema, Normal pulses Skin: No rashes, No breakdown Labs LABS Laboratory Tests Test 03/25/19 17:18 03/25/19 20:36 03/26/19 03:50 03/26/19 07:43 Glucose (Fingerstick) 304 mg/dL (70-99) 287 mg/dL (70-99) 264 mg/dL (70-99) White Blood Count 14.0 x10^3/uL (4.0-11.0) Red Blood Count 4.19 x10^6/uL (3.50-5.40) Hemoglobin 11.4 g/dL (12.0-15.5) Hematocrit 35.8 % (36.0-47.0) Mean Corpuscular Volume 85 fL (79-100) Mean Corpuscular Hemoglobin 27 pg (25-35) Mean Corpuscular Hemoglobin Concent 32 g/dL (31-37) Red Cell Distribution Width 14.4 % (11.5-14.5) Platelet Count 377 x10^3/uL (140-400) Neutrophils (%) (Auto) 69 % (31-73) Lymphocytes (%) (Auto) 22 % (24-48) Monocytes (%) (Auto) 9 % (0-9) Eosinophils (%) (Auto) 0 % (0-3) Basophils (%) (Auto) 1 % (0-3) Neutrophils # (Auto) 9.6 x10^3uL (1.8-7.7) Lymphocytes # (Auto) 3.0 x10^3/uL (1.0-4.8) Monocytes # (Auto) 1.2 x10^3/uL (0.0-1.1) Eosinophils # (Auto) 0.0 x10^3/uL (0.0-0.7) Basophils # (Auto) 0.1 x10^3/uL (0.0-0.2) Segmented Neutrophils % 63 % (35-66) Band Neutrophils % 7 % (0-9) Lymphocytes % 25 % (24-48) Monocytes % 5 % (0-10) Platelet Estimate Adequate (ADEQUATE) Sodium Level 138 mmol/L (136-145) Potassium Level 3.8 mmol/L (3.5-5.1) Chloride Level 99 mmol/L (98-107) Carbon Dioxide Level 29 mmol/L (21-32) Anion Gap 10 (6-14) Blood Urea Nitrogen 21 mg/dL (7-20) Creatinine 1.1 mg/dL (0.6-1.0) Estimated GFR (Cockcroft-Gault) 62.4 Glucose Level 267 mg/dL (70-99) Calcium Level 9.2 mg/dL (8.5-10.1) Test 03/26/19 12:05 Glucose (Fingerstick) 254 mg/dL (70-99) Review of Systems Review of Systems 14 point review of system is pertinent as per history of present illness otherwise negative Assessment and Plan Assessmemt and Plan Problems Medical Problems: (1) Cough Status: Acute (2) Hyperglycemia Status: Acute (3) Lobar pneumonia Status: Acute (4) Severe sepsis Status: Acute (5) Shortness of breath Status: Acute (6) Urinary tract infection Status: Acute Comment Review of Relevant I have reviewed the following items tete (where applicable) has been applied. Labs Laboratory Tests Test 03/24/19 16:28 03/24/19 20:26 03/25/19 04:30 03/25/19 07:55 Glucose (Fingerstick) 448 mg/dL (70-99) 396 mg/dL (70-99) 304 mg/dL (70-99) White Blood Count 13.6 x10^3/uL (4.0-11.0) Red Blood Count 3.99 x10^6/uL (3.50-5.40) Hemoglobin 11.0 g/dL (12.0-15.5) Hematocrit 34.2 % (36.0-47.0) Mean Corpuscular Volume 86 fL (79-100) Mean Corpuscular Hemoglobin 28 pg (25-35) Mean Corpuscular Hemoglobin Concent 32 g/dL (31-37) Red Cell Distribution Width 14.4 % (11.5-14.5) Platelet Count 304 x10^3/uL (140-400) Neutrophils (%) (Auto) 80 % (31-73) Lymphocytes (%) (Auto) 12 % (24-48) Monocytes (%) (Auto) 7 % (0-9) Eosinophils (%) (Auto) 0 % (0-3) Basophils (%) (Auto) 0 % (0-3) Neutrophils # (Auto) 10.9 x10^3uL (1.8-7.7) Lymphocytes # (Auto) 1.7 x10^3/uL (1.0-4.8) Monocytes # (Auto) 1.0 x10^3/uL (0.0-1.1) Eosinophils # (Auto) 0.0 x10^3/uL (0.0-0.7) Basophils # (Auto) 0.0 x10^3/uL (0.0-0.2) Sodium Level 133 mmol/L (136-145) Potassium Level 4.1 mmol/L (3.5-5.1) Chloride Level 96 mmol/L (98-107) Carbon Dioxide Level 27 mmol/L (21-32) Anion Gap 10 (6-14) Blood Urea Nitrogen 22 mg/dL (7-20) Creatinine 1.2 mg/dL (0.6-1.0) Estimated GFR (Cockcroft-Gault) 56.4 BUN/Creatinine Ratio 18 (6-20) Glucose Level 501 mg/dL (70-99) Hemoglobin A1c 15.1 % (4.8-5.6) Calcium Level 9.0 mg/dL (8.5-10.1) Total Bilirubin 0.4 mg/dL (0.2-1.0) Aspartate Amino Transf (AST/SGOT) 156 U/L (15-37) Alanine Aminotransferase (ALT/SGPT) 79 U/L (14-59) Alkaline Phosphatase 140 U/L (46-116) Total Protein 7.5 g/dL (6.4-8.2) Albumin 2.3 g/dL (3.4-5.0) Albumin/Globulin Ratio 0.4 (1.0-1.7) Test 03/25/19 09:40 03/25/19 10:54 03/25/19 17:18 03/25/19 20:36 Erythrocyte Sedimentation Rate 121 (0-25) Glucose (Fingerstick) 291 mg/dL (70-99) 304 mg/dL (70-99) 287 mg/dL (70-99) Test 03/26/19 03:50 03/26/19 07:43 03/26/19 12:05 White Blood Count 14.0 x10^3/uL (4.0-11.0) Red Blood Count 4.19 x10^6/uL (3.50-5.40) Hemoglobin 11.4 g/dL (12.0-15.5) Hematocrit 35.8 % (36.0-47.0) Mean Corpuscular Volume 85 fL (79-100) Mean Corpuscular Hemoglobin 27 pg (25-35) Mean Corpuscular Hemoglobin Concent 32 g/dL (31-37) Red Cell Distribution Width 14.4 % (11.5-14.5) Platelet Count 377 x10^3/uL (140-400) Neutrophils (%) (Auto) 69 % (31-73) Lymphocytes (%) (Auto) 22 % (24-48) Monocytes (%) (Auto) 9 % (0-9) Eosinophils (%) (Auto) 0 % (0-3) Basophils (%) (Auto) 1 % (0-3) Neutrophils # (Auto) 9.6 x10^3uL (1.8-7.7) Lymphocytes # (Auto) 3.0 x10^3/uL (1.0-4.8) Monocytes # (Auto) 1.2 x10^3/uL (0.0-1.1) Eosinophils # (Auto) 0.0 x10^3/uL (0.0-0.7) Basophils # (Auto) 0.1 x10^3/uL (0.0-0.2) Segmented Neutrophils % 63 % (35-66) Band Neutrophils % 7 % (0-9) Lymphocytes % 25 % (24-48) Monocytes % 5 % (0-10) Platelet Estimate Adequate (ADEQUATE) Sodium Level 138 mmol/L (136-145) Potassium Level 3.8 mmol/L (3.5-5.1) Chloride Level 99 mmol/L (98-107) Carbon Dioxide Level 29 mmol/L (21-32) Anion Gap 10 (6-14) Blood Urea Nitrogen 21 mg/dL (7-20) Creatinine 1.1 mg/dL (0.6-1.0) Estimated GFR (Cockcroft-Gault) 62.4 Glucose Level 267 mg/dL (70-99) Calcium Level 9.2 mg/dL (8.5-10.1) Glucose (Fingerstick) 264 mg/dL (70-99) 254 mg/dL (70-99) Laboratory Tests Test 03/25/19 17:18 03/25/19 20:36 03/26/19 03:50 03/26/19 07:43 Glucose (Fingerstick) 304 mg/dL (70-99) 287 mg/dL (70-99) 264 mg/dL (70-99) White Blood Count 14.0 x10^3/uL (4.0-11.0) Red Blood Count 4.19 x10^6/uL (3.50-5.40) Hemoglobin 11.4 g/dL (12.0-15.5) Hematocrit 35.8 % (36.0-47.0) Mean Corpuscular Volume 85 fL (79-100) Mean Corpuscular Hemoglobin 27 pg (25-35) Mean Corpuscular Hemoglobin Concent 32 g/dL (31-37) Red Cell Distribution Width 14.4 % (11.5-14.5) Platelet Count 377 x10^3/uL (140-400) Neutrophils (%) (Auto) 69 % (31-73) Lymphocytes (%) (Auto) 22 % (24-48) Monocytes (%) (Auto) 9 % (0-9) Eosinophils (%) (Auto) 0 % (0-3) Basophils (%) (Auto) 1 % (0-3) Neutrophils # (Auto) 9.6 x10^3uL (1.8-7.7) Lymphocytes # (Auto) 3.0 x10^3/uL (1.0-4.8) Monocytes # (Auto) 1.2 x10^3/uL (0.0-1.1) Eosinophils # (Auto) 0.0 x10^3/uL (0.0-0.7) Basophils # (Auto) 0.1 x10^3/uL (0.0-0.2) Segmented Neutrophils % 63 % (35-66) Band Neutrophils % 7 % (0-9) Lymphocytes % 25 % (24-48) Monocytes % 5 % (0-10) Platelet Estimate Adequate (ADEQUATE) Sodium Level 138 mmol/L (136-145) Potassium Level 3.8 mmol/L (3.5-5.1) Chloride Level 99 mmol/L (98-107) Carbon Dioxide Level 29 mmol/L (21-32) Anion Gap 10 (6-14) Blood Urea Nitrogen 21 mg/dL (7-20) Creatinine 1.1 mg/dL (0.6-1.0) Estimated GFR (Cockcroft-Gault) 62.4 Glucose Level 267 mg/dL (70-99) Calcium Level 9.2 mg/dL (8.5-10.1) Test 03/26/19 12:05 Glucose (Fingerstick) 254 mg/dL (70-99) Microbiology 03/23/19 Blood Culture - Preliminary, Resulted NO GROWTH AFTER 2 DAYS 03/23/19 Urine Culture - Final, Complete 03/23/19 Urine Culture Result 1 (RITU) - Final, Complete Medications Current Medications Albuterol/ Ipratropium (Duoneb) 3 ml 1X ONCE NEB Last administered on 03/23/19at 19:22; Start 03/23/19 at 18:30; Stop 03/23/19 at 18:31; Status DC Sodium Chloride 1,000 ml @ 1,000 mls/hr 1X ONCE IV Last administered on 03/23/19 18:51; Start 03/23/19 at 18:30; Stop 03/23/19 at 19:29; Status DC Dexamethasone Sodium Phosphate (Decadron) 10 mg 1X ONCE IV Last administered on 03/23/19 18:51; Start 03/23/19 at 18:30; Stop 03/23/19 at 18:31; Status DC Ibuprofen (Motrin) 600 mg 1X ONCE PO Last administered on 03/23/19 18:50; Start 03/23/19 at 18:30; Stop 03/23/19 at 18:31; Status DC Piperacillin Sod/ Tazobactam Sod 4.5 gm/Sodium Chloride 100 ml @ 200 mls/hr 1X ONCE IV Last administered on 03/23/19 18:50; Start 03/23/19 at 18:45; Stop 03/23/19 at 19:14; Status DC Acetaminophen (Tylenol) 500 mg 1X ONCE PO Last administered on 03/23/19 18:51; Start 03/23/19 at 18:45; Stop 03/23/19 at 18:46; Status DC Insulin Human Regular (HumuLIN R VIAL) 12 unit 1X ONCE SQ Last administered on 03/23/19 19:57; Start 03/23/19 at 19:00; Stop 03/23/19 at 19:01; Status DC Levofloxacin/ Dextrose 150 ml @ 100 mls/hr 1X ONCE IV Last administered on 03/23/19at 20:02; Start 03/23/19 at 19:15; Stop 03/23/19 at 20:44; Status DC Vancomycin HCl 1.75 gm/Sodium Chloride 500 ml @ 250 mls/hr 1X ONCE IV Last administered on 03/23/19 19:59; Start 03/23/19 at 20:00; Stop 03/23/19 at 21:59; Status DC Sodium Chloride 1,000 ml @ 1,000 mls/hr 1X ONCE IV Last administered on 03/23/19 19:56; Start 03/23/19 at 19:15; Stop 03/23/19 at 20:14; Status DC Sodium Chloride 500 ml @ 500 mls/hr 1X ONCE IV Last administered on 03/23/19at 21:01; Start 03/23/19 at 19:15; Stop 03/23/19 at 20:14; Status DC Ondansetron HCl (Zofran) 4 mg PRN Q8HRS PRN IV NAUSEA/VOMITING; Start 03/23/19 at 19:30; Stop 03/24/19 at 19:29; Status DC Acetaminophen (Tylenol) 650 mg PRN Q4HRS PRN PO FEVER; Start 03/23/19 at 19:30; Stop 03/24/19 at 19:29; Status DC Albuterol Sulfate (Ventolin Neb Soln) 2.5 mg PRN Q4HRS PRN NEB SHORTNESS OF BREATH Last administered on 03/25/19at 13:13; Start 03/23/19 at 19:30 Insulin Human Lispro (HumaLOG) 15 units 1X ONCE SQ Last administered on 03/23/19at 23:05; Start 03/23/19 at 23:30; Stop 03/23/19 at 23:31; Status DC Insulin Human Lispro (HumaLOG) 0-7 UNITS TIDWMEALS SQ Last administered on 03/24/19at 12:11; Start 03/24/19 at 08:00; Stop 03/24/19 at 12:34; Status DC Dextrose (Dextrose 50%-Water Syringe) 12.5 gm PRN Q15MIN PRN IV SEE COMMENTS; Start 03/23/19 at 23:00; Stop 03/24/19 at 12:34; Status DC Insulin Human Lispro (HumaLOG) 25 units 1X ONCE SQ Last administered on 03/24/19at 01:50; Start 03/24/19 at 02:00; Stop 03/24/19 at 02:01; Status DC Piperacillin Sod/ Tazobactam Sod (Zosyn Per Pharmacy) 1 each PRN DAILY PRN MC SEE COMMENTS; Start 03/24/19 at 09:15; Stop 03/26/19 at 12:07; Status DC Albuterol/ Ipratropium (Duoneb) 3 ml RTQID NEB Last administered on 03/26/19at 11:24; Start 03/24/19 at 12:00 Piperacillin Sod/ Tazobactam Sod 3.375 gm/Sodium Chloride 50 ml @ 100 mls/hr Q6HRS IV Last administered on 03/26/19 05:39; Start 03/24/19 at 10:00; Stop 03/26/19 at 12:05; Status DC Amlodipine Besylate (Norvasc) 5 mg DAILY PO Last administered on 03/26/19 08:20; Start 03/24/19 at 13:00 Glimepiride (Amaryl) 2 mg DAILY PO Last administered on 03/26/19at 08:33; Start 03/25/19 at 09:00 Non-Formulary Medication (Liraglutide (Victoza 3-Talat)) 1.2 mg DAILY SQ ; Start 03/25/19 at 09:00; Status UNV Losartan Potassium (Cozaar) 50 mg DAILY PO Last administered on 03/26/19 08:21; Start 03/24/19 at 13:00 Metformin HCl (Glucophage Xr) 500 mg BIDWMEALS PO Last administered on 03/25/19 17:21; Start 03/24/19 at 12:45 Insulin Glargine (Lantus) 25 units DAILY SQ Last administered on 03/24/19 13:19; Start 03/24/19 at 12:30; Stop 03/25/19 at 09:40; Status DC Insulin Human Lispro (HumaLOG) 20 units TIDWMEALS SQ Last administered on 03/24/19 17:15; Start 03/24/19 at 17:00; Stop 03/25/19 at 09:40; Status DC Insulin Human Lispro (HumaLOG) 0-9 UNITS TIDWMEALS SQ Last administered on 03/24/19at 17:13; Start 03/24/19 at 17:00 Dextrose (Dextrose 50%-Water Syringe) 12.5 gm PRN Q15MIN PRN IV SEE COMMENTS; Start 03/24/19 at 12:30 Hydrochlorothiazide (Microzide) 12.5 mg DAILY PO Last administered on 03/26/19 08:21; Start 03/24/19 at 13:00 Budesonide (Pulmicort) 0.5 mg RTBID NEB Last administered on 03/26/19 07:18; Start 03/24/19 at 20:00 Guaifenesin/ Codeine Phosphate (Robitussin Ac) 15 ml PRN Q6HRS PRN PO COUGH Last administered on 03/25/19 17:42; Start 03/24/19 at 13:00 Doxycycline Hyclate (Vibra-Tab) 100 mg BID PO Last administered on 03/26/19 08:21; Start 03/24/19 at 21:00; Stop 03/26/19 at 12:05; Status DC Potassium Chloride (Klor-Con) 10 meq BIDWMEALS PO Last administered on 03/26/19 08:20; Start 03/24/19 at 18:00 Sertraline HCl (Zoloft) 100 mg BID PO Last administered on 03/26/19 08:20; Start 03/24/19 at 21:00 Ibuprofen (Motrin) 600 mg PRN Q6HRS PRN PO INFLAMMATION Last administered on 03/25/19 20:43; Start 03/24/19 at 18:45 Insulin Human Lispro (HumaLOG) 15 units 1X ONCE SQ Last administered on 03/25/19 05:36; Start 03/25/19 at 05:30; Stop 03/25/19 at 05:31; Status DC Ondansetron HCl (Zofran) 4 mg PRN Q6HRS PRN IV NAUSEA/VOMITING Last administered on 03/25/19 09:52; Start 03/25/19 at 09:30 Insulin Glargine (Lantus) 50 units DAILY SQ Last administered on 03/25/19 12:11; Start 03/25/19 at 10:00 Insulin Human Lispro (HumaLOG) 30 units TIDWMEALS SQ ; Start 03/25/19 at 12:00 Sumatriptan Succinate (Imitrex) 6 mg 1X ONCE SQ Last administered on 03/25/19 11:42; Start 03/25/19 at 10:00; Stop 03/25/19 at 10:01; Status DC Acetaminophen (Tylenol) 650 mg PRN Q4HRS PRN PO Headache Last administered on 03/25/19 15:01; Start 03/25/19 at 13:00 Lactobacillus Rhamnosus (Culturelle) 1 cap BID PO Last administered on 03/26/19 08:19; Start 03/25/19 at 21:00 Non-Formulary Medication (Liraglutide (Victoza 3-Talat)) 1.2 mg DAILY SQ Last administered on 03/26/19at 08:24; Start 03/25/19 at 16:30 Sumatriptan Succinate (Imitrex) 6 mg PRN DAILY PRN SQ headache Last administere d on 03/25/19at 20:42; Start 03/25/19 at 16:15 Amoxicillin/ Clavulanate Potassium (Augmentin 875/ 125mg) 1 tab BID PO ; Start 03/26/19 at 21:00 Azithromycin (Zithromax) 500 mg 1X ONCE PO ; Start 03/26/19 at 12:15; Stop 03/26/19 at 12:16; Status DC Gadoterate Meglumine (Dotarem) 14 ml 1X ONCE IVP ; Start 03/26/19 at 14:30; Stop 03/26/19 at 14:31 Active Scripts Active Reported Potassium Chloride 10 Meq Tab.sr.24h 10 Meq PO BID Zoloft (Sertraline Hcl) 100 Mg Tablet 1 Tab PO BID Losartan-Hctz 50-12.5 Mg Tab (Losartan/Hydrochlorothiazide) 1 Each Tablet 1 Tab PO DAILY Glimepiride 2 Mg Tablet 1 Tab PO DAILY Metformin Hcl Er (Metformin Hcl) 500 Mg Tab.er.24h 500 Mg PO BIDWMEALS Amlodipine Besylate 5 Mg Tablet 10 PO DAILY Victoza 3-Talat (Liraglutide) 0.6 Mg/0.1 Ml Pen.injctr 1.2 Mg SQ DAILY Vitals/I & O Vital Sign - Last 24 Hours 03/25/19 03/25/19 03/25/19 03/25/19 14:49 19:00 20:00 23:00 Temp 98.1 98.4 97.9 98.1 98.4 97.9 Pulse 76 60 76 Resp 18 16 18 B/P (MAP) 146/84 (104) 144/88 (106) 113/74 (87) Pulse Ox 95 93 92 O2 Delivery Room Air Room Air Room Air Room Air 03/26/19 03/26/19 03/26/19 03/26/19 02:46 07:00 07:19 08:00 Temp 98.2 98.2 98.2 98.2 Pulse 71 60 Resp 16 16 B/P (MAP) 120/82 (95) 133/72 (92) Pulse Ox 92 91 92 O2 Delivery Room Air Room Air Room Air Room Air 03/26/19 03/26/19 03/26/19 03/26/19 08:20 08:21 11:00 11:24 Temp 98.2 98.2 Pulse 60 60 67 Resp 16 B/P (MAP) 133/72 133/72 127/72 (90) Pulse Ox 98 O2 Delivery Room Air Room Air Intake and Output 03/25/19 03/25/19 03/26/19 15:00 23:00 07:00 Intake Total 200 ml 450 ml 30 ml Balance 200 ml 450 ml 30 ml DARRIAN LEES MD March 26, 2019 14:30
--- NOTE | 2019-03-26 14:37 | PDOC ---
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 She admits less pain in her hip area. Objective Objective Vital Signs Date Time Temp Pulse Resp B/P (MAP) Pulse Ox O2 Delivery O2 Flow Rate FiO2 03/26/19 11:24 Room Air 03/26/19 11:00 98.2 67 16 127/72 (90) 98 98.2 03/25/19 02:54 2.0 Intake and Output 03/26/19 07:00 Intake Total 680 ml Balance 680 ml Intake Oral 680 ml # Voids 4 Physical Exam Physical Exam She is awake,supine in bed and does not seem to be in any distress. Assessment Assessment Problems Medical Problems: (1) Cough Status: Acute (2) Hyperglycemia Status: Acute (3) Lobar pneumonia Status: Acute (4) Severe sepsis Status: Acute (5) Shortness of breath Status: Acute (6) Urinary tract infection Status: Acute Plan Plan of Care Agree with plans for evaluation of temporal arteritis. Comment Review of Relevant I have reviewed the following items tete (where applicable) has been applied. Labs Laboratory Tests Test 03/24/19 16:28 03/24/19 20:26 03/25/19 04:30 03/25/19 07:55 Glucose (Fingerstick) 448 mg/dL (70-99) 396 mg/dL (70-99) 304 mg/dL (70-99) White Blood Count 13.6 x10^3/uL (4.0-11.0) Red Blood Count 3.99 x10^6/uL (3.50-5.40) Hemoglobin 11.0 g/dL (12.0-15.5) Hematocrit 34.2 % (36.0-47.0) Mean Corpuscular Volume 86 fL (79-100) Mean Corpuscular Hemoglobin 28 pg (25-35) Mean Corpuscular Hemoglobin Concent 32 g/dL (31-37) Red Cell Distribution Width 14.4 % (11.5-14.5) Platelet Count 304 x10^3/uL (140-400) Neutrophils (%) (Auto) 80 % (31-73) Lymphocytes (%) (Auto) 12 % (24-48) Monocytes (%) (Auto) 7 % (0-9) Eosinophils (%) (Auto) 0 % (0-3) Basophils (%) (Auto) 0 % (0-3) Neutrophils # (Auto) 10.9 x10^3uL (1.8-7.7) Lymphocytes # (Auto) 1.7 x10^3/uL (1.0-4.8) Monocytes # (Auto) 1.0 x10^3/uL (0.0-1.1) Eosinophils # (Auto) 0.0 x10^3/uL (0.0-0.7) Basophils # (Auto) 0.0 x10^3/uL (0.0-0.2) Sodium Level 133 mmol/L (136-145) Potassium Level 4.1 mmol/L (3.5-5.1) Chloride Level 96 mmol/L (98-107) Carbon Dioxide Level 27 mmol/L (21-32) Anion Gap 10 (6-14) Blood Urea Nitrogen 22 mg/dL (7-20) Creatinine 1.2 mg/dL (0.6-1.0) Estimated GFR (Cockcroft-Gault) 56.4 BUN/Creatinine Ratio 18 (6-20) Glucose Level 501 mg/dL (70-99) Hemoglobin A1c 15.1 % (4.8-5.6) Calcium Level 9.0 mg/dL (8.5-10.1) Total Bilirubin 0.4 mg/dL (0.2-1.0) Aspartate Amino Transf (AST/SGOT) 156 U/L (15-37) Alanine Aminotransferase (ALT/SGPT) 79 U/L (14-59) Alkaline Phosphatase 140 U/L (46-116) Total Protein 7.5 g/dL (6.4-8.2) Albumin 2.3 g/dL (3.4-5.0) Albumin/Globulin Ratio 0.4 (1.0-1.7) Test 03/25/19 09:40 03/25/19 10:54 03/25/19 17:18 03/25/19 20:36 Erythrocyte Sedimentation Rate 121 (0-25) Glucose (Fingerstick) 291 mg/dL (70-99) 304 mg/dL (70-99) 287 mg/dL (70-99) Test 03/26/19 03:50 03/26/19 07:43 03/26/19 12:05 White Blood Count 14.0 x10^3/uL (4.0-11.0) Red Blood Count 4.19 x10^6/uL (3.50-5.40) Hemoglobin 11.4 g/dL (12.0-15.5) Hematocrit 35.8 % (36.0-47.0) Mean Corpuscular Volume 85 fL (79-100) Mean Corpuscular Hemoglobin 27 pg (25-35) Mean Corpuscular Hemoglobin Concent 32 g/dL (31-37) Red Cell Distribution Width 14.4 % (11.5-14.5) Platelet Count 377 x10^3/uL (140-400) Neutrophils (%) (Auto) 69 % (31-73) Lymphocytes (%) (Auto) 22 % (24-48) Monocytes (%) (Auto) 9 % (0-9) Eosinophils (%) (Auto) 0 % (0-3) Basophils (%) (Auto) 1 % (0-3) Neutrophils # (Auto) 9.6 x10^3uL (1.8-7.7) Lymphocytes # (Auto) 3.0 x10^3/uL (1.0-4.8) Monocytes # (Auto) 1.2 x10^3/uL (0.0-1.1) Eosinophils # (Auto) 0.0 x10^3/uL (0.0-0.7) Basophils # (Auto) 0.1 x10^3/uL (0.0-0.2) Segmented Neutrophils % 63 % (35-66) Band Neutrophils % 7 % (0-9) Lymphocytes % 25 % (24-48) Monocytes % 5 % (0-10) Platelet Estimate Adequate (ADEQUATE) Sodium Level 138 mmol/L (136-145) Potassium Level 3.8 mmol/L (3.5-5.1) Chloride Level 99 mmol/L (98-107) Carbon Dioxide Level 29 mmol/L (21-32) Anion Gap 10 (6-14) Blood Urea Nitrogen 21 mg/dL (7-20) Creatinine 1.1 mg/dL (0.6-1.0) Estimated GFR (Cockcroft-Gault) 62.4 Glucose Level 267 mg/dL (70-99) Calcium Level 9.2 mg/dL (8.5-10.1) Glucose (Fingerstick) 264 mg/dL (70-99) 254 mg/dL (70-99) Laboratory Tests Test 03/25/19 17:18 03/25/19 20:36 03/26/19 03:50 03/26/19 07:43 Glucose (Fingerstick) 304 mg/dL (70-99) 287 mg/dL (70-99) 264 mg/dL (70-99) White Blood Count 14.0 x10^3/uL (4.0-11.0) Red Blood Count 4.19 x10^6/uL (3.50-5.40) Hemoglobin 11.4 g/dL (12.0-15.5) Hematocrit 35.8 % (36.0-47.0) Mean Corpuscular Volume 85 fL (79-100) Mean Corpuscular Hemoglobin 27 pg (25-35) Mean Corpuscular Hemoglobin Concent 32 g/dL (31-37) Red Cell Distribution Width 14.4 % (11.5-14.5) Platelet Count 377 x10^3/uL (140-400) Neutrophils (%) (Auto) 69 % (31-73) Lymphocytes (%) (Auto) 22 % (24-48) Monocytes (%) (Auto) 9 % (0-9) Eosinophils (%) (Auto) 0 % (0-3) Basophils (%) (Auto) 1 % (0-3) Neutrophils # (Auto) 9.6 x10^3uL (1.8-7.7) Lymphocytes # (Auto) 3.0 x10^3/uL (1.0-4.8) Monocytes # (Auto) 1.2 x10^3/uL (0.0-1.1) Eosinophils # (Auto) 0.0 x10^3/uL (0.0-0.7) Basophils # (Auto) 0.1 x10^3/uL (0.0-0.2) Segmented Neutrophils % 63 % (35-66) Band Neutrophils % 7 % (0-9) Lymphocytes % 25 % (24-48) Monocytes % 5 % (0-10) Platelet Estimate Adequate (ADEQUATE) Sodium Level 138 mmol/L (136-145) Potassium Level 3.8 mmol/L (3.5-5.1) Chloride Level 99 mmol/L (98-107) Carbon Dioxide Level 29 mmol/L (21-32) Anion Gap 10 (6-14) Blood Urea Nitrogen 21 mg/dL (7-20) Creatinine 1.1 mg/dL (0.6-1.0) Estimated GFR (Cockcroft-Gault) 62.4 Glucose Level 267 mg/dL (70-99) Calcium Level 9.2 mg/dL (8.5-10.1) Test 03/26/19 12:05 Glucose (Fingerstick) 254 mg/dL (70-99) Microbiology 03/23/19 Blood Culture - Preliminary, Resulted NO GROWTH AFTER 2 DAYS 03/23/19 Urine Culture - Final, Complete 03/23/19 Urine Culture Result 1 (RITU) - Final, Complete Medications Current Medications Albuterol/ Ipratropium (Duoneb) 3 ml 1X ONCE NEB Last administered on 03/23/19 19:22; Start 03/23/19 at 18:30; Stop 03/23/19 at 18:31; Status DC Sodium Chloride 1,000 ml @ 1,000 mls/hr 1X ONCE IV Last administered on 03/23/19 18:51; Start 03/23/19 at 18:30; Stop 03/23/19 at 19:29; Status DC Dexamethasone Sodium Phosphate (Decadron) 10 mg 1X ONCE IV Last administered on 03/23/19 18:51; Start 03/23/19 at 18:30; Stop 03/23/19 at 18:31; Status DC Ibuprofen (Motrin) 600 mg 1X ONCE PO Last administered on 03/23/19 18:50; Start 03/23/19 at 18:30; Stop 03/23/19 at 18:31; Status DC Piperacillin Sod/ Tazobactam Sod 4.5 gm/Sodium Chloride 100 ml @ 200 mls/hr 1X ONCE IV Last administered on 03/23/19 18:50; Start 03/23/19 at 18:45; Stop 03/23/19 at 19:14; Status DC Acetaminophen (Tylenol) 500 mg 1X ONCE PO Last administered on 03/23/19 18:51; Start 03/23/19 at 18:45; Stop 03/23/19 at 18:46; Status DC Insulin Human Regular (HumuLIN R VIAL) 12 unit 1X ONCE SQ Last administered on 5/12/19at 19:57; Start 03/23/19 at 19:00; Stop 03/23/19 at 19:01; Status DC Levofloxacin/ Dextrose 150 ml @ 100 mls/hr 1X ONCE IV Last administered on 03/23/19at 20:02; Start 03/23/19 at 19:15; Stop 03/23/19 at 20:44; Status DC Vancomycin HCl 1.75 gm/Sodium Chloride 500 ml @ 250 mls/hr 1X ONCE IV Last administered on 03/23/19at 19:59; Start 03/23/19 at 20:00; Stop 03/23/19 at 21:59; Status DC Sodium Chloride 1,000 ml @ 1,000 mls/hr 1X ONCE IV Last administered on 03/23/19at 19:56; Start 03/23/19 at 19:15; Stop 03/23/19 at 20:14; Status DC Sodium Chloride 500 ml @ 500 mls/hr 1X ONCE IV Last administered on 03/23/19at 21:01; Start 03/23/19 at 19:15; Stop 03/23/19 at 20:14; Status DC Ondansetron HCl (Zofran) 4 mg PRN Q8HRS PRN IV NAUSEA/VOMITING; Start 03/23/19 at 19:30; Stop 03/24/19 at 19:29; Status DC Acetaminophen (Tylenol) 650 mg PRN Q4HRS PRN PO FEVER; Start 03/23/19 at 19:30; Stop 03/24/19 at 19:29; Status DC Albuterol Sulfate (Ventolin Neb Soln) 2.5 mg PRN Q4HRS PRN NEB SHORTNESS OF BREATH Last administered on 03/25/19at 13:13; Start 03/23/19 at 19:30 Insulin Human Lispro (HumaLOG) 15 units 1X ONCE SQ Last administered on 03/23/19at 23:05; Start 03/23/19 at 23:30; Stop 03/23/19 at 23:31; Status DC Insulin Human Lispro (HumaLOG) 0-7 UNITS TIDWMEALS SQ Last administered on 03/24/19at 12:11; Start 03/24/19 at 08:00; Stop 03/24/19 at 12:34; Status DC Dextrose (Dextrose 50%-Water Syringe) 12.5 gm PRN Q15MIN PRN IV SEE COMMENTS; Start 03/23/19 at 23:00; Stop 03/24/19 at 12:34; Status DC Insulin Human Lispro (HumaLOG) 25 units 1X ONCE SQ Last administered on 03/24/19at 01:50; Start 03/24/19 at 02:00; Stop 03/24/19 at 02:01; Status DC Piperacillin Sod/ Tazobactam Sod (Zosyn Per Pharmacy) 1 each PRN DAILY PRN MC SEE COMMENTS; Start 03/24/19 at 09:15; Stop 03/26/19 at 12:07; Status DC Albuterol/ Ipratropium (Duoneb) 3 ml RTQID NEB Last administered on 03/26/19at 11:24; Start 03/24/19 at 12:00 Piperacillin Sod/ Tazobactam Sod 3.375 gm/Sodium Chloride 50 ml @ 100 mls/hr Q6HRS IV Last administered on 03/26/19at 05:39; Start 03/24/19 at 10:00; Stop 03/26/19 at 12:05; Status DC Amlodipine Besylate (Norvasc) 5 mg DAILY PO Last administered on 03/26/19at 08:20; Start 03/24/19 at 13:00 Glimepiride (Amaryl) 2 mg DAILY PO Last administered on 03/26/19at 08:33; Start 03/25/19 at 09:00 Non-Formulary Medication (Liraglutide (Victoza 3-Talat)) 1.2 mg DAILY SQ ; Start 03/25/19 at 09:00; Status UNV Losartan Potassium (Cozaar) 50 mg DAILY PO Last administered on 03/26/19at 08:21; Start 03/24/19 at 13:00 Metformin HCl (Glucophage Xr) 500 mg BIDWMEALS PO Last administered on 03/25/19at 17:21; Start 03/24/19 at 12:45 Insulin Glargine (Lantus) 25 units DAILY SQ Last administered on 03/24/19at 13:19; Start 03/24/19 at 12:30; Stop 03/25/19 at 09:40; Status DC Insulin Human Lispro (HumaLOG) 20 units TIDWMEALS SQ Last administered on 5/13/19at 17:15; Start 03/24/19 at 17:00; Stop 03/25/19 at 09:40; Status DC Insulin Human Lispro (HumaLOG) 0-9 UNITS TIDWMEALS SQ Last administered on 03/24/19 17:13; Start 03/24/19 at 17:00 Dextrose (Dextrose 50%-Water Syringe) 12.5 gm PRN Q15MIN PRN IV SEE COMMENTS; Start 03/24/19 at 12:30 Hydrochlorothiazide (Microzide) 12.5 mg DAILY PO Last administered on 03/26/19 08:21; Start 03/24/19 at 13:00 Budesonide (Pulmicort) 0.5 mg RTBID NEB Last administered on 03/26/19 07:18; Start 03/24/19 at 20:00 Guaifenesin/ Codeine Phosphate (Robitussin Ac) 15 ml PRN Q6HRS PRN PO COUGH Last administered on 03/25/19 17:42; Start 03/24/19 at 13:00 Doxycycline Hyclate (Vibra-Tab) 100 mg BID PO Last administered on 03/26/19 08:21; Start 03/24/19 at 21:00; Stop 03/26/19 at 12:05; Status DC Potassium Chloride (Klor-Con) 10 meq BIDWMEALS PO Last administered on 03/26/19 08:20; Start 03/24/19 at 18:00 Sertraline HCl (Zoloft) 100 mg BID PO Last administered on 03/26/19 08:20; Start 03/24/19 at 21:00 Ibuprofen (Motrin) 600 mg PRN Q6HRS PRN PO INFLAMMATION Last administered on 03/25/19 20:43; Start 03/24/19 at 18:45 Insulin Human Lispro (HumaLOG) 15 units 1X ONCE SQ Last administered on 03/25/19 05:36; Start 03/25/19 at 05:30; Stop 03/25/19 at 05:31; Status DC Ondansetron HCl (Zofran) 4 mg PRN Q6HRS PRN IV NAUSEA/VOMITING Last administered on 03/25/19 09:52; Start 03/25/19 at 09:30 Insulin Glargine (Lantus) 50 units DAILY SQ Last administered on 03/25/19at 12:11; Start 03/25/19 at 10:00 Insulin Human Lispro (HumaLOG) 30 units TIDWMEALS SQ ; Start 03/25/19 at 12:00 Sumatriptan Succinate (Imitrex) 6 mg 1X ONCE SQ Last administered on 03/25/19at 11:42; Start 03/25/19 at 10:00; Stop 03/25/19 at 10:01; Status DC Acetaminophen (Tylenol) 650 mg PRN Q4HRS PRN PO Headache Last administered on 03/25/19at 15:01; Start 03/25/19 at 13:00 Lactobacillus Rhamnosus (Culturelle) 1 cap BID PO Last administered on 03/26/19at 08:19; Start 03/25/19 at 21:00 Non-Formulary Medication (Liraglutide (Victoza 3-Talat)) 1.2 mg DAILY SQ Last administered on 03/26/19at 08:24; Start 03/25/19 at 16:30 Sumatriptan Succinate (Imitrex) 6 mg PRN DAILY PRN SQ headache Last administered on 03/25/19at 20:42; Start 03/25/19 at 16:15 Amoxicillin/ Clavulanate Potassium (Augmentin 875/ 125mg) 1 tab BID PO ; Start 03/26/19 at 21:00 Azithromycin (Zithromax) 500 mg 1X ONCE PO ; Start 03/26/19 at 12:15; Stop 03/26/19 at 12:16; Status DC Gadoterate Meglumine (Dotarem) 14 ml 1X ONCE IVP ; Start 03/26/19 at 14:30; Stop 03/26/19 at 14:31; Status DC Active Scripts Active Reported Potassium Chloride 10 Meq Tab.sr.24h 10 Meq PO BID Zoloft (Sertraline Hcl) 100 Mg Tablet 1 Tab PO BID Losartan-Hctz 50-12.5 Mg Tab (Losartan/Hydrochlorothiazide) 1 Each Tablet 1 Tab PO DAILY Glimepiride 2 Mg Tablet 1 Tab PO DAILY Metformin Hcl Er (Metformin Hcl) 500 Mg Tab.er.24h 500 Mg PO BIDWMEALS Amlodipine Besylate 5 Mg Tablet 10 PO DAILY Victoza 3-Talat (Liraglutide) 0.6 Mg/0.1 Ml Pen.injctr 1.2 Mg SQ DAILY Vitals/I & O Vital Sign - Last 24 Hours 03/25/19 03/25/19 03/25/19 03/25/19 14:49 19:00 20:00 23:00 Temp 98.1 98.4 97.9 98.1 98.4 97.9 Pulse 76 60 76 Resp 18 16 18 B/P (MAP) 146/84 (104) 144/88 (106) 113/74 (87) Pulse Ox 95 93 92 O2 Delivery Room Air Room Air Room Air Room Air 03/26/19 03/26/19 03/26/19 03/26/19 02:46 07:00 07:19 08:00 Temp 98.2 98.2 98.2 98.2 Pulse 71 60 Resp 16 16 B/P (MAP) 120/82 (95) 133/72 (92) Pulse Ox 92 91 92 O2 Delivery Room Air Room Air Room Air Room Air 03/26/19 03/26/19 03/26/19 03/26/19 08:20 08:21 11:00 11:24 Temp 98.2 98.2 Pulse 60 60 67 Resp 16 B/P (MAP) 133/72 133/72 127/72 (90) Pulse Ox 98 O2 Delivery Room Air Room Air Intake and Output 03/25/19 03/25/19 03/26/19 15:00 23:00 07:00 Intake Total 200 ml 450 ml 30 ml Balance 200 ml 450 ml 30 ml FAIZA LUCERO MD March 26, 2019 14:37
[2019-03-26 15:00] VITALS: BP 153/89
--- NOTE | 2019-03-26 15:12 | PDOC ---
PROGRESS NOTES Assessment Assessment Headache. IIP? Temporal A arteritis? Elevated ESR, 121. Fever. Neck pain. Leukocytosis. Pneumonia. UTI. Hyperglycemia, glucose 501. DM. HTN. Obesity. Hx of migraine headache. RECOMMENDATIONS/PLAN: Brain MRI w/wo contrast to help evaluation IIP. Control hyperglycemia. Temporal A biopsy discussed with patient, but she needed to discuss with her family before making decision. Continue ID treatment. Treat medical diseases. HISTORY OF THE PRESENT ILLNESS: This is a 53-year-old AA female with history of diabetes. She has had 4 days of progressive shortness of breath feeling extremely weak. She has continuous shortness of breath and cough. She tried some [id number] meds but that did not seem to work. Describes her symptoms as agonizing, rated at 10/10. Imaging studies showing a left lower lobe pneumonia. She complained headaches on 03/25/19 stating she had headaches in the past several times a month but not as severe as this time. No symptoms of projectile vomiting, diplopia, ataxia, focalized numbness or weakness. She stated her headaches were not improved on 03/26/19. PAST MEDICAL HISTORY: Diabetes, hypertension, bilateral lower extremity fractures. PAST SURGERY HISTORY: No major surgery recently. ALLERGIES: LISINOPRIL AND OXYCODONE. FAMILY HISTORY: Diabetes. SOCIAL HISTORY: She does not drink, smoke or take drugs. 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 MEDICATIONS: Refer to [facility] REVIEW OF SYSTEMS: Constitutional: Obese. Head: No traumatic brain or head injury. Skin: No edema, or rash. Ear: No infection. Eyes: No vision loss or color blindness. Nose: No bleeding or purulent discharges. Hearing: No hearing decrease. Neck: No injury. Breast: No history of cancer, masses,or discharges. Cardiac: HTN. Pulmonary: No COPD. GI: No GI ulcer, GI bleeding. Urinary/genital: UTI. Endocrinologic: Diabetes Mellitus, obesity. Skeletomuscular: No muscular atrophy. Neurological: see HP. Psychiatric: Denies drug use/abuse. Otherwise, not [id number] review of systems. PHYSICAL EXAMINATION: General appearance is in subacute distress. HEENT: Normocephalic and nontraumatic. Eyes, nose, ears, and throat are unremarkable. Neck is supple. No lymphadenopathy. No bruits are heard over the carotid artery. No crepitus. Cardiovascular: S1, S2, regular rate and rhythm. Pulmonary: decreased to auscultation bilaterally. Abdomen: Bowel sounds are positive. Abdomen is soft, nontender, and nondistended. Extremities: No rash, lesions, or edema. No restriction of range of motion NEUROLOGICAL EXAMINATION: Alert Oriented to time, place and person. PERRL. EOMI. CN: no focal findings. Muscle tone: within normal. Muscle strength: 5 DTR: 2 Plantar reflex: Flexor response bilaterally Gait: not examined in bed. Sensory exam: no abnormal findings. No cerebellar signs elicited. F-T-N test accurate. Objective Objective Vital Signs Date Time Temp Pulse Resp B/P (MAP) Pulse Ox O2 Delivery O2 Flow Rate FiO2 03/26/19 11:24 Room Air 03/26/19 11:00 98.2 67 16 127/72 (90) 98 98.2 Intake and Output 03/26/19 07:00 Intake Total 680 ml Balance 680 ml Intake Oral 680 ml # Voids 4 Vitals Signs Vitals VS - Last 72 Hours, by Label Date Time Temp Pulse Resp B/P (MAP) Pulse Ox O2 Delivery O2 Flow Rate FiO2 03/26/19 11:24 Room Air 03/26/19 11:00 98.2 67 16 127/72 (90) 98 Room Air 98.2 03/26/19 08:21 60 133/72 03/26/19 08:20 60 133/72 03/26/19 08:00 Room Air 03/26/19 07:19 92 Room Air 03/26/19 07:00 98.2 60 16 133/72 (92) 91 Room Air 98.2 03/26/19 02:46 98.2 71 16 120/82 (95) 92 Room Air 98.2 03/25/19 23:00 97.9 76 18 113/74 (87) 92 Room Air 97.9 03/25/19 20:00 Room Air 03/25/19 19:00 98.4 60 16 144/88 (106) 93 Room Air 98.4 03/25/19 14:49 98.1 76 18 146/84 (104) 95 Room Air 98.1 03/25/19 10:48 98.0 74 20 115/75 (88) 92 Room Air 98.0 03/25/19 09:48 74 115/75 03/25/19 09:47 74 115/75 03/25/19 08:00 Nasal Cannula 03/25/19 07:00 97.5 90 18 99/68 (78) 92 Room Air 97.5 Laboratory Laboratory Laboratory Tests Test 03/25/19 17:18 03/25/19 20:36 03/26/19 03:50 03/26/19 07:43 Glucose (Fingerstick) 304 mg/dL (70-99) 287 mg/dL (70-99) 264 mg/dL (70-99) White Blood Count 14.0 x10^3/uL (4.0-11.0) Red Blood Count 4.19 x10^6/uL (3.50-5.40) Hemoglobin 11.4 g/dL (12.0-15.5) Hematocrit 35.8 % (36.0-47.0) Mean Corpuscular Volume 85 fL (79-100) Mean Corpuscular Hemoglobin 27 pg (25-35) Mean Corpuscular Hemoglobin Concent 32 g/dL (31-37) Red Cell Distribution Width 14.4 % (11.5-14.5) Platelet Count 377 x10^3/uL (140-400) Neutrophils (%) (Auto) 69 % (31-73) Lymphocytes (%) (Auto) 22 % (24-48) Monocytes (%) (Auto) 9 % (0-9) Eosinophils (%) (Auto) 0 % (0-3) Basophils (%) (Auto) 1 % (0-3) Neutrophils # (Auto) 9.6 x10^3uL (1.8-7.7) Lymphocytes # (Auto) 3.0 x10^3/uL (1.0-4.8) Monocytes # (Auto) 1.2 x10^3/uL (0.0-1.1) Eosinophils # (Auto) 0.0 x10^3/uL (0.0-0.7) Basophils # (Auto) 0.1 x10^3/uL (0.0-0.2) Segmented Neutrophils % 63 % (35-66) Band Neutrophils % 7 % (0-9) Lymphocytes % 25 % (24-48) Monocytes % 5 % (0-10) Platelet Estimate Adequate (ADEQUATE) Sodium Level 138 mmol/L (136-145) Potassium Level 3.8 mmol/L (3.5-5.1) Chloride Level 99 mmol/L (98-107) Carbon Dioxide Level 29 mmol/L (21-32) Anion Gap 10 (6-14) Blood Urea Nitrogen 21 mg/dL (7-20) Creatinine 1.1 mg/dL (0.6-1.0) Estimated GFR (Cockcroft-Gault) 62.4 Glucose Level 267 mg/dL (70-99) Calcium Level 9.2 mg/dL (8.5-10.1) Test 03/26/19 12:05 Glucose (Fingerstick) 254 mg/dL (70-99) Microbiology 03/23/19 Blood Culture - Preliminary, Resulted NO GROWTH AFTER 2 DAYS 03/23/19 Urine Culture - Final, Complete 03/23/19 Urine Culture Result 1 (RITU) - Final, Complete Medication Medications Current Medications Amoxicillin/ Clavulanate Potassium (Augmentin 875/ 125mg) 1 tab BID PO ; Start 03/26/19 at 21:00 Azithromycin (Zithromax) 500 mg 1X ONCE PO ; Start 03/26/19 at 12:15; Stop 03/26/19 at 12:16; Status DC Gadoterate Meglumine (Dotarem) 14 ml 1X ONCE IVP Last administered on 03/26/19at 14:41; Start 03/26/19 at 14:30; Stop 03/26/19 at 14:31; Status DC Lactobacillus Rhamnosus (Culturelle) 1 cap BID PO Last administered on 03/26/19at 08:19; Start 03/25/19 at 21:00 Non-Formulary Medication (Liraglutide (Victoza 3-Talat)) 1.2 mg DAILY SQ Last administered on 03/26/19at 08:24; Start 03/25/19 at 16:30 Sumatriptan Succinate (Imitrex) 6 mg PRN DAILY PRN SQ headache Last administered on 03/25/19at 20:42; Start 03/25/19 at 16:15 Comment Review of Relevant I have reviewed the following items tete (where applicable) has been applied. HARMAN CONNER MD March 26, 2019 15:12
--- NOTE | 2019-03-26 15:36 | RAD ---
MRI Brain with and without contrast History: Headache Technique: Multiplanar, multi sequential pre and postcontrast MR imaging was performed of the brain. Comparison: None other than CT head exam 03/25/2019 Findings: There is some motion degradation. There is no evidence of recent infarct or cytotoxic edema. The ventricles, sulci, and cisterns are within normal limits in size and configuration. There is no significant midline shift, intraaxial mass effect, or focal abnormal extra-axial fluid collection. There are multiple (overall mild) tiny scattered foci of nonenhancing T2 and FLAIR hyperintense signal of the supratentorial white matter bilaterally primarily in the deep white matter most numerous of parietal lobes. There is no nodular parenchymal or leptomeningeal enhancement. There is preservation of the major intracranial flow-voids at the skull base. The cerebellar tonsils are normal in location. There is no significant abnormality of the pineal gland or pituitary gland. There is patchy minimal ethmoid air cell and mild left sphenoid sinus mucosal thickening. 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 The mastoid air cells are aerated. There is preserved marrow signal of the clivus. Impression: 1. There is no evidence of recent infarct or abnormal enhancement. There are multiple tiny scattered foci of T2 and FLAIR hyperintense signal of the supratentorial parenchyma bilaterally. White matter changes can be seen in patients with migraine headaches if corresponding history. Pattern is not particularly suggestive of an inflammatory demyelinating disease. Sequela of chronic microvascular ischemic disease would be a consideration especially if risk factors such as hypertension or diabetes. 2. 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 Electronically signed by: Cliff Erazo MD (03/26/2019 3:33 PM) [id number]
[2019-03-26 19:00] VITALS: BP 144/79
[2019-03-26] MEDS: IBUPROFEN 200 MG TABLET. PO PRN (19:45)
[2019-03-26] MEDS: AMOXICILLIN/K CLAV 875/125MG TABLET. PO SCH (20:50)
[2019-03-26] MEDS: SUMAtriptan SUCC 6 MG/0.5 ML VIAL. SQ PRN (20:50)
[2019-03-26 21:10] LABS: PROTHROMBIN TIME PATIENT 13.8 SEC (11.7-14.0)
[2019-03-26 23:00] VITALS: BP 144/76
--- NOTE | 2019-03-27 00:26 | NUR ---
Around 2300sh, this RN called back to Carmelina Barrera (the pt's cousin) per request. Passcode was correct. The cousin was concerned that Dr Quiroz didnt come back after seeing the pt tonite. The Dr was paged overhead when he was with the patient and apparently family still have questions. Ms Barrera asked if Dr Quiroz made some notes. I asked her after seeing the pt tonight?" She didnt verify but kept on asking questions. She was informed that the doctor didnt make any notes after seeing her tonight but she was informed the gist of Dr Sherwood's note regarding the biopsy which was discussed with the pt but pt wants family to talk about it first. Ms Barrera kept telling this RN to talk to her like shes in 2nd grade. So this RN informed her what shes been informed earlier but she claimed that this RN wasn't answering her questions. She was becoming irate and it seemed there's no point trying to explain to her or answer her questions because she's not getting the answers she wanted. She was informed that Dr Quiroz was paged overhead and informed him that family have questions but he's in a middle to seeing patients etc. (Caryl, the family in the room was informed about this earlier). She told this RN that she's inadequate and the staff here and that she wanted the pt be transferred to another hospital. She was offered that she can talk to our supervisor rod placing and ALKA Murillo, the unit's discharge planner talked to Ms. Barrera. ALKA Pace supervisor rod placing was notified of the situation. Ms Barrera was given the number to get hold of the supervisor rod placing.
[2019-03-27 03:00] VITALS: BP 146/88
[2019-03-27] MEDS: IBUPROFEN 200 MG TABLET. PO PRN ×3 (04:37→22:53)
[2019-03-27 07:00] VITALS: BP 159/87
[2019-03-27] MEDS: IPRATRPIUM/ALBUTEROL 0.5/2.5MG 3 ML NEBU. NEB SCH ×4 (07:41→19:48)
[2019-03-27] MEDS: BUDESONIDE 0.5 MG/2 ML NEBU. NEB SCH ×2 (07:41→19:48)
[2019-03-27] MEDS: metFORMIN XR 500 MG TAB.ER.24H PO SCH ×2 (08:00→17:20)
[2019-03-27] MEDS: INSULIN LISPRO 300 UNITS/3 ML INSULN.PEN. SQ SCH ×6 (08:00→17:25)
[2019-03-27] MEDS: amLODIPine BESYLATE 5 MG TABLET PO SCH (08:31)
[2019-03-27] MEDS: POTASSIUM CHLORIDE 10 MEQ TABLET.ER. PO SCH ×2 (08:31→17:20)
[2019-03-27] MEDS: AMOXICILLIN/K CLAV 875/125MG TABLET. PO SCH (08:32)
[2019-03-27] MEDS: hydroCHLOROthiazide 12.5 MG CAPSULE PO SCH (08:32)
[2019-03-27] MEDS: LOSARTAN POTASSIUM 50 MG TABLET. PO SCH (08:32)
[2019-03-27] MEDS: SERTRALINE 50 MG TABLET. PO SCH ×2 (08:32→20:43)
[2019-03-27] MEDS: LACTOBACILLUS RHAMNOSUS GG 1 CAPSULE. PO SCH ×2 (08:33→20:42)
[2019-03-27] MEDS: GLIMEPIRIDE 2 MG TABLET. PO SCH (08:33)
[2019-03-27] MEDS: ONDANSETRON PF 4 MG/2 ML VIAL. IV PRN (08:36)
[2019-03-27] MEDS: Liraglutide (Victoza 3-Pak) 1.2 MG SQ SCH (09:15)
[2019-03-27] MEDS: INSULIN GLARGINE 300 UNITS/3 ML INSULN.PEN. SQ SCH (09:18)
--- NOTE | 2019-03-27 10:06 | PDOC2 ---
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 She has had complaints of headaches for 2 weeks, reports vision changes. Past Medical History Cardiovascular: HTN Endocrine: Diabetes Past Surgical History Past Surgical History: No pertinent history Family History Family History: Diabetes, Hypertension Social History No ALCOHOL: none Drugs: None Lives: Alone Current Problem List Problem List Problems Medical Problems: (1) Cough Status: Acute (2) Hyperglycemia Status: Acute (3) Lobar pneumonia Status: Acute (4) Severe sepsis Status: Acute (5) Shortness of breath Status: Acute (6) Urinary tract infection Status: Acute Current Medications Current Medications Current Medications Albuterol/ Ipratropium (Duoneb) 3 ml 1X ONCE NEB Last administered on 03/23/19at 19:22; Start 03/23/19 at 18:30; Stop 03/23/19 at 18:31; Status DC Sodium Chloride 1,000 ml @ 1,000 mls/hr 1X ONCE IV Last administered on 10/30at 18:51; Start 03/23/19 at 18:30; Stop 03/23/19 at 19:29; Status DC Dexamethasone Sodium Phosphate (Decadron) 10 mg 1X ONCE IV Last administered on 03/23/19at 18:51; Start 03/23/19 at 18:30; Stop 03/23/19 at 18:31; Status DC Ibuprofen (Motrin) 600 mg 1X ONCE PO Last administered on 03/23/19at 18:50; Start 03/23/19 at 18:30; Stop 03/23/19 at 18:31; Status DC Piperacillin Sod/ Tazobactam Sod 4.5 gm/Sodium Chloride 100 ml @ 200 mls/hr 1X ONCE IV Last administered on 03/23/19at 18:50; Start 03/23/19 at 18:45; Stop 03/23/19 at 19:14; Status DC Acetaminophen (Tylenol) 500 mg 1X ONCE PO Last administered on 03/23/19at 18:51; Start 03/23/19 at 18:45; Stop 03/23/19 at 18:46; Status DC Insulin Human Regular (HumuLIN R VIAL) 12 unit 1X ONCE SQ Last administered on 03/23/19at 19:57; Start 03/23/19 at 19:00; Stop 03/23/19 at 19:01; Status DC Levofloxacin/ Dextrose 150 ml @ 100 mls/hr 1X ONCE IV Last administered on 03/23/19at 20:02; Start 03/23/19 at 19:15; Stop 03/23/19 at 20:44; Status DC Vancomycin HCl 1.75 gm/Sodium Chloride 500 ml @ 250 mls/hr 1X ONCE IV Last administered on 03/23/19at 19:59; Start 03/23/19 at 20:00; Stop 03/23/19 at 21:59; Status DC Sodium Chloride 1,000 ml @ 1,000 mls/hr 1X ONCE IV Last administered on 03/23/19at 19:56; Start 03/23/19 at 19:15; Stop 03/23/19 at 20:14; Status DC Sodium Chloride 500 ml @ 500 mls/hr 1X ONCE IV Last administered on 03/23/19at 21:01; Start 03/23/19 at 19:15; Stop 03/23/19 at 20:14; Status DC Ondansetron HCl (Zofran) 4 mg PRN Q8HRS PRN IV NAUSEA/VOMITING; Start 03/23/19 at 19:30; Stop 03/24/19 at 19:29; Status DC Acetaminophen (Tylenol) 650 mg PRN Q4HRS PRN PO FEVER; Start 03/23/19 at 19:30; Stop 03/24/19 at 19:29; Status DC Albuterol Sulfate (Ventolin Neb Soln) 2.5 mg PRN Q4HRS PRN NEB SHORTNESS OF BREATH Last administered on 03/25/19 13:13; Start 03/23/19 at 19:30 Insulin Human Lispro (HumaLOG) 15 units 1X ONCE SQ Last administered on 03/23/19at 23:05; Start 03/23/19 at 23:30; Stop 03/23/19 at 23:31; Status DC Insulin Human Lispro (HumaLOG) 0-7 UNITS TIDWMEALS SQ Last administered on 03/24/19at 12:11; Start 03/24/19 at 08:00; Stop 03/24/19 at 12:34; Status DC Dextrose (Dextrose 50%-Water Syringe) 12.5 gm PRN Q15MIN PRN IV SEE COMMENTS; Start 03/23/19 at 23:00; Stop 03/24/19 at 12:34; Status DC Insulin Human Lispro (HumaLOG) 25 units 1X ONCE SQ Last administered on 03/24/19at 01:50; Start 03/24/19 at 02:00; Stop 03/24/19 at 02:01; Status DC Piperacillin Sod/ Tazobactam Sod (Zosyn Per Pharmacy) 1 each PRN DAILY PRN MC SEE COMMENTS; Start 03/24/19 at 09:15; Stop 03/26/19 at 12:07; Status DC Albuterol/ Ipratropium (Duoneb) 3 ml RTQID NEB Last administered on 03/27/19at 07:41; Start 03/24/19 at 12:00 Piperacillin Sod/ Tazobactam Sod 3.375 gm/Sodium Chloride 50 ml @ 100 mls/hr Q6HRS IV Last administered on 03/26/19at 05:39; Start 03/24/19 at 10:00; Stop 03/26/19 at 12:05; Status DC Amlodipine Besylate (Norvasc) 5 mg DAILY PO Last administered on 03/27/19at 08:31; Start 03/24/19 at 13:00 Glimepiride (Amaryl) 2 mg DAILY PO Last administered on 03/27/19at 08:33; Start 03/25/19 at 09:00 Non-Formulary Medication (Liraglutide (Victoza 3-Talat)) 1.2 mg DAILY SQ ; Start 03/25/19 at 09:00; Status UNV Losartan Potassium (Cozaar) 50 mg DAILY PO Last administered on 03/27/19at 08:32; Start 03/24/19 at 13:00 Metformin HCl (Glucophage Xr) 500 mg BIDWMEALS PO Last administered on 03/25/19at 17:21; Start 03/24/19 at 12:45 Insulin Glargine (Lantus) 25 units DAILY SQ Last administered on 03/24/19at 13:19; Start 03/24/19 at 12:30; Stop 03/25/19 at 09:40; Status DC Insulin Human Lispro (HumaLOG) 20 units TIDWMEALS SQ Last administered on 03/24/19 17:15; Start 03/24/19 at 17:00; Stop 03/25/19 at 09:40; Status DC Insulin Human Lispro (HumaLOG) 0-9 UNITS TIDWMEALS SQ Last administered on 03/24/19at 17:13; Start 03/24/19 at 17:00 Dextrose (Dextrose 50%-Water Syringe) 12.5 gm PRN Q15MIN PRN IV SEE COMMENTS; Start 03/24/19 at 12:30 Hydrochlorothiazide (Microzide) 12.5 mg DAILY PO Last administered on 03/27/19 08:32; Start 03/24/19 at 13:00 Budesonide (Pulmicort) 0.5 mg RTBID NEB Last administered on 03/27/19 07:41; Start 03/24/19 at 20:00 Guaifenesin/ Codeine Phosphate (Robitussin Ac) 15 ml PRN Q6HRS PRN PO COUGH Last administered on 03/25/19 17:42; Start 03/24/19 at 13:00 Doxycycline Hyclate (Vibra-Tab) 100 mg BID PO Last administered on 03/26/19 08:21; Start 03/24/19 at 21:00; Stop 03/26/19 at 12:05; Status DC Potassium Chloride (Klor-Con) 10 meq BIDWMEALS PO Last administered on 03/27/19 08:31; Start 03/24/19 at 18:00 Sertraline HCl (Zoloft) 100 mg BID PO Last administered on 03/27/19 08:32; Start 03/24/19 at 21:00 Ibuprofen (Motrin) 600 mg PRN Q6HRS PRN PO INFLAMMATION Last administered on 03/27/19 08:35; Start 03/24/19 at 18:45 Insulin Human Lispro (HumaLOG) 15 units 1X ONCE SQ Last administered on 03/25/19 05:36; Start 03/25/19 at 05:30; Stop 03/25/19 at 05:31; Status DC Ondansetron HCl (Zofran) 4 mg PRN Q6HRS PRN IV NAUSEA/VOMITING Last administered on 03/27/19 08:36; Start 03/25/19 at 09:30 Insulin Glargine (Lantus) 50 units DAILY SQ Last administered on 03/27/19 09:18; Start 03/25/19 at 10:00 Insulin Human Lispro (HumaLOG) 30 units TIDWMEALS SQ ; Start 03/25/19 at 12:00 Sumatriptan Succinate (Imitrex) 6 mg 1X ONCE SQ Last administered on 03/25/19 11:42; Start 03/25/19 at 10:00; Stop 03/25/19 at 10:01; Status DC Acetaminophen (Tylenol) 650 mg PRN Q4HRS PRN PO Headache Last administered on 03/25/19 15:01; Start 03/25/19 at 13:00 Lactobacillus Rhamnosus (Culturelle) 1 cap BID PO Last administered on 03/27/19 08:33; Start 03/25/19 at 21:00 Non-Formulary Medication (Liraglutide (Victoza 3-Talat)) 1.2 mg DAILY SQ Last administered on 03/27/19 09:15; Start 03/25/19 at 16:30 Sumatriptan Succinate (Imitrex) 6 mg PRN DAILY PRN SQ headache Last administered on 03/26/19at 20:50; Start 03/25/19 at 16:15 Amoxicillin/ Clavulanate Potassium (Augmentin 875/ 125mg) 1 tab BID PO Last administered on 03/27/19 08:32; Start 03/26/19 at 21:00 Azithromycin (Zithromax) 500 mg 1X ONCE PO ; Start 03/26/19 at 12:15; Stop 03/26/19 at 12:16; Status DC Gadoterate Meglumine (Dotarem) 14 ml 1X ONCE IVP Last administered on 03/26/19 14:41; Start 03/26/19 at 14:30; Stop 03/26/19 at 14:31; Status DC Active Scripts Active Reported Potassium Chloride 10 Meq Tab.sr.24h 10 Meq PO BID Zoloft (Sertraline Hcl) 100 Mg Tablet 1 Tab PO BID Losartan-Hctz 50-12.5 Mg Tab (Losartan/Hydrochlorothiazide) 1 Each Tablet 1 Tab PO DAILY Glimepiride 2 Mg Tablet 1 Tab PO DAILY Metformin Hcl Er (Metformin Hcl) 500 Mg Tab.er.24h 500 Mg PO BIDWMEALS Amlodipine Besylate 5 Mg Tablet 10 PO DAILY Victoza 3-Talat (Liraglutide) 0.6 Mg/0.1 Ml Pen.injctr 1.2 Mg SQ DAILY Allergies Allergies: Coded Allergies: lisinopril (Verified Allergy, Severe, angioedema, 03/23/19) oxycodone (Verified Allergy, Intermediate, itching, 03/23/19) ROS General: No: Chills, Other (fevers) PSYCHOLOGICAL ROS: No: Anxiety, Depression Eyes: Yes Blurry vision, Yes Double vision HEENT: YES: Heacaches; No: Sore Throat Hematological and Lymphatic: No: Bleeding Problems, Blood Clots Respiratory: YES: Cough, Shortness of breath Cardiovascular: No Chest Pain, No Palpitations Gastrointestinal: No Nausea, No Abdominal Pain Genitourinary: No Dysuria, No Hematuria Musculoskeletal: No Joint Pain, No Muscle Pain Physical Exam General: Alert, Cooperative, No acute distress HEENT: Atraumatic, PERRLA Lungs: Clear to auscultation, Normal air movement Heart: Regular rate, Normal S1, Normal S2, No murmurs Abdomen: Soft, No tenderness Extremities: No clubbing, No cyanosis Skin: No rashes, No breakdown Neuro: Normal gait, Normal speech Psych/Mental Status: Mental status NL, Mood NL MUSCULOSKELETAL: No deformity, No swelling Vitals VITALS Vital Signs Date Time Temp Pulse Resp B/P (MAP) Pulse Ox O2 Delivery O2 Flow Rate FiO2 03/27/19 08:32 78 146/88 03/27/19 07:41 94 Room Air 03/27/19 07:00 98.2 17 98.2 Labs Labs Laboratory Tests Test 03/25/19 10:54 03/25/19 17:18 03/25/19 20:36 03/26/19 03:50 Glucose (Fingerstick) 291 mg/dL (70-99) 304 mg/dL (70-99) 287 mg/dL (70-99) White Blood Count 14.0 x10^3/uL (4.0-11.0) Red Blood Count 4.19 x10^6/uL (3.50-5.40) Hemoglobin 11.4 g/dL (12.0-15.5) Hematocrit 35.8 % (36.0-47.0) Mean Corpuscular Volume 85 fL (79-100) Mean Corpuscular Hemoglobin 27 pg (25-35) Mean Corpuscular Hemoglobin Concent 32 g/dL (31-37) Red Cell Distribution Width 14.4 % (11.5-14.5) Platelet Count 377 x10^3/uL (140-400) Neutrophils (%) (Auto) 69 % (31-73) Lymphocytes (%) (Auto) 22 % (24-48) Monocytes (%) (Auto) 9 % (0-9) Eosinophils (%) (Auto) 0 % (0-3) Basophils (%) (Auto) 1 % (0-3) Neutrophils # (Auto) 9.6 x10^3uL (1.8-7.7) Lymphocytes # (Auto) 3.0 x10^3/uL (1.0-4.8) Monocytes # (Auto) 1.2 x10^3/uL (0.0-1.1) Eosinophils # (Auto) 0.0 x10^3/uL (0.0-0.7) Basophils # (Auto) 0.1 x10^3/uL (0.0-0.2) Segmented Neutrophils % 63 % (35-66) Band Neutrophils % 7 % (0-9) Lymphocytes % 25 % (24-48) Monocytes % 5 % (0-10) Platelet Estimate Adequate (ADEQUATE) Sodium Level 138 mmol/L (136-145) Potassium Level 3.8 mmol/L (3.5-5.1) Chloride Level 99 mmol/L (98-107) Carbon Dioxide Level 29 mmol/L (21-32) Anion Gap 10 (6-14) Blood Urea Nitrogen 21 mg/dL (7-20) Creatinine 1.1 mg/dL (0.6-1.0) Estimated GFR (Cockcroft-Gault) 62.4 Glucose Level 267 mg/dL (70-99) Calcium Level 9.2 mg/dL (8.5-10.1) Test 03/26/19 07:43 03/26/19 12:05 03/26/19 16:56 03/26/19 20:50 Glucose (Fingerstick) 264 mg/dL (70-99) 254 mg/dL (70-99) 136 mg/dL (70-99) Prothrombin Time 13.8 SEC (11.7-14.0) Prothromb Time International Ratio 1.1 (0.8-1.1) Test 03/26/19 21:40 03/27/19 07:29 Glucose (Fingerstick) 111 mg/dL (70-99) 161 mg/dL (70-99) Laboratory Tests Test 03/26/19 12:05 03/26/19 16:56 03/26/19 20:50 03/26/19 21:40 Glucose (Fingerstick) 254 mg/dL (70-99) 136 mg/dL (70-99) 111 mg/dL (70-99) Prothrombin Time 13.8 SEC (11.7-14.0) Prothromb Time International Ratio 1.1 (0.8-1.1) Test 03/27/19 07:29 Glucose (Fingerstick) 161 mg/dL (70-99) Assessment/Plan Assessment/Plan pneumonia, treated headaches, request for TA biopsy will review with ADI Jade MD 03/27/19 1241: CONSULT Assessment/Plan Assessment/Plan Notified by hospitalist that pt will be transferred and to cancel consult. Will remain available, if needed. Thanks! FANY ROSENBERG APRN March 27, 2019 10:06 ADI GRIFFIN MD March 27, 2019 12:41
--- NOTE | 2019-03-27 10:16 | PDOC ---
Infectious Disease Note Subjective Subjective HONEYCUTT still but some better Eating ok H/o dental infections in December - no dental pain now but has some congestion Cough is better. F/c/s better + BM. No rash/dysuria Hip is some better Vital Sign Vital Signs Vital Signs Date Time Temp Pulse Resp B/P (MAP) Pulse Ox O2 Delivery O2 Flow Rate FiO2 03/27/19 08:32 78 146/88 03/27/19 07:41 94 Room Air 03/27/19 07:00 98.2 17 98.2 Physical Exam PHYSICAL EXAM GENERAL: The patient is sitting in bed, alert. Looks better HEENT: PERRL, EOMI but some discomfort Oral cavity, pharynx pink no thrush or swellings and moist. NECK: Supple with FROM LUNGS: CTA HEART: S1, S2. ABDOMEN: Obese, soft, nontender with bowel sounds present. EXTREMITIES: No gross edema or cyanosis.. SKIN: Warm without generalized rash. NEUROLOGIC: Alert and oriented x 3. Answers questions appropriately Labs Lab Laboratory Tests Test 03/26/19 12:05 03/26/19 16:56 03/26/19 20:50 03/26/19 21:40 Glucose (Fingerstick) 254 mg/dL (70-99) 136 mg/dL (70-99) 111 mg/dL (70-99) Prothrombin Time 13.8 SEC (11.7-14.0) Prothromb Time International Ratio 1.1 (0.8-1.1) Test 03/27/19 07:29 Glucose (Fingerstick) 161 mg/dL (70-99) Micro CXR IMPRESSION: Partial interval clearing of the left basilar infiltrate compatible with resolving pneumonia. CT Head: Findings: There is no intra-axial mass effect, midline shift, extra-axial fluid collection. Ventricles, sulci, cisterns are within normal limits in size and configuration. Mastoid air cells are aerated. No acute calvarial abnormality is identified. IMPRESSION: 1. No acute intracranial abnormality is identified. Maxillofacial CT: FINDINGS: There are no air-fluid levels of the paranasal sinuses. Paranasal sinuses are overall aerated other than mild left sphenoid sinus mucosal thickening greatest dimension anteriorly about 0.4 cm. Ostiomeatal units are patent bilaterally. IMPRESSION: 1. There is mild left sphenoid sinus mucosal thickening. Microbiology 03/23/19 Blood Culture - Preliminary, Resulted NO GROWTH AFTER 1 DAY Objective Assessment Pneumonia - better - mycoplasma and strep pneumo neg Fever - better HONEYCUTT - ? migraine/sinus - MRI reviewed Leukocytosis - mild increase ? tubing drier- Dexamethasone times one at admit - evening 03/23 Transaminitis - ? Doxy possible viral Joint pains -s/p steroid injection, left hip urgent care center about 5 days ago - benign exam on PROM and palpation. XRAY - arthritis Yeast in urine, UC pending Hyponatremia Diabetes elevated FSBS - steroid - not controlled Hypertension Sleep apnea, CPAP Plan Plan of Care Discont Zosyn/doxy 03/26 Augmentin 03/26/Azitho times one Repeat labs in am F/u Strep pneumo and mycoplasma serologies/cults D/w Dr. Sherwood D/w nursing HAFSA PAREKH MD March 27, 2019 10:16
[2019-03-27 10:36] LABS: BASO # 0.1 x10^3/uL (0.0-0.2); BASO % 0 % (0-3); EOS % 0 % (0-3); HEMATOCRIT 39.6 % (36.0-47.0); HEMOGLOBIN 12.8 g/dL (12.0-15.5); LYMPH # 2.6 x10^3/uL (1.0-4.8); LYMPH % 20 % (24-48); MEAN CORPUSCULAR HEMOGLOBIN 27 pg (25-35); MEAN CORPUSCULAR HGB CONC 32 g/dL (31-37); MEAN CORPUSCULAR VOLUME 85 fL (79-100); MONO % 8 % (0-9); NEUT % 71 % (31-73); PLATELET COUNT 478 x10^3/uL (140-400); RED BLOOD COUNT 4.66 x10^6/uL (3.50-5.40); RED CELL DISTRIBUTION WIDTH 14.8 % (11.5-14.5); WHITE BLOOD COUNT 12.6 x10^3/uL (4.0-11.0)
[2019-03-27 11:00] VITALS: BP 132/80
[2019-03-27 11:05] LABS: ALBUMIN 2.6 g/dL (3.4-5.0); ALBUMIN/GLOBULIN RATIO 0.5 (1.0-1.7); CALCIUM 9.9 mg/dL (8.5-10.1); CREATININE 0.8 mg/dL (0.6-1.0); GFR 90.1; POTASSIUM 3.2 mmol/L (3.5-5.1); TOTAL BILIRUBIN 0.5 mg/dL (0.2-1.0); TOTAL PROTEIN 8.2 g/dL (6.4-8.2)
--- NOTE | 2019-03-27 11:18 | PDOC ---
Infectious Disease Note Subjective Subjective Previous note signed prior to completion States her HONEYCUTT has improved. However, her eyes now are beginning to become more sore today after having improved some yesterday as she was able to open them yesterday. Vision has not worsened but eyes are painful No F/C/S/N/V/D/SOA/Rash/cough and continues to eat well. Mouth ok Hip is better ROS ROS o/w neg Vital Sign Vital Signs Vital Signs Date Time Temp Pulse Resp B/P (MAP) Pulse Ox O2 Delivery O2 Flow Rate FiO2 03/27/19 08:32 78 146/88 03/27/19 07:41 94 Room Air 03/27/19 07:00 98.2 17 98.2 Physical Exam PHYSICAL EXAM GENERAL: The patient is sitting in a chair alert. Looks comfortable HEENT: Able to open eyes but is light sensitive PERRL, EOMI but some discomfort - mild erythema of right eye today. Oral cavity, pharynx pink no thrush or swellings and moist. NECK: Supple with FROM LUNGS: CTA HEART: S1, S2. ABDOMEN: Obese, soft, nontender with bowel sounds present. EXTREMITIES: No gross edema or cyanosis.. SKIN: Warm without generalized rash. NEUROLOGIC: Alert and oriented x 3. Answers questions appropriately Labs Lab Laboratory Tests Test 03/26/19 12:05 03/26/19 16:56 03/26/19 20:50 03/26/19 21:40 Glucose (Fingerstick) 254 mg/dL (70-99) 136 mg/dL (70-99) 111 mg/dL (70-99) Prothrombin Time 13.8 SEC (11.7-14.0) Prothromb Time International Ratio 1.1 (0.8-1.1) Test 03/27/19 07:29 Glucose (Fingerstick) 161 mg/dL (70-99) Micro MRI brain 03/26 Impression: 1. There is no evidence of recent infarct or abnormal enhancement. There are multiple tiny scattered foci of T2 and FLAIR hyperintense signal of the supratentorial parenchyma bilaterally. White matter changes can be seen in patients with migraine headaches if corresponding history. Pattern is not particularly suggestive of an inflammatory demyelinating disease. Sequela of chronic microvascular ischemic disease would be a consideration especially if risk factors such as hypertension or diabetes. 2. 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 CT Head: Findings: There is no intra-axial mass effect, midline shift, extra-axial fluid collection. Ventricles, sulci, cisterns are within normal limits in size and configuration. Mastoid air cells are aerated. No acute calvarial abnormality is identified. IMPRESSION: 1. No acute intracranial abnormality is identified. Maxillofacial CT: FINDINGS: There are no air-fluid levels of the paranasal sinuses. Paranasal sinuses are overall aerated other than mild left sphenoid sinus mucosal thickening greatest dimension anteriorly about 0.4 cm. Ostiomeatal units are patent bilaterally. IMPRESSION: 1. There is mild left sphenoid sinus mucosal thickening. Microbiology 03/23/19 Blood Culture - Preliminary, Resulted NO GROWTH AFTER 1 DAY Objective Assessment Eye pain and discomfort has worsened today after having improved initially yesterday. Mild erythema. She states she has a h/o corneal dystrophy and has chronic pain and light sensitivity but has it has worsened today - has had 2 surgeries prior. 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 Pneumonia - better - mycoplasma and strep pneumo neg Fever - better H[place]YCUTT - ? migraine/sinus Improved some- MRI reviewed - Leukocytosis - better. ? 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 Doxy possible viral Joint pains -s/p steroid injection, left hip urgent care center about 5 days ago - benign exam on PROM and palpation. XRAY - arthritis Yeast in urine, UC pending Hyponatremia Diabetes elevated FSBS - steroid - not controlled Hypertension Sleep apnea, CPAP Plan Plan of Care Given worsen of her eyes will discont Augmentin 03/26 and start IV Vanc and Zosyn Offered antibiotic drops for possible conjunctivitis but she declined will try IV abx D/w Dr. Quiroz and I expressed that given regression from initial improvement yesterday and lack of Optho services I recommended transfer to facility that can appropriately eval her eyes D/w nursing HAFSA PAREKH MD March 27, 2019 11:18
[2019-03-27] MEDS ORDERED: VANCOMYCIN 1.75 GM in IV NORMAL SALINE 500ML BAG 500 ML IV ONE (12:00)
[2019-03-27] MEDS: VANCOMYCIN PER PHARMACY MC PRN ×2 (12:02→13:50)
[2019-03-27] MEDS: PIPERACILLIN/TAZOBACTAM 3.375 GM in IV NORMAL SALINE 50ML 50 ML IV SCH ×2 (12:10→17:25)
--- NOTE | 2019-03-27 12:40 | PDOC ---
PULMONARY PROGRESS NOTES Subjective NO SOA Vitals Vital Signs Date Time Temp Pulse Resp B/P (MAP) Pulse Ox O2 Delivery O2 Flow Rate FiO2 03/27/19 11:30 Room Air 03/27/19 11:00 98.6 68 16 132/80 (97) 93 98.6 General: Alert, No acute distress Lungs: Clear Cardiovascular: S1 Abdomen: Soft Neuro Exam: Alert Extremities: No Edema Skin: Warm, Dry Labs Laboratory Tests Test 03/25/19 17:18 03/25/19 20:36 03/26/19 03:50 03/26/19 07:43 Glucose (Fingerstick) 304 mg/dL (70-99) 287 mg/dL (70-99) 264 mg/dL (70-99) White Blood Count 14.0 x10^3/uL (4.0-11.0) Red Blood Count 4.19 x10^6/uL (3.50-5.40) Hemoglobin 11.4 g/dL (12.0-15.5) Hematocrit 35.8 % (36.0-47.0) Mean Corpuscular Volume 85 fL (79-100) Mean Corpuscular Hemoglobin 27 pg (25-35) Mean Corpuscular Hemoglobin Concent 32 g/dL (31-37) Red Cell Distribution Width 14.4 % (11.5-14.5) Platelet Count 377 x10^3/uL (140-400) Neutrophils (%) (Auto) 69 % (31-73) Lymphocytes (%) (Auto) 22 % (24-48) Monocytes (%) (Auto) 9 % (0-9) Eosinophils (%) (Auto) 0 % (0-3) Basophils (%) (Auto) 1 % (0-3) Neutrophils # (Auto) 9.6 x10^3uL (1.8-7.7) Lymphocytes # (Auto) 3.0 x10^3/uL (1.0-4.8) Monocytes # (Auto) 1.2 x10^3/uL (0.0-1.1) Eosinophils # (Auto) 0.0 x10^3/uL (0.0-0.7) Basophils # (Auto) 0.1 x10^3/uL (0.0-0.2) Segmented Neutrophils % 63 % (35-66) Band Neutrophils % 7 % (0-9) Lymphocytes % 25 % (24-48) Monocytes % 5 % (0-10) Platelet Estimate Adequate (ADEQUATE) Sodium Level 138 mmol/L (136-145) Potassium Level 3.8 mmol/L (3.5-5.1) Chloride Level 99 mmol/L (98-107) Carbon Dioxide Level 29 mmol/L (21-32) Anion Gap 10 (6-14) Blood Urea Nitrogen 21 mg/dL (7-20) Creatinine 1.1 mg/dL (0.6-1.0) Estimated GFR (Cockcroft-Gault) 62.4 Glucose Level 267 mg/dL (70-99) Calcium Level 9.2 mg/dL (8.5-10.1) Test 03/26/19 12:05 03/26/19 16:56 03/26/19 20:50 03/26/19 21:40 Glucose (Fingerstick) 254 mg/dL (70-99) 136 mg/dL (70-99) 111 mg/dL (70-99) Prothrombin Time 13.8 SEC (11.7-14.0) Prothromb Time International Ratio 1.1 (0.8-1.1) Test 03/27/19 07:29 03/27/19 09:40 03/27/19 11:22 Glucose (Fingerstick) 161 mg/dL (70-99) 206 mg/dL (70-99) White Blood Count 12.6 x10^3/uL (4.0-11.0) Red Blood Count 4.66 x10^6/uL (3.50-5.40) Hemoglobin 12.8 g/dL (12.0-15.5) Hematocrit 39.6 % (36.0-47.0) Mean Corpuscular Volume 85 fL (79-100) Mean Corpuscular Hemoglobin 27 pg (25-35) Mean Corpuscular Hemoglobin Concent 32 g/dL (31-37) Red Cell Distribution Width 14.8 % (11.5-14.5) Platelet Count 478 x10^3/uL (140-400) Neutrophils (%) (Auto) 71 % (31-73) Lymphocytes (%) (Auto) 20 % (24-48) Monocytes (%) (Auto) 8 % (0-9) Eosinophils (%) (Auto) 0 % (0-3) Basophils (%) (Auto) 0 % (0-3) Neutrophils # (Auto) 9.0 x10^3uL (1.8-7.7) Lymphocytes # (Auto) 2.6 x10^3/uL (1.0-4.8) Monocytes # (Auto) 1.0 x10^3/uL (0.0-1.1) Eosinophils # (Auto) 0.0 x10^3/uL (0.0-0.7) Basophils # (Auto) 0.1 x10^3/uL (0.0-0.2) Sodium Level 134 mmol/L (136-145) Potassium Level 3.2 mmol/L (3.5-5.1) Chloride Level 94 mmol/L (98-107) Carbon Dioxide Level 29 mmol/L (21-32) Anion Gap 11 (6-14) Blood Urea Nitrogen 11 mg/dL (7-20) Creatinine 0.8 mg/dL (0.6-1.0) Estimated GFR (Cockcroft-Gault) 90.1 BUN/Creatinine Ratio 14 (6-20) Glucose Level 215 mg/dL (70-99) Calcium Level 9.9 mg/dL (8.5-10.1) Total Bilirubin 0.5 mg/dL (0.2-1.0) Aspartate Amino Transf (AST/SGOT) 60 U/L (15-37) Alanine Aminotransferase (ALT/SGPT) 77 U/L (14-59) Alkaline Phosphatase 125 U/L (46-116) Total Protein 8.2 g/dL (6.4-8.2) Albumin 2.6 g/dL (3.4-5.0) Albumin/Globulin Ratio 0.5 (1.0-1.7) Laboratory Tests Test 03/26/19 16:56 03/26/19 20:50 03/26/19 21:40 03/27/19 07:29 Glucose (Fingerstick) 136 mg/dL (70-99) 111 mg/dL (70-99) 161 mg/dL (70-99) Prothrombin Time 13.8 SEC (11.7-14.0) Prothromb Time International Ratio 1.1 (0.8-1.1) Test 03/27/19 09:40 03/27/19 11:22 White Blood Count 12.6 x10^3/uL (4.0-11.0) Red Blood Count 4.66 x10^6/uL (3.50-5.40) Hemoglobin 12.8 g/dL (12.0-15.5) Hematocrit 39.6 % (36.0-47.0) Mean Corpuscular Volume 85 fL (79-100) Mean Corpuscular Hemoglobin 27 pg (25-35) Mean Corpuscular Hemoglobin Concent 32 g/dL (31-37) Red Cell Distribution Width 14.8 % (11.5-14.5) Platelet Count 478 x10^3/uL (140-400) Neutrophils (%) (Auto) 71 % (31-73) Lymphocytes (%) (Auto) 20 % (24-48) Monocytes (%) (Auto) 8 % (0-9) Eosinophils (%) (Auto) 0 % (0-3) Basophils (%) (Auto) 0 % (0-3) Neutrophils # (Auto) 9.0 x10^3uL (1.8-7.7) Lymphocytes # (Auto) 2.6 x10^3/uL (1.0-4.8) Monocytes # (Auto) 1.0 x10^3/uL (0.0-1.1) Eosinophils # (Auto) 0.0 x10^3/uL (0.0-0.7) Basophils # (Auto) 0.1 x10^3/uL (0.0-0.2) Sodium Level 134 mmol/L (136-145) Potassium Level 3.2 mmol/L (3.5-5.1) Chloride Level 94 mmol/L (98-107) Carbon Dioxide Level 29 mmol/L (21-32) Anion Gap 11 (6-14) Blood Urea Nitrogen 11 mg/dL (7-20) Creatinine 0.8 mg/dL (0.6-1.0) Estimated GFR (Cockcroft-Gault) 90.1 BUN/Creatinine Ratio 14 (6-20) Glucose Level 215 mg/dL (70-99) Calcium Level 9.9 mg/dL (8.5-10.1) Total Bilirubin 0.5 mg/dL (0.2-1.0) Aspartate Amino Transf (AST/SGOT) 60 U/L (15-37) Alanine Aminotransferase (ALT/SGPT) 77 U/L (14-59) Alkaline Phosphatase 125 U/L (46-116) Total Protein 8.2 g/dL (6.4-8.2) Albumin 2.6 g/dL (3.4-5.0) Albumin/Globulin Ratio 0.5 (1.0-1.7) Glucose (Fingerstick) 206 mg/dL (70-99) Medications Active Scripts Medications Dose Route/Sig Max Daily Dose Days Date Category Potassium Chloride 10 Meq Tab.sr.24h 10 Meq PO BID 03/24/19 Reported Zoloft (Sertraline Hcl) 100 Mg Tablet 1 Tab PO BID 03/24/19 Reported Losartan-Hctz 50-12.5 Mg Tab (Losartan/Hydrochlorothiazide) 1 Each Tablet 1 Tab PO DAILY 03/24/19 Reported Glimepiride 2 Mg Tablet 1 Tab PO DAILY 03/24/19 Reported Metformin Hcl Er (Metformin Hcl) 500 Mg Tab.er.24h 500 Mg PO BIDWMEALS 03/24/19 Reported Amlodipine Besylate 5 Mg Tablet 10 PO DAILY 03/23/19 Reported Victoza 3-Talat (Liraglutide) 0.6 Mg/0.1 Ml Pen.injctr 1.2 Mg SQ DAILY 03/23/19 Reported Impression . 1. Abnormal x-ray compatible with LLL pneumonia. Suspect gram-negative, possibly gram-positive. 2. Hypoxemia. 3. Leukocytosis. 4. Hyponatremia. 5. Mild protein malnutrition, present upon admission. Plan . 1. Abx per ID 2. Repeat chest x-ray 03/26 with resolving LLL pneumonia 3. possible dc in 24 hrs 4. d/w LEOBARDO HITCHCOCK MD March 27, 2019 12:40
--- NOTE | 2019-03-27 13:40 | PDOC3 ---
Discharge Summary Visit Information Date of Admission: March 23, 2019 Date of Discharge: March 27, 2019 Admitting Diagnosis: Pneumonia Final Diagnosis acute new headache Elevated ESR concerns for temporal arteritis, status post biopsy 03/28/2019, started on prednisone prior to discharge Pneumonia, improved on vancomycin and zosyn hyponatremia, hyperglycemia, DM2 very poor control acute hypoxia resolved hip pain, OA status post steroid injection Brief Hospital Course Allergies Allergies Coded Allergies Type Severity Reaction Last Updated Verified lisinopril Allergy Severe angioedema 03/23/19 Yes oxycodone Allergy Intermediate itching 03/23/19 Yes Vital Signs Vital Signs Date Time Temp Pulse Resp B/P (MAP) Pulse Ox O2 Delivery O2 Flow Rate FiO2 03/27/19 11:30 Room Air 03/27/19 11:00 98.6 68 16 132/80 (97) 93 98.6 GENERAL: The patient is sitting in a chair alert. Looks comfortable HEENT: Able to open eyes but is light sensitive PERRL, EOMI but some discomfort - mild erythema of right eye today. Oral cavity, pharynx pink no thrush or swellings and moist. NECK: Supple with FROM LUNGS: CTA HEART: S1, S2. ABDOMEN: Obese, soft, nontender with bowel sounds present. EXTREMITIES: No gross edema or cyanosis.. SKIN: Warm without generalized rash. NEUROLOGIC: Alert and oriented x 3. Answers questions appropriately Lab Results Laboratory Tests Test 03/25/19 17:18 03/25/19 20:36 03/26/19 03:50 03/26/19 07:43 Glucose (Fingerstick) 304 mg/dL (70-99) 287 mg/dL (70-99) 264 mg/dL (70-99) White Blood Count 14.0 x10^3/uL (4.0-11.0) Red Blood Count 4.19 x10^6/uL (3.50-5.40) Hemoglobin 11.4 g/dL (12.0-15.5) Hematocrit 35.8 % (36.0-47.0) Mean Corpuscular Volume 85 fL (79-100) Mean Corpuscular Hemoglobin 27 pg (25-35) Mean Corpuscular Hemoglobin Concent 32 g/dL (31-37) Red Cell Distribution Width 14.4 % (11.5-14.5) Platelet Count 377 x10^3/uL (140-400) Neutrophils (%) (Auto) 69 % (31-73) Lymphocytes (%) (Auto) 22 % (24-48) Monocytes (%) (Auto) 9 % (0-9) Eosinophils (%) (Auto) 0 % (0-3) Basophils (%) (Auto) 1 % (0-3) Neutrophils # (Auto) 9.6 x10^3uL (1.8-7.7) Lymphocytes # (Auto) 3.0 x10^3/uL (1.0-4.8) Monocytes # (Auto) 1.2 x10^3/uL (0.0-1.1) Eosinophils # (Auto) 0.0 x10^3/uL (0.0-0.7) Basophils # (Auto) 0.1 x10^3/uL (0.0-0.2) Segmented Neutrophils % 63 % (35-66) Band Neutrophils % 7 % (0-9) Lymphocytes % 25 % (24-48) Monocytes % 5 % (0-10) Platelet Estimate Adequate (ADEQUATE) Sodium Level 138 mmol/L (136-145) Potassium Level 3.8 mmol/L (3.5-5.1) Chloride Level 99 mmol/L (98-107) Carbon Dioxide Level 29 mmol/L (21-32) Anion Gap 10 (6-14) Blood Urea Nitrogen 21 mg/dL (7-20) Creatinine 1.1 mg/dL (0.6-1.0) Estimated GFR (Cockcroft-Gault) 62.4 Glucose Level 267 mg/dL (70-99) Calcium Level 9.2 mg/dL (8.5-10.1) Test 03/26/19 12:05 03/26/19 16:56 03/26/19 20:50 03/26/19 21:40 Glucose (Fingerstick) 254 mg/dL (70-99) 136 mg/dL (70-99) 111 mg/dL (70-99) Prothrombin Time 13.8 SEC (11.7-14.0) Prothromb Time International Ratio 1.1 (0.8-1.1) Test 03/27/19 07:29 03/27/19 09:40 03/27/19 11:22 Glucose (Fingerstick) 161 mg/dL (70-99) 206 mg/dL (70-99) White Blood Count 12.6 x10^3/uL (4.0-11.0) Red Blood Count 4.66 x10^6/uL (3.50-5.40) Hemoglobin 12.8 g/dL (12.0-15.5) Hematocrit 39.6 % (36.0-47.0) Mean Corpuscular Volume 85 fL (79-100) Mean Corpuscular Hemoglobin 27 pg (25-35) Mean Corpuscular Hemoglobin Concent 32 g/dL (31-37) Red Cell Distribution Width 14.8 % (11.5-14.5) Platelet Count 478 x10^3/uL (140-400) Neutrophils (%) (Auto) 71 % (31-73) Lymphocytes (%) (Auto) 20 % (24-48) Monocytes (%) (Auto) 8 % (0-9) Eosinophils (%) (Auto) 0 % (0-3) Basophils (%) (Auto) 0 % (0-3) Neutrophils # (Auto) 9.0 x10^3uL (1.8-7.7) Lymphocytes # (Auto) 2.6 x10^3/uL (1.0-4.8) Monocytes # (Auto) 1.0 x10^3/uL (0.0-1.1) Eosinophils # (Auto) 0.0 x10^3/uL (0.0-0.7) Basophils # (Auto) 0.1 x10^3/uL (0.0-0.2) Sodium Level 134 mmol/L (136-145) Potassium Level 3.2 mmol/L (3.5-5.1) Chloride Level 94 mmol/L (98-107) Carbon Dioxide Level 29 mmol/L (21-32) Anion Gap 11 (6-14) Blood Urea Nitrogen 11 mg/dL (7-20) Creatinine 0.8 mg/dL (0.6-1.0) Estimated GFR (Cockcroft-Gault) 90.1 BUN/Creatinine Ratio 14 (6-20) Glucose Level 215 mg/dL (70-99) Calcium Level 9.9 mg/dL (8.5-10.1) Total Bilirubin 0.5 mg/dL (0.2-1.0) Aspartate Amino Transf (AST/SGOT) 60 U/L (15-37) Alanine Aminotransferase (ALT/SGPT) 77 U/L (14-59) Alkaline Phosphatase 125 U/L (46-116) Total Protein 8.2 g/dL (6.4-8.2) Albumin 2.6 g/dL (3.4-5.0) Albumin/Globulin Ratio 0.5 (1.0-1.7) Laboratory Tests Test 03/26/19 16:56 03/26/19 20:50 03/26/19 21:40 03/27/19 07:29 Glucose (Fingerstick) 136 mg/dL (70-99) 111 mg/dL (70-99) 161 mg/dL (70-99) Prothrombin Time 13.8 SEC (11.7-14.0) Prothromb Time International Ratio 1.1 (0.8-1.1) Test 03/27/19 09:40 03/27/19 11:22 White Blood Count 12.6 x10^3/uL (4.0-11.0) Red Blood Count 4.66 x10^6/uL (3.50-5.40) Hemoglobin 12.8 g/dL (12.0-15.5) Hematocrit 39.6 % (36.0-47.0) Mean Corpuscular Volume 85 fL (79-100) Mean Corpuscular Hemoglobin 27 pg (25-35) Mean Corpuscular Hemoglobin Concent 32 g/dL (31-37) Red Cell Distribution Width 14.8 % (11.5-14.5) Platelet Count 478 x10^3/uL (140-400) Neutrophils (%) (Auto) 71 % (31-73) Lymphocytes (%) (Auto) 20 % (24-48) Monocytes (%) (Auto) 8 % (0-9) Eosinophils (%) (Auto) 0 % (0-3) Basophils (%) (Auto) 0 % (0-3) Neutrophils # (Auto) 9.0 x10^3uL (1.8-7.7) Lymphocytes # (Auto) 2.6 x10^3/uL (1.0-4.8) Monocytes # (Auto) 1.0 x10^3/uL (0.0-1.1) Eosinophils # (Auto) 0.0 x10^3/uL (0.0-0.7) Basophils # (Auto) 0.1 x10^3/uL (0.0-0.2) Sodium Level 134 mmol/L (136-145) Potassium Level 3.2 mmol/L (3.5-5.1) Chloride Level 94 mmol/L (98-107) Carbon Dioxide Level 29 mmol/L (21-32) Anion Gap 11 (6-14) Blood Urea Nitrogen 11 mg/dL (7-20) Creatinine 0.8 mg/dL (0.6-1.0) Estimated GFR (Cockcroft-Gault) 90.1 BUN/Creatinine Ratio 14 (6-20) Glucose Level 215 mg/dL (70-99) Calcium Level 9.9 mg/dL (8.5-10.1) Total Bilirubin 0.5 mg/dL (0.2-1.0) Aspartate Amino Transf (AST/SGOT) 60 U/L (15-37) Alanine Aminotransferase (ALT/SGPT) 77 U/L (14-59) Alkaline Phosphatase 125 U/L (46-116) Total Protein 8.2 g/dL (6.4-8.2) Albumin 2.6 g/dL (3.4-5.0) Albumin/Globulin Ratio 0.5 (1.0-1.7) Glucose (Fingerstick) 206 mg/dL (70-99) Brief Hospital Course The patient is a pleasant 53-year-old female who does have diabetes. She has had 4 days of progressive shortness of breath, feels like she is extremely weak. She has continuous shortness of breath and cough. She tried taking some [id number] meds but that did not seem to work. Describes her symptoms as agonizing, rated at 10/10. Imaging studies showing a left lower lobe pneumonia. I discussed the case with the ER physician. We are going to admit the patient and consult Pulmonary. She will be given IV antibiotics, breathing treatments and oxygen. Patient seen in consultation by Pulmonology, Infectious disease and Neurology. The patient is a 53-year-old -[place] female who has not been feeling very well for the past 5-6 months or so. She has had a cough on and off, tired more than usual and has been having some joint pains. Over the last week, her symptoms have worsened. She complained of some sinus pressure with headache with cough, subjective fevers and chills, confusion and fatigue. On arrival to the ER, she had elevated white blood cell count of 16,200 with a lactic acid of 2.1. Chest x-ray showed a lung base infiltrates greater on the left and probable small effusions. She was given a dose of vancomycin and levofloxacin in the ER and is currently on Zosyn. 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 She is constantly exposed to sick children. Denies recent traveling or pets. She is a nonsmoker. She was seen in the urgent care center 4-5 days ago for left hip pain for which she had a steroid injection with minimal relief. She denies antibiotic use in the last several weeks. She developed a rash that since resolved. She also complains of some hemorrhoids. She was seen by gantry crane operator not too long ago and was prescribed some prednisolone drops. She has noticed increased urination. Denies dysuria. Denies nausea, vomiting or diarrhea. The patient is a 53-year-old that has not been feeling well for several days. She actually went to an urgent care center, was complaining mainly of left hip pain. She had a steroid injection. She came in because she is to continue not to feel well, specifically left hip. She was slightly more short of breath. She was having some frontal headaches. Temperature at home was 98.8. She was also having pain all over. She was admitted. Part of her workup included chest x-ray. The x-ray revealed left lower lobe infiltrate. I was asked to see her in consultation. The patient has been seen by the Infectious Disease service. She is currently on Zosyn and Levaquin. She denies smoking, has never had pneumonia. She has had 4 days of progressive shortness of breath feeling extremely weak. She has continuous shortness of breath and cough. She tried some [id number] meds but that did not seem to work. Describes her symptoms as agonizing, rated at 10/10. Imaging studies showing a left lower lobe pneumonia. She complained headaches on 03/25/19 stating she had headaches in the past several times a month but not as severe as this time. No symptoms of projectile vomiting, diplopia, ataxia, focalized numbness or weakness. The patient continued to be on broad-spectrum antibiotics and the escalated appropriately as per our infectious disease technology applications consultant. The patient developed the above-mentioned headache which prompted neurological evaluation that included an ESR level which was quite high in the 132 range. Family members requested an ophthalmological consultation unfortunately we do not have those services in our institution. I explaining detail that the suspicion given her symptoms presentation and laboratory data is concerning for temporal arteritis I try to explain to the best of my abilities the disease process and the importance off consulting surgery for a possible biopsy. I discussed the case also with neurology who agreed with my assessment and plan of care. The patient decided to consult with her family members and noted to reach a decision. I visited 2 times on March 26 and she was unable to make a decision at that point she was waiting for one more family member to wait into the situation as well. In the morning of March 27, 2019 the patient continues with her eye discomfort photosensitivity and seems to be more inflamed compared to yesterday and given these findings are infectious disease technology applications consultant is recommending we seek an ophthalmological consultation as well. I have contacted the patient's gantry crane operator at and discussed case with him. Dr. Kingsley he is agreeable in seen the patient in consultation if she would be transferred to and we will coordinate with the hospitalist service and transfer center at in noted to make arrangements for the patient to be transferred to their institution for the services that we unfortunate cannot provide in hours. Dr. Kingsley this also agree with pursuing a temporal artery biopsy noted to hopefully confirm a diagnosis. Family members were very concerned since the term sepsis had been related to them I have assured to them that the patient was at no point septic since she did not present hemodynamic instability and not requiring pressors. The patient's white blood cell count is elevated as a consequence most likely of her steroid injection prior to coming to the emergency department where she also received another dose of steroid. I have explained to them that there is a possibility of false negative results as far as biopsy goes nevertheless the appropriate words of action is to pursue temporal artery biopsy and once this is done start treatment for suspected temporal arteritis. Greater than an hour and 30 minutes have been spent in the care of the patient on the day of discharge and transfer in counseling coordination of care and arrangements for a safe transfer. All concerns were addressed to the best of my abilities to the patient and the family aware over the phone. Her sister Susan and another young lady who was also on a conference call with me earlier this morning have been briefed on the patient's condition and reassurance has been provided she underwent biopsy on the day of transfer and she was started on prednisone as well. Patient is hemodynamically stable, all concerns were addressed to the best of my abilities prior to discharge. she will be transferred to [place] for ophtalmological evaluation and continued care for her suspected GCA. Greater than 40 minutes spent in the discharge process of the patient in face to face interaction , counseling coordination of care and arrangements for a safe transfer Discharge Information Condition at Discharge: Stable Follow Up: As Needed Disposition/Orders: D/C to Another Facility Scheduled Amlodipine Besylate (Amlodipine Besylate) 5 Mg Tablet, 10 PO DAILY for HTN, (Reported) Entered as Reported by: ANITRA BERNAL on 03/23/191810 Last Taken: UNKNOWN on Unknown Date & Time Last Action: Continued on 03/24/191227 by FREDY DAVID Glimepiride (Glimepiride) 2 Mg Tablet, 1 TAB PO DAILY for blood sugar, #30 Ref 5 (Reported) Entered as Reported by: DIANA DAVIS RN on 03/24/191054 Last Taken: UNKNOWN on Unknown Date & Time Last Action: Continued on 03/24/191227 by FREDY DAVID Liraglutide (Victoza 3-Talat) 0.6 Mg/0.1 Ml Pen.injctr, 1.2 MG SQ DAILY, (Reported) Entered as Reported by: ANITRA BERNAL on 03/23/191810 Last Action: Converted on 03/24/191227 by FREDY DAVID Losartan/Hydrochlorothiazide (Losartan-Hctz 50-12.5 Mg Tab) 1 Each Tablet, 1 TAB PO DAILY for HTN, #30 Ref 5 (Reported) Entered as Reported by: DIANA DAVIS RN on 03/24/191054 Last Taken: UNKNOWN on Unknown Date & Time Last Action: Converted on 03/24/191227 by FREDY DAVID Metformin Hcl (Metformin Hcl Er) 500 Mg Tab.er.24h, 500 MG PO BIDWMEALS for Blood sugar, (Reported) Entered as Reported by: DIANA DAVIS RN on 03/24/191054 Last Taken: UNKNOWN on Unknown Date & Time Last Action: Converted on 03/24/19 1228 by FREDY DAVID Potassium Chloride (Potassium Chloride) 10 Meq Tab.sr.24h, 10 MEQ PO BID for supplement, (Reported) Entered as Reported by: DIANA DAVIS RN on 03/24/191715 Last Taken: UNKNOWN on Unknown Date & Time Last Action: Continued on 03/24/191802 by DIANA DAVIS RN Prednisone (Prednisone) 50 Mg Tablet, 1 TAB PO DAILY for GCA, #5 Prescribed by: DARRIAN LEES MD on 03/28/191714 Sertraline Hcl (Zoloft) 100 Mg Tablet, 1 TAB PO BID for mood, #30 Ref 5 (Reported) Entered as Reported by: DIANA DAVIS RN on 03/24/191715 Last Taken: UNKNOWN on Unknown Date & Time Last Action: Converted on 03/24/191802 by DIANA DAVIS RN Discontinued Medications Metformin Hcl (Metformin Hcl) 1,000 Mg Tablet, 1,000 MG PO QHS for ANTI- DIABETIC, Ref 0 (Reported) Entered as Reported by: ANITRA BERNAL on 03/23/191810 Last Action: Discontinued on 03/24/191054 by DIANA DAVIS RN Potassium Chloride (Potassium Chloride) 10 Meq Tab.sr.24h, Unknown Dose PO DAILY, (Reported) Entered as Reported by: ANITRA BERNAL on 03/23/191810 Last Taken: UNKNOWN on Unknown Date & Time Last Action: Discontinued on 03/24/191054 by ALKA LOPEZ HECTOR M MD March 27, 2019 13:40
--- NOTE | 2019-03-27 14:01 | NUR ---
Pharmacy Vancomycin Dosing Note S:Consulted to monitor and dose vancomycin started 03/27/19. O:LORETO QUINONEZ is a 53 year old F with Pneumonia . Height: 4 feet, 8 inches Weight: 77.836339 kg Daisy Body Weight: 36.30 Adjusted Body Weight: Dosing Weight: Other Antibiotics: ZOSYN LABS: Last BUN: 11 Last Creatinine: 0.8 Creatinine Clearance: 73 mL/min Last WBC: 12.6 Last Procalcitonin: Tmax (past 24 hours): 98.9 Microbiology: I/O: 100/ Drug Levels: Last level: on at Last dose given 03/23/19 at 1200 Vancomycin Dosing: Loading Dose: 1750 mg x1 Dosing Weight: Target Trough: 15-20 A: Based on: WEIGHT AND RENAL FUNCTION, VANCOMYCIN 1.75GM IV BOLUS GIVEN, P: 1. START Vancomycin 1250 mg IV q12h 2. Follow up Trough level on 03/29/19 at 0030 3. Pharmacy will continue to monitor, follow and adjust therapy as needed. YAW HERNANDEZ [facility], 03/27/19 [id number]
--- NOTE | 2019-03-27 14:40 | PDOC ---
PROGRESS NOTES Subjective Subjective She admits less headache. Objective Objective Vital Signs Date Time Temp Pulse Resp B/P (MAP) Pulse Ox O2 Delivery O2 Flow Rate FiO2 03/27/19 11:30 Room Air 03/27/19 11:00 98.6 68 16 132/80 (97) 93 98.6 03/25/19 02:54 2.0 Intake and Output 03/27/19 07:00 Intake Total 120 ml Balance 120 ml Intake Oral 120 ml # Voids 3 Physical Exam Physical Exam She is sitting up in bedside chair and does not seem to in in any acute distress.Mri scan report noted. She continues with tenderness to palpation over sacroiliac joint. Assessment Assessment Problems Medical Problems: (1) Cough Status: Acute (2) Hyperglycemia Status: Acute (3) Lobar pneumonia Status: Acute (4) Severe sepsis Status: Acute (5) Shortness of breath Status: Acute (6) Urinary tract infection Status: Acute Plan Plan of Care To continue present care efforts as tolerated. Comment Review of Relevant I have reviewed the following items tete (where applicable) has been applied. Labs Laboratory Tests Test 03/25/19 17:18 03/25/19 20:36 03/26/19 03:50 03/26/19 07:43 Glucose (Fingerstick) 304 mg/dL (70-99) 287 mg/dL (70-99) 264 mg/dL (70-99) White Blood Count 14.0 x10^3/uL (4.0-11.0) Red Blood Count 4.19 x10^6/uL (3.50-5.40) Hemoglobin 11.4 g/dL (12.0-15.5) Hematocrit 35.8 % (36.0-47.0) Mean Corpuscular Volume 85 fL (79-100) Mean Corpuscular Hemoglobin 27 pg (25-35) Mean Corpuscular Hemoglobin Concent 32 g/dL (31-37) Red Cell Distribution Width 14.4 % (11.5-14.5) Platelet Count 377 x10^3/uL (140-400) Neutrophils (%) (Auto) 69 % (31-73) Lymphocytes (%) (Auto) 22 % (24-48) Monocytes (%) (Auto) 9 % (0-9) Eosinophils (%) (Auto) 0 % (0-3) Basophils (%) (Auto) 1 % (0-3) Neutrophils # (Auto) 9.6 x10^3uL (1.8-7.7) Lymphocytes # (Auto) 3.0 x10^3/uL (1.0-4.8) Monocytes # (Auto) 1.2 x10^3/uL (0.0-1.1) Eosinophils # (Auto) 0.0 x10^3/uL (0.0-0.7) Basophils # (Auto) 0.1 x10^3/uL (0.0-0.2) Segmented Neutrophils % 63 % (35-66) Band Neutrophils % 7 % (0-9) Lymphocytes % 25 % (24-48) Monocytes % 5 % (0-10) Platelet Estimate Adequate (ADEQUATE) Sodium Level 138 mmol/L (136-145) Potassium Level 3.8 mmol/L (3.5-5.1) Chloride Level 99 mmol/L (98-107) Carbon Dioxide Level 29 mmol/L (21-32) Anion Gap 10 (6-14) Blood Urea Nitrogen 21 mg/dL (7-20) Creatinine 1.1 mg/dL (0.6-1.0) Estimated GFR (Cockcroft-Gault) 62.4 Glucose Level 267 mg/dL (70-99) Calcium Level 9.2 mg/dL (8.5-10.1) Test 03/26/19 12:05 03/26/19 16:56 03/26/19 20:50 03/26/19 21:40 Glucose (Fingerstick) 254 mg/dL (70-99) 136 mg/dL (70-99) 111 mg/dL (70-99) Prothrombin Time 13.8 SEC (11.7-14.0) Prothromb Time International Ratio 1.1 (0.8-1.1) Test 03/27/19 07:29 03/27/19 09:40 03/27/19 11:22 Glucose (Fingerstick) 161 mg/dL (70-99) 206 mg/dL (70-99) White Blood Count 12.6 x10^3/uL (4.0-11.0) Red Blood Count 4.66 x10^6/uL (3.50-5.40) Hemoglobin 12.8 g/dL (12.0-15.5) Hematocrit 39.6 % (36.0-47.0) Mean Corpuscular Volume 85 fL (79-100) Mean Corpuscular Hemoglobin 27 pg (25-35) Mean Corpuscular Hemoglobin Concent 32 g/dL (31-37) Red Cell Distribution Width 14.8 % (11.5-14.5) Platelet Count 478 x10^3/uL (140-400) Neutrophils (%) (Auto) 71 % (31-73) Lymphocytes (%) (Auto) 20 % (24-48) Monocytes (%) (Auto) 8 % (0-9) Eosinophils (%) (Auto) 0 % (0-3) Basophils (%) (Auto) 0 % (0-3) Neutrophils # (Auto) 9.0 x10^3uL (1.8-7.7) Lymphocytes # (Auto) 2.6 x10^3/uL (1.0-4.8) Monocytes # (Auto) 1.0 x10^3/uL (0.0-1.1) Eosinophils # (Auto) 0.0 x10^3/uL (0.0-0.7) Basophils # (Auto) 0.1 x10^3/uL (0.0-0.2) Sodium Level 134 mmol/L (136-145) Potassium Level 3.2 mmol/L (3.5-5.1) Chloride Level 94 mmol/L (98-107) Carbon Dioxide Level 29 mmol/L (21-32) Anion Gap 11 (6-14) Blood Urea Nitrogen 11 mg/dL (7-20) Creatinine 0.8 mg/dL (0.6-1.0) Estimated GFR (Cockcroft-Gault) 90.1 BUN/Creatinine Ratio 14 (6-20) Glucose Level 215 mg/dL (70-99) Calcium Level 9.9 mg/dL (8.5-10.1) Total Bilirubin 0.5 mg/dL (0.2-1.0) Aspartate Amino Transf (AST/SGOT) 60 U/L (15-37) Alanine Aminotransferase (ALT/SGPT) 77 U/L (14-59) Alkaline Phosphatase 125 U/L (46-116) Total Protein 8.2 g/dL (6.4-8.2) Albumin 2.6 g/dL (3.4-5.0) Albumin/Globulin Ratio 0.5 (1.0-1.7) Laboratory Tests Test 03/26/19 16:56 03/26/19 20:50 03/26/19 21:40 03/27/19 07:29 Glucose (Fingerstick) 136 mg/dL (70-99) 111 mg/dL (70-99) 161 mg/dL (70-99) Prothrombin Time 13.8 SEC (11.7-14.0) Prothromb Time International Ratio 1.1 (0.8-1.1) Test 03/27/19 09:40 03/27/19 11:22 White Blood Count 12.6 x10^3/uL (4.0-11.0) Red Blood Count 4.66 x10^6/uL (3.50-5.40) Hemoglobin 12.8 g/dL (12.0-15.5) Hematocrit 39.6 % (36.0-47.0) Mean Corpuscular Volume 85 fL (79-100) Mean Corpuscular Hemoglobin 27 pg (25-35) Mean Corpuscular Hemoglobin Concent 32 g/dL (31-37) Red Cell Distribution Width 14.8 % (11.5-14.5) Platelet Count 478 x10^3/uL (140-400) Neutrophils (%) (Auto) 71 % (31-73) Lymphocytes (%) (Auto) 20 % (24-48) Monocytes (%) (Auto) 8 % (0-9) Eosinophils (%) (Auto) 0 % (0-3) Basophils (%) (Auto) 0 % (0-3) Neutrophils # (Auto) 9.0 x10^3uL (1.8-7.7) Lymphocytes # (Auto) 2.6 x10^3/uL (1.0-4.8) Monocytes # (Auto) 1.0 x10^3/uL (0.0-1.1) Eosinophils # (Auto) 0.0 x10^3/uL (0.0-0.7) Basophils # (Auto) 0.1 x10^3/uL (0.0-0.2) Sodium Level 134 mmol/L (136-145) Potassium Level 3.2 mmol/L (3.5-5.1) Chloride Level 94 mmol/L (98-107) Carbon Dioxide Level 29 mmol/L (21-32) Anion Gap 11 (6-14) Blood Urea Nitrogen 11 mg/dL (7-20) Creatinine 0.8 mg/dL (0.6-1.0) Estimated GFR (Cockcroft-Gault) 90.1 BUN/Creatinine Ratio 14 (6-20) Glucose Level 215 mg/dL (70-99) Calcium Level 9.9 mg/dL (8.5-10.1) Total Bilirubin 0.5 mg/dL (0.2-1.0) Aspartate Amino Transf (AST/SGOT) 60 U/L (15-37) Alanine Aminotransferase (ALT/SGPT) 77 U/L (14-59) Alkaline Phosphatase 125 U/L (46-116) Total Protein 8.2 g/dL (6.4-8.2) Albumin 2.6 g/dL (3.4-5.0) Albumin/Globulin Ratio 0.5 (1.0-1.7) Glucose (Fingerstick) 206 mg/dL (70-99) Microbiology 03/23/19 Blood Culture - Preliminary, Resulted NO GROWTH AFTER 3 DAYS 03/23/19 Urine Culture - Final, Complete 03/23/19 Urine Culture Result 1 (RITU) - Final, Complete Medications Current Medications Albuterol/ Ipratropium (Duoneb) 3 ml 1X ONCE NEB Last administered on 03/23/19at 19:22; Start 03/23/19 at 18:30; Stop 03/23/19 at 18:31; Status DC Sodium Chloride 1,000 ml @ 1,000 mls/hr 1X ONCE IV Last administered on 03/23/19at 18:51; Start 03/23/19 at 18:30; Stop 03/23/19 at 19:29; Status DC Dexamethasone Sodium Phosphate (Decadron) 10 mg 1X ONCE IV Last administered on 03/23/19at 18:51; Start 03/23/19 at 18:30; Stop 03/23/19 at 18:31; Status DC Ibuprofen (Motrin) 600 mg 1X ONCE PO Last administered on 03/23/19at 18:50; Start 03/23/19 at 18:30; Stop 03/23/19 at 18:31; Status DC Piperacillin Sod/ Tazobactam Sod 4.5 gm/Sodium Chloride 100 ml @ 200 mls/hr 1X ONCE IV Last administered on 03/23/19at 18:50; Start 03/23/19 at 18:45; Stop 03/23/19 at 19:14; Status DC Acetaminophen (Tylenol) 500 mg 1X ONCE PO Last administered on 03/23/19at 18:51; Start 03/23/19 at 18:45; Stop 03/23/19 at 18:46; Status DC Insulin Human Regular (HumuLIN R VIAL) 12 unit 1X ONCE SQ Last administered on 03/23/19 19:57; Start 03/23/19 at 19:00; Stop 03/23/19 at 19:01; Status DC Levofloxacin/ Dextrose 150 ml @ 100 mls/hr 1X ONCE IV Last administered on 03/23/19at 20:02; Start 03/23/19 at 19:15; Stop 03/23/19 at 20:44; Status DC Vancomycin HCl 1.75 gm/Sodium Chloride 500 ml @ 250 mls/hr 1X ONCE IV Last administered on 03/23/19at 19:59; Start 03/23/19 at 20:00; Stop 03/23/19 at 21:59; Status DC Sodium Chloride 1,000 ml @ 1,000 mls/hr 1X ONCE IV Last administered on 03/23/19at 19:56; Start 03/23/19 at 19:15; Stop 03/23/19 at 20:14; Status DC Sodium Chloride 500 ml @ 500 mls/hr 1X ONCE IV Last administered on 03/23/19at 21:01; Start 03/23/19 at 19:15; Stop 03/23/19 at 20:14; Status DC Ondansetron HCl (Zofran) 4 mg PRN Q8HRS PRN IV NAUSEA/VOMITING; Start 03/23/19 at 19:30; Stop 03/24/19 at 19:29; Status DC Acetaminophen (Tylenol) 650 mg PRN Q4HRS PRN PO FEVER; Start 03/23/19 at 19:30; Stop 03/24/19 at 19:29; Status DC Albuterol Sulfate (Ventolin Neb Soln) 2.5 mg PRN Q4HRS PRN NEB SHORTNESS OF BREATH Last administered on 03/25/19at 13:13; Start 03/23/19 at 19:30 Insulin Human Lispro (HumaLOG) 15 units 1X ONCE SQ Last administered on 03/23/19at 23:05; Start 03/23/19 at 23:30; Stop 03/23/19 at 23:31; Status DC Insulin Human Lispro (HumaLOG) 0-7 UNITS TIDWMEALS SQ Last administered on 03/24/19at 12:11; Start 03/24/19 at 08:00; Stop 03/24/19 at 12:34; Status DC Dextrose (Dextrose 50%-Water Syringe) 12.5 gm PRN Q15MIN PRN IV SEE COMMENTS; Start 03/23/19 at 23:00; Stop 03/24/19 at 12:34; Status DC Insulin Human Lispro (HumaLOG) 25 units 1X ONCE SQ Last administered on 03/24/19at 01:50; Start 03/24/19 at 02:00; Stop 03/24/19 at 02:01; Status DC Piperacillin Sod/ Tazobactam Sod (Zosyn Per Pharmacy) 1 each PRN DAILY PRN MC SEE COMMENTS; Start 03/24/19 at 09:15; Stop 03/26/19 at 12:07; Status DC Albuterol/ Ipratropium (Duoneb) 3 ml RTQID NEB Last administered on 03/27/19at 11:30; Start 03/24/19 at 12:00 Piperacillin Sod/ Tazobactam Sod 3.375 gm/Sodium Chloride 50 ml @ 100 mls/hr Q6HRS IV Last administered on 03/26/19at 05:39; Start 03/24/19 at 10:00; Stop 03/26/19 at 12:05; Status DC Amlodipine Besylate (Norvasc) 5 mg DAILY PO Last administered on 03/27/19at 08: 31; Start 03/24/19 at 13:00 Glimepiride (Amaryl) 2 mg DAILY PO Last administered on 03/27/19at 08:33; Start 03/25/19 at 09:00 Non-Formulary Medication (Liraglutide (Victoza 3-Talat)) 1.2 mg DAILY SQ ; Start 03/25/19 at 09:00; Status UNV Losartan Potassium (Cozaar) 50 mg DAILY PO Last administered on 03/27/19 08:32; Start 03/24/19 at 13:00 Metformin HCl (Glucophage Xr) 500 mg BIDWMEALS PO Last administered on 03/25/19 17:21; Start 03/24/19 at 12:45 Insulin Glargine (Lantus) 25 units DAILY SQ Last administered on 03/24/19 13:19; Start 03/24/19 at 12:30; Stop 03/25/19 at 09:40; Status DC Insulin Human Lispro (HumaLOG) 20 units TIDWMEALS SQ Last administered on 03/24/19 17:15; Start 03/24/19 at 17:00; Stop 03/25/19 at 09:40; Status DC Insulin Human Lispro (HumaLOG) 0-9 UNITS TIDWMEALS SQ Last administered on 03/27/19 12:15; Start 03/24/19 at 17:00 Dextrose (Dextrose 50%-Water Syringe) 12.5 gm PRN Q15MIN PRN IV SEE COMMENTS; Start 03/24/19 at 12:30 Hydrochlorothiazide (Microzide) 12.5 mg DAILY PO Last administered on 03/27/19 08:32; Start 03/24/19 at 13:00 Budesonide (Pulmicort) 0.5 mg RTBID NEB Last administered on 03/27/19 07:41; Start 03/24/19 at 20:00 Guaifenesin/ Codeine Phosphate (Robitussin Ac) 15 ml PRN Q6HRS PRN PO COUGH Last administered on 03/25/19 17:42; Start 03/24/19 at 13:00 Doxycycline Hyclate (Vibra-Tab) 100 mg BID PO Last administered on 03/26/19 08:21; Start 03/24/19 at 21:00; Stop 03/26/19 at 12:05; Status DC Potassium Chloride (Klor-Con) 10 meq BIDWMEALS PO Last administered on 03/27/19 08:31; Start 03/24/19 at 18:00 Sertraline HCl (Zoloft) 100 mg BID PO Last administered on 03/27/19 08:32; Start 03/24/19 at 21:00 Ibuprofen (Motrin) 600 mg PRN Q6HRS PRN PO INFLAMMATION Last administered on 03/27/19 08:35; Start 03/24/19 at 18:45 Insulin Human Lispro (HumaLOG) 15 units 1X ONCE SQ Last administered on 03/25/19 05:36; Start 03/25/19 at 05:30; Stop 03/25/19 at 05:31; Status DC Ondansetron HCl (Zofran) 4 mg PRN Q6HRS PRN IV NAUSEA/VOMITING Last administered on 03/27/19at 08:36; Start 03/25/19 at 09:30 Insulin Glargine (Lantus) 50 units DAILY SQ Last administered on 03/27/19 09:18; Start 03/25/19 at 10:00 Insulin Human Lispro (HumaLOG) 30 units TIDWMEALS SQ ; Start 03/25/19 at 12:00 Sumatriptan Succinate (Imitrex) 6 mg 1X ONCE SQ Last administered on 03/25/19at 11:42; Start 03/25/19 at 10:00; Stop 03/25/19 at 10:01; Status DC Acetaminophen (Tylenol) 650 mg PRN Q4HRS PRN PO Headache Last administered on 03/25/19 15:01; Start 03/25/19 at 13:00 Lactobacillus Rhamnosus (Culturelle) 1 cap BID PO Last administered on 03/27/19 08:33; Start 03/25/19 at 21:00 Non-Formulary Medication (Liraglutide (Victoza 3-Talat)) 1.2 mg DAILY SQ Last administered on 03/27/19 09:15; Start 03/25/19 at 16:30 Sumatriptan Succinate (Imitrex) 6 mg PRN DAILY PRN SQ headache Last administered on 03/26/19 20:50; Start 03/25/19 at 16:15 Amoxicillin/ Clavulanate Potassium (Augmentin 875/ 125mg) 1 tab BID PO Last administered on 03/27/19 08:32; Start 03/26/19 at 21:00; Stop 03/27/19 at 11:20; Status DC Azithromycin (Zithromax) 500 mg 1X ONCE PO ; Start 03/26/19 at 12:15; Stop 03/26/19 at 12:16; Status DC Gadoterate Meglumine (Dotarem) 14 ml 1X ONCE IVP Last administered on 03/26/19at 14:41; Start 03/26/19 at 14:30; Stop 03/26/19 at 14:31; Status DC Piperacillin Sod/ Tazobactam Sod 3.375 gm/Sodium Chloride 50 ml @ 100 mls/hr Q6HRS IV Last administered on 03/27/19at 12:10; Start 03/27/19 at 12:00 Vancomycin HCl (Vanco Per Pharmacy) 1 each PRN DAILY PRN MC SEE COMMENTS Last administered on 03/27/19at 13:50; Start 03/27/19 at 11:15 Vancomycin HCl 1.75 gm/Sodium Chloride 500 ml @ 250 mls/hr 1X ONCE IV Last administered on 03/27/19at 12:49; Start 03/27/19 at 12:00; Stop 03/27/19 at 13:59; Status DC Vancomycin HCl 1.25 gm/Sodium Chloride 250 ml @ 167 mls/hr Q12H IV ; Start 03/28/19 at 01:00 Vancomycin HCl (Vancomycin Trough Level) 1 each 1X ONCE MC ; Start 03/29/19 at 00:30; Stop 03/29/19 at 00:31 Active Scripts Active Reported Potassium Chloride 10 Meq Tab.sr.24h 10 Meq PO BID Zoloft (Sertraline Hcl) 100 Mg Tablet 1 Tab PO BID Losartan-Hctz 50-12.5 Mg Tab (Losartan/Hydrochlorothiazide) 1 Each Tablet 1 Tab PO DAILY Glimepiride 2 Mg Tablet 1 Tab PO DAILY Metformin Hcl Er (Metformin Hcl) 500 Mg Tab.er.24h 500 Mg PO BIDWMEALS Amlodipine Besylate 5 Mg Tablet 10 PO DAILY Victoza 3-Talat (Liraglutide) 0.6 Mg/0.1 Ml Pen.injctr 1.2 Mg SQ DAILY Vitals/I & O Vital Sign - Last 24 Hours 03/26/19 03/26/19 03/26/19 03/26/19 15:00 15:29 19:00 20:00 Temp 98.7 98.9 98.7 98.9 Pulse 60 60 Resp 16 18 B/P (MAP) 153/89 (110) 144/79 (100) Pulse Ox 93 94 O2 Delivery Room Air Room Air Room Air 03/26/19 03/26/19 03/27/19/16/19 20:05 23:00 03:00 07:00 Temp 98.6 98.5 98.2 98.6 98.5 98.2 Pulse 70 78 63 Resp 18 20 17 B/P (MAP) 144/76 (98) 146/88 (107) 159/87 (111) Pulse Ox 92 95 95 O2 Delivery Room Air 03/27/19 03/27/19 03/27/19 03/27/19 07:41 08:00 08:31 08:32 Pulse 78 78 B/P (MAP) 146/88 146/88 Pulse Ox 94 O2 Delivery Room Air Room Air 03/27/19 03/27/19 11:00 11:30 Temp 98.6 98.6 Pulse 68 Resp 16 B/P (MAP) 132/80 (97) Pulse Ox 93 O2 Delivery Room Air Intake and Output 03/26/19 03/26/19 03/27/19 15:00 23:00 07:00 Intake Total 120 ml 0 ml Balance 120 ml 0 ml FAIZA LUCERO MD March 27, 2019 14:40
[2019-03-27 15:00] VITALS: BP 140/84
--- NOTE | 2019-03-27 15:00 | PDOC ---
PROGRESS NOTES Assessment Assessment Increased headaches recently. IIP not likely. Temporal A arteritis in differential. Visual disturbance. Diabetic retinopathy. Fever. Neck pain. Leukocytosis. Pneumonia. Elevated ESR, 121. UTI. Hyperglycemia, glucose 501. DM. HTN. Obesity. Chronic migraine headache. RECOMMENDATIONS/PLAN: Control hyperglycemia. Discussed with patient about temporal A biopsy on 03/26/19, but she declined it. Discussed with her again and also discussed with her family on the phone in all detail on for over 40 minutes on 03/27/19, but her family had numerous questions and concerns about retinopathy and numerous other concerns and issues and requested transfer to . Consulted Surgery regarding possible biopsy. However, family issues. Ophthalmology exam needed, but no inpatient services in [facility]. Continue ID treatment. Treat medical diseases. Consulted [facility] to help transfer to or [facility]. Brain MRI w/wo on 03/26/19: No acute findings. No evidence of CVA, brain tumor, signs to suggest IIP, etc. HISTORY OF THE PRESENT ILLNESS: This is a 53-year-old AA female with history of diabetes. She has had 4 days of progressive shortness of breath feeling extremely weak. She has continuous shortness of breath and cough. She tried some [id number] meds but that did not seem to work. Imaging studies showing a left lower lobe pneumonia. She complained headaches on 03/25/19 stating she had headaches in the past several times a month but not as severe as this time. So Neurology was requested for consultation on 03/25/19 and she stated her headaches improved at the time of neurology consult. No symptoms of projectile vomiting, diplopia, ataxia, focalized numbness or weakness. She had chronic blurred vision. She stated she still have headaches but improved some on 03/27/19. Her family had numerous questions on the phone and many of those were ID and ophthalmological questions. PAST MEDICAL HISTORY: Diabetes, hypertension, bilateral lower extremity fractures. PAST SURGERY HISTORY: No major surgery recently. ALLERGIES: LISINOPRIL AND OXYCODONE. FAMILY HISTORY: Diabetes. SOCIAL HISTORY: She denied drink, smoking or using drugs. 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 MEDICATIONS: Refer to [facility] REVIEW OF SYSTEMS: Constitutional: Obese. Head: No traumatic brain or head injury. Skin: No edema, or rash. Ear: No infection. Eyes: Chronic blurred vision. Nose: No bleeding or purulent discharges. Hearing: No hearing decrease. Neck: No injury. Breast: No history of cancer, masses,or discharges. Cardiac: HTN. Pulmonary: No COPD. GI: No GI ulcer, GI bleeding. Urinary/genital: UTI. Endocrinologic: Diabetes Mellitus, obesity. Skeletomuscular: No muscular atrophy. Neurological: see HP. Psychiatric: Denies drug use/abuse. Otherwise, not [id number] review of systems. PHYSICAL EXAMINATION: General appearance is in subacute distress. HEENT: Normocephalic and nontraumatic. Eyes, nose, ears, and throat are unremarkable. Neck is supple. No lymphadenopathy. No bruits are heard over the carotid artery. No crepitus. Cardiovascular: S1, S2, regular rate and rhythm. Pulmonary: decreased to auscultation bilaterally. Abdomen: Bowel sounds are positive. Abdomen is soft, nontender, and nondistended. Extremities: No rash, lesions, or edema. No restriction of range of motion NEUROLOGICAL EXAMINATION: Alert Oriented to time, place and person. PERRL. EOMI. CN: no focal findings. Muscle tone: within normal. Muscle strength: 5 DTR: 2 Plantar reflex: Flexor response bilaterally Gait: not examined in bed. Sensory exam: no abnormal findings. No cerebellar signs elicited. F-T-N test accurate. Objective Objective Vital Signs Date Time Temp Pulse Resp B/P (MAP) Pulse Ox O2 Delivery O2 Flow Rate FiO2 03/27/19 11:30 Room Air 03/27/19 11:00 98.6 68 16 132/80 (97) 93 98.6 Intake and Output 03/27/19 07:00 Intake Total 120 ml Balance 120 ml Intake Oral 120 ml # Voids 3 Vitals Signs Vitals VS - Last 72 Hours, by Label Date Time Temp Pulse Resp B/P (MAP) Pulse Ox O2 Delivery O2 Flow Rate FiO2 03/27/19 11:30 Room Air 03/27/19 11:00 98.6 68 16 132/80 (97) 93 98.6 03/27/19 08:32 78 146/88 03/27/19 08:31 78 146/88 03/27/19 08:00 Room Air 03/27/19 07:41 94 Room Air 03/27/19 07:00 98.2 63 17 159/87 (111) 95 98.2 03/27/19 03:00 98.5 78 20 146/88 (107) 95 98.5 03/26/19 23:00 98.6 70 18 144/76 (98) 92 98.6 03/26/19 20:05 Room Air 03/26/19 20:00 Room Air 03/26/19 19:00 98.9 60 18 144/79 (100) 94 98.9 03/26/19 15:29 Room Air 03/26/19 15:00 98.7 60 16 153/89 (110) 93 Room Air 98.7 03/26/19 11:24 Room Air 03/26/19 11:00 98.2 67 16 127/72 (90) 98 Room Air 98.2 03/26/19 08:21 60 133/72 03/26/19 08:20 60 133/72 03/26/19 08:00 Room Air 03/26/19 07:19 92 Room Air 03/26/19 07:00 98.2 60 16 133/72 (92) 91 Room Air 98.2 Laboratory Laboratory Laboratory Tests Test 03/26/19 16:56 03/26/19 20:50 03/26/19 21:40 03/27/19 07:29 Glucose (Fingerstick) 136 mg/dL (70-99) 111 mg/dL (70-99) 161 mg/dL (70-99) Prothrombin Time 13.8 SEC (11.7-14.0) Prothromb Time International Ratio 1.1 (0.8-1.1) Test 03/27/19 09:40 03/27/19 11:22 White Blood Count 12.6 x10^3/uL (4.0-11.0) Red Blood Count 4.66 x10^6/uL (3.50-5.40) Hemoglobin 12.8 g/dL (12.0-15.5) Hematocrit 39.6 % (36.0-47.0) Mean Corpuscular Volume 85 fL (79-100) Mean Corpuscular Hemoglobin 27 pg (25-35) Mean Corpuscular Hemoglobin Concent 32 g/dL (31-37) Red Cell Distribution Width 14.8 % (11.5-14.5) Platelet Count 478 x10^3/uL (140-400) Neutrophils (%) (Auto) 71 % (31-73) Lymphocytes (%) (Auto) 20 % (24-48) Monocytes (%) (Auto) 8 % (0-9) Eosinophils (%) (Auto) 0 % (0-3) Basophils (%) (Auto) 0 % (0-3) Neutrophils # (Auto) 9.0 x10^3uL (1.8-7.7) Lymphocytes # (Auto) 2.6 x10^3/uL (1.0-4.8) Monocytes # (Auto) 1.0 x10^3/uL (0.0-1.1) Eosinophils # (Auto) 0.0 x10^3/uL (0.0-0.7) Basophils # (Auto) 0.1 x10^3/uL (0.0-0.2) Sodium Level 134 mmol/L (136-145) Potassium Level 3.2 mmol/L (3.5-5.1) Chloride Level 94 mmol/L (98-107) Carbon Dioxide Level 29 mmol/L (21-32) Anion Gap 11 (6-14) Blood Urea Nitrogen 11 mg/dL (7-20) Creatinine 0.8 mg/dL (0.6-1.0) Estimated GFR (Cockcroft-Gault) 90.1 BUN/Creatinine Ratio 14 (6-20) Glucose Level 215 mg/dL (70-99) Calcium Level 9.9 mg/dL (8.5-10.1) Total Bilirubin 0.5 mg/dL (0.2-1.0) Aspartate Amino Transf (AST/SGOT) 60 U/L (15-37) Alanine Aminotransferase (ALT/SGPT) 77 U/L (14-59) Alkaline Phosphatase 125 U/L (46-116) Total Protein 8.2 g/dL (6.4-8.2) Albumin 2.6 g/dL (3.4-5.0) Albumin/Globulin Ratio 0.5 (1.0-1.7) Glucose (Fingerstick) 206 mg/dL (70-99) Microbiology 03/23/19 Blood Culture - Preliminary, Resulted NO GROWTH AFTER 3 DAYS 03/23/19 Urine Culture - Final, Complete 03/23/19 Urine Culture Result 1 (RITU) - Final, Complete Medication Medications Current Medications Amoxicillin/ Clavulanate Potassium (Augmentin 875/ 125mg) 1 tab BID PO Last administered on 03/27/19at 08:32; Start 03/26/19 at 21:00; Stop 03/27/19 at 11:20; Status DC Gadoterate Meglumine (Dotarem) 14 ml 1X ONCE IVP Last administered on 03/26/19at 14:41; Start 03/26/19 at 14:30; Stop 03/26/19 at 14:31; Status DC Piperacillin Sod/ Tazobactam Sod 3.375 gm/Sodium Chloride 50 ml @ 100 mls/hr Q6HRS IV Last administered on 03/27/19at 12:10; Start 03/27/19 at 12:00 Vancomycin HCl (Vanco Per Pharmacy) 1 each PRN DAILY PRN MC SEE COMMENTS Last administered on 03/27/19at 13:50; Start 03/27/19 at 11:15 Vancomycin HCl (Vancomycin Trough Level) 1 each 1X ONCE MC ; Start 03/29/19 at 00:30; Stop 03/29/19 at 00:31 Vancomycin HCl 1.25 gm/Sodium Chloride 250 ml @ 167 mls/hr Q12H IV ; Start 03/28/19 at 01:00 Vancomycin HCl 1.75 gm/Sodium Chloride 500 ml @ 250 mls/hr 1X ONCE IV Last administered on 03/27/19at 12:49; Start 03/27/19 at 12:00; Stop 03/27/19 at 13:59; Status DC Comment Review of Relevant I have reviewed the following items tete (where applicable) has been applied. HARMAN CONNER MD March 27, 2019 15:00
--- NOTE | 2019-03-27 15:25 | NUR ---
[facility] following Pt. [facility] faxed clinicals to and they are currently full. [facility] made an inpatient request at [facility] and [facility] transfer Line. [facility] provided Physician and RN number to call for questions. Pt acceptance and admission pending. Will continue to follow. Addendum: 03/28/19 at 0831 by BRANDEE BARRAZA late note: [facility] and [facility] reported pt can follow up as as an outpatient and declined transfer request.
--- NOTE | 2019-03-27 15:53 | PDOC ---
PROGRESS NOTES Chief Complaint Chief Complaint acute new headache Elevated ESR concerns for temporal arteritis, discussed with neurology protection consultant, patient has not consented to surgical consult for possible biopsy. Hopefully she will consent and have biopsy done and start her steroid therapy. hyponatremia, hyperglycemia, DM2 very poor control acute hypoxia resolved hip pain, OA greater than 90 minutes spent in the care of the patient today including face to face interaction History of Present Illness History of Present Illness still having headche but seems to be more controlled today. no new symptoms reported. The patient continued to be on broad-spectrum antibiotics and de escalated appropriately as per our infectious disease protection consultant. The patient developed the above-mentioned headache which prompted neurological evaluation that included an ESR level which was quite high in the 132 range. Family members requested an ophthalmological consultation unfortunately we do not have those services in our institution. I explaining detail that the suspicion given her symptoms presentation and laboratory data is concerning for temporal arteritis I try to explain to the best of my abilities the disease process and the importance off consulting surgery for a possible biopsy. I discussed the case also with neurology who agreed with my assessment and plan of care. The patient decided to consult with her family members and noted to reach a decision. I visited 2 times on March 26 thousand and she was unable to make a decision at that point she was waiting for one more family member to wait into the situation as well. In the morning of March 27, 2019 the patient continues with her eye discomfort photosensitivity and seems to be more inflamed compared to yesterday and given these findings are infectious disease protection consultant is recommending we seek an ophthalmological consultation as well. I have contacted the patient's loss control technician at and discussed case with him. Dr. Kingsley he is agreeable in seen the patient in consultation if she would be transferred to and we wi ll coordinate with the hospitalist service and transfer center at in noted to make arrangements for the patient to be transferred to their institution for the services that we unfortunate cannot provide in hours. Dr. Kingsley this also agree with pursuing a temporal artery biopsy noted to hopefully confirm a diagnosis. Family members were very concerned since the term sepsis had been related to them I have assured to them that the patient was at no point septic since she did not present hemodynamic instability and not requiring pressors. The patient's white blood cell count is elevated as a consequence most likely of her steroid injection prior to coming to the emergency department where she also received another dose of steroid. I have explained to them that there is a possibility of false negative results as far as biopsy goes nevertheless the appropriate words of action is to pursue temporal artery biopsy and once this is done start treatment for suspected temporal arteritis. Greater than an hour and 30 minutes have been spent in the care of the patient on the day of discharge and transfer in counseling coordination of care and arrangements for a safe transfer. All concerns were addressed to the best of my abilities to the patient and the family aware over the phone. Her sister Susan and another young lady who was also on a conference call with me earlier this morning have been briefed on the patient's condition and reassurance has been provided Vitals Vitals Vital Signs Date Time Temp Pulse Resp B/P (MAP) Pulse Ox O2 Delivery O2 Flow Rate FiO2 03/27/19 15:33 Room Air 03/27/19 15:00 98.6 66 17 140/84 (102) 94 98.6 Physical Exam Physical Exam GENERAL: The patient is sitting in a chair alert. Looks comfortable HEENT: Able to open eyes but is light sensitive PERRL, EOMI but some discomfort - mild erythema of right eye today. Oral cavity, pharynx pink no thrush or swellings and moist. NECK: Supple with FROM LUNGS: CTA HEART: S1, S2. ABDOMEN: Obese, soft, nontender with bowel sounds present. EXTREMITIES: No gross edema or cyanosis.. SKIN: Warm without generalized rash. NEUROLOGIC: Alert and oriented x 3. Answers questions appropriately General: Alert, Cooperative, No acute distress Heart: Regular rate, Normal S1, Normal S2, No murmurs Lungs: Clear Abdomen: Soft, No tenderness Extremities: No clubbing, No cyanosis Skin: No rashes, No breakdown Labs LABS Laboratory Tests Test 03/26/19 16:56 03/26/19 20:50 03/26/19 21:40 03/27/19 07:29 Glucose (Fingerstick) 136 mg/dL (70-99) 111 mg/dL (70-99) 161 mg/dL (70-99) Prothrombin Time 13.8 SEC (11.7-14.0) Prothromb Time International Ratio 1.1 (0.8-1.1) Test 03/27/19 09:40 03/27/19 11:22 White Blood Count 12.6 x10^3/uL (4.0-11.0) Red Blood Count 4.66 x10^6/uL (3.50-5.40) Hemoglobin 12.8 g/dL (12.0-15.5) Hematocrit 39.6 % (36.0-47.0) Mean Corpuscular Volume 85 fL (79-100) Mean Corpuscular Hemoglobin 27 pg (25-35) Mean Corpuscular Hemoglobin Concent 32 g/dL (31-37) Red Cell Distribution Width 14.8 % (11.5-14.5) Platelet Count 478 x10^3/uL (140-400) Neutrophils (%) (Auto) 71 % (31-73) Lymphocytes (%) (Auto) 20 % (24-48) Monocytes (%) (Auto) 8 % (0-9) Eosinophils (%) (Auto) 0 % (0-3) Basophils (%) (Auto) 0 % (0-3) Neutrophils # (Auto) 9.0 x10^3uL (1.8-7.7) Lymphocytes # (Auto) 2.6 x10^3/uL (1.0-4.8) Monocytes # (Auto) 1.0 x10^3/uL (0.0-1.1) Eosinophils # (Auto) 0.0 x10^3/uL (0.0-0.7) Basophils # (Auto) 0.1 x10^3/uL (0.0-0.2) Sodium Level 134 mmol/L (136-145) Potassium Level 3.2 mmol/L (3.5-5.1) Chloride Level 94 mmol/L (98-107) Carbon Dioxide Level 29 mmol/L (21-32) Anion Gap 11 (6-14) Blood Urea Nitrogen 11 mg/dL (7-20) Creatinine 0.8 mg/dL (0.6-1.0) Estimated GFR (Cockcroft-Gault) 90.1 BUN/Creatinine Ratio 14 (6-20) Glucose Level 215 mg/dL (70-99) Calcium Level 9.9 mg/dL (8.5-10.1) Total Bilirubin 0.5 mg/dL (0.2-1.0) Aspartate Amino Transf (AST/SGOT) 60 U/L (15-37) Alanine Aminotransferase (ALT/SGPT) 77 U/L (14-59) Alkaline Phosphatase 125 U/L (46-116) Total Protein 8.2 g/dL (6.4-8.2) Albumin 2.6 g/dL (3.4-5.0) Albumin/Globulin Ratio 0.5 (1.0-1.7) Glucose (Fingerstick) 206 mg/dL (70-99) Review of Systems Review of Systems pertinent as per hpi otherwise 14 point review of system is negative Assessment and Plan Assessmemt and Plan Problems Medical Problems: (1) Cough Status: Acute (2) Hyperglycemia Status: Acute (3) Lobar pneumonia Status: Acute (4) Severe sepsis Status: Acute (5) Shortness of breath Status: Acute (6) Urinary tract infection Status: Acute Comment Review of Relevant I have reviewed the following items tete (where applicable) has been applied. Labs Laboratory Tests Test 03/25/19 17:18 03/25/19 20:36 03/26/19 03:50 03/26/19 07:43 Glucose (Fingerstick) 304 mg/dL (70-99) 287 mg/dL (70-99) 264 mg/dL (70-99) White Blood Count 14.0 x10^3/uL (4.0-11.0) Red Blood Count 4.19 x10^6/uL (3.50-5.40) Hemoglobin 11.4 g/dL (12.0-15.5) Hematocrit 35.8 % (36.0-47.0) Mean Corpuscular Volume 85 fL (79-100) Mean Corpuscular Hemoglobin 27 pg (25-35) Mean Corpuscular Hemoglobin Concent 32 g/dL (31-37) Red Cell Distribution Width 14.4 % (11.5-14.5) Platelet Count 377 x10^3/uL (140-400) Neutrophils (%) (Auto) 69 % (31-73) Lymphocytes (%) (Auto) 22 % (24-48) Monocytes (%) (Auto) 9 % (0-9) Eosinophils (%) (Auto) 0 % (0-3) Basophils (%) (Auto) 1 % (0-3) Neutrophils # (Auto) 9.6 x10^3uL (1.8-7.7) Lymphocytes # (Auto) 3.0 x10^3/uL (1.0-4.8) Monocytes # (Auto) 1.2 x10^3/uL (0.0-1.1) Eosinophils # (Auto) 0.0 x10^3/uL (0.0-0.7) Basophils # (Auto) 0.1 x10^3/uL (0.0-0.2) Segmented Neutrophils % 63 % (35-66) Band Neutrophils % 7 % (0-9) Lymphocytes % 25 % (24-48) Monocytes % 5 % (0-10) Platelet Estimate Adequate (ADEQUATE) Sodium Level 138 mmol/L (136-145) Potassium Level 3.8 mmol/L (3.5-5.1) Chloride Level 99 mmol/L (98-107) Carbon Dioxide Level 29 mmol/L (21-32) Anion Gap 10 (6-14) Blood Urea Nitrogen 21 mg/dL (7-20) Creatinine 1.1 mg/dL (0.6-1.0) Estimated GFR (Cockcroft-Gault) 62.4 Glucose Level 267 mg/dL (70-99) Calcium Level 9.2 mg/dL (8.5-10.1) Test 03/26/19 12:05 03/26/19 16:56 03/26/19 20:50 03/26/19 21:40 Glucose (Fingerstick) 254 mg/dL (70-99) 136 mg/dL (70-99) 111 mg/dL (70-99) Prothrombin Time 13.8 SEC (11.7-14.0) Prothromb Time International Ratio 1.1 (0.8-1.1) Test 03/27/19 07:29 03/27/19 09:40 03/27/19 11:22 Glucose (Fingerstick) 161 mg/dL (70-99) 206 mg/dL (70-99) White Blood Count 12.6 x10^3/uL (4.0-11.0) Red Blood Count 4.66 x10^6/uL (3.50-5.40) Hemoglobin 12.8 g/dL (12.0-15.5) Hematocrit 39.6 % (36.0-47.0) Mean Corpuscular Volume 85 fL (79-100) Mean Corpuscular Hemoglobin 27 pg (25-35) Mean Corpuscular Hemoglobin Concent 32 g/dL (31-37) Red Cell Distribution Width 14.8 % (11.5-14.5) Platelet Count 478 x10^3/uL (140-400) Neutrophils (%) (Auto) 71 % (31-73) Lymphocytes (%) (Auto) 20 % (24-48) Monocytes (%) (Auto) 8 % (0-9) Eosinophils (%) (Auto) 0 % (0-3) Basophils (%) (Auto) 0 % (0-3) Neutrophils # (Auto) 9.0 x10^3uL (1.8-7.7) Lymphocytes # (Auto) 2.6 x10^3/uL (1.0-4.8) Monocytes # (Auto) 1.0 x10^3/uL (0.0-1.1) Eosinophils # (Auto) 0.0 x10^3/uL (0.0-0.7) Basophils # (Auto) 0.1 x10^3/uL (0.0-0.2) Sodium Level 134 mmol/L (136-145) Potassium Level 3.2 mmol/L (3.5-5.1) Chloride Level 94 mmol/L (98-107) Carbon Dioxide Level 29 mmol/L (21-32) Anion Gap 11 (6-14) Blood Urea Nitrogen 11 mg/dL (7-20) Creatinine 0.8 mg/dL (0.6-1.0) Estimated GFR (Cockcroft-Gault) 90.1 BUN/Creatinine Ratio 14 (6-20) Glucose Level 215 mg/dL (70-99) Calcium Level 9.9 mg/dL (8.5-10.1) Total Bilirubin 0.5 mg/dL (0.2-1.0) Aspartate Amino Transf (AST/SGOT) 60 U/L (15-37) Alanine Aminotransferase (ALT/SGPT) 77 U/L (14-59) Alkaline Phosphatase 125 U/L (46-116) Total Protein 8.2 g/dL (6.4-8.2) Albumin 2.6 g/dL (3.4-5.0) Albumin/Globulin Ratio 0.5 (1.0-1.7) Laboratory Tests Test 03/26/19 16:56 03/26/19 20:50 03/26/19 21:40 03/27/19 07:29 Glucose (Fingerstick) 136 mg/dL (70-99) 111 mg/dL (70-99) 161 mg/dL (70-99) Prothrombin Time 13.8 SEC (11.7-14.0) Prothromb Time International Ratio 1.1 (0.8-1.1) Test 03/27/19 09:40 03/27/19 11:22 White Blood Count 12.6 x10^3/uL (4.0-11.0) Red Blood Count 4.66 x10^6/uL (3.50-5.40) Hemoglobin 12.8 g/dL (12.0-15.5) Hematocrit 39.6 % (36.0-47.0) Mean Corpuscular Volume 85 fL (79-100) Mean Corpuscular Hemoglobin 27 pg (25-35) Mean Corpuscular Hemoglobin Concent 32 g/dL (31-37) Red Cell Distribution Width 14.8 % (11.5-14.5) Platelet Count 478 x10^3/uL (140-400) Neutrophils (%) (Auto) 71 % (31-73) Lymphocytes (%) (Auto) 20 % (24-48) Monocytes (%) (Auto) 8 % (0-9) Eosinophils (%) (Auto) 0 % (0-3) Basophils (%) (Auto) 0 % (0-3) Neutrophils # (Auto) 9.0 x10^3uL (1.8-7.7) Lymphocytes # (Auto) 2.6 x10^3/uL (1.0-4.8) Monocytes # (Auto) 1.0 x10^3/uL (0.0-1.1) Eosinophils # (Auto) 0.0 x10^3/uL (0.0-0.7) Basophils # (Auto) 0.1 x10^3/uL (0.0-0.2) Sodium Level 134 mmol/L (136-145) Potassium Level 3.2 mmol/L (3.5-5.1) Chloride Level 94 mmol/L (98-107) Carbon Dioxide Level 29 mmol/L (21-32) Anion Gap 11 (6-14) Blood Urea Nitrogen 11 mg/dL (7-20) Creatinine 0.8 mg/dL (0.6-1.0) Estimated GFR (Cockcroft-Gault) 90.1 BUN/Creatinine Ratio 14 (6-20) Glucose Level 215 mg/dL (70-99) Calcium Level 9.9 mg/dL (8.5-10.1) Total Bilirubin 0.5 mg/dL (0.2-1.0) Aspartate Amino Transf (AST/SGOT) 60 U/L (15-37) Alanine Aminotransferase (ALT/SGPT) 77 U/L (14-59) Alkaline Phosphatase 125 U/L (46-116) Total Protein 8.2 g/dL (6.4-8.2) Albumin 2.6 g/dL (3.4-5.0) Albumin/Globulin Ratio 0.5 (1.0-1.7) Glucose (Fingerstick) 206 mg/dL (70-99) Microbiology 03/23/19 Blood Culture - Preliminary, Resulted NO GROWTH AFTER 3 DAYS 03/23/19 Urine Culture - Final, Complete 03/23/19 Urine Culture Result 1 (RITU) - Final, Complete Medications Current Medications Albuterol/ Ipratropium (Duoneb) 3 ml 1X ONCE NEB Last administered on 03/23/19 19:22; Start 03/23/19 at 18:30; Stop 03/23/19 at 18:31; Status DC Sodium Chloride 1,000 ml @ 1,000 mls/hr 1X ONCE IV Last administered on 03/23/19 18:51; Start 03/23/19 at 18:30; Stop 03/23/19 at 19:29; Status DC Dexamethasone Sodium Phosphate (Decadron) 10 mg 1X ONCE IV Last administered on 03/23/19 18:51; Start 03/23/19 at 18:30; Stop 03/23/19 at 18:31; Status DC Ibuprofen (Motrin) 600 mg 1X ONCE PO Last administered on 03/23/19 18:50; Start 03/23/19 at 18:30; Stop 03/23/19 at 18:31; Status DC Piperacillin Sod/ Tazobactam Sod 4.5 gm/Sodium Chloride 100 ml @ 200 mls/hr 1X ONCE IV Last administered on 03/23/19at 18:50; Start 03/23/19 at 18:45; Stop 03/23/19 at 19:14; Status DC Acetaminophen (Tylenol) 500 mg 1X ONCE PO Last administered on 03/23/19at 18:51; Start 03/23/19 at 18:45; Stop 03/23/19 at 18:46; Status DC Insulin Human Regular (HumuLIN R VIAL) 12 unit 1X ONCE SQ Last administered on 03/23/19at 19:57; Start 03/23/19 at 19:00; Stop 03/23/19 at 19:01; Status DC Levofloxacin/ Dextrose 150 ml @ 100 mls/hr 1X ONCE IV Last administered on 03/23/19at 20:02; Start 03/23/19 at 19:15; Stop 03/23/19 at 20:44; Status DC Vancomycin HCl 1.75 gm/Sodium Chloride 500 ml @ 250 mls/hr 1X ONCE IV Last administered on 03/23/19at 19:59; Start 03/23/19 at 20:00; Stop 03/23/19 at 21:59; Status DC Sodium Chloride 1,000 ml @ 1,000 mls/hr 1X ONCE IV Last administered on 03/23/19at 19:56; Start 03/23/19 at 19:15; Stop 03/23/19 at 20:14; Status DC Sodium Chloride 500 ml @ 500 mls/hr 1X ONCE IV Last administered on 03/23/19at 21:01; Start 03/23/19 at 19:15; Stop 03/23/19 at 20:14; Status DC Ondansetron HCl (Zofran) 4 mg PRN Q8HRS PRN IV NAUSEA/VOMITING; Start 03/23/19 at 19:30; Stop 03/24/19 at 19:29; Status DC Acetaminophen (Tylenol) 650 mg PRN Q4HRS PRN PO FEVER; Start 03/23/19 at 19:30; Stop 03/24/19 at 19:29; Status DC Albuterol Sulfate (Ventolin Neb Soln) 2.5 mg PRN Q4HRS PRN NEB SHORTNESS OF BREATH Last administered on 03/25/19at 13:13; Start 03/23/19 at 19:30 Insulin Human Lispro (HumaLOG) 15 units 1X ONCE SQ Last administered on 03/23/19at 23:05; Start 03/23/19 at 23:30; Stop 03/23/19 at 23:31; Status DC Insulin Human Lispro (HumaLOG) 0-7 UNITS TIDWMEALS SQ Last administered on 03/24/19at 12:11; Start 03/24/19 at 08:00; Stop 03/24/19 at 12:34; Status DC Dextrose (Dextrose 50%-Water Syringe) 12.5 gm PRN Q15MIN PRN IV SEE COMMENTS; Start 03/23/19 at 23:00; Stop 03/24/19 at 12:34; Status DC Insulin Human Lispro (HumaLOG) 25 units 1X ONCE SQ Last administered on 03/24/19at 01:50; Start 03/24/19 at 02:00; Stop 03/24/19 at 02:01; Status DC Piperacillin Sod/ Tazobactam Sod (Zosyn Per Pharmacy) 1 each PRN DAILY PRN MC SEE COMMENTS; Start 03/24/19 at 09:15; Stop 03/26/19 at 12:07; Status DC Albuterol/ Ipratropium (Duoneb) 3 ml RTQID NEB Last administered on 03/27/19at 15:33; Start 03/24/19 at 12:00 Piperacillin Sod/ Tazobactam Sod 3.375 gm/Sodium Chloride 50 ml @ 100 mls/hr Q6 HRS IV Last administered on 03/26/19at 05:39; Start 03/24/19 at 10:00; Stop 03/26/19 at 12:05; Status DC Amlodipine Besylate (Norvasc) 5 mg DAILY PO Last administered on 03/27/19at 08:31; Start 03/24/19 at 13:00 Glimepiride (Amaryl) 2 mg DAILY PO Last administered on 03/27/19at 08:33; Start 03/25/19 at 09:00 Non-Formulary Medication (Liraglutide (Victoza 3-Talat)) 1.2 mg DAILY SQ ; Start 03/25/19 at 09:00; Status UNV Losartan Potassium (Cozaar) 50 mg DAILY PO Last administered on 03/27/19at 08:32; Start 03/24/19 at 13:00 Metformin HCl (Glucophage Xr) 500 mg BIDWMEALS PO Last administered on 03/25/19at 17:21; Start 03/24/19 at 12:45 Insulin Glargine (Lantus) 25 units DAILY SQ Last administered on 03/24/19 13:19; Start 03/24/19 at 12:30; Stop 03/25/19 at 09:40; Status DC Insulin Human Lispro (HumaLOG) 20 units TIDWMEALS SQ Last administered on 03/24/19 17:15; Start 03/24/19 at 17:00; Stop 03/25/19 at 09:40; Status DC Insulin Human Lispro (HumaLOG) 0-9 UNITS TIDWMEALS SQ Last administered on 03/27/19 12:15; Start 03/24/19 at 17:00 Dextrose (Dextrose 50%-Water Syringe) 12.5 gm PRN Q15MIN PRN IV SEE COMMENTS; Start 03/24/19 at 12:30 Hydrochlorothiazide (Microzide) 12.5 mg DAILY PO Last administered on 03/27/19 08:32; Start 03/24/19 at 13:00 Budesonide (Pulmicort) 0.5 mg RTBID NEB Last administered on 03/27/19 07:41; Start 03/24/19 at 20:00 Guaifenesin/ Codeine Phosphate (Robitussin Ac) 15 ml PRN Q6HRS PRN PO COUGH Last administered on 03/25/19 17:42; Start 03/24/19 at 13:00 Doxycycline Hyclate (Vibra-Tab) 100 mg BID PO Last administered on 03/26/19 08:21; Start 03/24/19 at 21:00; Stop 03/26/19 at 12:05; Status DC Potassium Chloride (Klor-Con) 10 meq BIDWMEALS PO Last administered on 03/27/19 08:31; Start 03/24/19 at 18:00 Sertraline HCl (Zoloft) 100 mg BID PO Last administered on 03/27/19 08:32; Start 03/24/19 at 21:00 Ibuprofen (Motrin) 600 mg PRN Q6HRS PRN PO INFLAMMATION Last administered on 03/27/19 08:35; Start 03/24/19 at 18:45 Insulin Human Lispro (HumaLOG) 15 units 1X ONCE SQ Last administered on 03/25/19 05:36; Start 03/25/19 at 05:30; Stop 03/25/19 at 05:31; Status DC Ondansetron HCl (Zofran) 4 mg PRN Q6HRS PRN IV NAUSEA/VOMITING Last administered on 03/27/19 08:36; Start 03/25/19 at 09:30 Insulin Glargine (Lantus) 50 units DAILY SQ Last administered on 03/27/19 09:18; Start 03/25/19 at 10:00 Insulin Human Lispro (HumaLOG) 30 units TIDWMEALS SQ ; Start 03/25/19 at 12:00 Sumatriptan Succinate (Imitrex) 6 mg 1X ONCE SQ Last administered on 03/25/19 11:42; Start 03/25/19 at 10:00; Stop 03/25/19 at 10:01; Status DC Acetaminophen (Tylenol) 650 mg PRN Q4HRS PRN PO Headache Last administered on 03/25/19at 15:01; Start 03/25/19 at 13:00 Lactobacillus Rhamnosus (Culturelle) 1 cap BID PO Last administered on 03/27/19 08:33; Start 03/25/19 at 21:00 Non-Formulary Medication (Liraglutide (Victoza 3-Talat)) 1.2 mg DAILY SQ Last administered on 03/27/19at 09:15; Start 03/25/19 at 16:30 Sumatriptan Succinate (Imitrex) 6 mg PRN DAILY PRN SQ headache Last administered on 03/26/19at 20:50; Start 03/25/19 at 16:15 Amoxicillin/ Clavulanate Potassium (Augmentin 875/ 125mg) 1 tab BID PO Last administered on 03/27/19 08:32; Start 03/26/19 at 21:00; Stop 03/27/19 at 11:20; Status DC Azithromycin (Zithromax) 500 mg 1X ONCE PO ; Start 03/26/19 at 12:15; Stop 03/26/19 at 12:16; Status DC Gadoterate Meglumine (Dotarem) 14 ml 1X ONCE IVP Last administered on 03/26/19at 14:41; Start 03/26/19 at 14:30; Stop 03/26/19 at 14:31; Status DC Piperacillin Sod/ Tazobactam Sod 3.375 gm/Sodium Chloride 50 ml @ 100 mls/hr Q6HRS IV Last administered on 03/27/19at 12:10; Start 03/27/19 at 12:00 Vancomycin HCl (Vanco Per Pharmacy) 1 each PRN DAILY PRN MC SEE COMMENTS Last administered on 03/27/19at 13:50; Start 03/27/19 at 11:15 Vancomycin HCl 1.75 gm/Sodium Chloride 500 ml @ 250 mls/hr 1X ONCE IV Last administered on 03/27/19at 12:49; Start 03/27/19 at 12:00; Stop 03/27/19 at 13:59; Status DC Vancomycin HCl 1.25 gm/Sodium Chloride 250 ml @ 167 mls/hr Q12H IV ; Start 03/28/19 at 01:00 Vancomycin HCl (Vancomycin Trough Level) 1 each 1X ONCE MC ; Start 03/29/19 at 00:30; Stop 03/29/19 at 00:31 Active Scripts Active Reported Potassium Chloride 10 Meq Tab.sr.24h 10 Meq PO BID Zoloft (Sertraline Hcl) 100 Mg Tablet 1 Tab PO BID Losartan-Hctz 50-12.5 Mg Tab (Losartan/Hydrochlorothiazide) 1 Each Tablet 1 Tab PO DAILY Glimepiride 2 Mg Tablet 1 Tab PO DAILY Metformin Hcl Er (Metformin Hcl) 500 Mg Tab.er.24h 500 Mg PO BIDWMEALS Amlodipine Besylate 5 Mg Tablet 10 PO DAILY Victoza 3-Talat (Liraglutide) 0.6 Mg/0.1 Ml Pen.injctr 1.2 Mg SQ DAILY Vitals/I & O Vital Sign - Last 24 Hours 03/26/19 03/26/19 03/26/19 03/26/19 19:00 20:00 20:05 23:00 Temp 98.9 98.6 98.9 98.6 Pulse 60 70 Resp 18 18 B/P (MAP) 144/79 (100) 144/76 (98) Pulse Ox 94 92 O2 Delivery Room Air Room Air 03/27/19 03/27/19 03/27/19 03/27/19 03:00 07:00 07:41 08:00 Temp 98.5 98.2 98.5 98.2 Pulse 78 63 Resp 20 17 B/P (MAP) 146/88 (107) 159/87 (111) Pulse Ox 95 95 94 O2 Delivery Room Air Room Air 03/27/19 03/27/19 03/27/19 03/27/19 08:31 08:32 11:00 11:30 Temp 98.6 98.6 Pulse 78 78 68 Resp 16 B/P (MAP) 146/88 146/88 132/80 (97) Pulse Ox 93 O2 Delivery Room Air 03/27/19 03/27/19 15:00 15:33 Temp 98.6 98.6 Pulse 66 Resp 17 B/P (MAP) 140/84 (102) Pulse Ox 94 O2 Delivery Room Air Intake and Output 03/26/19 03/26/19 03/27/19 15:00 23:00 07:00 Intake Total 120 ml 0 ml Balance 120 ml 0 ml DARRIAN LEES MD March 27, 2019 15:53
[2019-03-27 19:00] VITALS: BP 150/91
[2019-03-27] MEDS: SUMAtriptan SUCC 6 MG/0.5 ML VIAL. SQ PRN (22:58)
[2019-03-27 23:00] VITALS: BP 161/99
[2019-03-28] MEDS: PIPERACILLIN/TAZOBACTAM 3.375 GM in IV NORMAL SALINE 50ML 50 ML IV SCH ×4 (00:04→18:00)
[2019-03-28] MEDS: VANCOMYCIN 1.25 GM in IV NORMAL SALINE 250ML 250 ML IV SCH ×3 (00:54→18:05)
[2019-03-28 03:00] VITALS: BP 129/74
[2019-03-28 07:00] VITALS: BP 132/83
[2019-03-28] MEDS: IPRATRPIUM/ALBUTEROL 0.5/2.5MG 3 ML NEBU. NEB SCH ×3 (07:30→15:56)
[2019-03-28] MEDS: BUDESONIDE 0.5 MG/2 ML NEBU. NEB SCH (07:30)
[2019-03-28 07:42] LABS: BASO % 0 % (0-3); EOS # 0.1 x10^3/uL (0.0-0.7); EOS % 0 % (0-3); HEMATOCRIT 39.3 % (36.0-47.0); HEMOGLOBIN 12.8 g/dL (12.0-15.5); LYMPH # 2.9 x10^3/uL (1.0-4.8); LYMPH % 24 % (24-48); MEAN CORPUSCULAR HEMOGLOBIN 28 pg (25-35); MEAN CORPUSCULAR HGB CONC 33 g/dL (31-37); MEAN CORPUSCULAR VOLUME 85 fL (79-100); MONO # 0.9 x10^3/uL (0.0-1.1); MONO % 8 % (0-9); NEUT # 8.2 x10^3uL (1.8-7.7); NEUT % 68 % (31-73); PLATELET COUNT 500 x10^3/uL (140-400); RED BLOOD COUNT 4.62 x10^6/uL (3.50-5.40); RED CELL DISTRIBUTION WIDTH 14.6 % (11.5-14.5); WHITE BLOOD COUNT 12.1 x10^3/uL (4.0-11.0)
[2019-03-28] MEDS: INSULIN LISPRO 300 UNITS/3 ML INSULN.PEN. SQ SCH ×6 (08:00→17:55)
[2019-03-28 08:28] LABS: ALBUMIN 2.4 g/dL (3.4-5.0); ALBUMIN/GLOBULIN RATIO 0.5 (1.0-1.7); CALCIUM 9.5 mg/dL (8.5-10.1); CREATININE 0.9 mg/dL (0.6-1.0); GFR 78.7; POTASSIUM 3.3 mmol/L (3.5-5.1); TOTAL BILIRUBIN 0.4 mg/dL (0.2-1.0); TOTAL PROTEIN 7.3 g/dL (6.4-8.2)
--- NOTE | 2019-03-28 08:36 | PDOC ---
PROGRESS NOTES Subjective Subjective No new complaints. Objective Objective Vital Signs Date Time Temp Pulse Resp B/P (MAP) Pulse Ox O2 Delivery O2 Flow Rate FiO2 03/28/19 07:30 92 Room Air 03/28/19 07:00 98.3 81 16 132/83 (99) 98.3 03/28/19 03:00 2.0 Intake and Output 03/28/19 07:00 Intake Total 1420 ml Output Total 0 ml Balance 1420 ml Intake Oral 520 ml IV Total 900 ml Output Urine Total 0 ml # Voids 2 Physical Exam Physical Exam She continues with visual problems and she was scheduled for temporal artery biopsy later on today and she continues to get up and walk in her room. Assessment Assessment Problems Medical Problems: (1) Cough Status: Acute (2) Hyperglycemia Status: Acute (3) Lobar pneumonia Status: Acute (4) Severe sepsis Status: Acute (5) Shortness of breath Status: Acute (6) Urinary tract infection Status: Acute Plan Plan of Care Agree with present care efforts. Comment Review of Relevant I have reviewed the following items tete (where applicable) has been applied. Labs Laboratory Tests Test 03/26/19 12:05 03/26/19 16:56 03/26/19 20:50 03/26/19 21:40 Glucose (Fingerstick) 254 mg/dL (70-99) 136 mg/dL (70-99) 111 mg/dL (70-99) Prothrombin Time 13.8 SEC (11.7-14.0) Prothromb Time International Ratio 1.1 (0.8-1.1) Test 03/27/19 07:29 03/27/19 09:40 03/27/19 11:22 03/27/19 16:46 Glucose (Fingerstick) 161 mg/dL (70-99) 206 mg/dL (70-99) 170 mg/dL (70-99) White Blood Count 12.6 x10^3/uL (4.0-11.0) Red Blood Count 4.66 x10^6/uL (3.50-5.40) Hemoglobin 12.8 g/dL (12.0-15.5) Hematocrit 39.6 % (36.0-47.0) Mean Corpuscular Volume 85 fL (79-100) Mean Corpuscular Hemoglobin 27 pg (25-35) Mean Corpuscular Hemoglobin Concent 32 g/dL (31-37) Red Cell Distribution Width 14.8 % (11.5-14.5) Platelet Count 478 x10^3/uL (140-400) Neutrophils (%) (Auto) 71 % (31-73) Lymphocytes (%) (Auto) 20 % (24-48) Monocytes (%) (Auto) 8 % (0-9) Eosinophils (%) (Auto) 0 % (0-3) Basophils (%) (Auto) 0 % (0-3) Neutrophils # (Auto) 9.0 x10^3uL (1.8-7.7) Lymphocytes # (Auto) 2.6 x10^3/uL (1.0-4.8) Monocytes # (Auto) 1.0 x10^3/uL (0.0-1.1) Eosinophils # (Auto) 0.0 x10^3/uL (0.0-0.7) Basophils # (Auto) 0.1 x10^3/uL (0.0-0.2) Sodium Level 134 mmol/L (136-145) Potassium Level 3.2 mmol/L (3.5-5.1) Chloride Level 94 mmol/L (98-107) Carbon Dioxide Level 29 mmol/L (21-32) Anion Gap 11 (6-14) Blood Urea Nitrogen 11 mg/dL (7-20) Creatinine 0.8 mg/dL (0.6-1.0) Estimated GFR (Cockcroft-Gault) 90.1 BUN/Creatinine Ratio 14 (6-20) Glucose Level 215 mg/dL (70-99) Calcium Level 9.9 mg/dL (8.5-10.1) Total Bilirubin 0.5 mg/dL (0.2-1.0) Aspartate Amino Transf (AST/SGOT) 60 U/L (15-37) Alanine Aminotransferase (ALT/SGPT) 77 U/L (14-59) Alkaline Phosphatase 125 U/L (46-116) C-Reactive Protein, Quantitative 98.7 mg/L (0-3.3) Total Protein 8.2 g/dL (6.4-8.2) Albumin 2.6 g/dL (3.4-5.0) Albumin/Globulin Ratio 0.5 (1.0-1.7) Test 03/27/19:19 03/28/19 04:00 03/28/19 07:13 Glucose (Fingerstick) 212 mg/dL (70-99) 119 mg/dL (70-99) White Blood Count 12.1 x10^3/uL (4.0-11.0) Red Blood Count 4.62 x10^6/uL (3.50-5.40) Hemoglobin 12.8 g/dL (12.0-15.5) Hematocrit 39.3 % (36.0-47.0) Mean Corpuscular Volume 85 fL (79-100) Mean Corpuscular Hemoglobin 28 pg (25-35) Mean Corpuscular Hemoglobin Concent 33 g/dL (31-37) Red Cell Distribution Width 14.6 % (11.5-14.5) Platelet Count 500 x10^3/uL (140-400) Neutrophils (%) (Auto) 68 % (31-73) Lymphocytes (%) (Auto) 24 % (24-48) Monocytes (%) (Auto) 8 % (0-9) Eosinophils (%) (Auto) 0 % (0-3) Basophils (%) (Auto) 0 % (0-3) Neutrophils # (Auto) 8.2 x10^3uL (1.8-7.7) Lymphocytes # (Auto) 2.9 x10^3/uL (1.0-4.8) Monocytes # (Auto) 0.9 x10^3/uL (0.0-1.1) Eosinophils # (Auto) 0.1 x10^3/uL (0.0-0.7) Basophils # (Auto) 0.0 x10^3/uL (0.0-0.2) Erythrocyte Sedimentation Rate 92 (0-25) Sodium Level 138 mmol/L (136-145) Potassium Level 3.3 mmol/L (3.5-5.1) Chloride Level 99 mmol/L (98-107) Carbon Dioxide Level 29 mmol/L (21-32) Anion Gap 10 (6-14) Blood Urea Nitrogen 12 mg/dL (7-20) Creatinine 0.9 mg/dL (0.6-1.0) Estimated GFR (Cockcroft-Gault) 78.7 BUN/Creatinine Ratio 13 (6-20) Glucose Level 168 mg/dL (70-99) Calcium Level 9.5 mg/dL (8.5-10.1) Total Bilirubin 0.4 mg/dL (0.2-1.0) Aspartate Amino Transf (AST/SGOT) 38 U/L (15-37) Alanine Aminotransferase (ALT/SGPT) 66 U/L (14-59) Alkaline Phosphatase 122 U/L (46-116) Total Protein 7.3 g/dL (6.4-8.2) Albumin 2.4 g/dL (3.4-5.0) Albumin/Globulin Ratio 0.5 (1.0-1.7) Laboratory Tests Test 03/27/19 09:40 03/27/19 11:22 03/27/19 16:46 03/27/19 21:19 White Blood Count 12.6 x10^3/uL (4.0-11.0) Red Blood Count 4.66 x10^6/uL (3.50-5.40) Hemoglobin 12.8 g/dL (12.0-15.5) Hematocrit 39.6 % (36.0-47.0) Mean Corpuscular Volume 85 fL (79-100) Mean Corpuscular Hemoglobin 27 pg (25-35) Mean Corpuscular Hemoglobin Concent 32 g/dL (31-37) Red Cell Distribution Width 14.8 % (11.5-14.5) Platelet Count 478 x10^3/uL (140-400) Neutrophils (%) (Auto) 71 % (31-73) Lymphocytes (%) (Auto) 20 % (24-48) Monocytes (%) (Auto) 8 % (0-9) Eosinophils (%) (Auto) 0 % (0-3) Basophils (%) (Auto) 0 % (0-3) Neutrophils # (Auto) 9.0 x10^3uL (1.8-7.7) Lymphocytes # (Auto) 2.6 x10^3/uL (1.0-4.8) Monocytes # (Auto) 1.0 x10^3/uL (0.0-1.1) Eosinophils # (Auto) 0.0 x10^3/uL (0.0-0.7) Basophils # (Auto) 0.1 x10^3/uL (0.0-0.2) Sodium Level 134 mmol/L (136-145) Potassium Level 3.2 mmol/L (3.5-5.1) Chloride Level 94 mmol/L (98-107) Carbon Dioxide Level 29 mmol/L (21-32) Anion Gap 11 (6-14) Blood Urea Nitrogen 11 mg/dL (7-20) Creatinine 0.8 mg/dL (0.6-1.0) Estimated GFR (Cockcroft-Gault) 90.1 BUN/Creatinine Ratio 14 (6-20) Glucose Level 215 mg/dL (70-99) Calcium Level 9.9 mg/dL (8.5-10.1) Total Bilirubin 0.5 mg/dL (0.2-1.0) Aspartate Amino Transf (AST/SGOT) 60 U/L (15-37) Alanine Aminotransferase (ALT/SGPT) 77 U/L (14-59) Alkaline Phosphatase 125 U/L (46-116) C-Reactive Protein, Quantitative 98.7 mg/L (0-3.3) Total Protein 8.2 g/dL (6.4-8.2) Albumin 2.6 g/dL (3.4-5.0) Albumin/Globulin Ratio 0.5 (1.0-1.7) Glucose (Fingerstick) 206 mg/dL (70-99) 170 mg/dL (70-99) 212 mg/dL (70-99) Test 03/28/19 04:00 03/28/19 07:13 White Blood Count 12.1 x10^3/uL (4.0-11.0) Red Blood Count 4.62 x10^6/uL (3.50-5.40) Hemoglobin 12.8 g/dL (12.0-15.5) Hematocrit 39.3 % (36.0-47.0) Mean Corpuscular Volume 85 fL (79-100) Mean Corpuscular Hemoglobin 28 pg (25-35) Mean Corpuscular Hemoglobin Concent 33 g/dL (31-37) Red Cell Distribution Width 14.6 % (11.5-14.5) Platelet Count 500 x10^3/uL (140-400) Neutrophils (%) (Auto) 68 % (31-73) Lymphocytes (%) (Auto) 24 % (24-48) Monocytes (%) (Auto) 8 % (0-9) Eosinophils (%) (Auto) 0 % (0-3) Basophils (%) (Auto) 0 % (0-3) Neutrophils # (Auto) 8.2 x10^3uL (1.8-7.7) Lymphocytes # (Auto) 2.9 x10^3/uL (1.0-4.8) Monocytes # (Auto) 0.9 x10^3/uL (0.0-1.1) Eosinophils # (Auto) 0.1 x10^3/uL (0.0-0.7) Basophils # (Auto) 0.0 x10^3/uL (0.0-0.2) Erythrocyte Sedimentation Rate 92 (0-25) Sodium Level 138 mmol/L (136-145) Potassium Level 3.3 mmol/L (3.5-5.1) Chloride Level 99 mmol/L (98-107) Carbon Dioxide Level 29 mmol/L (21-32) Anion Gap 10 (6-14) Blood Urea Nitrogen 12 mg/dL (7-20) Creatinine 0.9 mg/dL (0.6-1.0) Estimated GFR (Cockcroft-Gault) 78.7 BUN/Creatinine Ratio 13 (6-20) Glucose Level 168 mg/dL (70-99) Calcium Level 9.5 mg/dL (8.5-10.1) Total Bilirubin 0.4 mg/dL (0.2-1.0) Aspartate Amino Transf (AST/SGOT) 38 U/L (15-37) Alanine Aminotransferase (ALT/SGPT) 66 U/L (14-59) Alkaline Phosphatase 122 U/L (46-116) Total Protein 7.3 g/dL (6.4-8.2) Albumin 2.4 g/dL (3.4-5.0) Albumin/Globulin Ratio 0.5 (1.0-1.7) Glucose (Fingerstick) 119 mg/dL (70-99) Microbiology 03/23/19 Blood Culture - Preliminary, Resulted NO GROWTH AFTER 4 DAYS 03/23/19 Urine Culture - Final, Complete 03/23/19 Urine Culture Result 1 (RITU) - Final, Complete Medications Current Medications Albuterol/ Ipratropium (Duoneb) 3 ml 1X ONCE NEB Last administered on 03/23/19 19:22; Start 03/23/19 at 18:30; Stop 03/23/19 at 18:31; Status DC Sodium Chloride 1,000 ml @ 1,000 mls/hr 1X ONCE IV Last administered on 03/23/19 18:51; Start 03/23/19 at 18:30; Stop 03/23/19 at 19:29; Status DC Dexamethasone Sodium Phosphate (Decadron) 10 mg 1X ONCE IV Last administered on 03/23/19 18:51; Start 03/23/19 at 18:30; Stop 03/23/19 at 18:31; Status DC Ibuprofen (Motrin) 600 mg 1X ONCE PO Last administered on 03/23/19 18:50; Start 03/23/19 at 18:30; Stop 03/23/19 at 18:31; Status DC Piperacillin Sod/ Tazobactam Sod 4.5 gm/Sodium Chloride 100 ml @ 200 mls/hr 1X ONCE IV Last administered on 03/23/19 18:50; Start 03/23/19 at 18:45; Stop 03/23/19 at 19:14; Status DC Acetaminophen (Tylenol) 500 mg 1X ONCE PO Last administered on 03/23/19 18:51; Start 03/23/19 at 18:45; Stop 03/23/19 at 18:46; Status DC Insulin Human Regular (HumuLIN R VIAL) 12 unit 1X ONCE SQ Last administered on 03/23/19 19:57; Start 03/23/19 at 19:00; Stop 03/23/19 at 19:01; Status DC Levofloxacin/ Dextrose 150 ml @ 100 mls/hr 1X ONCE IV Last administered on 03/23/19 20:02; Start 03/23/19 at 19:15; Stop 03/23/19 at 20:44; Status DC Vancomycin HCl 1.75 gm/Sodium Chloride 500 ml @ 250 mls/hr 1X ONCE IV Last administered on 03/23/19 19:59; Start 03/23/19 at 20:00; Stop 03/23/19 at 21:59; Status DC Sodium Chloride 1,000 ml @ 1,000 mls/hr 1X ONCE IV Last administered on 03/23/19 19:56; Start 03/23/19 at 19:15; Stop 03/23/19 at 20:14; Status DC Sodium Chloride 500 ml @ 500 mls/hr 1X ONCE IV Last administered on 03/23/19at 21:01; Start 03/23/19 at 19:15; Stop 03/23/19 at 20:14; Status DC Ondansetron HCl (Zofran) 4 mg PRN Q8HRS PRN IV NAUSEA/VOMITING; Start 03/23/19 at 19:30; Stop 03/24/19 at 19:29; Status DC Acetaminophen (Tylenol) 650 mg PRN Q4HRS PRN PO FEVER; Start 03/23/19 at 19:30; Stop 03/24/19 at 19:29; Status DC Albuterol Sulfate (Ventolin Neb Soln) 2.5 mg PRN Q4HRS PRN NEB SHORTNESS OF BREATH Last administered on 03/25/19at 13:13; Start 03/23/19 at 19:30 Insulin Human Lispro (HumaLOG) 15 units 1X ONCE SQ Last administered on 03/23/19at 23:05; Start 03/23/19 at 23:30; Stop 03/23/19 at 23:31; Status DC Insulin Human Lispro (HumaLOG) 0-7 UNITS TIDWMEALS SQ Last administered on 03/24/19at 12:11; Start 03/24/19 at 08:00; Stop 03/24/19 at 12:34; Status DC Dextrose (Dextrose 50%-Water Syringe) 12.5 gm PRN Q15MIN PRN IV SEE COMMENTS; Start 03/23/19 at 23:00; Stop 03/24/19 at 12:34; Status DC Insulin Human Lispro (HumaLOG) 25 units 1X ONCE SQ Last administered on 03/24/19at 01:50; Start 03/24/19 at 02:00; Stop 03/24/19 at 02:01; Status DC Piperacillin Sod/ Tazobactam Sod (Zosyn Per Pharmacy) 1 each PRN DAILY PRN MC SEE COMMENTS; Start 03/24/19 at 09:15; Stop 03/26/19 at 12:07; Status DC Albuterol/ Ipratropium (Duoneb) 3 ml RTQID NEB Last administered on 03/28/19at 07:30; Start 03/24/19 at 12:00 Piperacillin Sod/ Tazobactam Sod 3.375 gm/Sodium Chloride 50 ml @ 100 mls/hr Q6HRS IV Last administered on 03/26/19 05:39; Start 03/24/19 at 10:00; Stop 03/26/19 at 12:05; Status DC Amlodipine Besylate (Norvasc) 5 mg DAILY PO Last administered on 03/27/19at 08:31; Start 03/24/19 at 13:00 Glimepiride (Amaryl) 2 mg DAILY PO Last administered on 03/27/19at 08:33; Start 03/25/19 at 09:00 Non-Formulary Medication (Liraglutide (Victoza 3-Talat)) 1.2 mg DAILY SQ ; Start 03/25/19 at 09:00; Status UNV Losartan Potassium (Cozaar) 50 mg DAILY PO Last administered on 03/27/19at 08:32; Start 03/24/19 at 13:00 Metformin HCl (Glucophage Xr) 500 mg BIDWMEALS PO Last administered on 03/27/19at 17:20; Start 03/24/19 at 12:45 Insulin Glargine (Lantus) 25 units DAILY SQ Last administered on 03/24/19 13:19; Start 03/24/19 at 12:30; Stop 03/25/19 at 09:40; Status DC Insulin Human Lispro (HumaLOG) 20 units TIDWMEALS SQ Last administered on 03/24/19at 17:15; Start 03/24/19 at 17:00; Stop 03/25/19 at 09:40; Status DC Insulin Human Lispro (HumaLOG) 0-9 UNITS TIDWMEALS SQ Last administered on 03/27/19at 17:25; Start 03/24/19 at 17:00 Dextrose (Dextrose 50%-Water Syringe) 12.5 gm PRN Q15MIN PRN IV SEE COMMENTS; Start 03/24/19 at 12:30 Hydrochlorothiazide (Microzide) 12.5 mg DAILY PO Last administered on 03/27/19at 08:32; Start 03/24/19 at 13:00 Budesonide (Pulmicort) 0.5 mg RTBID NEB Last administered on 03/28/19at 07:30; Start 03/24/19 at 20:00 Guaifenesin/ Codeine Phosphate (Robitussin Ac) 15 ml PRN Q6HRS PRN PO COUGH Last administered on 03/25/19 17:42; Start 03/24/19 at 13:00 Doxycycline Hyclate (Vibra-Tab) 100 mg BID PO Last administered on 03/26/19 08:21; Start 03/24/19 at 21:00; Stop 03/26/19 at 12:05; Status DC Potassium Chloride (Klor-Con) 10 meq BIDWMEALS PO Last administered on 03/27/19 17:20; Start 03/24/19 at 18:00 Sertraline HCl (Zoloft) 100 mg BID PO Last administered on 03/27/19 20:43; Start 03/24/19 at 21:00 Ibuprofen (Motrin) 600 mg PRN Q6HRS PRN PO INFLAMMATION Last administered on 03/27/19 22:53; Start 03/24/19 at 18:45 Insulin Human Lispro (HumaLOG) 15 units 1X ONCE SQ Last administered on 03/25/19 05:36; Start 03/25/19 at 05:30; Stop 03/25/19 at 05:31; Status DC Ondansetron HCl (Zofran) 4 mg PRN Q6HRS PRN IV NAUSEA/VOMITING Last administered on 03/27/19 08:36; Start 03/25/19 at 09:30 Insulin Glargine (Lantus) 50 units DAILY SQ Last administered on 03/27/19 09:18; Start 03/25/19 at 10:00 Insulin Human Lispro (HumaLOG) 30 units TIDWMEALS SQ ; Start 03/25/19 at 12:00 Sumatriptan Succinate (Imitrex) 6 mg 1X ONCE SQ Last administered on 03/25/19 11:42; Start 03/25/19 at 10:00; Stop 03/25/19 at 10:01; Status DC Acetaminophen (Tylenol) 650 mg PRN Q4HRS PRN PO Headache Last administered on 03/25/19 15:01; Start 03/25/19 at 13:00 Lactobacillus Rhamnosus (Culturelle) 1 cap BID PO Last administered on 03/27/19 20:42; Start 03/25/19 at 21:00 Non-Formulary Medication (Liraglutide (Victoza 3-Talat)) 1.2 mg DAILY SQ Last administered on 03/27/19at 09:15; Start 03/25/19 at 16:30 Sumatriptan Succinate (Imitrex) 6 mg PRN DAILY PRN SQ headache Last administered on 03/27/19at 22:58; Start 03/25/19 at 16:15 Amoxicillin/ Clavulanate Potassium (Augmentin 875/ 125mg) 1 tab BID PO Last administered on 03/27/19at 08:32; Start 03/26/19 at 21:00; Stop 03/27/19 at 11:20; Status DC Azithromycin (Zithromax) 500 mg 1X ONCE PO ; Start 03/26/19 at 12:15; Stop 03/26/19 at 12:16; Status DC Gadoterate Meglumine (Dotarem) 14 ml 1X ONCE IVP Last administered on 03/26/19at 14:41; Start 03/26/19 at 14:30; Stop 03/26/19 at 14:31; Status DC Piperacillin Sod/ Tazobactam Sod 3.375 gm/Sodium Chloride 50 ml @ 100 mls/hr Q6HRS IV Last administered on 03/28/19at 06:07; Start 03/27/19 at 12:00 Vancomycin HCl (Vanco Per Pharmacy) 1 each PRN DAILY PRN MC SEE COMMENTS Last administered on 03/27/19at 13:50; Start 03/27/19 at 11:15 Vancomycin HCl 1.75 gm/Sodium Chloride 500 ml @ 250 mls/hr 1X ONCE IV Last administered on 03/27/19at 12:49; Start 03/27/19 at 12:00; Stop 03/27/19 at 13:59; Status DC Vancomycin HCl 1.25 gm/Sodium Chloride 250 ml @ 167 mls/hr Q12H IV Last administered on 03/28/19at 00:54; Start 03/28/19 at 01:00 Vancomycin HCl (Vancomycin Trough Level) 1 each 1X ONCE MC ; Start 03/29/19 at 00:30; Stop 03/29/19 at 00:31 Active Scripts Active Reported Potassium Chloride 10 Meq Tab.sr.24h 10 Meq PO BID Zoloft (Sertraline Hcl) 100 Mg Tablet 1 Tab PO BID Losartan-Hctz 50-12.5 Mg Tab (Losartan/Hydrochlorothiazide) 1 Each Tablet 1 Tab PO DAILY Glimepiride 2 Mg Tablet 1 Tab PO DAILY Metformin Hcl Er (Metformin Hcl) 500 Mg Tab.er.24h 500 Mg PO BIDWMEALS Amlodipine Besylate 5 Mg Tablet 10 PO DAILY Victoza 3-Talat (Liraglutide) 0.6 Mg/0.1 Ml Pen.injctr 1.2 Mg SQ DAILY Vitals/I & O Vital Sign - Last 24 Hours 03/27/19 03/27/19 03/27/19 03/27/19 11:00 11:30 15:00 15:33 Temp 98.6 98.6 98.6 98.6 Pulse 68 66 Resp 16 17 B/P (MAP) 132/80 (97) 140/84 (102) Pulse Ox 93 94 O2 Delivery Room Air Room Air 03/27/19 03/27/19 03/27/19 03/27/19 19:00 19:50 19:52 20:00 Temp 98.6 98.6 Pulse 83 Resp 18 B/P (MAP) 150/91 (110) Pulse Ox 99 98 98 O2 Delivery Room Air Room Air Room Air 03/27/19 03/28/19 03/28/19 03/28/19 23:00 03:00 07:00 07:30 Temp 98.3 98.3 98.3 98.3 98.3 98.3 Pulse 67 70 81 Resp 18 18 16 B/P (MAP) 161/99 (119) 129/74 (92) 132/83 (99) Pulse Ox 98 92 92 92 O2 Delivery Room Air Room Air Room Air Room Air O2 Flow Rate 2.0 2.0 Intake and Output 03/27/19 03/27/19 03/28/19 15:00 23:00 07:00 Intake Total 390 ml 730 ml 300 ml Output Total 0 ml Balance 390 ml 730 ml 300 ml FAIZA LUCERO MD March 28, 2019 08:36
--- NOTE | 2019-03-28 08:39 | PDOC ---
PROGRESS NOTES Chief Complaint Chief Complaint acute new headache Elevated ESR concerns for temporal arteritis, discussed with neurology security and privacy consultant, patient has not consented to surgical consult for possible biopsy. Hopefully she will consent and have biopsy done and start her steroid therapy. hyponatremia, hyperglycemia, DM2 very poor control acute hypoxia resolved hip pain, OA History of Present Illness History of Present Illness Patient wit no new acute events reported overnight, she has consented to biopsy she will go to OR at 1400. All concerns addressed to the best of my abilities Vitals Vitals Vital Signs Date Time Temp Pulse Resp B/P (MAP) Pulse Ox O2 Delivery O2 Flow Rate FiO2 03/28/19 07:30 92 Room Air 03/28/19 07:00 98.3 81 16 132/83 (99) 98.3 03/28/19 03:00 2.0 Physical Exam Physical Exam GENERAL: The patient is sitting in a chair alert. Looks comfortable HEENT: Able to open eyes but is light sensitive PERRL, EOMI but some discomfort - mild erythema of right eye today. Oral cavity, pharynx pink no thrush or swellings and moist. NECK: Supple with FROM LUNGS: CTA HEART: S1, S2. ABDOMEN: Obese, soft, nontender with bowel sounds present. EXTREMITIES: No gross edema or cyanosis.. SKIN: Warm without generalized rash. NEUROLOGIC: Alert and oriented x 3. Answers questions appropriately General: Alert, Cooperative, No acute distress Heart: Regular rate, Normal S1, Normal S2, No murmurs Lungs: Clear Abdomen: Soft, No tenderness Extremities: No clubbing, No cyanosis Skin: No rashes, No breakdown Labs LABS Laboratory Tests Test 03/27/19 09:40 03/27/19 11:22 03/27/19 16:46 03/27/19 21:19 White Blood Count 12.6 x10^3/uL (4.0-11.0) Red Blood Count 4.66 x10^6/uL (3.50-5.40) Hemoglobin 12.8 g/dL (12.0-15.5) Hematocrit 39.6 % (36.0-47.0) Mean Corpuscular Volume 85 fL (79-100) Mean Corpuscular Hemoglobin 27 pg (25-35) Mean Corpuscular Hemoglobin Concent 32 g/dL (31-37) Red Cell Distribution Width 14.8 % (11.5-14.5) Platelet Count 478 x10^3/uL (140-400) Neutrophils (%) (Auto) 71 % (31-73) Lymphocytes (%) (Auto) 20 % (24-48) Monocytes (%) (Auto) 8 % (0-9) Eosinophils (%) (Auto) 0 % (0-3) Basophils (%) (Auto) 0 % (0-3) Neutrophils # (Auto) 9.0 x10^3uL (1.8-7.7) Lymphocytes # (Auto) 2.6 x10^3/uL (1.0-4.8) Monocytes # (Auto) 1.0 x10^3/uL (0.0-1.1) Eosinophils # (Auto) 0.0 x10^3/uL (0.0-0.7) Basophils # (Auto) 0.1 x10^3/uL (0.0-0.2) Sodium Level 134 mmol/L (136-145) Potassium Level 3.2 mmol/L (3.5-5.1) Chloride Level 94 mmol/L (98-107) Carbon Dioxide Level 29 mmol/L (21-32) Anion Gap 11 (6-14) Blood Urea Nitrogen 11 mg/dL (7-20) Creatinine 0.8 mg/dL (0.6-1.0) Estimated GFR (Cockcroft-Gault) 90.1 BUN/Creatinine Ratio 14 (6-20) Glucose Level 215 mg/dL (70-99) Calcium Level 9.9 mg/dL (8.5-10.1) Total Bilirubin 0.5 mg/dL (0.2-1.0) Aspartate Amino Transf (AST/SGOT) 60 U/L (15-37) Alanine Aminotransferase (ALT/SGPT) 77 U/L (14-59) Alkaline Phosphatase 125 U/L (46-116) C-Reactive Protein, Quantitative 98.7 mg/L (0-3.3) Total Protein 8.2 g/dL (6.4-8.2) Albumin 2.6 g/dL (3.4-5.0) Albumin/Globulin Ratio 0.5 (1.0-1.7) Glucose (Fingerstick) 206 mg/dL (70-99) 170 mg/dL (70-99) 212 mg/dL (70-99) Test 03/28/19 04:00 03/28/19 07:13 White Blood Count 12.1 x10^3/uL (4.0-11.0) Red Blood Count 4.62 x10^6/uL (3.50-5.40) Hemoglobin 12.8 g/dL (12.0-15.5) Hematocrit 39.3 % (36.0-47.0) Mean Corpuscular Volume 85 fL (79-100) Mean Corpuscular Hemoglobin 28 pg (25-35) Mean Corpuscular Hemoglobin Concent 33 g/dL (31-37) Red Cell Distribution Width 14.6 % (11.5-14.5) Platelet Count 500 x10^3/uL (140-400) Neutrophils (%) (Auto) 68 % (31-73) Lymphocytes (%) (Auto) 24 % (24-48) Monocytes (%) (Auto) 8 % (0-9) Eosinophils (%) (Auto) 0 % (0-3) Basophils (%) (Auto) 0 % (0-3) Neutrophils # (Auto) 8.2 x10^3uL (1.8-7.7) Lymphocytes # (Auto) 2.9 x10^3/uL (1.0-4.8) Monocytes # (Auto) 0.9 x10^3/uL (0.0-1.1) Eosinophils # (Auto) 0.1 x10^3/uL (0.0-0.7) Basophils # (Auto) 0.0 x10^3/uL (0.0-0.2) Erythrocyte Sedimentation Rate 92 (0-25) Sodium Level 138 mmol/L (136-145) Potassium Level 3.3 mmol/L (3.5-5.1) Chloride Level 99 mmol/L (98-107) Carbon Dioxide Level 29 mmol/L (21-32) Anion Gap 10 (6-14) Blood Urea Nitrogen 12 mg/dL (7-20) Creatinine 0.9 mg/dL (0.6-1.0) Estimated GFR (Cockcroft-Gault) 78.7 BUN/Creatinine Ratio 13 (6-20) Glucose Level 168 mg/dL (70-99) Calcium Level 9.5 mg/dL (8.5-10.1) Total Bilirubin 0.4 mg/dL (0.2-1.0) Aspartate Amino Transf (AST/SGOT) 38 U/L (15-37) Alanine Aminotransferase (ALT/SGPT) 66 U/L (14-59) Alkaline Phosphatase 122 U/L (46-116) Total Protein 7.3 g/dL (6.4-8.2) Albumin 2.4 g/dL (3.4-5.0) Albumin/Globulin Ratio 0.5 (1.0-1.7) Glucose (Fingerstick) 119 mg/dL (70-99) Assessment and Plan Assessmemt and Plan Problems Medical Problems: (1) Cough Status: Acute (2) Hyperglycemia Status: Acute (3) Lobar pneumonia Status: Acute (4) Severe sepsis Status: Acute (5) Shortness of breath Status: Acute (6) Urinary tract infection Status: Acute Comment Review of Relevant I have reviewed the following items tete (where applicable) has been applied. Labs Laboratory Tests Test 03/26/19 12:05 03/26/19 16:56 03/26/19 20:50 03/26/19 21:40 Glucose (Fingerstick) 254 mg/dL (70-99) 136 mg/dL (70-99) 111 mg/dL (70-99) Prothrombin Time 13.8 SEC (11.7-14.0) Prothromb Time International Ratio 1.1 (0.8-1.1) Test 03/27/19 07:29 03/27/19 09:40 03/27/19 11:22 03/27/19 16:46 Glucose (Fingerstick) 161 mg/dL (70-99) 206 mg/dL (70-99) 170 mg/dL (70-99) White Blood Count 12.6 x10^3/uL (4.0-11.0) Red Blood Count 4.66 x10^6/uL (3.50-5.40) Hemoglobin 12.8 g/dL (12.0-15.5) Hematocrit 39.6 % (36.0-47.0) Mean Corpuscular Volume 85 fL (79-100) Mean Corpuscular Hemoglobin 27 pg (25-35) Mean Corpuscular Hemoglobin Concent 32 g/dL (31-37) Red Cell Distribution Width 14.8 % (11.5-14.5) Platelet Count 478 x10^3/uL (140-400) Neutrophils (%) (Auto) 71 % (31-73) Lymphocytes (%) (Auto) 20 % (24-48) Monocytes (%) (Auto) 8 % (0-9) Eosinophils (%) (Auto) 0 % (0-3) Basophils (%) (Auto) 0 % (0-3) Neutrophils # (Auto) 9.0 x10^3uL (1.8-7.7) Lymphocytes # (Auto) 2.6 x10^3/uL (1.0-4.8) Monocytes # (Auto) 1.0 x10^3/uL (0.0-1.1) Eosinophils # (Auto) 0.0 x10^3/uL (0.0-0.7) Basophils # (Auto) 0.1 x10^3/uL (0.0-0.2) Sodium Level 134 mmol/L (136-145) Potassium Level 3.2 mmol/L (3.5-5.1) Chloride Level 94 mmol/L (98-107) Carbon Dioxide Level 29 mmol/L (21-32) Anion Gap 11 (6-14) Blood Urea Nitrogen 11 mg/dL (7-20) Creatinine 0.8 mg/dL (0.6-1.0) Estimated GFR (Cockcroft-Gault) 90.1 BUN/Creatinine Ratio 14 (6-20) Glucose Level 215 mg/dL (70-99) Calcium Level 9.9 mg/dL (8.5-10.1) Total Bilirubin 0.5 mg/dL (0.2-1.0) Aspartate Amino Transf (AST/SGOT) 60 U/L (15-37) Alanine Aminotransferase (ALT/SGPT) 77 U/L (14-59) Alkaline Phosphatase 125 U/L (46-116) C-Reactive Protein, Quantitative 98.7 mg/L (0-3.3) Total Protein 8.2 g/dL (6.4-8.2) Albumin 2.6 g/dL (3.4-5.0) Albumin/Globulin Ratio 0.5 (1.0-1.7) Test 03/27/19 21:19 03/28/19 04:00 03/28/19 07:13 Glucose (Fingerstick) 212 mg/dL (70-99) 119 mg/dL (70-99) White Blood Count 12.1 x10^3/uL (4.0-11.0) Red Blood Count 4.62 x10^6/uL (3.50-5.40) Hemoglobin 12.8 g/dL (12.0-15.5) Hematocrit 39.3 % (36.0-47.0) Mean Corpuscular Volume 85 fL (79-100) Mean Corpuscular Hemoglobin 28 pg (25-35) Mean Corpuscular Hemoglobin Concent 33 g/dL (31-37) Red Cell Distribution Width 14.6 % (11.5-14.5) Platelet Count 500 x10^3/uL (140-400) Neutrophils (%) (Auto) 68 % (31-73) Lymphocytes (%) (Auto) 24 % (24-48) Monocytes (%) (Auto) 8 % (0-9) Eosinophils (%) (Auto) 0 % (0-3) Basophils (%) (Auto) 0 % (0-3) Neutrophils # (Auto) 8.2 x10^3uL (1.8-7.7) Lymphocytes # (Auto) 2.9 x10^3/uL (1.0-4.8) Monocytes # (Auto) 0.9 x10^3/uL (0.0-1.1) Eosinophils # (Auto) 0.1 x10^3/uL (0.0-0.7) Basophils # (Auto) 0.0 x10^3/uL (0.0-0.2) Erythrocyte Sedimentation Rate 92 (0-25) Sodium Level 138 mmol/L (136-145) Potassium Level 3.3 mmol/L (3.5-5.1) Chloride Level 99 mmol/L (98-107) Carbon Dioxide Level 29 mmol/L (21-32) Anion Gap 10 (6-14) Blood Urea Nitrogen 12 mg/dL (7-20) Creatinine 0.9 mg/dL (0.6-1.0) Estimated GFR (Cockcroft-Gault) 78.7 BUN/Creatinine Ratio 13 (6-20) Glucose Level 168 mg/dL (70-99) Calcium Level 9.5 mg/dL (8.5-10.1) Total Bilirubin 0.4 mg/dL (0.2-1.0) Aspartate Amino Transf (AST/SGOT) 38 U/L (15-37) Alanine Aminotransferase (ALT/SGPT) 66 U/L (14-59) Alkaline Phosphatase 122 U/L (46-116) Total Protein 7.3 g/dL (6.4-8.2) Albumin 2.4 g/dL (3.4-5.0) Albumin/Globulin Ratio 0.5 (1.0-1.7) Laboratory Tests Test 03/27/19 09:40 03/27/19 11:22 03/27/19 16:46 03/27/19 21:19 White Blood Count 12.6 x10^3/uL (4.0-11.0) Red Blood Count 4.66 x10^6/uL (3.50-5.40) Hemoglobin 12.8 g/dL (12.0-15.5) Hematocrit 39.6 % (36.0-47.0) Mean Corpuscular Volume 85 fL (79-100) Mean Corpuscular Hemoglobin 27 pg (25-35) Mean Corpuscular Hemoglobin Concent 32 g/dL (31-37) Red Cell Distribution Width 14.8 % (11.5-14.5) Platelet Count 478 x10^3/uL (140-400) Neutrophils (%) (Auto) 71 % (31-73) Lymphocytes (%) (Auto) 20 % (24-48) Monocytes (%) (Auto) 8 % (0-9) Eosinophils (%) (Auto) 0 % (0-3) Basophils (%) (Auto) 0 % (0-3) Neutrophils # (Auto) 9.0 x10^3uL (1.8-7.7) Lymphocytes # (Auto) 2.6 x10^3/uL (1.0-4.8) Monocytes # (Auto) 1.0 x10^3/uL (0.0-1.1) Eosinophils # (Auto) 0.0 x10^3/uL (0.0-0.7) Basophils # (Auto) 0.1 x10^3/uL (0.0-0.2) Sodium Level 134 mmol/L (136-145) Potassium Level 3.2 mmol/L (3.5-5.1) Chloride Level 94 mmol/L (98-107) Carbon Dioxide Level 29 mmol/L (21-32) Anion Gap 11 (6-14) Blood Urea Nitrogen 11 mg/dL (7-20) Creatinine 0.8 mg/dL (0.6-1.0) Estimated GFR (Cockcroft-Gault) 90.1 BUN/Creatinine Ratio 14 (6-20) Glucose Level 215 mg/dL (70-99) Calcium Level 9.9 mg/dL (8.5-10.1) Total Bilirubin 0.5 mg/dL (0.2-1.0) Aspartate Amino Transf (AST/SGOT) 60 U/L (15-37) Alanine Aminotransferase (ALT/SGPT) 77 U/L (14-59) Alkaline Phosphatase 125 U/L (46-116) C-Reactive Protein, Quantitative 98.7 mg/L (0-3.3) Total Protein 8.2 g/dL (6.4-8.2) Albumin 2.6 g/dL (3.4-5.0) Albumin/Globulin Ratio 0.5 (1.0-1.7) Glucose (Fingerstick) 206 mg/dL (70-99) 170 mg/dL (70-99) 212 mg/dL (70-99) Test 03/28/19 04:00 03/28/19 07:13 White Blood Count 12.1 x10^3/uL (4.0-11.0) Red Blood Count 4.62 x10^6/uL (3.50-5.40) Hemoglobin 12.8 g/dL (12.0-15.5) Hematocrit 39.3 % (36.0-47.0) Mean Corpuscular Volume 85 fL (79-100) Mean Corpuscular Hemoglobin 28 pg (25-35) Mean Corpuscular Hemoglobin Concent 33 g/dL (31-37) Red Cell Distribution Width 14.6 % (11.5-14.5) Platelet Count 500 x10^3/uL (140-400) Neutrophils (%) (Auto) 68 % (31-73) Lymphocytes (%) (Auto) 24 % (24-48) Monocytes (%) (Auto) 8 % (0-9) Eosinophils (%) (Auto) 0 % (0-3) Basophils (%) (Auto) 0 % (0-3) Neutrophils # (Auto) 8.2 x10^3uL (1.8-7.7) Lymphocytes # (Auto) 2.9 x10^3/uL (1.0-4.8) Monocytes # (Auto) 0.9 x10^3/uL (0.0-1.1) Eosinophils # (Auto) 0.1 x10^3/uL (0.0-0.7) Basophils # (Auto) 0.0 x10^3/uL (0.0-0.2) Erythrocyte Sedimentation Rate 92 (0-25) Sodium Level 138 mmol/L (136-145) Potassium Level 3.3 mmol/L (3.5-5.1) Chloride Level 99 mmol/L (98-107) Carbon Dioxide Level 29 mmol/L (21-32) Anion Gap 10 (6-14) Blood Urea Nitrogen 12 mg/dL (7-20) Creatinine 0.9 mg/dL (0.6-1.0) Estimated GFR (Cockcroft-Gault) 78.7 BUN/Creatinine Ratio 13 (6-20) Glucose Level 168 mg/dL (70-99) Calcium Level 9.5 mg/dL (8.5-10.1) Total Bilirubin 0.4 mg/dL (0.2-1.0) Aspartate Amino Transf (AST/SGOT) 38 U/L (15-37) Alanine Aminotransferase (ALT/SGPT) 66 U/L (14-59) Alkaline Phosphatase 122 U/L (46-116) Total Protein 7.3 g/dL (6.4-8.2) Albumin 2.4 g/dL (3.4-5.0) Albumin/Globulin Ratio 0.5 (1.0-1.7) Glucose (Fingerstick) 119 mg/dL (70-99) Microbiology 03/23/19 Blood Culture - Preliminary, Resulted NO GROWTH AFTER 4 DAYS 03/23/19 Urine Culture - Final, Complete 03/23/19 Urine Culture Result 1 (RITU) - Final, Complete Medications Current Medications Albuterol/ Ipratropium (Duoneb) 3 ml 1X ONCE NEB Last administered on 03/23/19at 19:22; Start 03/23/19 at 18:30; Stop 03/23/19 at 18:31; Status DC Sodium Chloride 1,000 ml @ 1,000 mls/hr 1X ONCE IV Last administered on 03/23/19 18:51; Start 03/23/19 at 18:30; Stop 03/23/19 at 19:29; Status DC Dexamethasone Sodium Phosphate (Decadron) 10 mg 1X ONCE IV Last administered on 03/23/19 18:51; Start 03/23/19 at 18:30; Stop 03/23/19 at 18:31; Status DC Ibuprofen (Motrin) 600 mg 1X ONCE PO Last administered on 03/23/19 18:50; Start 03/23/19 at 18:30; Stop 03/23/19 at 18:31; Status DC Piperacillin Sod/ Tazobactam Sod 4.5 gm/Sodium Chloride 100 ml @ 200 mls/hr 1X ONCE IV Last administered on 03/23/19 18:50; Start 03/23/19 at 18:45; Stop 03/23/19 at 19:14; Status DC Acetaminophen (Tylenol) 500 mg 1X ONCE PO Last administered on 03/23/19 18:51; Start 03/23/19 at 18:45; Stop 03/23/19 at 18:46; Status DC Insulin Human Regular (HumuLIN R VIAL) 12 unit 1X ONCE SQ Last administered on 03/23/19 19:57; Start 03/23/19 at 19:00; Stop 03/23/19 at 19:01; Status DC Levofloxacin/ Dextrose 150 ml @ 100 mls/hr 1X ONCE IV Last administered on 03/23/19 20:02; Start 03/23/19 at 19:15; Stop 03/23/19 at 20:44; Status DC Vancomycin HCl 1.75 gm/Sodium Chloride 500 ml @ 250 mls/hr 1X ONCE IV Last administered on 03/23/19 19:59; Start 03/23/19 at 20:00; Stop 03/23/19 at 21:59; Status DC Sodium Chloride 1,000 ml @ 1,000 mls/hr 1X ONCE IV Last administered on 03/23/19 19:56; Start 03/23/19 at 19:15; Stop 03/23/19 at 20:14; Status DC Sodium Chloride 500 ml @ 500 mls/hr 1X ONCE IV Last administered on 03/23/19at 21:01; Start 03/23/19 at 19:15; Stop 03/23/19 at 20:14; Status DC Ondansetron HCl (Zofran) 4 mg PRN Q8HRS PRN IV NAUSEA/VOMITING; Start 03/23/19 at 19:30; Stop 03/24/19 at 19:29; Status DC Acetaminophen (Tylenol) 650 mg PRN Q4HRS PRN PO FEVER; Start 03/23/19 at 19:30; Stop 03/24/19 at 19:29; Status DC Albuterol Sulfate (Ventolin Neb Soln) 2.5 mg PRN Q4HRS PRN NEB SHORTNESS OF BREATH Last administered on 03/25/19at 13:13; Start 03/23/19 at 19:30 Insulin Human Lispro (HumaLOG) 15 units 1X ONCE SQ Last administered on 03/23/19at 23:05; Start 03/23/19 at 23:30; Stop 03/23/19 at 23:31; Status DC Insulin Human Lispro (HumaLOG) 0-7 UNITS TIDWMEALS SQ Last administered on 03/24/19at 12:11; Start 03/24/19 at 08:00; Stop 03/24/19 at 12:34; Status DC Dextrose (Dextrose 50%-Water Syringe) 12.5 gm PRN Q15MIN PRN IV SEE COMMENTS; Start 03/23/19 at 23:00; Stop 03/24/19 at 12:34; Status DC Insulin Human Lispro (HumaLOG) 25 units 1X ONCE SQ Last administered on 03/24/19at 01:50; Start 03/24/19 at 02:00; Stop 03/24/19 at 02:01; Status DC Piperacillin Sod/ Tazobactam Sod (Zosyn Per Pharmacy) 1 each PRN DAILY PRN MC SEE COMMENTS; Start 03/24/19 at 09:15; Stop 03/26/19 at 12:07; Status DC Albuterol/ Ipratropium (Duoneb) 3 ml RTQID NEB Last administered on 03/28/19at 07:30; Start 03/24/19 at 12:00 Piperacillin Sod/ Tazobactam Sod 3.375 gm/Sodium Chloride 50 ml @ 100 mls/hr Q6HRS IV Last administered on 03/26/19 05:39; Start 03/24/19 at 10:00; Stop 03/26/19 at 12:05; Status DC Amlodipine Besylate (Norvasc) 5 mg DAILY PO Last administered on 03/27/19at 08:3 1; Start 03/24/19 at 13:00 Glimepiride (Amaryl) 2 mg DAILY PO Last administered on 03/27/19at 08:33; Start 03/25/19 at 09:00 Non-Formulary Medication (Liraglutide (Victoza 3-Talat)) 1.2 mg DAILY SQ ; Start 03/25/19 at 09:00; Status UNV Losartan Potassium (Cozaar) 50 mg DAILY PO Last administered on 03/27/19 08:32; Start 03/24/19 at 13:00 Metformin HCl (Glucophage Xr) 500 mg BIDWMEALS PO Last administered on 03/27/19at 17:20; Start 03/24/19 at 12:45 Insulin Glargine (Lantus) 25 units DAILY SQ Last administered on 03/24/19 13:19; Start 03/24/19 at 12:30; Stop 03/25/19 at 09:40; Status DC Insulin Human Lispro (HumaLOG) 20 units TIDWMEALS SQ Last administered on 03/24/19 17:15; Start 03/24/19 at 17:00; Stop 03/25/19 at 09:40; Status DC Insulin Human Lispro (HumaLOG) 0-9 UNITS TIDWMEALS SQ Last administered on 03/27/19at 17:25; Start 03/24/19 at 17:00 Dextrose (Dextrose 50%-Water Syringe) 12.5 gm PRN Q15MIN PRN IV SEE COMMENTS; Start 03/24/19 at 12:30 Hydrochlorothiazide (Microzide) 12.5 mg DAILY PO Last administered on 03/27/19at 08:32; Start 03/24/19 at 13:00 Budesonide (Pulmicort) 0.5 mg RTBID NEB Last administered on 03/28/19at 07:30; Start 03/24/19 at 20:00 Guaifenesin/ Codeine Phosphate (Robitussin Ac) 15 ml PRN Q6HRS PRN PO COUGH Last administered on 03/25/19 17:42; Start 03/24/19 at 13:00 Doxycycline Hyclate (Vibra-Tab) 100 mg BID PO Last administered on 03/26/19 08:21; Start 03/24/19 at 21:00; Stop 03/26/19 at 12:05; Status DC Potassium Chloride (Klor-Con) 10 meq BIDWMEALS PO Last administered on 03/27/19 17:20; Start 03/24/19 at 18:00 Sertraline HCl (Zoloft) 100 mg BID PO Last administered on 03/27/19 20:43; Start 03/24/19 at 21:00 Ibuprofen (Motrin) 600 mg PRN Q6HRS PRN PO INFLAMMATION Last administered on 03/27/19 22:53; Start 03/24/19 at 18:45 Insulin Human Lispro (HumaLOG) 15 units 1X ONCE SQ Last administered on 03/25/19 05:36; Start 03/25/19 at 05:30; Stop 03/25/19 at 05:31; Status DC Ondansetron HCl (Zofran) 4 mg PRN Q6HRS PRN IV NAUSEA/VOMITING Last administered on 03/27/19 08:36; Start 03/25/19 at 09:30 Insulin Glargine (Lantus) 50 units DAILY SQ Last administered on 03/27/19 09:18; Start 03/25/19 at 10:00 Insulin Human Lispro (HumaLOG) 30 units TIDWMEALS SQ ; Start 03/25/19 at 12:00 Sumatriptan Succinate (Imitrex) 6 mg 1X ONCE SQ Last administered on 03/25/19 11:42; Start 03/25/19 at 10:00; Stop 03/25/19 at 10:01; Status DC Acetaminophen (Tylenol) 650 mg PRN Q4HRS PRN PO Headache Last administered on 03/25/19 15:01; Start 03/25/19 at 13:00 Lactobacillus Rhamnosus (Culturelle) 1 cap BID PO Last administered on 03/27/19 20:42; Start 03/25/19 at 21:00 Non-Formulary Medication (Liraglutide (Victoza 3-Talat)) 1.2 mg DAILY SQ Last administered on 03/27/19at 09:15; Start 03/25/19 at 16:30 Sumatriptan Succinate (Imitrex) 6 mg PRN DAILY PRN SQ headache Last administered on 03/27/19at 22:58; Start 03/25/19 at 16:15 Amoxicillin/ Clavulanate Potassium (Augmentin 875/ 125mg) 1 tab BID PO Last administered on 03/27/19at 08:32; Start 03/26/19 at 21:00; Stop 03/27/19 at 11:20; Status DC Azithromycin (Zithromax) 500 mg 1X ONCE PO ; Start 03/26/19 at 12:15; Stop 03/26/19 at 12:16; Status DC Gadoterate Meglumine (Dotarem) 14 ml 1X ONCE IVP Last administered on 03/26/19at 14:41; Start 03/26/19 at 14:30; Stop 03/26/19 at 14:31; Status DC Piperacillin Sod/ Tazobactam Sod 3.375 gm/Sodium Chloride 50 ml @ 100 mls/hr Q6HRS IV Last administered on 03/28/19at 06:07; Start 03/27/19 at 12:00 Vancomycin HCl (Vanco Per Pharmacy) 1 each PRN DAILY PRN MC SEE COMMENTS Last administered on 03/27/19at 13:50; Start 03/27/19 at 11:15 Vancomycin HCl 1.75 gm/Sodium Chloride 500 ml @ 250 mls/hr 1X ONCE IV Last administered on 03/27/19at 12:49; Start 03/27/19 at 12:00; Stop 03/27/19 at 13:59; Status DC Vancomycin HCl 1.25 gm/Sodium Chloride 250 ml @ 167 mls/hr Q12H IV Last administered on 03/28/19at 00:54; Start 03/28/19 at 01:00 Vancomycin HCl (Vancomycin Trough Level) 1 each 1X ONCE MC ; Start 03/29/19 at 00:30; Stop 03/29/19 at 00:31 Active Scripts Active Reported Potassium Chloride 10 Meq Tab.sr.24h 10 Meq PO BID Zoloft (Sertraline Hcl) 100 Mg Tablet 1 Tab PO BID Losartan-Hctz 50-12.5 Mg Tab (Losartan/Hydrochlorothiazide) 1 Each Tablet 1 Tab PO DAILY Glimepiride 2 Mg Tablet 1 Tab PO DAILY Metformin Hcl Er (Metformin Hcl) 500 Mg Tab.er.24h 500 Mg PO BIDWMEALS Amlodipine Besylate 5 Mg Tablet 10 PO DAILY Victoza 3-Talat (Liraglutide) 0.6 Mg/0.1 Ml Pen.injctr 1.2 Mg SQ DAILY Vitals/I & O Vital Sign - Last 24 Hours 03/27/19 03/27/19 03/27/19 03/27/19 11:00 11:30 15:00 15:33 Temp 98.6 98.6 98.6 98.6 Pulse 68 66 Resp 16 17 B/P (MAP) 132/80 (97) 140/84 (102) Pulse Ox 93 94 O2 Delivery Room Air Room Air 03/27/19 03/27/19 03/27/19 03/27/19 19:00 19:50 19:52 20:00 Temp 98.6 98.6 Pulse 83 Resp 18 B/P (MAP) 150/91 (110) Pulse Ox 99 98 98 O2 Delivery Room Air Room Air Room Air 03/27/19 03/28/19 03/28/19 03/28/19 23:00 03:00 07:00 07:30 Temp 98.3 98.3 98.3 98.3 98.3 98.3 Pulse 67 70 81 Resp 18 18 16 B/P (MAP) 161/99 (119) 129/74 (92) 132/83 (99) Pulse Ox 98 92 92 92 O2 Delivery Room Air Room Air Room Air Room Air O2 Flow Rate 2.0 2.0 Intake and Output 03/27/19 03/27/19 03/28/19 15:00 23:00 07:00 Intake Total 390 ml 730 ml 300 ml Output Total 0 ml Balance 390 ml 730 ml 300 ml DARRIAN LEES MD March 28, 2019 08:39
[2019-03-28] MEDS: Liraglutide (Victoza 3-Pak) 1.2 MG SQ SCH (09:00)
--- NOTE | 2019-03-28 10:02 | PDOC ---
Infectious Disease Note Subjective Subjective States her HONEYCUTT has improved. However, her eyes are also better No F/C/S/N/V/D/SOA/Rash/cough and continues to eat well. Mouth ok Hip is better ROS ROS o/w neg Vital Sign Vital Signs Vital Signs Date Time Temp Pulse Resp B/P (MAP) Pulse Ox O2 Delivery O2 Flow Rate FiO2 03/28/19 07:30 92 Room Air 03/28/19 07:00 98.3 81 16 132/83 (99) 98.3 03/28/19 03:00 2.0 Physical Exam PHYSICAL EXAM GENERAL: The patient is sitting in bed alert. Looks comfortable HEENT: Able to open eyes more today as is less light sensitive PERRL, EOMI but some discomfort - mild erythema of right eye - some better. Oral cavity, pharynx pink no thrush or swellings and moist. NECK: Supple with FROM LUNGS: CTA HEART: S1, S2. ABDOMEN: Obese, soft, nontender with bowel sounds present. EXTREMITIES: No gross edema or cyanosis.. SKIN: Warm without generalized rash. NEUROLOGIC: Alert and oriented x 3. Answers questions appropriately Labs Lab Laboratory Tests Test 03/27/19 11:22 03/27/19 16:46 03/27/19 21:19 03/28/19 04:00 Glucose (Fingerstick) 206 mg/dL (70-99) 170 mg/dL (70-99) 212 mg/dL (70-99) White Blood Count 12.1 x10^3/uL (4.0-11.0) Red Blood Count 4.62 x10^6/uL (3.50-5.40) Hemoglobin 12.8 g/dL (12.0-15.5) Hematocrit 39.3 % (36.0-47.0) Mean Corpuscular Volume 85 fL (79-100) Mean Corpuscular Hemoglobin 28 pg (25-35) Mean Corpuscular Hemoglobin Concent 33 g/dL (31-37) Red Cell Distribution Width 14.6 % (11.5-14.5) Platelet Count 500 x10^3/uL (140-400) Neutrophils (%) (Auto) 68 % (31-73) Lymphocytes (%) (Auto) 24 % (24-48) Monocytes (%) (Auto) 8 % (0-9) Eosinophils (%) (Auto) 0 % (0-3) Basophils (%) (Auto) 0 % (0-3) Neutrophils # (Auto) 8.2 x10^3uL (1.8-7.7) Lymphocytes # (Auto) 2.9 x10^3/uL (1.0-4.8) Monocytes # (Auto) 0.9 x10^3/uL (0.0-1.1) Eosinophils # (Auto) 0.1 x10^3/uL (0.0-0.7) Basophils # (Auto) 0.0 x10^3/uL (0.0-0.2) Erythrocyte Sedimentation Rate 92 (0-25) Sodium Level 138 mmol/L (136-145) Potassium Level 3.3 mmol/L (3.5-5.1) Chloride Level 99 mmol/L (98-107) Carbon Dioxide Level 29 mmol/L (21-32) Anion Gap 10 (6-14) Blood Urea Nitrogen 12 mg/dL (7-20) Creatinine 0.9 mg/dL (0.6-1.0) Estimated GFR (Cockcroft-Gault) 78.7 BUN/Creatinine Ratio 13 (6-20) Glucose Level 168 mg/dL (70-99) Calcium Level 9.5 mg/dL (8.5-10.1) Total Bilirubin 0.4 mg/dL (0.2-1.0) Aspartate Amino Transf (AST/SGOT) 38 U/L (15-37) Alanine Aminotransferase (ALT/SGPT) 66 U/L (14-59) Alkaline Phosphatase 122 U/L (46-116) Total Protein 7.3 g/dL (6.4-8.2) Albumin 2.4 g/dL (3.4-5.0) Albumin/Globulin Ratio 0.5 (1.0-1.7) Test 03/28/19 07:13 Glucose (Fingerstick) 119 mg/dL (70-99) Micro MRI brain 03/26 Impression: 1. There is no evidence of recent infarct or abnormal enhancement. There are multiple tiny scattered foci of T2 and FLAIR hyperintense signal of the supratentorial parenchyma bilaterally. White matter changes can be seen in patients with migraine headaches if corresponding history. Pattern is not particularly suggestive of an inflammatory demyelinating disease. Sequela of chronic microvascular ischemic disease would be a consideration especially if risk factors such as hypertension or diabetes. 2. 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 CT Head: Findings: There is no intra-axial mass effect, midline shift, extra-axial fluid collection. Ventricles, sulci, cisterns are within normal limits in size and configuration. Mastoid air cells are aerated. No acute calvarial abnormality is identified. IMPRESSION: 1. No acute intracranial abnormality is identified. Maxillofacial CT: FINDINGS: There are no air-fluid levels of the paranasal sinuses. Paranasal sinuses are overall aerated other than mild left sphenoid sinus mucosal thickening greatest dimension anteriorly about 0.4 cm. Ostiomeatal units are patent bilaterally. IMPRESSION: 1. There is mild left sphenoid sinus mucosal thickening. Microbiology 03/23/19 Blood Culture - Preliminary, Resulted NO GROWTH AFTER 1 DAY Objective Assessment Eye pain and discomfort has worsened today after having improved initially yesterday. Mild erythema. She states she has a h/o corneal dystrophy and has chronic pain and light sensitivity but has it has worsened today - has had 2 surgeries prior. 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 Pneumonia - better - mycoplasma and strep pneumo neg Fever - better HONEYCUTT - ? migraine/sinus Improved some- MRI reviewed - Leukocytosis - better. ? 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 Doxy possible viral Joint pains -s/p steroid injection, left hip urgent care center about 5 days ago - benign exam on PROM and palpation. XRAY - arthritis Yeast in urine, UC pending Hyponatremia Diabetes elevated FSBS - steroid - not controlled Hypertension Sleep apnea, CPAP Plan Plan of Care Given worsen of her eyes will discont Augmentin on 03/26 and started IV Vanc and Zosyn Offered antibiotic drops for possible conjunctivitis but she declined 03/26 so trying IV abx Biopsy today D/w Dr. Quiroz this am and he has not had any success trying to transfer Mrs. Corea. D/w nursing HAFSA PAREKH MD March 28, 2019 10:02
--- NOTE | 2019-03-28 10:52 | PDOC ---
PULMONARY PROGRESS NOTES Subjective NO SOA Vitals Vital Signs Date Time Temp Pulse Resp B/P (MAP) Pulse Ox O2 Delivery O2 Flow Rate FiO2 03/28/19 07:30 92 Room Air 03/28/19 07:00 98.3 81 16 132/83 (99) 98.3 03/28/19 03:00 2.0 General: Alert, No acute distress Lungs: Clear Cardiovascular: S1 Abdomen: Soft Neuro Exam: Alert Extremities: No Edema Skin: Warm, Dry Labs Laboratory Tests Test 03/26/19 12:05 03/26/19 16:56 03/26/19 20:50 03/26/19 21:40 Glucose (Fingerstick) 254 mg/dL (70-99) 136 mg/dL (70-99) 111 mg/dL (70-99) Prothrombin Time 13.8 SEC (11.7-14.0) Prothromb Time International Ratio 1.1 (0.8-1.1) Test 03/27/19 07:29 03/27/19 09:40 03/27/19 11:22 03/27/19 16:46 Glucose (Fingerstick) 161 mg/dL (70-99) 206 mg/dL (70-99) 170 mg/dL (70-99) White Blood Count 12.6 x10^3/uL (4.0-11.0) Red Blood Count 4.66 x10^6/uL (3.50-5.40) Hemoglobin 12.8 g/dL (12.0-15.5) Hematocrit 39.6 % (36.0-47.0) Mean Corpuscular Volume 85 fL (79-100) Mean Corpuscular Hemoglobin 27 pg (25-35) Mean Corpuscular Hemoglobin Concent 32 g/dL (31-37) Red Cell Distribution Width 14.8 % (11.5-14.5) Platelet Count 478 x10^3/uL (140-400) Neutrophils (%) (Auto) 71 % (31-73) Lymphocytes (%) (Auto) 20 % (24-48) Monocytes (%) (Auto) 8 % (0-9) Eosinophils (%) (Auto) 0 % (0-3) Basophils (%) (Auto) 0 % (0-3) Neutrophils # (Auto) 9.0 x10^3uL (1.8-7.7) Lymphocytes # (Auto) 2.6 x10^3/uL (1.0-4.8) Monocytes # (Auto) 1.0 x10^3/uL (0.0-1.1) Eosinophils # (Auto) 0.0 x10^3/uL (0.0-0.7) Basophils # (Auto) 0.1 x10^3/uL (0.0-0.2) Sodium Level 134 mmol/L (136-145) Potassium Level 3.2 mmol/L (3.5-5.1) Chloride Level 94 mmol/L (98-107) Carbon Dioxide Level 29 mmol/L (21-32) Anion Gap 11 (6-14) Blood Urea Nitrogen 11 mg/dL (7-20) Creatinine 0.8 mg/dL (0.6-1.0) Estimated GFR (Cockcroft-Gault) 90.1 BUN/Creatinine Ratio 14 (6-20) Glucose Level 215 mg/dL (70-99) Calcium Level 9.9 mg/dL (8.5-10.1) Total Bilirubin 0.5 mg/dL (0.2-1.0) Aspartate Amino Transf (AST/SGOT) 60 U/L (15-37) Alanine Aminotransferase (ALT/SGPT) 77 U/L (14-59) Alkaline Phosphatase 125 U/L (46-116) C-Reactive Protein, Quantitative 98.7 mg/L (0-3.3) Total Protein 8.2 g/dL (6.4-8.2) Albumin 2.6 g/dL (3.4-5.0) Albumin/Globulin Ratio 0.5 (1.0-1.7) Test 03/27/19 21:19 03/28/19 04:00 03/28/19 07:13 Glucose (Fingerstick) 212 mg/dL (70-99) 119 mg/dL (70-99) White Blood Count 12.1 x10^3/uL (4.0-11.0) Red Blood Count 4.62 x10^6/uL (3.50-5.40) Hemoglobin 12.8 g/dL (12.0-15.5) Hematocrit 39.3 % (36.0-47.0) Mean Corpuscular Volume 85 fL (79-100) Mean Corpuscular Hemoglobin 28 pg (25-35) Mean Corpuscular Hemoglobin Concent 33 g/dL (31-37) Red Cell Distribution Width 14.6 % (11.5-14.5) Platelet Count 500 x10^3/uL (140-400) Neutrophils (%) (Auto) 68 % (31-73) Lymphocytes (%) (Auto) 24 % (24-48) Monocytes (%) (Auto) 8 % (0-9) Eosinophils (%) (Auto) 0 % (0-3) Basophils (%) (Auto) 0 % (0-3) Neutrophils # (Auto) 8.2 x10^3uL (1.8-7.7) Lymphocytes # (Auto) 2.9 x10^3/uL (1.0-4.8) Monocytes # (Auto) 0.9 x10^3/uL (0.0-1.1) Eosinophils # (Auto) 0.1 x10^3/uL (0.0-0.7) Basophils # (Auto) 0.0 x10^3/uL (0.0-0.2) Erythrocyte Sedimentation Rate 92 (0-25) Sodium Level 138 mmol/L (136-145) Potassium Level 3.3 mmol/L (3.5-5.1) Chloride Level 99 mmol/L (98-107) Carbon Dioxide Level 29 mmol/L (21-32) Anion Gap 10 (6-14) Blood Urea Nitrogen 12 mg/dL (7-20) Creatinine 0.9 mg/dL (0.6-1.0) Estimated GFR (Cockcroft-Gault) 78.7 BUN/Creatinine Ratio 13 (6-20) Glucose Level 168 mg/dL (70-99) Calcium Level 9.5 mg/dL (8.5-10.1) Total Bilirubin 0.4 mg/dL (0.2-1.0) Aspartate Amino Transf (AST/SGOT) 38 U/L (15-37) Alanine Aminotransferase (ALT/SGPT) 66 U/L (14-59) Alkaline Phosphatase 122 U/L (46-116) Total Protein 7.3 g/dL (6.4-8.2) Albumin 2.4 g/dL (3.4-5.0) Albumin/Globulin Ratio 0.5 (1.0-1.7) Laboratory Tests Test 03/27/19 11:22 03/27/19 16:46 03/27/19 21:19 03/28/19 04:00 Glucose (Fingerstick) 206 mg/dL (70-99) 170 mg/dL (70-99) 212 mg/dL (70-99) White Blood Count 12.1 x10^3/uL (4.0-11.0) Red Blood Count 4.62 x10^6/uL (3.50-5.40) Hemoglobin 12.8 g/dL (12.0-15.5) Hematocrit 39.3 % (36.0-47.0) Mean Corpuscular Volume 85 fL (79-100) Mean Corpuscular Hemoglobin 28 pg (25-35) Mean Corpuscular Hemoglobin Concent 33 g/dL (31-37) Red Cell Distribution Width 14.6 % (11.5-14.5) Platelet Count 500 x10^3/uL (140-400) Neutrophils (%) (Auto) 68 % (31-73) Lymphocytes (%) (Auto) 24 % (24-48) Monocytes (%) (Auto) 8 % (0-9) Eosinophils (%) (Auto) 0 % (0-3) Basophils (%) (Auto) 0 % (0-3) Neutrophils # (Auto) 8.2 x10^3uL (1.8-7.7) Lymphocytes # (Auto) 2.9 x10^3/uL (1.0-4.8) Monocytes # (Auto) 0.9 x10^3/uL (0.0-1.1) Eosinophils # (Auto) 0.1 x10^3/uL (0.0-0.7) Basophils # (Auto) 0.0 x10^3/uL (0.0-0.2) Erythrocyte Sedimentation Rate 92 (0-25) Sodium Level 138 mmol/L (136-145) Potassium Level 3.3 mmol/L (3.5-5.1) Chloride Level 99 mmol/L (98-107) Carbon Dioxide Level 29 mmol/L (21-32) Anion Gap 10 (6-14) Blood Urea Nitrogen 12 mg/dL (7-20) Creatinine 0.9 mg/dL (0.6-1.0) Estimated GFR (Cockcroft-Gault) 78.7 BUN/Creatinine Ratio 13 (6-20) Glucose Level 168 mg/dL (70-99) Calcium Level 9.5 mg/dL (8.5-10.1) Total Bilirubin 0.4 mg/dL (0.2-1.0) Aspartate Amino Transf (AST/SGOT) 38 U/L (15-37) Alanine Aminotransferase (ALT/SGPT) 66 U/L (14-59) Alkaline Phosphatase 122 U/L (46-116) Total Protein 7.3 g/dL (6.4-8.2) Albumin 2.4 g/dL (3.4-5.0) Albumin/Globulin Ratio 0.5 (1.0-1.7) Test 03/28/19 07:13 Glucose (Fingerstick) 119 mg/dL (70-99) Medications Active Scripts Medications Dose Route/Sig Max Daily Dose Days Date Category Potassium Chloride 10 Meq Tab.sr.24h 10 Meq PO BID 03/24/19 Reported Zoloft (Sertraline Hcl) 100 Mg Tablet 1 Tab PO BID 03/24/19 Reported Losartan-Hctz 50-12.5 Mg Tab (Losartan/Hydrochlorothiazide) 1 Each Tablet 1 Tab PO DAILY 03/24/19 Reported Glimepiride 2 Mg Tablet 1 Tab PO DAILY 03/24/19 Reported Metformin Hcl Er (Metformin Hcl) 500 Mg Tab.er.24h 500 Mg PO BIDWMEALS 03/24/19 Reported Amlodipine Besylate 5 Mg Tablet 10 PO DAILY 03/23/19 Reported Victoza 3-Talat (Liraglutide) 0.6 Mg/0.1 Ml Pen.injctr 1.2 Mg SQ DAILY 03/23/19 Reported Impression . 1. Abnormal x-ray compatible with LLL pneumonia. Suspect gram-negative, possibly gram-positive. much improved by cxr. 2. Hypoxemia. 3. Leukocytosis. 4. Hyponatremia. 5. Mild protein malnutrition, present upon admission. Plan . 1. Abx per ID 2. Repeat chest x-ray 03/26 with resolving LLL pneumonia 3. possible dc in 24 hrs 4. d/w LEOBARDO HITCHCOCK MD March 28, 2019 10:52
[2019-03-28 11:00] VITALS: BP 130/90
[2019-03-28] MEDS: VANCOMYCIN PER PHARMACY MC PRN (11:47)
[2019-03-28] MEDS ORDERED: BUPIVAC MPF-EPI 0.5%-1:200000 30 ML VIAL. ONE (12:32)
[2019-03-28] MEDS ORDERED: LIDOCAINE 2% PF 5 ML VIAL. ONE (13:23)
[2019-03-28] MEDS ORDERED: fentaNYL PF VIAL 100 MCG/2 ML VIAL ONE ×2 (13:23→16:22)
[2019-03-28] MEDS ORDERED: MIDAZOLAM HCL/PF 2 MG/2 ML VIAL. ONE (13:23)
[2019-03-28] MEDS ORDERED: PROPOFOL 20 ML IV ONE (13:23)
[2019-03-28] MEDS ORDERED: FAMOTIDINE 20 MG/2 ML VIAL ONE (13:30)
[2019-03-28] MEDS ORDERED: ONDANSETRON PF 4 MG/2 ML VIAL. ONE (13:30)
[2019-03-28] MEDS ORDERED: DEXAMETHASONE SOD PHOS 4 MG/ML VIAL ONE (13:30)
--- NOTE | 2019-03-28 13:35 | PDOC ---
SURGICAL PROGRESS NOTE Subjective 53 yo F with headache, vision changes (worse on right) TO OR for right temporal artery biopsy R/R/B/A d/w pt. Risks, including, but not limited to: bleeding, infection, damage to surrounding structures, risk of anesthesia. She appears to understand, her questions are answered and she elects to proceed. Vital Signs Vital Signs Date Time Temp Pulse Resp B/P (MAP) Pulse Ox O2 Delivery O2 Flow Rate FiO2 03/28/19 12:13 Room Air 03/28/19 11:00 98.5 71 18 130/90 (103) 96 98.5 03/28/19 03:00 2.0 I&O Intake and Output 03/28/19 07:00 Intake Total 1420 ml Output Total 0 ml Balance 1420 ml Intake Oral 520 ml IV Total 900 ml Output Urine Total 0 ml # Voids 2 Labs Laboratory Tests Test 03/26/19 16:56 03/26/19 20:50 03/26/19 21:40 03/27/19 07:29 Glucose (Fingerstick) 136 mg/dL (70-99) 111 mg/dL (70-99) 161 mg/dL (70-99) Prothrombin Time 13.8 SEC (11.7-14.0) Prothromb Time International Ratio 1.1 (0.8-1.1) Test 03/27/19 09:40 03/27/19 11:22 03/27/19 16:46 03/27/19 21:19 White Blood Count 12.6 x10^3/uL (4.0-11.0) Red Blood Count 4.66 x10^6/uL (3.50-5.40) Hemoglobin 12.8 g/dL (12.0-15.5) Hematocrit 39.6 % (36.0-47.0) Mean Corpuscular Volume 85 fL (79-100) Mean Corpuscular Hemoglobin 27 pg (25-35) Mean Corpuscular Hemoglobin Concent 32 g/dL (31-37) Red Cell Distribution Width 14.8 % (11.5-14.5) Platelet Count 478 x10^3/uL (140-400) Neutrophils (%) (Auto) 71 % (31-73) Lymphocytes (%) (Auto) 20 % (24-48) Monocytes (%) (Auto) 8 % (0-9) Eosinophils (%) (Auto) 0 % (0-3) Basophils (%) (Auto) 0 % (0-3) Neutrophils # (Auto) 9.0 x10^3uL (1.8-7.7) Lymphocytes # (Auto) 2.6 x10^3/uL (1.0-4.8) Monocytes # (Auto) 1.0 x10^3/uL (0.0-1.1) Eosinophils # (Auto) 0.0 x10^3/uL (0.0-0.7) Basophils # (Auto) 0.1 x10^3/uL (0.0-0.2) Sodium Level 134 mmol/L (136-145) Potassium Level 3.2 mmol/L (3.5-5.1) Chloride Level 94 mmol/L (98-107) Carbon Dioxide Level 29 mmol/L (21-32) Anion Gap 11 (6-14) Blood Urea Nitrogen 11 mg/dL (7-20) Creatinine 0.8 mg/dL (0.6-1.0) Estimated GFR (Cockcroft-Gault) 90.1 BUN/Creatinine Ratio 14 (6-20) Glucose Level 215 mg/dL (70-99) Calcium Level 9.9 mg/dL (8.5-10.1) Total Bilirubin 0.5 mg/dL (0.2-1.0) Aspartate Amino Transf (AST/SGOT) 60 U/L (15-37) Alanine Aminotransferase (ALT/SGPT) 77 U/L (14-59) Alkaline Phosphatase 125 U/L (46-116) C-Reactive Protein, Quantitative 98.7 mg/L (0-3.3) Total Protein 8.2 g/dL (6.4-8.2) Albumin 2.6 g/dL (3.4-5.0) Albumin/Globulin Ratio 0.5 (1.0-1.7) Glucose (Fingerstick) 206 mg/dL (70-99) 170 mg/dL (70-99) 212 mg/dL (70-99) Test 03/28/19 04:00 03/28/19 07:13 03/28/19 11:31 White Blood Count 12.1 x10^3/uL (4.0-11.0) Red Blood Count 4.62 x10^6/uL (3.50-5.40) Hemoglobin 12.8 g/dL (12.0-15.5) Hematocrit 39.3 % (36.0-47.0) Mean Corpuscular Volume 85 fL (79-100) Mean Corpuscular Hemoglobin 28 pg (25-35) Mean Corpuscular Hemoglobin Concent 33 g/dL (31-37) Red Cell Distribution Width 14.6 % (11.5-14.5) Platelet Count 500 x10^3/uL (140-400) Neutrophils (%) (Auto) 68 % (31-73) Lymphocytes (%) (Auto) 24 % (24-48) Monocytes (%) (Auto) 8 % (0-9) Eosinophils (%) (Auto) 0 % (0-3) Basophils (%) (Auto) 0 % (0-3) Neutrophils # (Auto) 8.2 x10^3uL (1.8-7.7) Lymphocytes # (Auto) 2.9 x10^3/uL (1.0-4.8) Monocytes # (Auto) 0.9 x10^3/uL (0.0-1.1) Eosinophils # (Auto) 0.1 x10^3/uL (0.0-0.7) Basophils # (Auto) 0.0 x10^3/uL (0.0-0.2) Erythrocyte Sedimentation Rate 92 (0-25) Sodium Level 138 mmol/L (136-145) Potassium Level 3.3 mmol/L (3.5-5.1) Chloride Level 99 mmol/L (98-107) Carbon Dioxide Level 29 mmol/L (21-32) Anion Gap 10 (6-14) Blood Urea Nitrogen 12 mg/dL (7-20) Creatinine 0.9 mg/dL (0.6-1.0) Estimated GFR (Cockcroft-Gault) 78.7 BUN/Creatinine Ratio 13 (6-20) Glucose Level 168 mg/dL (70-99) Calcium Level 9.5 mg/dL (8.5-10.1) Total Bilirubin 0.4 mg/dL (0.2-1.0) Aspartate Amino Transf (AST/SGOT) 38 U/L (15-37) Alanine Aminotransferase (ALT/SGPT) 66 U/L (14-59) Alkaline Phosphatase 122 U/L (46-116) Total Protein 7.3 g/dL (6.4-8.2) Albumin 2.4 g/dL (3.4-5.0) Albumin/Globulin Ratio 0.5 (1.0-1.7) Glucose (Fingerstick) 119 mg/dL (70-99) 117 mg/dL (70-99) Laboratory Tests Test 03/27/19 16:46 03/27/19 21:19 03/28/19 04:00 03/28/19 07:13 Glucose (Fingerstick) 170 mg/dL (70-99) 212 mg/dL (70-99) 119 mg/dL (70-99) White Blood Count 12.1 x10^3/uL (4.0-11.0) Red Blood Count 4.62 x10^6/uL (3.50-5.40) Hemoglobin 12.8 g/dL (12.0-15.5) Hematocrit 39.3 % (36.0-47.0) Mean Corpuscular Volume 85 fL (79-100) Mean Corpuscular Hemoglobin 28 pg (25-35) Mean Corpuscular Hemoglobin Concent 33 g/dL (31-37) Red Cell Distribution Width 14.6 % (11.5-14.5) Platelet Count 500 x10^3/uL (140-400) Neutrophils (%) (Auto) 68 % (31-73) Lymphocytes (%) (Auto) 24 % (24-48) Monocytes (%) (Auto) 8 % (0-9) Eosinophils (%) (Auto) 0 % (0-3) Basophils (%) (Auto) 0 % (0-3) Neutrophils # (Auto) 8.2 x10^3uL (1.8-7.7) Lymphocytes # (Auto) 2.9 x10^3/uL (1.0-4.8) Monocytes # (Auto) 0.9 x10^3/uL (0.0-1.1) Eosinophils # (Auto) 0.1 x10^3/uL (0.0-0.7) Basophils # (Auto) 0.0 x10^3/uL (0.0-0.2) Erythrocyte Sedimentation Rate 92 (0-25) Sodium Level 138 mmol/L (136-145) Potassium Level 3.3 mmol/L (3.5-5.1) Chloride Level 99 mmol/L (98-107) Carbon Dioxide Level 29 mmol/L (21-32) Anion Gap 10 (6-14) Blood Urea Nitrogen 12 mg/dL (7-20) Creatinine 0.9 mg/dL (0.6-1.0) Estimated GFR (Cockcroft-Gault) 78.7 BUN/Creatinine Ratio 13 (6-20) Glucose Level 168 mg/dL (70-99) Calcium Level 9.5 mg/dL (8.5-10.1) Total Bilirubin 0.4 mg/dL (0.2-1.0) Aspartate Amino Transf (AST/SGOT) 38 U/L (15-37) Alanine Aminotransferase (ALT/SGPT) 66 U/L (14-59) Alkaline Phosphatase 122 U/L (46-116) Total Protein 7.3 g/dL (6.4-8.2) Albumin 2.4 g/dL (3.4-5.0) Albumin/Globulin Ratio 0.5 (1.0-1.7) Test 03/28/19 11:31 Glucose (Fingerstick) 117 mg/dL (70-99) Problem List Problems Medical Problems: (1) Cough Status: Acute (2) Hyperglycemia Status: Acute (3) Lobar pneumonia Status: Acute (4) Severe sepsis Status: Acute (5) Shortness of breath Status: Acute (6) Urinary tract infection Status: Acute ADI GRIFFIN MD March 28, 2019 13:35
[2019-03-28] MEDS ORDERED: IV RINGERS,LACTATED 1000ML 1,000 ML IV SCH (13:56)
[2019-03-28] MEDS ORDERED: fentaNYL PF VIAL 100 MCG/2 ML VIAL IV PRN ×2 (14:00)
[2019-03-28] MEDS ORDERED: LIDOCAINE 1% PF 2 ML VIAL. ID PRN (14:00)
[2019-03-28] MEDS ORDERED: PROCHLORPERAZINE 10 MG/2 ML VIAL. IV PRN (14:00)
[2019-03-28] MEDS ORDERED: ONDANSETRON PF 4 MG/2 ML VIAL. IV PRN ×2 (14:00→15:00)
[2019-03-28] MEDS ORDERED: BUPIVAC MPF-EPI 0.5%-1:200000 30 ML VIAL. INJ ONE (14:33)
[2019-03-28] MEDS ORDERED: DESFLURANE 31 TO 60 MINUTES IH ONE (14:51)
[2019-03-28] MEDS ORDERED: 0.9 % SODIUM CHLORIDE 10 ML DISP.SYRIN. IV PRN (15:00)
--- NOTE | 2019-03-28 15:11 | PDOC4 ---
OPERATIVE NOTE Date: Date: March 28, 2019 Pre-Op Diagnosis: Headache, concern for temporal arteritis Post-Op Diagnosis: same Procedure Performed: Right temporal artery biopsy Surgeon: Fox Griffin Anesthesia Type: GETA plus local Blood Loss: 10 Specimans Obtained: temporal artery Findings: normal anatomy Complications: none Operative Note: After obtaining informed consent, patient was taken to OR, induced under General anesthetic, and prepped in the usual fashion right temporal area. Temporal pulse palpated and longitudinal incision made overlying this with cautery. Pulsatile vessel identified. Dissected out for 2 cm. Proximal, distal and small branch controlled with 3 0 vicryl and artery excised sharply and sent to pathology for evaluation. Skin repaired with 4 0 monocryl. Dressing placed. Patient tolerated procedure well and sent to PACU in stable condition. All counts correct. No immediate complications. ADI GRIFFIN MD March 28, 2019 15:11
[2019-03-28] MEDS ORDERED: predniSONE 10 MG TABLET PO ONE (15:30)
--- NOTE | 2019-03-28 15:56 | NUR ---
[facility] following Pt. [facility] still full and unable to take Pt. CALLIE also notified [facility] an [facility] is not able to admit pt and their IPC is full. [facility] declined. [facility] has accepted pt and has a room available. Pt currently out of room for biopsy. RN can call report at [facility] transfer line: [phone] and packet on chart with completed EMS form. [facility] notified pt's family, Carmelina and Caryl regarding pt's acceptance at [facility] and they are agreeable. Discussed with RN and Physician. Addendum: 03/28/19 at 1611 by BRANDEE BARRAZA SW following Pt. [facility] unable to arrange transportation at this time as pt is still down for her procedure. RN aware to call [facility] to set up transport when pt is able to transfer. [facility] notified pt's cousin, Carmelina regarding plans and she reported she will notify other family members. She is also reported she is on her way. Discussed with RN and Misha seed and fertilizer specialist at [facility].
--- NOTE | 2019-03-28 16:01 | PDOC ---
PROGRESS NOTES Assessment Assessment Increased headaches recently. IIP not likely. Temporal A arteritis in differential. Visual disturbance. Diabetic retinopathy. Fever. Neck pain. Leukocytosis. Pneumonia. Elevated ESR, 121. UTI. Hyperglycemia, glucose 501. DM. HTN. Obesity. Anxiety, high level. RECOMMENDATIONS/PLAN: Control hyperglycemia. Discussed with patient about temporal A biopsy on 03/26/19, but she stated needing to discuss with her family. Discussed with her again and also discussed with her family on the phone in all detail on for over 40 minutes on 03/27/19, but her family had numerous questions and concerns about retinopathy and numerous other concerns and issues and requested transfer to . patient then agreed biopsy and Surgery was consulted on 03/27/19 regarding possible biopsy that was scheduled in PM on 03/28/19. Ophthalmology exam needed, but no inpatient services in [facility]. Continue ID treatment. Treat medical diseases. Consulted [facility] to help transfer to or [facility], but , [facility] and [facility] did not accept her. Discussed with her and her son-in-law in all detail again at bedside in A.M on 03/28/19. Brain MRI w/wo on 03/26/19: No acute findings. No evidence of CVA, brain tumor, signs to suggest IIP, etc. HISTORY OF THE PRESENT ILLNESS: This is a 53-year-old AA female with history of diabetes. She has had 4 days of progressive shortness of breath feeling extremely weak. She has continuous shortness of breath and cough. She tried some vcbf-nta-pvsosal meds but that did not seem to work. Imaging studies showing a left lower lobe pneumonia. She complained headaches on 03/25/19 stating she had headaches in the past several times a month but not as severe as this time. So Neurology was requested for consultation on 03/25/19 and she stated her headaches improved at the time of neurology consult. No symptoms of projectile vomiting, diplopia, ataxia, focalized numbness or weakness. She had chronic blurred vision. She stated she still have headaches but improved some on 03/27/19. Her family had numerous questions on the phone and many of those were ID and ophthalmological questions. PAST MEDICAL HISTORY: Diabetes, hypertension, bilateral lower extremity fractures. PAST SURGERY HISTORY: No major surgery recently. ALLERGIES: LISINOPRIL AND OXYCODONE. FAMILY HISTORY: Diabetes. SOCIAL HISTORY: She denied drink, smoking or using drugs. 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 MEDICATIONS: Refer to [facility] REVIEW OF SYSTEMS: Constitutional: Obese. Head: No traumatic brain or head injury. Skin: No edema, or rash. Ear: No infection. Eyes: Chronic blurred vision. Nose: No bleeding or purulent discharges. Hearing: No hearing decrease. Neck: No injury. Breast: No history of cancer, masses,or discharges. Cardiac: HTN. Pulmonary: No COPD. GI: No GI ulcer, GI bleeding. Urinary/genital: UTI. Endocrinologic: Diabetes Mellitus, obesity. Skeletomuscular: No muscular atrophy. Neurological: see HP. Psychiatric: Denies drug use/abuse. Otherwise, not [id number] review of systems. PHYSICAL EXAMINATION: General appearance is in subacute distress. HEENT: Normocephalic and nontraumatic. Eyes, nose, ears, and throat are unr emarkable. Neck is supple. No lymphadenopathy. No bruits are heard over the carotid artery. No crepitus. Cardiovascular: S1, S2, regular rate and rhythm. Pulmonary: decreased to auscultation bilaterally. Abdomen: Bowel sounds are positive. Abdomen is soft, nontender, and nondistended. Extremities: No rash, lesions, or edema. No restriction of range of motion NEUROLOGICAL EXAMINATION: Alert Oriented to time, place and person. PERRL. EOMI. CN: no focal findings. Muscle tone: within normal. Muscle strength: 5- DTR: 2 Plantar reflex: Flexor response bilaterally Gait: not examined in bed. Sensory exam: no abnormal findings. No cerebellar signs elicited. F-T-N test fine. Objective Objective Vital Signs Date Time Temp Pulse Resp B/P (MAP) Pulse Ox O2 Delivery O2 Flow Rate FiO2 03/28/19 15:07 98.9 90 26 109/56 92 Room Air 10 98.9 Intake and Output 03/28/19 07:00 Intake Total 1420 ml Output Total 0 ml Balance 1420 ml Intake Oral 520 ml IV Total 900 ml Output Urine Total 0 ml # Voids 2 Vitals Signs Vitals VS - Last 72 Hours, by Label Date Time Temp Pulse Resp B/P (MAP) Pulse Ox O2 Delivery O2 Flow Rate FiO2 03/28/19 15:07 98.9 90 26 109/56 92 Room Air 10 98.9 03/28/19 13:49 98.5 65 15 160/94 96 Room Air 2.0 98.5 03/28/19 12:13 Room Air 03/28/19 11:00 98.5 71 18 130/90 (103) 96 Room Air 98.5 03/28/19 07:30 92 Room Air 03/28/19 07:00 98.3 81 16 132/83 (99) 92 Room Air 98.3 03/28/19 03:00 98.3 70 18 129/74 (92) 92 Room Air 2.0 98.3 03/27/19 23:00 98.3 67 18 161/99 (119) 98 Room Air 2.0 98.3 03/27/19 20:00 Room Air 03/27/19 19:52 98 Room Air 03/27/19 19:50 98 Room Air 03/27/19 19:00 98.6 83 18 150/91 (110) 99 98.6 03/27/19 15:33 Room Air 03/27/19 15:00 98.6 66 17 140/84 (102) 94 98.6 03/27/19 11:30 Room Air 03/27/19 11:00 98.6 68 16 132/80 (97) 93 98.6 03/27/19 08:32 78 146/88 03/27/19 08:31 78 146/88 03/27/19 08:00 Room Air 03/27/19 07:41 94 Room Air 03/27/19 07:00 98.2 63 17 159/87 (111) 95 98.2 Laboratory Laboratory Laboratory Tests Test 03/27/19 16:46 03/27/19 21:19 03/28/19 04:00 03/28/19 07:13 Glucose (Fingerstick) 170 mg/dL (70-99) 212 mg/dL (70-99) 119 mg/dL (70-99) White Blood Count 12.1 x10^3/uL (4.0-11.0) Red Blood Count 4.62 x10^6/uL (3.50-5.40) Hemoglobin 12.8 g/dL (12.0-15.5) Hematocrit 39.3 % (36.0-47.0) Mean Corpuscular Volume 85 fL (79-100) Mean Corpuscular Hemoglobin 28 pg (25-35) Mean Corpuscular Hemoglobin Concent 33 g/dL (31-37) Red Cell Distribution Width 14.6 % (11.5-14.5) Platelet Count 500 x10^3/uL (140-400) Neutrophils (%) (Auto) 68 % (31-73) Lymphocytes (%) (Auto) 24 % (24-48) Monocytes (%) (Auto) 8 % (0-9) Eosinophils (%) (Auto) 0 % (0-3) Basophils (%) (Auto) 0 % (0-3) Neutrophils # (Auto) 8.2 x10^3uL (1.8-7.7) Lymphocytes # (Auto) 2.9 x10^3/uL (1.0-4.8) Monocytes # (Auto) 0.9 x10^3/uL (0.0-1.1) Eosinophils # (Auto) 0.1 x10^3/uL (0.0-0.7) Basophils # (Auto) 0.0 x10^3/uL (0.0-0.2) Erythrocyte Sedimentation Rate 92 (0-25) Sodium Level 138 mmol/L (136-145) Potassium Level 3.3 mmol/L (3.5-5.1) Chloride Level 99 mmol/L (98-107) Carbon Dioxide Level 29 mmol/L (21-32) Anion Gap 10 (6-14) Blood Urea Nitrogen 12 mg/dL (7-20) Creatinine 0.9 mg/dL (0.6-1.0) Estimated GFR (Cockcroft-Gault) 78.7 BUN/Creatinine Ratio 13 (6-20) Glucose Level 168 mg/dL (70-99) Calcium Level 9.5 mg/dL (8.5-10.1) Total Bilirubin 0.4 mg/dL (0.2-1.0) Aspartate Amino Transf (AST/SGOT) 38 U/L (15-37) Alanine Aminotransferase (ALT/SGPT) 66 U/L (14-59) Alkaline Phosphatase 122 U/L (46-116) Total Protein 7.3 g/dL (6.4-8.2) Albumin 2.4 g/dL (3.4-5.0) Albumin/Globulin Ratio 0.5 (1.0-1.7) Test 03/28/19 11:31 Glucose (Fingerstick) 117 mg/dL (70-99) Microbiology 03/23/19 Blood Culture - Preliminary, Resulted NO GROWTH AFTER 4 DAYS 03/23/19 Urine Culture - Final, Complete 03/23/19 Urine Culture Result 1 (RITU) - Final, Complete Medication Medications Current Medications Bupivacaine HCl/ Epinephrine Bitart (Sensorcain-Mpf Epi 0.5%-1:685252) 30 ml STK-MED ONCE .ROUTE ; Start 03/28/19 at 12:32; Stop 03/28/19 at 13:32; Status DC Bupivacaine HCl/ Epinephrine Bitart (Sensorcain-Mpf Epi 0.5%-1:377355) 30 ml STK-MED ONCE INJ Last administered on 03/28/19at 14:33; Start 03/28/19 at 14:33; Stop 03/28/19 at 14:53; Status DC Desflurane (Suprane) 30 ml STK-MED ONCE IH ; Start 03/28/19 at 14:51; Stop 03/28/19 at 14:52; Status DC Dexamethasone Sodium Phosphate (Decadron) 4 mg STK-MED ONCE .ROUTE ; Start 03/28/19 at 13:30; Stop 03/28/19 at 13:31; Status DC Famotidine (Pepcid Vial) 20 mg STK-MED ONCE .ROUTE ; Start 03/28/19 at 13:30; Stop 03/28/19 at 13:31; Status DC Fentanyl Citrate (Fentanyl 2ml Vial) 25 mcg PRN Q5MIN PRN IV MILD PAIN 1-3; Start 03/28/19 at 14:00; Stop 03/29/19 at 13:59 Fentanyl Citrate (Fentanyl 2ml Vial) 50 mcg PRN Q5MIN PRN IV MODERATE TO SEVERE PAIN; Start 03/28/19 at 14:00; Stop 03/29/19 at 13:59 Fentanyl Citrate (Fentanyl 2ml Vial) 100 mcg STK-MED ONCE .ROUTE ; Start 03/28/19 at 13:23; Stop 03/28/19 at 13:24; Status DC Lidocaine HCl (Lidocaine Pf 2% Vial) 5 ml STK-MED ONCE .ROUTE ; Start 03/28/19 at 13:23; Stop 03/28/19 at 13:24; Status DC Lidocaine HCl (Xylocaine-Mpf 1% 2ml Vial) 2 ml PRN 1X PRN ID PRIOR TO IV START; Start 03/28/19 at 14:00; Stop 03/29/19 at 13:59 Midazolam HCl (Versed) 2 mg STK-MED ONCE .ROUTE ; Start 03/28/19 at 13:23; Stop 03/28/19 at 13:24; Status DC Ondansetron HCl (Zofran) 4 mg PRN Q6HRS PRN IV NAUSEA/VOMITING; Start 03/28/19 at 14:00; Stop 03/29/19 at 13:59 Ondansetron HCl (Zofran) 4 mg PRN Q6HRS PRN IV NAUESA, 1ST CHOICE; Start 03/28/19 at 15:00; Status Cancel Ondansetron HCl (Zofran) 4 mg STK-MED ONCE .ROUTE ; Start 03/28/19 at 13:30; Stop 03/28/19 at 13:31; Status DC Prednisone (Prednisone) 50 mg 1X ONCE PO ; Start 03/28/19 at 15:30; Stop 03/28/19 at 15:31; Status DC Prochlorperazine Edisylate (Compazine) 5 mg PACU PRN PRN IV NAUSEA, MRX1; Start 03/28/19 at 14:00; Stop 03/29/19 at 13:59 Propofol 20 ml @ As Directed STK-MED ONCE IV ; Start 03/28/19 at 13:23; Stop 03/28/19 at 13:24; Status DC Ringer's Solution 1,000 ml @ 30 mls/hr Q24H IV ; Start 03/28/19 at 13:56; Stop 03/29/19 at 01:55 Sodium Chloride (Normal Saline Flush) 3 ml QSHIFT PRN IV AFTER MEDS AND BLOOD DRAWS; Start 03/28/19 at 15:00 Vancomycin HCl (Vancomycin Trough Level) 1 each 1X ONCE MC ; Start 03/29/19 at 00:30; Stop 03/29/19 at 00:31 Vancomycin HCl 1.25 gm/Sodium Chloride 250 ml @ 167 mls/hr Q12H IV Last administered on 03/28/19at 00:54; Start 03/28/19 at 01:00 Comment Review of Relevant I have reviewed the following items tete (where applicable) has been applied. HARMAN CONNER MD March 28, 2019 16:01
--- NOTE | 2019-03-28 16:30 | NUR ---
PATIENT RETURNED TO THE UNIT PER BED,PATIENT DROWSY BUT EASILY AROUSED, DRESSING WITH SHADOW DRAINAGE TO RIGHT TEMPORAL AREA, OUTLINE WITH A PEN PER THIS GRINDER SET UP OPERATOR THREAD TOOL. ADA DIET OFFERED PATIENT INFORMS THIS GRINDER SET UP OPERATOR THREAD TOOL OF BEING HUNGARY, BLOOD SUGAR LEVEL 185, WILL TREAT ACCORDINGLY.
[2019-03-28 17:00] VITALS: BP 109/70
[2019-03-28] MEDS ORDERED: predniSONE 10 MG TABLET PO SCH (17:00)
[2019-03-28] MEDS: metFORMIN XR 500 MG TAB.ER.24H PO SCH ×2 (17:00→17:41)
[2019-03-28] MEDS: POTASSIUM CHLORIDE 10 MEQ TABLET.ER. PO SCH ×2 (17:00→17:39)
[2019-03-28] MEDS ORDERED: PRED50TA PO (17:15)
[2019-03-28] MEDS: hydroCHLOROthiazide 12.5 MG CAPSULE PO SCH (17:39)
[2019-03-28] MEDS: GLIMEPIRIDE 2 MG TABLET. PO SCH (17:39)
[2019-03-28] MEDS: SERTRALINE 50 MG TABLET. PO SCH (17:40)
[2019-03-28] MEDS: LOSARTAN POTASSIUM 50 MG TABLET. PO SCH (17:40)
[2019-03-28 17:41] VITALS: BP 151/83
[2019-03-28] MEDS: LACTOBACILLUS RHAMNOSUS GG 1 CAPSULE. PO SCH (17:41)
[2019-03-28] MEDS: amLODIPine BESYLATE 5 MG TABLET PO SCH (17:41)
[2019-03-28] MEDS: INSULIN GLARGINE 300 UNITS/3 ML INSULN.PEN. SQ SCH (17:54)
--- NOTE | 2019-03-28 18:45 | NUR ---
REPORT CALLED TO CHICHO AT [facility], QUESTIONS AND CONCERNS ANSWERED, WILL CALL FOR TRANSPORT FROM [facility] FIRE DEPARTMENT, PATIENT IN BED AT THIS TIME, FAMILY MEMBER AT THE BEDSIDE.
--- NOTE | 2019-03-28 20:04 | NUR ---
DELIVERY OF GUTIERREZ IN A WHITE COFFEE MUG DECORATED WITH YELLOW BEES GIVEN TO THE PARAMEDICS PRIOR TO PATIENT LEAVING THE FACILITY.
--- NOTE | 2019-03-28 20:04 | NUR ---
PATIENT LEAVES THE UNIT ON STRETCHER ACCOMPANIED BY 2 PARAMEDICS AND 2 FAMILY MEMBERS, EMOTIONAL SUPPORT GIVEN.
--- NOTE | 2019-04-01 15:05 | PATHOLOGY ---
[facility] Accession Number: [id number] . 01 Material submitted: . artery - RIGHT TEMPORAL ARTERY BIOPSY. Modifiers: right, temporal . 01 Clinical history: . Headache . 02 Diagnosis: Artery, right temporal, biopsy: - Segment of artery with no significant histopathologic diagnosis. ([facility] 04/01/2019) [facility]/04/01/2019 . 02 Electronically signed: . Sawyer Savage MD, Pathologist NPI- [id number] . 01 Gross description: . The specimen is received in formalin, labeled "Anmol, Silvia, right temporal artery", is a roldan, rubbery tissue measuring 0.7 x 0.5 x 0.2 cm. The specimen is entirely submitted in toto (to be sectioned at embedding) in A1. ([facility]; 03/31/2019) [facility] . 02 Pathologist provided ICD-10: R51 . 02 CPT . 135537 Specimen Comment: A courtesy copy of this report has been sent to Specimen Comment: [phone], , , . Specimen Comment: Report sent to ,DR NAVAS,DR RASMUSSEN / DR MATHIAS Performed at: 01 [facility] [address] [facility] [address], [place] [id number] MD Reinaldo Montanez MD Phone: [phone] Performed at: 02 [facility] [address] [id number] MD Luoie Hager MD Phone: [phone]
== END 2019-03-28 20:04 | disposition short-term general hospital (02) | DRG 853 ==
LOC: ER 17:53 → 6 SOUTH 19:52 → 5 NORTH 03-24 18:40
PROVIDERS: ADMIT Internal Medicine; ATTEND Internal Medicine
PROC: 03BS0ZX Excision of Right Temporal Artery, Open Approach, Diagnostic (ICD-10-PCS; principal; 2019-03-28 14:00)
DX: A41.9 Sepsis, unspecified organism (principal); J18.1 Lobar pneumonia, unspecified organism; E87.1 Hypo-osmolality and hyponatremia; E44.1 Mild protein-calorie malnutrition; N39.0 Urinary tract infection, site not specified; E87.2 Acidosis; R65.20 Severe sepsis without septic shock; Z88.8 Allergy status to other drugs, medicaments and biological substances; E11.319 Type 2 diabetes mellitus with unspecified diabetic retinopathy without macular edema; E11.65 Type 2 diabetes mellitus with hyperglycemia; E66.9 Obesity, unspecified; M31.6 Other giant cell arteritis; E86.0 Dehydration; F41.9 Anxiety disorder, unspecified; G43.909 Migraine, unspecified, not intractable, without status migrainosus; G47.30 Sleep apnea, unspecified; G89.29 Other chronic pain; I10 Essential (primary) hypertension; K64.9 Unspecified hemorrhoids; R09.02 Hypoxemia; Z80.0 Family history of malignant neoplasm of digestive organs; Z82.49 Family history of ischemic heart disease and other diseases of the circulatory system; Z91.81 History of falling; Z83.3 Family history of diabetes mellitus; Z68.38 Body mass index [BMI] 38.0-38.9, adult
CPT/HCPCS: 36415; 70450; 70486; 70553; 71045; 71046; 73502; 80048; 80053; 81001; 82553; 82962; 83036; 83605; 83735; 83880; 84484; 85007; 85025; 85610; 85651; 86140; 86738; 87040; 87086; 87449; 87804; 88305; 93005; 94640; 94760; 96365; 96367; 96368; 96372; 96375; A7015; A9575; J1100; J1815; J1956; J2001; J2250; J2405; J2543; J2704; J3010; J3030; J3370; J3490; J7030; J7040; J7050; J7120; J7512; J7613; J7620; J7626; 97535; 99285-25